=== PATIENT | male | born 1945 | race Caucasian/White ===

== ENCOUNTER 2025-03-25 14:05 | Inpatient (IN) | payer OTHER, SELFPAY ==
[2025-03-25] VITALS (24 sets, daily range): BP systolic 104–139; BP diastolic 32–96; PULSE 2–88; BMI 22.0
--- NOTE | 2025-03-25 14:25 | CON.CAR ---
Addendum entered and electronically signed by Alvaro Ortiz DO 03/25/25 17:38:
[place]-Ac catheter sedation shows severely elevated pulmonary filling pressures with preserved cardiac index on thermodilution and Shawna equation.
We will start a Bumex drip for aggressive diuresis.
Plan for cardiac catheterization and PCI of the LAD when stabilized from a hemodynamic standpoint and renal function has returned to baseline.
Given the clinical context of multiple episodes of heart failure with preserved ejection fraction, acute on chronic renal disease, pulmonary hypertension and conduction abnormality (first-degree AV block, left bundle branch block), differential
diagnosis must include infiltrative disease including amyloidosis.
Check renal ultrasound to rule out obstruction.
Check urine protein to creatinine ratio.
Based on response, we should consider SPEP/UPEP with immunofixation.
Original Note:
Consultation
Consultation Request
Date/Time Consultation Requested: 03/25/2025; 14:26
Date/Time Consultation Performed: 03/25/2025; 14:27
Requesting Provider: Anil Corley M.D.
Performing Provider: Alvaro Ortiz D.O.
Reason for Consultation: Hypoxic respiratory failure, HFpEF, Hx of SAVR, flash pulmonary edema, CAD.
Medical History
-
Chief Complaint: Transfer from [facility] for higher level of care.
History of Present Illness:
79 y/o male with a history of severe aortic valve stenosis s/p bioprosthetic SAVR (#29 Trifecta, 2008), HTN, HLD, NIDDM, CKD3a (baseline creatinine 1.9), a history of bladder CA in remission and multiple admissions for HFpEF transferred from [facility].
The patient presented to [facility] on 03/19/2025 with flash pulmonary edema. He was placed on non-invasive BiPAP ventilation and diuretics were administered with limited efficacy. The patient lapsed into atrial fibrillation and was stated on therapeutic
heparin (in addition to aspirin and clopidogrel). He did have mild hemoptysis. Pharmacologic SPECT suggested an ischemic component. Cardiac catheterization showed severe pulmonary hypertension with a severely elevated PCWP (27 mmHg) and an 80%
obstructive (FFR = 0.67), calcified mLAD lesion. The patient's renal function has deteriorated and creatinine has risen from 1.9 to 2.6. He was found to be acute on chronically anemic and received a transfusion of 1 unit of PRBCs on 03/24/2025. In
spite of these interventions, the patient remains on 60 L of supplemental hi-flow oxygen.
On review of the patient's outpatient cardiology records, he usually sees Dr. Virgen. Dr. Virgen reports that the patient was stable in November of this year, but had several HFpEF admission in the preceeding year. Interestingly, the patient had
evidence of severe, exertional hypoxia (desaturation to 81-83% with activity) and had been referred to pulmonology for further evaluation of primary pulmonary disease. According to records, the patient underwent PFT's and 6 minute walk test in
December. There was minimal airway obstruction, mostly confined to the small airways. He walked 316 meters with an O2 erick of 91%. CT chest has shown tiny pulmonary nodules, but no evidence of extensive emphysema or parenchymal pulmonary disease.
DATA:
TTE, 03/20/2025:
1. Mildly dilated left atrium.
2. Mild aortic valve sclerosis without stenosis.
3. Moderate mitral valve regurgitation.
4. Abnormal septal motion consistent with left bundle branch block.
5. Left ventricular ejection fraction is estimated 50-55%.
6. Left ventricular systolic function is low normal.
Pharmacologic SPECT, 03/22/2025:
Abnormal myocardial perfusion imaging suggestive of inferoseptal ischemia and apical scar with an ejection fraction reduced at 46%.
Cardiac catheterization, 03/23/2025:
Hemodynamics:
RA = */14/11
RV = 69/9/13
PA = 67/32/47
PCWP = */35/27
LV = 139/12/21
AO = 134/32/76
Cardiac output (Thermo) = 4.87
Cardiac index (Thermo) = 2.95
Cardiac output (Shawna) = 4.15
Cardiac index (Shawna) 2.52
PVR (Thermo) = 4.11
PVR (Shawna) = 4.8
Coronary angiogram:
Dominance = right.
LMCA = moderate calcification, distal 20% stenosis.
LAD = normal size vessel giving rise to 1 diagonal before wrapping around the apex. 20% ostial stenosis. 80% and 60% proximal stenoses (FFr = 0.67). 10% and 20% mid stenosis. 30% stenosis in the ostium/proximal margin of D1.
RI = 20% ostial stenosis.
LCx = moderate tortuosity. 50-60% stenosis in the proximal margin. 20% stenosis in the ostial/proximal OM1.
RCA = 10% and 20% proximal stenosis, 20% and 30% mid stenosis, 40% distal stenosis, luminal irregularities in the PDA.
Past Medical History
Past Medical History: CAD, Cancer (Bladder CA in remission - yearly cystoscopy.), CHF (Acute on Chronic HFpEF.), HTN, Hypercholesterolemia, NIDDM, Renal Failure and Valvular Disease (Severe aortic valve stenosis, moderate mitral regurgitation.)
Past Surgical History: Cardiac (#29 Trifecta AVR for severe , 2009 @ [facility].) and Urological (Routine cystoscopy for bladder CA surveillance.)
Social History
Alcohol: Occasional
Drug: None
Personal:
Living: With Family
Employment: Retired
Family History
Family History: Reviewed & Not Pertinent
Allergies / Home Medications
Allergy/AdvReac Type Severity Reaction Status Date / Time
No Known Allergies Allergy Unverified 04/13/10 17:50
�Medication �Instructions �Recorded �Confirmed �Type
allopurinol 300 mg tablet 300 mg PO DAILY 03/25/25 History
amlodipine 5 mg tablet 5 mg PO BID 03/25/25 History
carvedilol 12.5 mg tablet 12.5 mg PO BID 03/25/25 History
empagliflozin 10 mg tablet 10 mg PO DAILY 03/25/25 History
ezetimibe 10 mg-simvastatin 40 mg 1 tab PO HS 03/25/25 History
tablet
gabapentin 100 mg tablet 100 mg PO TID 03/25/25 History
hydralazine 50 mg tablet 50 mg PO TID 03/25/25 History
repaglinide 1 mg tablet 1 mg PO BID@08,17 03/25/25 History
Review of Systems
-
History Source: Patient
Constitutional: No Symptoms
EENT: No Symptoms
Respiratory: Hemoptysis and Trouble Breathing
Cardiac: No Symptoms
Abdomen/GI: No Symptoms
: No Symptoms
Musculoskeletal: No Symptoms
Skin: No Symptoms
Physical Exam
Physical Exam
General: Well Developed
HEENT: Normocephalic, Anicteric and Moist Mucous Membranes
Respiratory: Other (Decreased/tubular in the bilateral bases.)
Cardiac: S1/S2, Regular Rhythm and JVD
Breast: Deferred by me
GI: Soft, Non Tender, Non Distended and Normal Bowel Sounds
Rectal: Deferred by Provider
Musculoskeletal: No Clubbing, No Cyanosis and Edema
Skin: Warm and Dry
Neuro: AO x 3
Hematologic/Lymphatic: No Lymphadenopathy
Psych: Calm
Impression / Plan
-
Impression/Plan: 79 y/o male with extensive past medical history admitted with flash pulmonary edema/hypoxic respiratory failure, found to have severely elevated filling pressures, prior exertional oxygen desaturation and worsening anemia and renal
function with lackluster diuresis and new diagnosis of occlusive CAD.
#Hypoxic respiratory failure
-Acute on chronic.
-Multifactorial. Obvious component of HFpEF. Outpatient notes suggest there is a component of primary pulmonary disease.
-Patient would benefit from placement of [place]-Ac PA catheter for invasive hemodynamic monitoring and deciding if the patient requires inotropic support.
-Diuresis TBD after PA catheter placement.
-Pulmonary/critical care consult. No role for repeat PFT's in this acute setting.
#HFpEF
-Acute on chronic.
-Echo report reviewed. Mean gradient of the aortic valve was 13 mmHg. Moderate MR.
-Repeat TTE.
-PA catheter/diuresis/inotropic support as above.
-GDMT on hold during acute decompensation.
#CAD
-New diagnosis.
-Cardiac catheterization at [facility] shows mLAD lesion.
-HF/pulm edema seems out of proportion to CAD.
-Revascularization when stabilized.
#CKD
-Acute on chronic.
-Creatinine up to 2.6 at [facility].
-Likely cardiorenal, but PA catheter will help us assess volume status and guide therapy.
-Hold ACEI/ARB/ARNi/MRA/SGLT2i.
#Anemia
-Chronic (per report).
-DDx includes acute blood loss anemia, anemia of kidney disease, precursor deficiency, hemolysis, myelodysplastic syndrome.
-Check indices, Fe levels, B12, folate, thiamine, reticulocyte count, peripheral smear.
-Keep H/H > 8/24.
Critical Care Time = 55 minutes.
Data Reviewed
-
EKG: Report Reviewed by me
Radiology: Report Reviewed by me
CT Scan: Report Reviewed by me
Medical Tests (Nuc Med, Echo etc): Image Personally Visualized and interpreted, Report Reviewed by me and Discussed with Physician
Labs: Labs Reviewed by me, Discussed with Physician and Discussed with Patient
Old Records: Reviewed
[2025-03-25 14:28] LABS: Glucose - Point of Care 306 mg/dl (70-99)
--- NOTE | 2025-03-25 14:28 | CON.INTV ---
Consultation
Consultation Request
Date/Time Consultation Requested: 03/25/2025
Date/Time Consultation Performed: 03/25/2025
Requesting Provider: Dr. Ortiz
Performing Provider: Dr. Lebron Dailey
Reason for Consultation: Acute hypoxemic respiratory failure
Medical History
-
History of Present Illness:
79-year-old man with past medical history significant for heart failure, mitral valve prolapse, prior aortic stenosis status post AVR in 2008, type 2 diabetes, COPD on 2 to 4 L supplemental oxygen continuously, hypertension, initially presented to
[facility] 03/19/2025 per records complaining of increased shortness of breath, leg swelling over the last week or so.
Patient was diagnosed with acute on chronic heart failure/positive increased troponin. Increased work of breathing requiring BiPAP therapy and subsequently transition to mid flow oxygen.
EKG demonstrated rapid atrial fibrillation.
Evaluation included diagnostic cardiac catheterization. 03/23/2025. Pulmonary capillary wedge pressure was 27. Cardiac index was 2.95.
Patient was treated with a standard diuresis.
Patient was also empirically treated with antibiotic for possible pneumonia.
Given persistent hypoxemia despite diuresis and difficulty with his chronic kidney disease, abnormal stress test with possible significant LAD lesion he was sent to [facility] for further evaluation potential intervention. 03/25/2025
Past Medical History
Past Medical History: Other (See assessment and plan)
Social History
Tobacco: Former Smoker (Quit longer than 10 years ago)
Alcohol: Occasional (Once a month)
Drug: None
Personal:
Living: With Family
Employment: Retired
Family History
Family History: Reviewed & Not Pertinent
Allergies / Home Medications
Allergies
Allergy/AdvReac Type Severity Reaction Status Date / Time
No Known Allergies Allergy Unverified 04/13/10 17:50
Home Medications
�Medication �Instructions �Recorded �Confirmed �Last Taken �Type
allopurinol 300 mg tablet 300 mg PO DAILY 03/25/25 Unknown History
amlodipine 5 mg tablet 5 mg PO BID 03/25/25 Unknown History
carvedilol 12.5 mg tablet 12.5 mg PO BID 03/25/25 Unknown History
empagliflozin 10 mg tablet 10 mg PO DAILY 03/25/25 Unknown History
ezetimibe 10 mg-simvastatin 40 mg 1 tab PO HS 03/25/25 Unknown History
tablet
gabapentin 100 mg tablet 100 mg PO TID 03/25/25 Unknown History
hydralazine 50 mg tablet 50 mg PO TID 03/25/25 Unknown History
repaglinide 1 mg tablet 1 mg PO BID@08,17 03/25/25 Unknown History
Review of Systems
-
History Source: Patient
All other systems: Negative unless noted
Vitals / Labs / Diagnostic Testing
Diagnostic Testing:
Physical Exam
-
HEENT: Normocephalic
Cardiovascular: S1/S2, Regular Rhythm and JVD (Positive)
Respiratory: Rales (n) and Other (Diminished both bases)
GI: Soft and Non Distended
Neurology: Awake and Alert
Skin: Warm
General: Respiratory Distress (Mild at rest)
Exam:
CBC 03/19/2025: Hemoglobin 10.5. Normal platelet count.
Assessment
-
79-year-old man with past medical history significant for heart failure, mitral valve prolapse, prior aortic stenosis status post AVR in 2008, type 2 diabetes, COPD on 2 to 4 L supplemental oxygen continuously, hypertension, initially presented to
[facility] 03/19/2025 per records complaining of increased shortness of breath, leg swelling over the last week or so.
Patient was diagnosed with acute on chronic heart failure/positive increased troponin. Increased work of breathing requiring BiPAP therapy and subsequently transition to mid flow oxygen.
EKG demonstrated rapid atrial fibrillation.
Evaluation included diagnostic cardiac catheterization. 03/23/2025. Pulmonary capillary wedge pressure was 27. Cardiac index was 2.95.
Patient was treated with a standard diuresis.
Patient was also empirically treated with antibiotic for possible pneumonia.
Given persistent hypoxemia despite diuresis and difficulty with his chronic kidney disease, abnormal stress test with possible significant LAD lesion he was sent to [facility] for further evaluation potential intervention. 03/25/2025
Extensive review of records, discussion with cardiology and primary team. Family updated by Dr. Dailey 03/25/2025
Acute hypoxemic respiratory failure-on high flow
Acute on chronic congestive heart failure with reduced ejection fraction-nuclear stress test 03/22/2025 LVEF 46% with regional motion wall abnormality suggestive of ischemia and scarring.
Initial chest x-ray: Bilateral perihilar infiltrate consistent with pulmonary edema
Initial proBNP 03/19/2025: 1655
Conditions present prior admission:
Congestive heart failure
Nonobstructive coronary artery disease
LBBB
CKD stage III
History of bladder carcinoma
Mitral valve prolapse
Type 2 diabetes
Hyperlipidemia
Hypercholesterolemia
Chronic obstructive pulmonary disease on 2 L supplemental oxygen
History of severe /Bicuspid aortic valve-history of heart valve trifecta replacement 12 years ago-2008
BPH
History of gout
Former smoker quit smoking longer than 10 years ago
Assessment and plan:
Patient is critically ill
Hypoxemic respiratory failure due to acute on chronic heart failure/moderate MR/nonobstructive coronary marielle disease/new onset atrial fibrillation.
Worsening up to 15 L here. Usually not on oxygen therapy transition to high flow oxygen. Maintain pulse ox above 90%.
Discussed with cardiology and primary team-plan is to place a [place]-Ac catheter to guide diuresis.
Heparin drip-follow PTT
Continue heart failure management per cardiology.
Renal function and hemodynamics will need to be followed closely in the critical care unit.
Nephrology will be consulted-waiting for BMP.
-
Obtain chest x-ray
Will utilize BiPAP at bedtime and as needed 12/5. For increased work of breathing.
Timing of potential intervention will be guided by response to medical management per
-
Anemia of CKD-hemoglobin 8.2 on 03/25/2025
Update CBC
Status post 1 unit of packed red blood cells 03/22/2025
Follow H&H
Transfuse as necessary.
-
Chronic kidney disease
Repeat BMP particularly after cardiac catheterization performed a few days ago.
Stanton in place with clear urine
-
Type 2 diabetes-insulin sliding scale
Hold oral hypoglycemics for now
-
COPD -6 minute walk test in December 2024 with low saturation 91%. Hold edema.
Remote history of smoking
On report from [facility], CAT scan in 2022 showed tiny pulmonary nodules without significant parenchymal lung abnormality.
[facility] report recent pulmonary function testing with a small airways disease without airflow obstruction by ATS criteria.
Not bronchospastic on exam.
No indication for bronchodilators at this point.
No PFT available
Obtain chest x-ray now
-
Daily wine consumption- watch for withdrawal.
-
Low-sodium diet.
DVT prophylaxis on heparin drip.
Critical care statement: A total of 90 minutes of critical care time was provided for this patient today. This includes management of unstable vital signs, evaluation of the patient at bedside, reviewing the patient's pertinent medical records
including ventilator settings, arterial blood gases, radiographs, microbiology, laboratory evaluations and discussion with primary team, critical care nursing, and respiratory therapy.
---
Data reviewed:
Initial chest x-ray [facility] 03/19/2025: Bilateral perihilar infiltrates with bilateral pleural effusions.
-
Chest x-ray March 24, 2025 report from [facility]:
Perihilar interstitial vascular prominence. Persistent. Mild elevation of the left hemidiaphragm. No pleural effusions. Worsening per report
-
Nuclear stress test: 03/22/2025: Abnormal myocardial perfusion imaging suggesting of inferoseptal ischemia and apical scar with ejection fraction reduced at 46%.
-
Left and right heart catheterization 03/23/2025
Pulmonary capillary wedge pressure 27. Pulmonary artery mean pressure 41. Cardiac index 2.95. Cardiac output 4.87 (thermodilution)
Coronary angiogram: Moderate calcification distal 20% stenosis
Left anterior descending ostial 20% stenosis. Proximal 80% stenosis and 60% stenosis.
Diagonal #1: Ostial 30%.
Circumflex 50 to 60%.
Right coronary artery less than 40% stenosis.
-
Echocardiogram 03/20/2025:
LVEF 50 to 55%
Abdominal paradoxical septal motion consistent with left bundle branch block.
Normal right ventricular size and function.
Right atrium is normal size.
Normal mitral valve.
Moderate mitral valve regurgitation.
Aortic valve mild sclerosis. Suggestion of mild aortic sclerosis.
[2025-03-25] MEDS: HEPARIN 25000 UNITS/250 ML IV ×2 (14:38→22:20)
[2025-03-25 15:35] LABS: Hematocrit 25.3 % (39.0-52.0); Hemoglobin 8.5 g/dL (13.0-18.0); Mean Corp Hgb Conc. 33.6 g/dL (33.0-37.0); Mean Corpuscular Volume 89.7 fL (80.0-94.0); Nucleated Red Blood Cells % 0 % (-); Platelet Count 180 10^3/uL (130-400); Red Cell Dist. Width 14.9 % (11.5-14.5)
[2025-03-25 15:36] LABS: Glucose - Point of Care 244 mg/dl (70-99)
[2025-03-25 15:38] LABS: INR 1.11; PT 14.6 Sec (11.4-14.6)
[2025-03-25 15:41] LABS: APTT 131.0 Sec (23.4-35.0)
--- NOTE | 2025-03-25 15:44 | HPS.HSE ---
Addendum entered and electronically signed by Gene Cisneros MD, Resident 03/25/25 18:02:
Nephrology input appreciated.
-Start on Bumex at a rate of 1mg/hr
-Check US Renal Artery.
Original Note:
Family Physician
-
Family Physician: Edilia Savage
Chief Complaint
-
shortness of breath
History of Present Illness
This is an 79y/o male with PMH of HFpEF, CKD Stage 3a, Bladder carcinoma, T2DM, HLD, severe aortic stenosis s/p valve replacement in 2008, COPD on 2L home oxygen BPH who presents to [facility] as a transfer from [facility] for
increased shortness of breath. History obtained from patient at bedside, and review of medical records. He presented to [facility] 03/19/2025 complaining of increased shortness of breath at rest and with exertion, and bilateral lower
extremity swelling. He was admitted to their ICU, initiated on IV Lasix, BiPaP. During hospitalization, he went into A-fib, started on heparin drip. His hospitalization was complicated by persistent hypoxemia despite ongoing diuresis. In
addition, his creatinine level kept worsening with diuresis. He eventually got a diagnostic cardiac catheterization on 03/23/2025 which showed PCWP 27, cardiac index 2.95. Despite diuresis, he continued to require high flow oxygen and BiPAP. He was
transferred to [facility] today for management of his ongoing acute issues. At bedside today, he denies chest pain, palpitations. He denies fever, chills, cough. His most recent laboratory at [facility] WBC 11, Hgb 8.2, HCT 24.2, PLT 178. BUN 64,
Cre 2.66, egfr 23. Na 137, K 3.7.
Medical History
Past Medical History
Past Medical History: Reports Other (CAD, T2DM, hypertension, hypercholesterolemia, HFpEF, CKD stage III, valvular disease, bladder cancer in remission, LBBB, COPD on 2 L home oxygen, gout, former smoker, chronic alcohol use)
Past Surgical History: Reports Urological (Cystoscopy) and Other (Aortic valve replacement)
Social History
Tobacco: Former Smoker (Quit in 2013)
Alcohol: Daily (Patient admits to daily wine consumption)
Drug: None
Personal:
Living: With Family
Employment: Retired
Family History
Family History: Not pertinent
Allergies / Home Medications
Allergies reflects when Allergies were last updated in [employer].
Home Medications with original date entered in [employer]
Allergy/Medication List:
Allergies
Allergy/AdvReac Type Severity Reaction Status Date / Time
No Known Allergies Allergy Unverified 04/13/10 17:50
Home Medications
allopurinol 300 mg tablet 300 mg PO DAILY 03/25/25
amlodipine 5 mg tablet 5 mg PO BID 03/25/25
carvedilol 12.5 mg tablet 12.5 mg PO BID 03/25/25
empagliflozin 10 mg tablet 10 mg PO DAILY 03/25/25
ezetimibe 10 mg-simvastatin 40 mg tablet 1 tab PO HS 03/25/25
gabapentin 100 mg tablet 100 mg PO TID 03/25/25
hydralazine 50 mg tablet 50 mg PO TID 03/25/25
repaglinide 1 mg tablet 1 mg PO BID@08,17 03/25/25
Review of Systems
-
A 12 point ROS was completed and negative except as noted: Yes
Constitutional: Reports See HPI
EENT: Reports See HPI
Respiratory: Reports See HPI
Cardiac: Reports See HPI
Abdomen/GI: Reports No Symptoms
Musculoskeletal: Reports No Symptoms
Physical Exam
Vital Signs
Vital Signs
Temp Pulse Ox
98.3 F 92
03/25/25 14:15 03/25/25 14:43
Physical Exam
General: Conversant and Appears Chronically Ill
HEENT: NormoCephalic
Respiratory: Decreased Breath Sounds (Bilateral bases); No Wheezes, Rhonchi or Crackles
Cardiac: S1/S2, Regular Rhythm and JVD
GI: Soft, Non Tender, Non Distended and Normal Bowel Sounds
Genito-urinary: Stanton (With clear urine)
Musculoskeletal: No Cyanosis and No Edema
Neuro: Awake, Alert, Oriented and AO x 3
Psych: Calm
Laboratory Results
-
03/25/25 15:18
Laboratory Results
PT 14.6 Sec (11.4-14.6) 03/25/25 15:18
INR 1.11 03/25/25 15:18
APTT 131.0 Sec (23.4-35.0) H 03/25/25 15:18
Impression/Plan
-
Assessment/plan
#Acute on chronic hypoxemic respiratory failure secondary to below
#Acute on chronic HFrEF
-Recent echocardiogram 03/20/2025 with a EF 50-55%. Moderate mitral regurgitation. Abnormal septal motion consistent with left bundle branch block.
-Repeat echocardiogram
-Cardiology consulted, input appreciated
-Placement of [place]-Ac pulmonary catheter today
-Diuresis after procedure.
-Continue high flow oxygen
-BiPAP at bedtime and as needed
-Wean as tolerated
-Consult nephrology given worsening BHUPINDER with diuresis at [facility]
-CXR today at [facility]- There is airspace disease bilaterally and diffusely but most pronounced in the right lower lobe. This is likely related to pneumonia
-[employer] following
#Paroxysmal atrial fibrillation
-During his hospitalization at [facility], he went into A-fib
-in NSR on presentation here.
-During hospitalization, His Coreg dosage was increased to 25 mg
-Cardizem 30 mg was added to his regimen
-He was on anticoagulation with heparin
-Cardiology following
#Pneumonia
- At [facility], was being treated for pneumonia with Zosyn
- CXR- There is airspace disease bilaterally and diffusely but most pronounced in the right lower lobe. This is likely related to pneumonia
-Cultures and MRSA screen on review of records were negative
-He was continued on ABX as of yesterday(has gotten a 6 day course so far)
-D/C abx. Monitor clinically
#CAD s/p stent
-Cardiac catheterization at [facility] showed LAD lesion
-He was Started on aspirin and clopidogrel
# BHUPINDER on CKD 3a
-On review of labs from [facility], creatinine today 2.6. (Baseline 1.9)
-Likely prerenal etiology in the setting of cardiorenal syndrome, worsening during his hospitalization with diuresis
-Recheck BMP
-Nephrology consulted
-Hold SGLT2i
#Acute on chronic anemia
-Etiology anemia of chronic disease
-During his hospitalization at [facility], he required 1 unit of PRBC
-Check iron studies
-Monitor H&H
#T2DM
-Hold repaglinide
-Coverage with SSI
-Update A1c
#COPD
-On home oxygen 2 L
-Not on bronchodilators
#Chronic alcohol use
-Watch for withdrawal symptoms
-States his last drink was 3 weeks ago
#History of aortic stenosis s/p AVR
#History of gout�allopurinol
#History of bladder cancer currently in remission
#Remote tobacco user
CODE STATUS full code
DVT prophylax heparin
Medications he was taking at [facility] as of today
Heparin, Zosyn, Bumex 2 mg every 8, clopidogrel 75 mg, Ultram 50 mg, Cardizem 30 mg every 8, glargine 7 units, Jardiance 10 mg, Coreg 25 mg, lispro sliding scale, simvastatin 20 mg, Zetia 10, sodium bicarbonate 650 mg, hydralazine 50 mg, allopurinol
300 mg, aspirin 81 mg, gabapentin 100 mg, pantoprazole 40 mg,
--- NOTE | 2025-03-25 15:51 | PTCARENOTE ---
Pt arrived via ambulance as a transfer from [facility] at approx 1430. Complete assessment on admission, EKG done showing SR with 1st degree heart block and PACs. CHG bath and ojeda cath care done. BP 125/49. Heparin drip at 10.5 ml/hr. CXR done.
All lab work drawn and sent. Ojeda cath draining mod amt yellow urine. Pt arrived on mid flow 15L, lobes with crackles throughout. Sat was 85%. Fio2 changed to high flow 60L, 100%, O2 sat=92%. Pt seen by Dr Kymberly Mcclure, Dr Dailey, and Dr Ortiz. Report
given to Arian BATISTA from [employer]. Pt brought down via bed, 2 RNs, and resp therapist to [employer] at 1535. Pt's family to room and updated.
[2025-03-25 16:37] LABS: Blood Urea Nitrogen 68 mg/dl (9-20); Calcium 8.8 mg/dl (8.4-10.2); Carbon Dioxide 24 mmol/L (22-30); Chloride 101 mmol/L (98-107); Estimated Creatinine Clearance 21 ml/min; Glucose 257 mg/dl (70-99); Magnesium 2.3 mg/dl (1.6-2.3); Potassium 4.2 mmol/L (3.5-5.1); Sodium 136 mmol/L (135-145); eGFR 26.44
--- NOTE | 2025-03-25 16:45 | ITS.CL.CATH ---
Addendum entered and electronically signed by Alvaro Ortiz DO 03/25/25 17:09:
Copy To: Rafi Boone M.D.
Original Note:
[facility] Compliance Coordinator - Catheterization
Cardiac Catheterization
Procedure Report:
RIGHT HEART CATHETERIZATION
Date of Procedure: 03/25/2025
Referring: Naima Boyd M.D.
INDICATION: Severe hypoxic respiratory failure, clarification of volume status with acute on chronic kidney injury.
ACCESS:
8 Irish right internal jugular vein using a modified Seldinger technique with a micropuncture kit under ultrasound guidance.
CATHETERS:
7 point Irish Dexter-Ac.
PROCEDURE:
The patient was prepped and draped in standard sterile fashion. The area at the base of the right neck was anesthetized with 1% lidocaine. Under ultrasound guidance, the right internal jugular vein was punctured and a micropuncture wire was
inserted into the right atrium without difficulty. The needle was withdrawn and a micropuncture sheath was advanced over the wire and into the right internal jugular vein. The wire and internal dilator were removed and a J-wire was advanced
through the outer dilator. The outer dilator was withdrawn and a small incision was made at the base of the neck to accommodate the larger sheath. An 8 Irish sheath was inserted into the right internal jugular vein. A 7.5 Irish Dexter-Ac
catheter was advanced through the sheath into the superior vena cava. An SVC oxygen saturation was drawn. The balloon wedge catheter was advanced into the pulmonary artery and a pulmonary artery oxygen saturation was drawn. Arterial oxygen
saturation was assumed from pulse oximetry. Cardiac output was calculated using the Shawna equation and thermodilution. The PA, wedge, RV and RA pressures were measured. The Dexter-Ac catheter was locked in place using the cover, 54 cm at the hub.
The 8 Irish sheath was sutured in place and covered with 3 Tegaderms.
Weight (kg): 61.7
PA (s/d/x mmHg): 89/39/58
PCWP (a/v/x mmHg): 56/49/34
RV (s/x mmHg): 89/19
RA (a/v/x mmHg):
SVC SvO2 (%): 54.9
IVC SvO2 (%): Not obtained.
RA SvO2 (%): Not obtained.
RV SvO2 (%): Not obtained.
PA SvO2 (%): 46.3
SaO2 (%): 92.0 (assumed, on 50 L high flow)
Hbg (g/dL): 8.8
Shawna
CO (liters/minute): 3.46
CI (liters/minute/m2): 2.03
Thermodilution
CO (liters/minute): 4.0
CI (liters/minute/m2): 2.35
TPG (mmHg): 24
PVR (Doan Units): 6
AVO2 Difference (Volume %): 5.47
Radiation (mGy): 6.94
DAP (cm2.Gy): 0.9623
Fluoroscopy time (minutes): 0.5
CONCLUSION:
1. Severely elevated filling pressures (PCWP = 34 mmHg at 61.7 kg).
2. 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
3. Preserved cardiac index (2.35 L/min/m� by thermodilution, 2.03 L/min/m� by Shawna).
RECOMMENDATIONS:
1. Expectant management after right heart catheterization via right internal jugular approach.
2. Initiate aggressive diuresis.
3. Begin workup for intrinsic pulmonary disease, including a CT chest, possible autoimmune workup. We will consider CTEPH.
Copy to: Naima Boyd M.D., Iliana BravoO.
Alvaro Ortiz D.O., FACC, FACP
--- NOTE | 2025-03-25 16:46 | W.PN.UPDATE ---
Update Note
Progress Note Update
I personally performed a history and physical exam of the patient and discussed management with the resident. I reviewed the resident's note and agree with the documented findings and plan of care HPI/CC.
Patient is a 79-year-old male with past medical history of chronic diastolic congestive heart failure, history of aortic stenosis status post AVR, type 2 diabetes, paroxysmal atrial fibrillation , COPD on chronic oxygen, essential hypertension, CKD
stage IIIa was transferred from [facility] after patient was felt to having flash pulmonary edema with underlying valvulopathy. Patient was initially hospitalized at [facility] on 03/19/2025 where patient underwent a left heart
catheterization on 03/23 showing severe pulmonary hypertension with elevated pulmonary capillary wedge pressure of 27 of Hg and mid LAD lesion. Patient was being diuresed unfortunately clinically patient condition deteriorated and there was concern
of patient along flash pulmonary edema requiring BiPAP support. Patient was transferred to ER for further evaluation by cardiology.
At transfer patient was requiring high flow oxygen with 100% FiO2 at rate of 50 L/min. Patient was satting 90-93 on pulse oximetry. Patient was dyspneic with some dry cough. No chest pain/abd pain/constipation/nausea/vomiting/diarrhea
HEENT: on high flow o2 50L, min
NECK: Supple. No JVD.
RESPIRATORY: crackles at bases, rhonchi
CVS: S1, S2 normal. tachycardic. No murmur, rub or gallop.
ABDOMEN: Soft, non-tender. No distension. BS+/normal.
EXTREMITIES: edmea LE
[employer]: AOx3. No focal deficits.
1. Acute on chronic hypoxic respiratory failure
- Chest x-ray reviewed and patient with diffuse pulmonary congestion
- Suspected component of volume overload
- Patient was planned to be evaluated by pulmonology at some point as well
2. Acute on chronic diastolic congestive heart failure
- Patient plan to get right heart catheterization - showed PCWP of 35mm/hg and CI 2 (normal)
- Will get repeat echocardiogram
- Discussed with cardio and nephro and patient may benefit with initiation on diuretic drip, await nephro eval.\\
3. CAD
Elevated troponin
- Trop max of 2 at [facility]
- LHC on 03/23 at [facility] showed mid LAD lesion of 80%
- cardio to plan for further intevention if warranted
- maintained on Asa/heparin drip.
4. BHUPINDER on CKDIIIA
- Reported some renal dysfunction
- Creatinine has been elevated to 2.6 in moring at [facility], down 2.4
- suspecting component of cardio-renal syndrome.
- areli/arb to be held
5. Normocytic anemia
- baseline unknown, no previous records to compare with. monitor.
6. NIDDM
- Maintain on insulin sliding and diabetic diet
- Patient on repaglinide we will hold with underlying renal dysfunction as can develop refractroy hyperglycemia episode
7. HLD
- maintain on home dose of ezetimibe and simvastatin
8. Parox afib
- on heparin drip
- rate controlled on coreg, continue for now.
Full code
Total time spent : 78 mins
I personally saw and examined the patient.
I have reviewed all diagnostic interpretations and treatment plans as written.
Time includes patient management by me, time spent at the patients bedside, time to review lab and imaging results, discussing patient care, documentation in the medical record, and time spent with the family or caregiver and discussing care plan
with RN/Consultants.
--- NOTE | 2025-03-25 17:30 | W.CON.NEPH ---
Consultation
-
Date/Time Consultation Requested: 03/25/25 1449
Date/Time Consultation Performed: 03/25/25 1730
Requesting Provider: Foreign [employer]am
Performing Provider: Carlotta Linda
Reason for Consultation: Joyce, CKD
Medical History
-
Chief Complaint: SOB
History of Present Illness:
79y/o male with PMH of HFpEF, CKD Stage 3a follows Dr Nicole, [facility] met acidosis on po bicarb, Bladder carcinoma, T2DM, HLD, severe aortic stenosis s/p valve replacement in 2008, COPD on 2L home oxygen BPH who [place] [facility] [place]
from [facility] for increased shortness of breath today. He originally was admitted to [facility] on the 03/19/25 with the complaints of shortness of breath and lower exudate edema. He was treated for CHF flareup and He was
monitored in the ICU with the BiPAP on IV Lasix. During hospitalization, he went into A-fib, started on heparin drip. Despite all deficits approximately did not improve and creatinine started to increase. He presented with a creatinine of 1.5 and
reportedly peaked at 2.6. He also noted to be anemic and had a blood transfusion 2 days ago. He eventually got a diagnostic cardiac catheterization on 03/23/2025 which showed PCWP 27, cardiac index 2.95. Despite diuresis, he continued to require
high flow oxygen and BiPAP hence was transferred to [facility] today for management of his ongoing acute issues. patient is currently on BiPAP, high flow O2 and just came back from the right heart cath which shows pulmonary wedge pressure of
34. Plan was to start diuretic gtt. Nephrology consulted for further evaluation of JOYCE and adjustment of diuretic.
History is limited and most of the history is obtained per the chart and the family at bedside. Patient currently offers no chest pain or shortness of breath is improving. No abdominal pain or dysuria. He has a Stanton catheter and this was placed
at [facility]. He has no fever.
Past Medical History
CAD, T2DM, hypertension, hypercholesterolemia, HFpEF, CKD stage III, valvular disease, bladder cancer in remission, LBBB, COPD on 2 L home oxygen, gout, former smoker, chronic alcohol use
Past Surgical History: Other (AVR, cystscopy)
Social History
Tobacco: Former Smoker
Alcohol: Occasional
Drug: None
Personal:
Living: With Family
Employment: Retired
Family History
Family History: Not Pertinent
Allergies / Home Medications
Allergy/AdvReac Type Severity Reaction Status Date / Time
No Known Allergies Allergy Unverified 04/13/10 17:50
�Medication �Instructions �Recorded �Confirmed �Type
allopurinol 300 mg tablet 300 mg PO DAILY 03/25/25 History
amlodipine 5 mg tablet 5 mg PO BID 03/25/25 History
carvedilol 12.5 mg tablet 12.5 mg PO BID 03/25/25 History
empagliflozin 10 mg tablet 10 mg PO DAILY 03/25/25 History
ezetimibe 10 mg-simvastatin 40 mg 1 tab PO HS 03/25/25 History
tablet
gabapentin 100 mg tablet 100 mg PO TID 03/25/25 History
hydralazine 50 mg tablet 50 mg PO TID 03/25/25 History
repaglinide 1 mg tablet 1 mg PO BID@08,17 03/25/25 History
Review of Systems
-
All other systems: Negative unless noted
Physical Exam
Vital Signs
Vital Signs
Temp Pulse Ox
98.3 F 90
03/25/25 14:15 03/25/25 16:50
Lab Results
WBC 10.5 10^3/uL (4.8-10.8) 03/25/25 15:18
RBC 2.82 10^6/uL (4.70-6.10) L 03/25/25 15:18
Hgb 8.5 g/dL (13.0-18.0) L 03/25/25 15:18
Hct 25.3 % (39.0-52.0) L 03/25/25 15:18
Plt Count 180 10^3/uL (130-400) 03/25/25 15:18
Sodium 136 mmol/L (135-145) 03/25/25 15:18
Potassium 4.2 mmol/L (3.5-5.1) 03/25/25 15:18
Chloride 101 mmol/L (98-107) 03/25/25 15:18
Carbon Dioxide 24 mmol/L (22-30) 03/25/25 15:18
BUN 68 mg/dl (9-20) H 03/25/25 15:18
Creatinine 2.4 mg/dL (0.7-1.3) H 03/25/25 15:18
eGFR 26.44 03/25/25 15:18
Glucose 257 mg/dl (70-99) H 03/25/25 15:18
Calcium 8.8 mg/dl (8.4-10.2) 03/25/25 15:18
Phosphorus 5.0 mg/dl (2.5-4.5) H 03/25/25 15:18
Physical Exam
General: Awake, Alert, Oriented and AOx3
HEENT: EOMI, Anicteric, Facial Symmetry and Other (JVD+)
Respiratory: Nonlabored Respirations and Other (coarse BS)
Cardiac: S1/S2 and Regular Rate/Rhythm
Breast: Deferred by me
Abdomen: Soft, Nontender and Nondistended
Musculoskeletal: No Cyanosis and Edema (1+)
Skin: No Rash
Neuro: Nonfocal/Grossly Intact
Psych: Mood/afflect pleasant, Insight/judgement good and Appropriate
Data Reviewed
-
Medical Tests (Nuc Med, Echo etc): Report Reviewed by me, Discussed with Patient and Discussed with Family
Labs: Labs Reviewed by me, Discussed with Patient and Discussed with Family
Assessment/Plan
-
IMP:
Acute on chronic hypoxemic respiratory failureNorma
Acute on chronic HFrEF
-Recent echocardiogram 03/20/2025 with a EF 50-55%. Moderate mitral regurgitation. Abnormal septal motion consistent with left bundle branch block.
Paroxysmal atrial fibrillation
Pneumonia
CAD s/p stent
JOYCE on CKD 3a
Acute on chronic anemia
T2DM
COPD-On home oxygen 2 L
Chronic alcohol use
History of aortic stenosis s/p AVR
History of gout�allopurinol
History of bladder cancer currently in remission
Remote tobacco user
Plan:
A/w acute respiratory failure, CHF-Transfer from [facility], WP today 34
JOYCE-highly suspect CRS, check UA , U fena
monitor UOP, would start bumex 1mg /hr
wean O2 as able, currently on high flow O2
ok to check renal duplex too , family reports was hypertensive when admitted to [facility]
avoid nephrotoxins, hold jardaince fo rnow
adjust meds renally
follow labs
If fails to respond to diuretics high risk of HD-reviewed with family and pt
CC time spent 40min
[2025-03-25] MEDS: BUMEX 50 IV (17:56)
[2025-03-25 18:03] LABS: Glucose - Point of Care 256 mg/dl (70-99)
--- NOTE | 2025-03-25 18:33 | PTCARENOTE ---
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 Bedside C.O. =4.6, C.I.= 2.71, SVR= 1495. O2 increased to bipap 18/10 15L, O2 sat=92%. Lobes remain with crackles. Dr Dailey updated. Heparin drip was d/c'd by
Dr Ortiz and Bumex drip was started at 1 mg/hr. Stanton cath draining 50-70/ hr.
[2025-03-25] MEDS: NOVOLOG FLEXPEN-MODERATE RESISTANCE 5 UNITS SC (18:45)
[2025-03-25] MEDS: LANTUS 0.07 UNITS SC (19:00)
--- NOTE | 2025-03-25 19:20 | SUR.PHASEI ---
Assumed care. Patient received lying in bed on BIPAP, awake, alert and oriented. Denies pain when asked. Denies CP, SOB, N/V. Sats 90% on BIPAP 18/10, Rate 14 with 15L O2 bleed in. Dinner held at this time due to BIPAP and lower end sats. See RN
assessment charted on worklist flowsheet. Afebrile. CO calculated-- CO 4.73, CI 2.78. CVP 16. Per MD note, pressures have been running high. BBS with upper lobes clear. BBS diminished. Respirations non labored on BIPAP. S1S2 irregular with positive
murmur. Abdomen soft, nontender. Stanton catheter patent draining clear yellow urine. Right IJ [place] Ac with KVO NS to cordis. Site tegaderm reinforced. Right FA SL with Bumex infusing at 1mg/hr. Left forearm SL with good blood return, flushes
easily. CVP and PA catheters leveled and zeroed. Positive pulses x 4 extremities, trace bilateral ankle edema. Bed in position with transducers, locked. Call holley within reach.
[2025-03-25] MEDS: COREG 25 MG PO (19:56)
--- NOTE | 2025-03-25 21:00 | PTCARENOTE ---
PA pressures have been elevated since insertion and are stable around 70/30. CVP high as well as expected, 16-18. On Bumex gtt. Respiratory stable on BIPAP, oxygenation is currently 96%. BP stable. Dr Peterson contacted and updated, states goal CI
1.8. Currently within limits.
[2025-03-25] MEDS: LIPITOR 20 MG PO (21:50)
[2025-03-25] MEDS: ZETIA 10 MG PO (21:50)
--- NOTE | 2025-03-25 22:20 | PTCARENOTE ---
Orders clarified to restart Heparin gtt. Heparin gtt restarted at 1050units/hr. PTT due in 6 hours.
[2025-03-25 22:21] LABS: Urine Character Clear (Clear)
[2025-03-25 22:32] LABS: Urine Red Blood Cell 0-2 /HPF (0-2); Urine White Cell 16-20 /HPF (0-5)
[2025-03-25 23:37] LABS: Glucose - Point of Care 155 mg/dl (70-99)
[2025-03-25] MEDS: NOVOLOG FLEXPEN-MODERATE RESISTANCE 1 UNITS SC (23:47)
[2025-03-26] VITALS (38 sets, daily range): BP systolic 100–147; BP diastolic 29–82; PULSE 2–85; BMI 21.5
--- NOTE | 2025-03-26 00:05 | PTCARENOTE ---
Essentially no change in patient's physical assessment. Appears to be sleeping comfortably on BIPAP when undisturbed, BIPAP 15/8, rate 14, oxygen at 10L bleed in. Rouses easily to name called. Denies pain, denies CP, SOB, N/V, dizziness. No change
in rhythm, Afib with BBB on CM, HR 80s. DBP lower in the mid to upper 30s. MAP lower, < 60 in the last hour. Dr. Leone notified. Good UO, diuresing well. CVP improved to 9-12. CO calculated.
--- NOTE | 2025-03-26 00:24 | PTCARENOTE ---
Updated Dr. Peterson with Mr. Salazar clinical status. CO stable at 4.1, CI stable at 2.41. PA pressures essentially the same /. CVP has improved as well from 16 to now 9-12. However, now BP range is dropping, especially DBP--most recent 100/35.
MAP currently 56, has been less than 60 for about an hour prior to notification. Good UO with Bumex--has put out 775cc since 1900, total of 1360cc since admission, Looks like negative 875cc since admission. Checked with Dr. Peterson regarding
possible Inotropic support. Due to stability of CO/CI, continue current course, no new orders.
[2025-03-26] MEDS: BUMEX 50 IV ×2 (02:32→12:18)
--- NOTE | 2025-03-26 04:30 | PTCARENOTE ---
BBS clear except bilateral bases diminished. Maintaining sats on BIPAP 15/8, rate 14, 10L oxygen bleed in. HR stable. CO/CI stable. Am Labs drawn. No LE edema noted. Continues to diurese well on Bumex gtt. Appears to be sleeping comfortably when
left undisturbed with eyes closed, lying still, respirations nonlabored. Denies CP, SOB, N/V. Call holley in reach.
[2025-03-26 04:54] LABS: APTT 105.9 Sec (23.4-35.0)
[2025-03-26 04:59] LABS: Hematocrit 24.5 % (39.0-52.0); Hemoglobin 8.1 g/dL (13.0-18.0); Mean Corp Hgb Conc. 33.1 g/dL (33.0-37.0); Mean Corpuscular Volume 89.4 fL (80.0-94.0); Platelet Count 170 10^3/uL (130-400); Red Cell Dist. Width 15.2 % (11.5-14.5)
[2025-03-26 05:37] LABS: Blood Urea Nitrogen 63 mg/dl (9-20); Calcium 8.5 mg/dl (8.4-10.2); Carbon Dioxide 24 mmol/L (22-30); Chloride 106 mmol/L (98-107); Estimated Creatinine Clearance 22 ml/min; Glucose 108 mg/dl (70-99); Magnesium 2.3 mg/dl (1.6-2.3); Potassium 3.4 mmol/L (3.5-5.1); Sodium 141 mmol/L (135-145); eGFR 27.83
[2025-03-26] MEDS: NOVOLOG FLEXPEN-MODERATE RESISTANCE SC (06:05)
[2025-03-26] MEDS: KCL 20 MEQ PO (06:11)
--- NOTE | 2025-03-26 06:58 | PTCARENOTE ---
Report given verbally to oncCheryl ventura RN. Questions answered.
[2025-03-26 07:13] LABS: Glucose - Point of Care 162 mg/dl (70-99)
[2025-03-26] MEDS: NOVOLOG FLEXPEN-MODERATE RESISTANCE 1 UNITS SC (07:35)
[2025-03-26] MEDS: ASPIR LOW (ENTERIC COATED) 81 MG PO (07:35)
[2025-03-26] MEDS: COREG 25 MG PO ×2 (07:35→19:40)
--- NOTE | 2025-03-26 07:41 | W.PN.INTV ---
Today's Communication / Plan
Recommendations
- Chest x-ray and ABG in a.m.
- Add Protonix for DVT prophylaxis
Assessment
-
79-year-old man with past medical history significant for heart failure, mitral valve prolapse, prior aortic stenosis status post AVR in 2008, type 2 diabetes, COPD on 2 to 4 L supplemental oxygen continuously, hypertension, initially presented to
[facility] 03/19/2025 per records complaining of increased shortness of breath, leg swelling over the last week or so.
Patient was diagnosed with acute on chronic heart failure/positive increased troponin. Increased work of breathing requiring BiPAP therapy and subsequently transition to mid flow oxygen.
EKG demonstrated rapid atrial fibrillation.
Evaluation included diagnostic cardiac catheterization. 03/23/2025. Pulmonary capillary wedge pressure was 27. Cardiac index was 2.95.
Patient was treated with a standard diuresis.
Patient was also empirically treated with antibiotic for possible pneumonia.
Given persistent hypoxemia despite diuresis and difficulty with his chronic kidney disease, abnormal stress test with possible significant LAD lesion he was sent to [facility] for further evaluation potential intervention. 03/25/2025
Extensive review of records, discussion with cardiology and primary team.
03/26 overview: Patient currently on heparin infusion and Bumex drip. High flow nasal cannula on 100% FiO2 at 55 L. Patient was on BiPAP overnight. Creatinine slightly improved to 2.3 from 2.4 yesterday. Fluid balance -1.8 L so far.
#1. Acute hypoxemic respiratory failure due to pulmonary edema
#2. Severe pulmonary hypertension, primarily group 2 with elevated pulmonary capillary wedge pressure of 34. PVR elevated at 6, might have component of group 3 also with underlying COPD. Will pursue additional workup including CT chest, VQ scan
and PFTs once patient is more stable
#3. Acute on chronic heart failure with preserved ejection fraction
#4. Paroxysmal atrial fibrillation
#5. History of COPD, uses oxygen at home
#6. BHUPINDER with underlying CKD stage III
#7. Coronary artery disease, LAD disease noted, plan for PCI once more stable
#8. Aortic stenosis s/p AVR
#9. Anemia, suspect related to chronic disease
#10. Left-sided pleural effusion, suspect related pulmonary edema. Continue diuresis and follow-up x-ray in a.m.
Conditions present prior admission:
Congestive heart failure
Nonobstructive coronary artery disease
LBBB
CKD stage III
History of bladder carcinoma
Mitral valve prolapse
Type 2 diabetes
Hyperlipidemia
Hypercholesterolemia
Chronic obstructive pulmonary disease on 2 L supplemental oxygen
History of severe /Bicuspid aortic valve-history of heart valve trifecta replacement 12 years ago-2008
BPH
History of gout
Former smoker quit smoking longer than 10 years ago
Anemia
Assessment and plan:
Patient is critically ill
Hypoxemic respiratory failure due to acute on chronic heart failure/moderate MR/nonobstructive coronary marielle disease/new onset atrial fibrillation.
Currently on high flow nasal cannula
[place]-Ac in place
Heparin drip-follow PTT
Continue heart failure management per cardiology. Diuresing well
Renal function and hemodynamics will need to be followed closely in the critical care unit.
Nephrology service on case, creatinine minimally improved to 2.3.
-
Follow-up chest x-ray consistent with still pulmonary edema and might have enlarging left-sided pleural effusion.
Will utilize BiPAP at bedtime and as needed 09/09. For increased work of breathing.
Anemia of CKD-hemoglobin 8.1 on 03/26/2025
In view of cardiogenic shock, will target hemoglobin above 8. Transfuse as needed
-
Chronic kidney disease
Minimally improved creatinine, suspect cardiorenal syndrome
-
Type 2 diabetes-insulin sliding scale
Hold oral hypoglycemics for now
Continue insulin
-
COPD -6 minute walk test in December 2024 with low saturation 91%.
Remote history of smoking
On report from brenna Bass, CAT scan in 2022 showed tiny pulmonary nodules without significant parenchymal lung abnormality.
[facility] report recent pulmonary function testing with a small airways disease without airflow obstruction by ATS criteria.
Not bronchospastic on exam.
No indication for bronchodilators at this point.
No PFT available
-
Daily wine consumption- watch for withdrawal.
-
Low-sodium diet.
DVT prophylaxis on heparin drip.
GI prophylaxis with Protonix
Critical care statement: A total of 55 minutes of critical care time was provided for this patient today. This includes management of unstable vital signs, evaluation of the patient at bedside, reviewing the patient's pertinent medical records
including ventilator settings, arterial blood gases, radiographs, microbiology, laboratory evaluations and discussion with primary team, critical care nursing, and respiratory therapy.
---
Data reviewed:
[facility] 03/25/2025: 1. Severely elevated filling pressures (PCWP = 34 mmHg at 61.7 kg).
2. 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
3. Preserved cardiac index (2.35 L/min/m� by thermodilution, 2.03 L/min/m� by Shawna).
Initial chest x-ray [facility] 03/19/2025: Bilateral perihilar infiltrates with bilateral pleural effusions.
-
Chest x-ray March 24, 2025 report from [facility]:
Perihilar interstitial vascular prominence. Persistent. Mild elevation of the left hemidiaphragm. No pleural effusions. Worsening per report
-
Nuclear stress test: 03/22/2025: Abnormal myocardial perfusion imaging suggesting of inferoseptal ischemia and apical scar with ejection fraction reduced at 46%.
-
Left and right heart catheterization 03/23/2025
Pulmonary capillary wedge pressure 27. Pulmonary artery mean pressure 41. Cardiac index 2.95. Cardiac output 4.87 (thermodilution)
Coronary angiogram: Moderate calcification distal 20% stenosis
Left anterior descending ostial 20% stenosis. Proximal 80% stenosis and 60% stenosis.
Diagonal #1: Ostial 30%.
Circumflex 50 to 60%.
Right coronary artery less than 40% stenosis.
-
Echocardiogram 03/20/2025:
LVEF 50 to 55%
Abdominal paradoxical septal motion consistent with left bundle branch block.
Normal right ventricular size and function.
Right atrium is normal size.
Normal mitral valve.
Moderate mitral valve regurgitation.
Aortic valve mild sclerosis. Suggestion of mild aortic sclerosis.
Subjective Dataa
Subjective Data
Date of Service:
Date of Service: March 26, 2025
Subjective:
Patient comfortably in bed, on high flow currently, respiratory status stable and work of breathing is normal
Review of Systems
Genitourinary: Other (No new symptoms reported)
Objective Data
Data Reviewed
Vital Signs / I&O / Oxygen:
Vital Signs
Temp Pulse Resp BP Pulse Ox
98.4 F 90 22 124/42 92
03/26/25 07:18 03/26/25 07:35 03/26/25 06:30 03/26/25 07:35 03/26/25 07:27
Intake and Output
03/25/25 03/26/25 03/27/25
06:59 06:59 06:59
Intake Total 671.75 / 671.75
Output Total 2570 / 2570
Balance -1898.25 / -1898.25
SaO2 92
Nasal Cannula flow liters per 60
minute
Physical Exam
General: Comfortable
HEENT: Normocephalic
Cardiovascular: S1-S2
Respiratory: Crackles
GI: Soft and Non Distended
Neurology: Awake and Alert
Skin: Warm
Labs/Micro/Reports
Lab Data
03/26/25 04:34
03/26/25 04:34
Laboratory Results
03/25/25 03/26/25
15:18 04:34
PT 14.6
INR 1.11
APTT 131.0 H 105.9 H
--- NOTE | 2025-03-26 08:06 | W.PN.CD ---
Today's Communication / Plan
-
Bumex gtt
Monitor PA catheter CI > 1.8
Impression / Plan
-
Impression/Plan: 79 y/o male with extensive past medical history admitted with flash pulmonary edema/hypoxic respiratory failure, found to have severely elevated filling pressures, prior exertional oxygen desaturation and worsening anemia and renal
function with lackluster diuresis and new diagnosis of occlusive CAD.
#Hypoxic respiratory failure
-Acute on chronic.
-Multifactorial. Obvious component of HFpEF. Outpatient notes suggest there is a component of primary pulmonary disease.
-[place] Ac catheter in place RHC below
-currently on bumex gtt for diuresis; K > 4 Mag > 2
#HFpEF
-Acute on chronic.
-Echo report reviewed. Mean gradient of the aortic valve was 13 mmHg. Moderate MR.
-Repeat TTE.
-PA catheter wiht bumex gtt; goal CI of 1.8
-receiving coreg and BP tolerating; will hold if hypotension
#CAD
-New diagnosis.
-Cardiac catheterization at [facility] shows mLAD lesion.
-HF/pulm edema seems out of proportion to CAD.
-Revascularization when stabilized.
#CKD
-Acute on chronic.
-Creatinine up to 2.6 at [facility].
- Cr now 2.4
-Hold ACEI/ARB/ARNi/MRA/SGLT2i.
#Anemia
-Chronic (per report).
-DDx includes acute blood loss anemia, anemia of kidney disease, precursor deficiency, hemolysis, myelodysplastic syndrome.
-Check indices, Fe levels, B12, folate, thiamine, reticulocyte count, peripheral smear.
-Keep H/H > 8/24.
Critical Care Time = 32 minutes.
RHC: March 25 2025 CONCLUSION:
1. Severely elevated filling pressures (PCWP = 34 mmHg at 61.7 kg).
2. 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
3. Preserved cardiac index (2.35 L/min/m� by thermodilution, 2.03 L/min/m� by Shawna).
Physical Exam
Vital Signs/Labs
Vital Signs
Temp Pulse Resp BP Pulse Ox
98.4 F 90 22 124/42 92
03/26/25 07:18 03/26/25 07:35 03/26/25 06:30 03/26/25 07:35 03/26/25 07:27
03/25/25 03/26/25 03/27/25
06:59 06:59 06:59
Actual Weight 132 lb 15.02 oz
03/26/25 04:34
03/26/25 04:34
PT 14.6 Sec (11.4-14.6) 03/25/25 15:18
INR 1.11 03/25/25 15:18
APTT 105.9 Sec (23.4-35.0) H 03/26/25 04:34
Magnesium 2.3 mg/dl (1.6-2.3) 03/26/25 04:34
Physical Exam
Constitutional: No acute distress and Other (tachypneic)
EENT: Anicteric
Cardiovascular: Rhythm & rate is regular and Pedal edema present (trace)
Respiratory: Crackles Present
GI: Soft
Neuro/Psych: Alert and Oriented
Data Reviewed
-
Date of Service: March 26, 2025
Medical Decision Making: Reviewed Test Results
EKG: Tracing Personally Visualized and interpreted (sr)
Labs: Labs Reviewed by me
--- NOTE | 2025-03-26 08:13 | W.PN.HOSP.TC ---
Today's Communication/Plan
-
restart outpt meds as able--renal dose meds
cont bumex/heparin drips
follow and replete lytes
wean HI JOYA O2 as able
Assessment / Plan
Assessment / Plan
pt is an 79 year old male
Acute on chronic hypoxemic respiratory failure likely due to acute exacerbation of chronic heart failure with preserved EF (50-55% on echo from 03/20/25)--apprec cards--underwent RHC with severely elevated filling pressures with pulm HTN--cont bumex
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
Paroxysmal atrial fibrillation (unclear to me if new)--During his hospitalization at [facility], he went into A-fib--remains in afib here--cards directing heart meds--for now cont coreg, cardizem--IV heparin
hypokalemia--due to diuresis--replete as needed
Pneumonia--presumed CAP--treated at [facility]--received 6/6 days of zosyn--doubt PNA as mentioned above--agree with stopping ABX and following
CAD s/p stent/ severe with SAVR-Cardiac catheterization at [facility] showed LAD lesion--on asa--plavix stopped--apprec cards
BHUPINDER on CKD 3a--baseline creat 1.9--creat hovering around 2.4/2.3--agree likely cardiorenal--apprec renal--holding areli/arb/Jardiance--cont diureses with BMP monitoring--renal dose meds
Acute anemia on anemia of chronic disease --did receive 1 unit pRBC at [facility]---Hgb ~8-8.5--follow--iron studies not ordered
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
Chronic alcohol use--Watch for withdrawal symptoms--States his last drink was 3 weeks ago
History of aortic stenosis s/p AVR
History of gout�allopurinol
History of bladder cancer currently in remission
DVT proph-- heparin drip
CODE STATUS-- full code
Total Critical Care Time 32 minutes. I was immediately available to the patient and staff. I personally examined, reviewed labs, diagnostic images/reports, interpretations, treatment plans, discussed patient care with other providers and family
or caregivers (if patient is unable to make decisions), entered orders as appropriate and documented the medical record.
Anticipated Discharge: > 48 hours
Subjective/Interval History
-
Date of Service: March 26, 2025
pt feeling much better--remains on HI JOYA with bumex drip
Objective Data
-
Labs:
Laboratory Results
03/26/25 03/26/25
04:34 11:30
WBC 8.6
Hgb 8.1 L
Hct 24.5 L
Plt Count 170
APTT 105.9 H Pending
Sodium 141
Potassium 3.4 L
Chloride 106
Carbon Dioxide 24
BUN 63 H
Creatinine 2.3 H
Glucose 108 H
Calcium 8.5
Vital Signs:
max temp for 24 hours
03/25/25
19:20
Temp 98.9 F
Vital Signs
Temp Pulse Resp BP Pulse Ox
98.4 F 90 22 124/42 92
03/26/25 07:18 03/26/25 07:35 03/26/25 06:30 03/26/25 07:35 03/26/25 07:27
I&O
03/25/25 03/26/25 03/27/25
06:59 06:59 06:59
Intake Total 671.75 / 671.75
Output Total 2570 / 2570
Balance - / -
Review of Systems
-
All other systems: Reviewed and negative
Physical Exam
-
General: Well Developed, Well Nourished and No Apparent Distress
HEENT: Normocephalic, Atraumatic, Oxygen (HI JOYA) and Other (swan bhakti catheter in place)
Respiratory: Crackles
Cardiac: Irregular Rhythm; Negative Tachycardic or Bradycardic
GI: Soft, Nontender, Nondistended and Normal Bowel Sounds
Musculoskeletal: No Clubbing, No Cyanosis and No Edema
Neuro: Awake and Alert
Psych: Calm
[2025-03-26] MEDS: PROTONIX 40 MG PO (08:55)
--- NOTE | 2025-03-26 09:28 | PTCARENOTE ---
report received. assessments per work list. patient denies pain, alert and oriented. monitor afib with bbb. right IJ swan bhakti in place@54. heparin,Bumex per orders. lungs with crackles bibasilar, diminished. max high flow. pulse oximeter 91-95.
patient orthopneic, tachypneic with exertion. pulse oximeter to 80 with exertion. lengthy recovery period. abdomen soft. ojeda draining yellow clear urine. diuresing. Supervising Broker, hospitalist at bedside, orders received. call holley in reach. family
updated with plan of care
[2025-03-26 10:24] LABS: Glycohemoglobin (HgbA1c) 6.9 % (4.0-5.6)
--- NOTE | 2025-03-26 10:38 | W.PN.NEPH.PH ---
Today's Communication / Plan
-
cont bumex gtt, recheck labs later today
Assessment/Plan
-
IMP:
Acute on chronic hypoxemic respiratory failureNorma
Acute on chronic HFrEF
-Recent echocardiogram 03/20/2025 with a EF 50-55%. Moderate mitral regurgitation. Abnormal septal motion consistent with left bundle branch block.
Paroxysmal atrial fibrillation
Pneumonia
CAD s/p stent
BHUPINDER on CKD 3a
Acute on chronic anemia
T2DM
COPD-On home oxygen 2 L
Chronic alcohol use
History of aortic stenosis s/p AVR
History of gout�allopurinol
History of bladder cancer currently in remission
Remote tobacco user
Plan:
A/w acute respiratory failure, CHF-Transfer from [facility] today 34 on 03/25
BHUPINDER-highly suspect CRS,UA with pyuria, U pCR only 0.5gm/gm of cr
cont bumex 1mg /hr, replace k
wean O2 as able, currently on high flow O2, BiPAP at night
pending renal duplex
avoid nephrotoxins, hold jardaince for now
adjust meds renally
follow labs later today
hold po bicarb as no met acidosis currently
-
-
Date of Service: March 26, 2025
CC / HPI / ROS
-
Chief Complaint:
BHUPINDER, CKD
History of Present Illness:
cr slightly better at 2.3
BP stable , wt is down
remains on high flow O2, on BiPAP at night
no fever
hb low 8.1
Review of Systems:
no sob at rest, but desat with minimal activity
no fever
Labs
-
Labs:
WBC 8.6 10^3/uL (4.8-10.8) 03/26/25 04:34
RBC 2.74 10^6/uL (4.70-6.10) L 03/26/25 04:34
Hgb 8.1 g/dL (13.0-18.0) L 03/26/25 04:34
Hct 24.5 % (39.0-52.0) L 03/26/25 04:34
Plt Count 170 10^3/uL (130-400) 03/26/25 04:34
Sodium 141 mmol/L (135-145) 03/26/25 04:34
Potassium 3.4 mmol/L (3.5-5.1) L 03/26/25 04:34
Chloride 106 mmol/L (98-107) 03/26/25 04:34
Carbon Dioxide 24 mmol/L (22-30) 03/26/25 04:34
BUN 63 mg/dl (9-20) H 03/26/25 04:34
Creatinine 2.3 mg/dL (0.7-1.3) H 03/26/25 04:34
eGFR 27.83 03/26/25 04:34
Glucose 108 mg/dl (70-99) H 03/26/25 04:34
Calcium 8.5 mg/dl (8.4-10.2) 03/26/25 04:34
Phosphorus 5.0 mg/dl (2.5-4.5) H 03/25/25 15:18
Physical Exam
-
Vital Signs:
Vital Signs
Temp Pulse Resp BP Pulse Ox
98.4 F 90 14 112/74 98
03/26/25 07:18 03/26/25 10:00 03/26/25 10:00 03/26/25 09:30 03/26/25 10:00
Cardiovascular:: Regular rate and rhythm
Respiratory:: Bilateral: Coarse
Lung Excursion:: Abnormal
Abdomen:: Nontender and Soft
Extremity Edema:: +1: Bilateral: (trace)
[place] Catheter: Yes
[2025-03-26] MEDS: NOVOLOG FLEXPEN-MODERATE RESISTANCE 3 UNITS SC (11:24)
[2025-03-26 11:32] LABS: Glucose - Point of Care 226 mg/dl (70-99)
[2025-03-26 11:53] LABS: APTT 86.9 Sec (23.4-35.0)
--- NOTE | 2025-03-26 11:56 | CM ---
Addendum entered by Marleny Lane 03/26/25 13:28:
Patient reports he gets his home oxygen from [facility].
Original Note:
manager store reviewed patient's chart and met with patient and patient is currently requiring high flow oxygen, patient has home oxygen in home at 2 liters, patient lives with spouse in a multilevel home, independent with adl's and assist with
ambulation. Patient was transferred from [facility], message left for patient's spouse to review home situation and possible rehab plans when stable.
PCP: Edilia Savage
Plan; To follow with progress, patient will probably require rehab at discharge.
--- NOTE | 2025-03-26 13:53 | PTCARENOTE ---
reassessed. poor activity tolerance. fatigued after lunch, pulse oximeter 80's. tachypneic. continues to diurese clear urine. RT updated, to place patient on bipap
--- NOTE | 2025-03-26 15:31 | RESPNOTE ---
Respiratory: patient placed back on HFNC 60L 100% SpO2 92-3%. Wore Bilevel 15/5 cmH2O for 90 minutes.
[2025-03-26] MEDS: NEURONTIN 100 MG PO ×2 (15:44→21:36)
--- NOTE | 2025-03-26 16:05 | PTCARENOTE ---
Addendum entered by Theresa Godoy RN 03/26/25 17:35:
Dr Edge updated with lab results. no new orders.hospitalist Nickerson text regarding blood sugar trends
Original Note:
patent reassessed. crackles noted 1/3 up on left and right base. placed back on high flow by RT. PM care provided. patient denies pain. labs sent, results pending
[2025-03-26 16:20] LABS: Blood Urea Nitrogen 68 mg/dl (9-20); Calcium 8.3 mg/dl (8.4-10.2); Carbon Dioxide 24 mmol/L (22-30); Estimated Creatinine Clearance 22 ml/min; Glucose 271 mg/dl (70-99); Potassium 4.0 mmol/L (3.5-5.1); Sodium 136 mmol/L (135-145); eGFR 29.36
[2025-03-26 16:31] LABS: Chloride 102 mmol/L (98-107)
[2025-03-26] MEDS: NOVOLOG FLEXPEN-MODERATE RESISTANCE 5 UNITS SC (16:43)
[2025-03-26 16:52] LABS: Glucose - Point of Care 266 mg/dl (70-99)
--- NOTE | 2025-03-26 19:20 | PTCARENOTE ---
Assumed care. Patient received lying in bed, awake and alert, watching TV. He is without apparent signs of distress or discomfort. He is on 60L/100% FiO2 high flow oxygen. Afib with BBB, HR 80s on CM. See animal ecologist charted on worklist flowsheet.
BBS with upper lobes clear, RML and right base with crackles, left base diminished. S1S2 irregular with positive murmur. Positive pulses x 4 extremities, no edema. [place] catheter patent draining straw clear urine in large quantities, on Bumex gtt.
On Heparin gtt via cordis. Right IJ [place] Ac catheter in place, leveled and zeroed PA/CVP as needed. Transducer at heart level. Good waveform and good square wave. IV sites WDL. Patient denies pain, CP, SOB, N/V. However, he is NICOLE. Desats to 85%
with activity with moderate recovery period. Low grade temp 99.9F. Labs and orders reviewed. Bed in locked position with call holley within reach.
[2025-03-26] MEDS: LANTUS 0.1 UNITS SC (21:36)
[2025-03-26] MEDS: LIPITOR 20 MG PO (21:36)
[2025-03-26] MEDS: ZETIA 10 MG PO (21:36)
[2025-03-26 21:45] LABS: Glucose - Point of Care 253 mg/dl (70-99)
[2025-03-26] MEDS: HEPARIN 25000 UNITS/250 ML IV (22:09)
[2025-03-27] VITALS (26 sets, daily range): BP systolic 104–130; BP diastolic 30–59; BMI 20.4
--- NOTE | 2025-03-27 | PTCARENOTE ---
Essentially no change in patient's physical assessment. He appears to be sleeping comfortably when undisturbed with eyes closed, lying still, respirations nonlabored. No complaints offered. VSS.
[2025-03-27] MEDS: BUMEX 50 IV ×2 (00:25→13:27)
[2025-03-27 03:46] LABS: B.E. 8.9 mmol/L; HCO3 32.7 mmol/L (21-28); O2 Saturation % 98.2 % (94-98); PCO2 41 mmHg (35-48); PO2 90 mmHg (83-108)
[2025-03-27 03:56] LABS: Hematocrit 24.7 % (39.0-52.0); Hemoglobin 8.1 g/dL (13.0-18.0); Mean Corp Hgb Conc. 32.8 g/dL (33.0-37.0); Mean Corpuscular Volume 90.5 fL (80.0-94.0); Platelet Count 169 10^3/uL (130-400); Red Cell Dist. Width 14.9 % (11.5-14.5)
[2025-03-27 04:12] LABS: APTT 111.1 Sec (23.4-35.0)
--- NOTE | 2025-03-27 04:20 | PTCARENOTE ---
Patient has been sleeping well t/o the night. No complaints offered. SR on CM with 1st degree AVB and BBB with frequent pac's. PAF. Essentially no change in patient's physical assessment.
[2025-03-27 04:50] LABS: Blood Urea Nitrogen 65 mg/dl (9-20); Calcium 8.7 mg/dl (8.4-10.2); Carbon Dioxide 30 mmol/L (22-30); Chloride 103 mmol/L (98-107); Estimated Creatinine Clearance 22 ml/min; Glucose 159 mg/dl (70-99); Magnesium 2.2 mg/dl (1.6-2.3); Potassium 3.6 mmol/L (3.5-5.1); Sodium 140 mmol/L (135-145); eGFR 29.36
--- NOTE | 2025-03-27 07:14 | PTCARENOTE ---
Report given verbally to onclidia ignacio, Courtney BATISTA. Questions answered.
--- NOTE | 2025-03-27 07:16 | W.PN.INTV ---
Today's Communication / Plan
Recommendations
- Follow-up chest x-ray in a.m.
- Start DuoNeb 4 times daily scheduled
- Follow-up electrolytes in the morning
- Wean FiO2 as tolerated
Assessment
-
79-year-old man with past medical history significant for heart failure, mitral valve prolapse, prior aortic stenosis status post AVR in 2008, type 2 diabetes, COPD on 2 to 4 L supplemental oxygen continuously, hypertension, initially presented to
[facility] 03/19/2025 per records complaining of increased shortness of breath, leg swelling over the last week or so.
Patient was diagnosed with acute on chronic heart failure/positive increased troponin. Increased work of breathing requiring BiPAP therapy and subsequently transition to mid flow oxygen.
EKG demonstrated rapid atrial fibrillation.
Evaluation included diagnostic cardiac catheterization. 03/23/2025. Pulmonary capillary wedge pressure was 27. Cardiac index was 2.95.
Patient was treated with a standard diuresis.
Patient was also empirically treated with antibiotic for possible pneumonia.
Given persistent hypoxemia despite diuresis and difficulty with his chronic kidney disease, abnormal stress test with possible significant LAD lesion he was sent to [facility] for further evaluation potential intervention. 03/25/2025
03/27 overview: Fluid balance -4.4 L. Patient currently has a MAP of 74, not on any pressors. Current infusions heparin drip and Bumex drip. Saturating 94% on high flow nasal cannula, FiO2 80% and flow 50 L.
Assessment and plan:
#1. Acute hypoxemic respiratory failure due to pulmonary edema
- Clinically improving still needing high flow nasal cannula, FiO2 lower down to 80%, continue diuresis
- Add DuoNeb scheduled for suspected underlying COPD
- Wean O2 as tolerated
#2. Acute on chronic heart failure with preserved ejection fraction, also moderate MR
-Cardiology service on case
-Currently on Bumex infusion, [place]-Ac in place.
-Significant diuresis over last 24 hours, -4 L. Discussed with cardiology service, plan to continue Bumex during day and then no diuretic overnight
-Follow-up chest x-ray in a.m.
#3. Severe pulmonary hypertension,
- Primarily group 2 with elevated pulmonary capillary wedge pressure of 34. PVR elevated at 6, might have component of group 3 also with underlying COPD.
- Will pursue additional workup including CT chest, VQ scan and PFTs once patient is more stable
#4. Paroxysmal atrial fibrillation
- On heparin infusion
#5. History of COPD, uses oxygen at home
-6 minute walk test in December 2024 with low saturation 91%.
- Remote history of smoking, On report from brenna Bass, CAT scan in 2022 showed tiny pulmonary nodules without significant parenchymal lung abnormality.
- Celine Bass report recent pulmonary function testing with a small airways disease without airflow obstruction by ATS criteria.
- Start Duoneb qid for now.
#6. BHUPINDER with underlying CKD stage III
- Minimally improved creatinine, suspect cardiorenal syndrome
#7. Coronary artery disease
- LAD disease noted on [facility] 03/2025
- Plan for PCI once more stable
- Aspirin, Coreg, Zetia, Lipitor and heparin infusion
#8. Aortic stenosis s/p AVR
- Echo shows mild aortic sclerosis
#9. Anemia, suspect related to chronic disease
- hemoglobin 8.1 on 03/26/2025
- In view of cardiogenic shock, will target hemoglobin above 8. Transfuse as needed
#10. B/L pleural effusions, L>R, suspect related to pulmonary edema.
- Continue diuresis and serial CXR for now
#11. DM
- Hold oral hypoglycemics for now
Continue insulin
Conditions present prior admission:
Congestive heart failure
Nonobstructive coronary artery disease
LBBB
CKD stage III
History of bladder carcinoma
Mitral valve prolapse
Type 2 diabetes
Hyperlipidemia
Hypercholesterolemia
Chronic obstructive pulmonary disease on 2 L supplemental oxygen
History of severe /Bicuspid aortic valve-history of heart valve trifecta replacement 12 years ago-2009
BPH
History of gout
Former smoker quit smoking longer than 10 years ago
Anemia
Daily wine consumption- watch for withdrawal.
-
Low-sodium diet.
DVT prophylaxis on heparin drip.
GI prophylaxis with Protonix
Critical care statement: A total of 55 minutes of critical care time was provided for this patient today. This includes management of unstable vital signs, evaluation of the patient at bedside, reviewing the patient's pertinent medical records
including ventilator settings, arterial blood gases, radiographs, microbiology, laboratory evaluations and discussion with primary team, critical care nursing, and respiratory therapy.
---
Data reviewed:
[facility] 03/25/2025: 1. Severely elevated filling pressures (PCWP = 34 mmHg at 61.7 kg).
2. 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
3. Preserved cardiac index (2.35 L/min/m� by thermodilution, 2.03 L/min/m� by Shawna).
Initial chest x-ray [facility] 03/19/2025: Bilateral perihilar infiltrates with bilateral pleural effusions.
-
Chest x-ray March 24, 2025 report from [facility]:
Perihilar interstitial vascular prominence. Persistent. Mild elevation of the left hemidiaphragm. No pleural effusions. Worsening per report
-
Nuclear stress test: 03/22/2025: Abnormal myocardial perfusion imaging suggesting of inferoseptal ischemia and apical scar with ejection fraction reduced at 46%.
-
Left and right heart catheterization 03/23/2025
Pulmonary capillary wedge pressure 27. Pulmonary artery mean pressure 41. Cardiac index 2.95. Cardiac output 4.87 (thermodilution)
Coronary angiogram: Moderate calcification distal 20% stenosis
Left anterior descending ostial 20% stenosis. Proximal 80% stenosis and 60% stenosis.
Diagonal #1: Ostial 30%.
Circumflex 50 to 60%.
Right coronary artery less than 40% stenosis.
-
Echocardiogram 03/20/2025:
LVEF 50 to 55%
Abdominal paradoxical septal motion consistent with left bundle branch block.
Normal right ventricular size and function.
Right atrium is normal size.
Normal mitral valve.
Moderate mitral valve regurgitation.
Aortic valve mild sclerosis. Suggestion of mild aortic sclerosis.
Subjective Dataa
Subjective Data
Date of Service:
Date of Service: March 27, 2025
Subjective:
Comfortably lying in bed in no acute distress
Review of Systems
Genitourinary: Other (All 14 systems reviewed and negative except as stated above in the history of present illness.)
Objective Data
Data Reviewed
Vital Signs / I&O / Oxygen:
Vital Signs
Temp Pulse Resp BP Pulse Ox
98.9 F 70 14 119/35 100
03/27/25 07:00 03/27/25 07:00 03/27/25 07:00 03/27/25 07:00 03/27/25 07:00
Intake and Output
03/26/25 03/27/25 03/28/25
06:59 06:59 06:59
Intake Total 671.75 / 696.25 1738.0 / 1738.0
Output Total 2570 / 2570 6175 / 6175
Balance -1898.25 / -1873.75 -4437.0 / -4437.0
SaO2 100
Nasal Cannula flow liters per 60
minute
Physical Exam
General: Comfortable
HEENT: Normocephalic
Cardiovascular: S1-S2
Respiratory: Crackles (Bilateral crackles on exam)
GI: Soft and Non Distended
Neurology: Awake and Alert
Skin: Warm
Labs/Micro/Reports
Lab Data
06/22/25 03:37
03/27/25 03:37
Laboratory Results
03/26/25 03/27/25 03/27/25
11:15 03:31 03:37
APTT 86.9 H 111.1 H
pH 7.51 H
pCO2 41
pO2 90
HCO3 32.7 H
O2 Delivery Level
[2025-03-27] MEDS: NOVOLOG FLEXPEN-MODERATE RESISTANCE 1 UNITS SC (07:52)
[2025-03-27] MEDS: COREG 25 MG PO ×2 (07:52→19:52)
[2025-03-27] MEDS: ASPIR LOW (ENTERIC COATED) 81 MG PO (07:52)
[2025-03-27] MEDS: OCUVITE SOFTGEL 1 CAP PO (07:53)
[2025-03-27] MEDS: NEURONTIN 100 MG PO ×3 (07:53→21:05)
[2025-03-27] MEDS: PROTONIX 40 MG PO (07:53)
[2025-03-27 07:59] LABS: Glucose - Point of Care 177 mg/dl (70-99)
--- NOTE | 2025-03-27 08:20 | W.PN.HOSP.TC ---
Today's Communication/Plan
-
renew drips
cont diuresis
adjust insulin
wean HI JOYA as able
Assessment / Plan
Assessment / Plan
pt is an 79 year old male
Acute on chronic hypoxemic respiratory failure likely due to acute exacerbation of chronic heart failure with preserved EF (50-55% on echo from 03/20/25)--apprec cards--underwent RHC with severely elevated filling pressures with pulm HTN--cont bumex
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
Paroxysmal atrial fibrillation (unclear to me if new)--During his hospitalization at [facility], he went into A-fib--remains in afib here--cards directing heart meds--for now cont coreg, cardizem--IV heparin
hypokalemia--due to diuresis--replete as needed
Pneumonia--presumed CAP--treated at [facility]--received 6/6 days of zosyn--doubt PNA as mentioned above--agree with stopping ABX and following
CAD s/p stent/ severe with SAVR--Cardiac catheterization at [facility] showed LAD lesion--on asa--plavix stopped--apprec cards
BHUPINDER on CKD 3a--baseline creat 1.9--creat hovering around 2.4/2.3--agree likely cardiorenal--apprec renal--holding areli/arb/Jardiance--cont diureses with BMP monitoring--renal dose meds--sodium bicarb stopped by renal but does take as outpt
Acute anemia on anemia of chronic disease --did receive 1 unit pRBC at [facility]---Hgb ~8-8.5--follow--iron studies not ordered
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
Chronic alcohol use--Watch for withdrawal symptoms--States his last drink was 3 weeks ago
History of aortic stenosis s/p AVR
History of gout�allopurinol
History of bladder cancer currently in remission
DVT proph-- heparin drip
CODE STATUS-- full code
Total Critical Care Time 30 minutes. I was immediately available to the patient and staff. I personally examined, reviewed labs, diagnostic images/reports, interpretations, treatment plans, discussed patient care with other providers and family
or caregivers (if patient is unable to make decisions), entered orders as appropriate and documented the medical record.
Anticipated Discharge: > 48 hours
Subjective/Interval History
-
Date of Service: March 27, 2025
pt feeling better--nursing reports lots of urine output
Objective Data
-
Labs:
Laboratory Results
03/27/25 03/27/25
03:31 03:37
WBC 9.8
Hgb 8.1 L
Hct 24.7 L
Plt Count 169
APTT 111.1 H
HCO3 32.7 H
Sodium 140
Potassium 3.6
Chloride 103
Carbon Dioxide 30
BUN 65 H
Creatinine 2.2 H
Glucose 159 H
Calcium 8.7
Vital Signs:
max temp for 24 hours
03/26/25
19:20
Temp 99.9 F
Vital Signs
Temp Pulse Resp BP Pulse Ox
98.9 F 86 20 130/48 90
03/27/25 07:00 03/27/25 08:00 03/27/25 08:00 03/27/25 08:00 03/27/25 08:08
I&O
03/26/25 03/27/25 03/28/25
06:59 06:59 06:59
Intake Total 671.75 / 696.25 1738.0 / 1762.5 49.0 / 49.0
Output Total 2570 / 2570 6175 / 6375 450 / 450
Balance -1898.25 / -1873.75 -4437.0 / -4612.5 -401.0 / -401.0
Review of Systems
-
All other systems: Reviewed and negative
Physical Exam
-
General: Well Developed, Well Nourished and No Apparent Distress
HEENT: Normocephalic, Atraumatic and Oxygen (50 L and 80% HI JOYA)
Respiratory: Clear to Auscultation (anteriorly)
Cardiac: Regular Rhythm and S1/S2; Negative Murmur
GI: Soft, Nontender, Nondistended and Normal Bowel Sounds
Genito-urinary: Stanton (clear yellow urine)
Musculoskeletal: No Clubbing, No Cyanosis and No Edema
Neuro: Awake
[2025-03-27] MEDS: ZYLOPRIM 300 MG PO (08:30)
--- NOTE | 2025-03-27 09:34 | PTCARENOTE ---
Complete assessment done and documented. Pt awake, alert, ABBASI bilat, weak. HR SR with PAC's, and 1st degree heart block, BP 127/41. R IJ cordis intact with [place] Ac cath, temo zero'd, PA=63/20, CVP=3. NS at 10 ml/hr via introducer. Bumex at 1 mg/hr
and heparin drip at 1050 units/hr infusing. Protective foams on heels and sacrum. Pt received on High flow 60 L / 100%, weaned down presently to high flow 50 L /80%, o2 sat 99%. Lobes improving with only very sl crackles at bases. Abd round,
nontender, tolerating breakfast. Stanton cath intact draining large amts of cl yellow urine. Dr Adam in to see pt and updated. Pt turned and made comfortable. Call holley at side.
--- NOTE | 2025-03-27 09:57 | PTCARENOTE ---
Cardiac output done at bedside. C.O.=5.2, C.I.= 3.1, SVR= 1131. Pt cont's to diurese 300-400 ml/hr cl yellow urine. Dr Hamlin and Dr Leone in to see pt and updated.
--- NOTE | 2025-03-27 10:33 | W.PN.NEPH.PH ---
Today's Communication / Plan
-
wean bumex per cards
Assessment/Plan
-
IMP:
Acute on chronic hypoxemic respiratory failureNorma
Acute on chronic HFrEF
-Recent echocardiogram 03/20/2025 with a EF 50-55%. Moderate mitral regurgitation. Abnormal septal motion consistent with left bundle branch block.
Paroxysmal atrial fibrillation
Pneumonia
CAD s/p stent
BHUPINDER on CKD 3a
Acute on chronic anemia
T2DM
COPD-On home oxygen 2 L
Chronic alcohol use
History of aortic stenosis s/p AVR
History of gout�allopurinol
History of bladder cancer currently in remission
Remote tobacco user
Plan:
A/w acute respiratory failure, CHF-Transfer from [facility] today 34 on 03/25
BHUPINDER-highly suspect CRS,UA with pyuria, U pCR only 0.5gm/gm of cr
stable cr, wt much better but remains on high flow, wean off bumex by tonight per cards
wean O2 as able, currently on high flow O2
pending renal duplex
avoid nephrotoxins, hold jardaince for now
adjust meds renally
follow labs later today
hold po bicarb as no met acidosis currently
-
-
Date of Service: March 27, 2025
CC / HPI / ROS
-
Chief Complaint:
BHUPINDER, CKD
History of Present Illness:
cr slightly better at 2.2
BP stable , wt is down
remains on high flow O2,
no fever
hb low 8.1
Review of Systems:
no sob at rest, feels well today
no fever
Labs
-
Labs:
WBC 9.8 10^3/uL (4.8-10.8) 03/27/25 03:37
RBC 2.73 10^6/uL (4.70-6.10) L 03/27/25 03:37
Hgb 8.1 g/dL (13.0-18.0) L 03/27/25 03:37
Hct 24.7 % (39.0-52.0) L 03/27/25 03:37
Plt Count 169 10^3/uL (130-400) 03/27/25 03:37
Sodium 140 mmol/L (135-145) 03/27/25 03:37
Potassium 3.6 mmol/L (3.5-5.1) 03/27/25 03:37
Chloride 103 mmol/L (98-107) 03/27/25 03:37
Carbon Dioxide 30 mmol/L (22-30) 03/27/25 03:37
BUN 65 mg/dl (9-20) H 03/27/25 03:37
Creatinine 2.2 mg/dL (0.7-1.3) H 03/27/25 03:37
eGFR 29.36 03/27/25 03:37
Glucose 159 mg/dl (70-99) H 03/27/25 03:37
Calcium 8.7 mg/dl (8.4-10.2) 03/27/25 03:37
Phosphorus 5.0 mg/dl (2.5-4.5) H 03/25/25 15:18
Physical Exam
-
Vital Signs:
Vital Signs
Temp Pulse Resp BP Pulse Ox
99.4 F 81 20 126/39 97
03/27/25 11:31 03/27/25 13:00 03/27/25 13:00 03/27/25 13:00 03/27/25 13:00
Cardiovascular:: Regular rate and rhythm
Respiratory:: Bilateral: Coarse
Lung Excursion:: Abnormal
Abdomen:: Nontender and Soft
Extremity Edema:: None: Bilateral:
Stanton Catheter: Yes
[2025-03-27] MEDS: NOVOLOG FLEXPEN 3 UNITS SC ×2 (13:17→16:38)
[2025-03-27] MEDS: NOVOLOG FLEXPEN-MODERATE RESISTANCE 5 UNITS SC (13:18)
[2025-03-27 13:21] LABS: Glucose - Point of Care 252 mg/dl (70-99)
--- NOTE | 2025-03-27 13:33 | W.PN.CD ---
Today's Communication / Plan
-
Stop bumex gtt this evening
Impression / Plan
-
Impression/Plan: 79 y/o male with extensive past medical history admitted with flash pulmonary edema/hypoxic respiratory failure, found to have severely elevated filling pressures, prior exertional oxygen desaturation and worsening anemia and renal
function with lackluster diuresis and new diagnosis of occlusive CAD.
#Hypoxic respiratory failure
-Acute on chronic.
-Multifactorial. Obvious component of HFpEF. Outpatient notes suggest there is a component of primary pulmonary disease.
-[place] Ac catheter in place RHC below
-currently on bumex gtt for diuresis; K > 4 Mag > 2; CVP is ~5 mmHg will stop this evening at around 7 pm
#HFpEF
-Acute on chronic.
-Echo report reviewed. Mean gradient of the aortic valve was 13 mmHg. Moderate MR.
-Repeat TTE.
-PA catheter wiht bumex gtt; goal CI of 1.8
-receiving coreg and BP tolerating; will hold if hypotension
#CAD
-New diagnosis.
-Cardiac catheterization at [facility] shows mLAD lesion.
-HF/pulm edema seems out of proportion to CAD.
-Revascularization when stabilized.
#CKD
-Acute on chronic.
-Creatinine up to 2.6 at [facility].
- Cr now 2.4
-Hold ACEI/ARB/ARNi/MRA/SGLT2i.
#Anemia
-Chronic (per report).
-DDx includes acute blood loss anemia, anemia of kidney disease, precursor deficiency, hemolysis, myelodysplastic syndrome.
-Check indices, Fe levels, B12, folate, thiamine, reticulocyte count, peripheral smear.
-Keep H/H > 8/24.
Critical Care Time = 31 minutes.
Subjective: feeling improved
RHC: March 25 2025 CONCLUSION:
1. Severely elevated filling pressures (PCWP = 34 mmHg at 61.7 kg).
2. 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
3. Preserved cardiac index (2.35 L/min/m� by thermodilution, 2.03 L/min/m� by Shawna).
Physical Exam
Vital Signs/Labs
Vital Signs
Temp Pulse Resp BP Pulse Ox
99.4 F 81 20 126/39 97
03/27/25 11:31 03/27/25 13:00 03/27/25 13:00 03/27/25 13:00 03/27/25 13:00
03/26/25 03/27/25 03/28/25
06:59 06:59 06:59
Actual Weight 132 lb 15.02 oz 126 lb 5.198 oz
03/27/25 03:37
03/27/25 03:37
PT 14.6 Sec (11.4-14.6) 03/25/25 15:18
INR 1.11 03/25/25 15:18
APTT 111.1 Sec (23.4-35.0) H 03/27/25 03:37
Magnesium 2.2 mg/dl (1.6-2.3) 03/27/25 03:37
Physical Exam
Constitutional: No acute distress
EENT: Anicteric
Cardiovascular: Pedal edema is absent and Rhythm/rate is irregular
Respiratory: Respiratory effort normal and Lungs clear to auscul.
GI: Soft
Neuro/Psych: Alert and Oriented
Data Reviewed
-
Date of Service: March 27, 2025
EKG: Tracing Personally Visualized and interpreted (af)
Labs: Labs Reviewed by me
--- NOTE | 2025-03-27 14:38 | PTCARENOTE ---
Pt had 2 BMs in bedpan. Was able to eat lunch. Breathing treatments started, O2 sat-98% on 50L/ 80% high flow.
[2025-03-27] MEDS: DUONEB 3 ML INH ×2 (15:03→20:03)
--- NOTE | 2025-03-27 16:24 | PTCARENOTE ---
Fio2 decreased to 50L/ 60%, fio2 is 97%. Pt con'ts on heparin iv at 1050 units/hr, and bumex iv at 1 mg/hr. Pt's con'ts to diurese, presently 100-200 ml/hr of light yellow urine. BMP drawn and sent to lab. Pt resting, sleeping intermittently. Pt's
and daughter in room and updated.
[2025-03-27] MEDS: NOVOLOG FLEXPEN-MODERATE RESISTANCE SC (16:39)
[2025-03-27 16:44] LABS: Glucose - Point of Care 117 mg/dl (70-99)
[2025-03-27 16:53] LABS: Blood Urea Nitrogen 62 mg/dl (9-20); Calcium 8.2 mg/dl (8.4-10.2); Carbon Dioxide 31 mmol/L (22-30); Chloride 98 mmol/L (98-107); Estimated Creatinine Clearance 21 ml/min; Glucose 203 mg/dl (70-99); Potassium 3.5 mmol/L (3.5-5.1); Sodium 137 mmol/L (135-145); eGFR 29.36
--- NOTE | 2025-03-27 17:00 | PTCARENOTE ---
Dr Hamlin was updated on pt's BMP results. No treatment for Ca 8.2 at this time, will con't to monitor, 20 meq po Kcl to be given K 3.5. BUN/creat still elevated but sl improving. Dinner ordered.
[2025-03-27] MEDS: KCL 20 MEQ PO (17:56)
[2025-03-27 18:37] LABS: Glucose - Point of Care 200 mg/dl (70-99)
[2025-03-27] MEDS: HEPARIN 25000 UNITS/250 ML IV (19:54)
--- NOTE | 2025-03-27 20:45 | PTCARENOTE ---
Received patient AAOx3, following commands, denying pain. NS with PACs, first degree block. BP 120s/50s, palpable radial and pedal pulses b/l. On HFNC, 50 L, 60%, lung sounds diminished throughout, NICOLE. Occasional, dry, nonproductive cough. BM
earlier today, positive bowel sounds. Stanton in place draining clear, yellow urine. Foams on heels and sacrum. PIVs patent, WNL. Bumex and heparin gtt ongoing per protocol. RIJ cordis with swan cath, zeroed, leveled, and flushed. Cardiac output/index
done. Call holley within reach.
--- NOTE | 2025-03-27 20:56 | PTCARENOTE ---
Bumex gtt stopped per Dr. Leone.
[2025-03-27] MEDS: TYLENOL 650 MG PO (21:04)
[2025-03-27] MEDS: ZETIA 10 MG PO (21:05)
[2025-03-27] MEDS: LIPITOR 20 MG PO (21:05)
[2025-03-27 21:39] LABS: Glucose - Point of Care 333 mg/dl (70-99)
[2025-03-27] MEDS: NOVOLOG FLEXPEN 8 UNITS SC (22:01)
[2025-03-27] MEDS: LANTUS 0.1 UNITS SC (22:02)
[2025-03-28] VITALS (29 sets, daily range): BP systolic 98–128; BP diastolic 34–56; BMI 19.8
--- NOTE | 2025-03-28 00:02 | PTCARENOTE ---
Patient was slightly febrile to 100.5, tylenol given. Otherwise patient assessment unchanged from previous, resting comfortably. Call holley within reach.
--- NOTE | 2025-03-28 03:49 | PTCARENOTE ---
Patient assessment unchanged from previous, labs sent. 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 Call holley within reach.
[2025-03-28 04:15] LABS: Hematocrit 22.3 % (39.0-52.0); Hemoglobin 7.5 g/dL (13.0-18.0); Mean Corp Hgb Conc. 33.6 g/dL (33.0-37.0); Mean Corpuscular Volume 90.7 fL (80.0-94.0); Platelet Count 171 10^3/uL (130-400); Red Cell Dist. Width 14.6 % (11.5-14.5)
[2025-03-28 04:16] LABS: INR 1.21; PT 15.6 Sec (11.4-14.6)
[2025-03-28 04:29] LABS: APTT > 200 Sec (23.4-35.0)
[2025-03-28 04:36] LABS: ALT (SGPT) 21 U/L (0-50); AST (SGOT) 25 U/L (17-59); Albumin 3.4 g/dl (3.5-5.0); Alkaline Phosphatase 49 U/L (38-126); Blood Urea Nitrogen 65 mg/dl (9-20); Calcium 8.3 mg/dl (8.4-10.2); Carbon Dioxide 30 mmol/L (22-30); Chloride 101 mmol/L (98-107); Estimated Creatinine Clearance 22 ml/min; Glucose 155 mg/dl (70-99); Magnesium 2.1 mg/dl (1.6-2.3); Potassium 3.6 mmol/L (3.5-5.1); Sodium 139 mmol/L (135-145); Total Protein 6.8 g/dl (6.3-8.2); eGFR 31.04
[2025-03-28 05:05] LABS: INR 1.44; PT 17.8 Sec (11.4-14.6)
[2025-03-28 05:20] LABS: APTT > 200 Sec (23.4-35.0)
[2025-03-28] MEDS: KCL 160 MEQ IV (05:52)
[2025-03-28] MEDS: DUONEB 3 ML INH ×4 (07:13→20:05)
--- NOTE | 2025-03-28 07:27 | W.PN.HOSP.TC ---
Today's Communication/Plan
-
;/
Assessment / Plan
Assessment / Plan
Assessment/plan
#Acute on chronic hypoxemic respiratory failure secondary to below
#Acute on chronic HFpEF
-Recent echocardiogram 03/20/2025 with a EF 50-55%. Moderate mitral regurgitation. Abnormal septal motion consistent with left bundle branch block.
-Cardiology following
-s/p RHC 03/25 with severely elevated filling pressures with Pulmonary HTN
-Initiated on Bumex drip for aggressive diuresis, Now off. Holding diuretics.
-Continue high flow oxygen, wean to Baseline as able
-Continue BiPAP at bedtime and as needed
-Repeat CXR today 03/28-Bilateral pleural effusions appear decreased in size and there is improvement of the perihilar opacities seen on the prior study. No pneumothorax.
-Wet Process Assistant Head Miller following
#Pneumonia
-presumed CAP
-treated at [facility]--received 6/ days of zosyn-
-Monitor off abx
#Paroxysmal atrial fibrillation
-During his hospitalization at [facility], he went into A-fib(New for patient)
-Currently in NSR
-Continue PO Coreg
-Anticoagulation with Heparin
#CAD s/p stent
-Cardiac catheterization at [facility] showed LAD lesion
-Currently on Aspirin only, Plavix stopped
# BHUPINDER on CKD 3a
-Cre 2.1 today (Baseline 1.9)
-Likely cardiorenal syndrome
-Hold Jardiance
-Monitor BMP
-Nephrology following
#Acute on chronic anemia
-During his hospitalization at [facility], he received 1 unit of PRBC
-Hgb today 7.5.
-Transfuse 1 unit pRBC today
-Monitor H&H
-Add-on Iron studies
#T2DM
-Likely with Neuropathy as patient takes gabapentin
-Hold repaglinide/Jardiance
-Coverage with SSI
-A1C 6.9 03/26
-DM Nurse practitioner input appreicated
-Insulin Adjusted, NovoLog 5units AC, Lantus 12units HS
#Hypokalemia
-Replete
#COPD
-On home oxygen 2 L
-no exacerbation
-Not on bronchodilators
-Currently on High flow
#Chronic alcohol use
-Watch for withdrawal symptoms
-States his last drink was 3 weeks ago
#History of aortic stenosis s/p AVR
#History of gout�allopurinol
#History of bladder cancer currently in remission
#Remote tobacco user
CODE STATUS full code
GI Prophylaxis Pantoprazole
DVT prophylax heparin
Anticipated Discharge: > 48 hours
Subjective/Interval History
-
Patient seen and examined at bedside. Complaining of cough. Reports coughing episode started while he was at [facility] but seems to be improving. He denies fever, chills.
Objective Data
-
Labs:
Laboratory Results
03/28/25 03/28/25
03:47 04:47
WBC 10.2
Hgb 7.5 L
Hct 22.3 L
Plt Count 171
PT 15.6 H 17.8 H
INR 1.21 1.44
APTT > 200 H* > 200 H*
Sodium 139
Potassium 3.6
Chloride 101
Carbon Dioxide 30
BUN 65 H
Creatinine 2.1 H
Glucose 155 H
Calcium 8.3 L
Total Bilirubin 0.8
AST 25
ALT 21
Alkaline Phosphatase 49
Vital Signs:
Vital Signs
Temp Pulse Resp BP Pulse Ox
98.8 F 78 16 117/40 92
03/28/25 03:00 03/28/25 07:15 03/28/25 07:15 03/28/25 07:00 03/28/25 07:16
I&O
03/27/25 03/28/25 03/29/25
06:59 06:59 06:59
Intake Total 1738.0 / 1762.5 827.5 / 827.5
Output Total 6175 / 6375 3615 / 3615
Balance -4437.0 / -4612.5 -2787.5 / -2787.5
Review of Systems
-
All other systems: Reviewed and negative (except as documented)
Physical Exam
-
General: Well Developed and No Apparent Distress
HEENT: Normocephalic, Atraumatic and Oxygen
Respiratory: Negative Wheezes, Rales, Rhonchi or Crackles
Cardiac: Regular Rhythm and S1/S2
GI: Soft, Nontender, Nondistended and Normal Bowel Sounds
Musculoskeletal: No Edema
Neuro: AO x 3
Psych: Calm
--- NOTE | 2025-03-28 07:42 | W.PN.INTV ---
Today's Communication / Plan
Recommendations
Hold off on diuresis today as he is net -8.5L since admission
Defer removal of [place]-Ac catheter to cardiology
Tomorrow, check CT chest without contrast + VQ scan
Depending on above, patient may benefit from addition of pulmonary vasodilators given his elevated TPG + high PVR
Continue DuoNebs
Eventual outpatient repeat PFTs
Transfuse 1 unit PRBC today with 2 mg Bumex given afterwards
Check/trend BNP
Wean down high flow nasal cannula to mid flow nasal cannula, keeping SpO2 >90-94%
Continue ICU level care for this critically ill patient
Assessment
-
79-year-old man with past medical history significant for heart failure, mitral valve prolapse, prior aortic stenosis status post AVR in 2008, type 2 diabetes, COPD on 2 to 4 L supplemental oxygen continuously, hypertension, initially presented to
[facility] 03/19/2025 per records complaining of increased shortness of breath, leg swelling over the last week or so.
Patient was diagnosed with acute on chronic heart failure/positive increased troponin. Increased work of breathing requiring BiPAP therapy and subsequently transition to mid flow oxygen.
EKG demonstrated rapid atrial fibrillation.
Evaluation included diagnostic cardiac catheterization. 03/23/2025. Pulmonary capillary wedge pressure was 27. Cardiac index was 2.95.
Patient was treated with a standard diuresis.
Patient was also empirically treated with antibiotic for possible pneumonia.
Given persistent hypoxemia despite diuresis and difficulty with his chronic kidney disease, abnormal stress test with possible significant LAD lesion he was sent to [facility] for further evaluation potential intervention. 03/25/2025
Assessment and plan:
#1. Acute hypoxemic respiratory failure due to pulmonary edema
- Clinically improving still needing high flow nasal cannula, FiO2 lower down to 60% - PAD now 16-25 - and weight down to 122 lbs. Holding off on further scheduled diuresis for now and would keep net neutral as BP tolerates
- Continue DuoNeb scheduled for suspected underlying COPD
- Wean O2 as tolerated - try to wean down to midflow NC today with goal SpO2 >90-94%
#2. Acute on chronic heart failure with preserved ejection fraction, also moderate MR
-Cardiology service on case
-Now off Bumex infusion as above, [place]-Ac in place - -> defer [place] removal to cardiology
-Significant diuresis over last 24-48 hours, he is now net -8.5 L since admission as of 03/28
- Improved pulmonary edema per CXR today (03/28)
#3. Severe pulmonary hypertension
- Primarily group 2 with elevated pulmonary capillary wedge pressure of 34. PVR elevated at 6, might have component of group 3 also with underlying COPD.
- Will pursue additional workup including CT chest, VQ scan and PFTs once patient is more stable
-Given his elevated transpulmonary gradient of 24, if VQ scan is negative for a chronic PE and there is no significant parenchymal changes on CT chest, patient may benefit from pulmonary vasodilator therapy (i.e. macitentan + tadalafil) as he has
class II/III symptoms
#4. Paroxysmal atrial fibrillation
- On heparin infusion
- Keep HR <110
- Replete K>4, Mg>2
#5. History of COPD, uses oxygen at home
-Patient says that he does not have COPD, so it is unclear if COPD is an accurate diagnosis
-6 minute walk test in December 2024 with low saturation 91%.
- Remote history of smoking, on report from brenna Bass, CAT scan in 2022 showed tiny pulmonary nodules without significant parenchymal lung abnormality.
- Brenna Bass reports recent pulmonary function testing with a small airways disease without airflow obstruction by ATS criteria.
- Continue Duoneb qid for now.
- Not currently wheezing hence no need for systemic steroids at this time
#6. BHUPINDER with underlying CKD stage III
- Suspect cardiorenal syndrome
- Continue to trend serum creatinine with strict I/O
- Renally dose all medications
#7. Coronary artery disease
- LAD disease noted on [facility] 03/2025
- Plan for PCI once more stable
- Aspirin, Coreg, Zetia, Lipitor and heparin infusion
#8. Aortic stenosis s/p AVR
- Echo shows mild aortic sclerosis
#9. Anemia, suspect related to chronic disease
- Transfuse as needed to maintain Hb >7-8 g/dL
- Will give 1 unit PRBC given Hb this morning is 7.5; will order 2 mg Bumex to be given after the transfusion and repeat CBC s/p PRBC is completely transfused to assess for appropriate Hb rise
#10. B/L pleural effusions, L>R, suspect related to pulmonary edema.
- Continue to monitor
- Trend BMP and serial CXR
#11. DM type II
- Hold oral hypoglycemics for now
- Continue basal-bolus SQ insulin
- Diabetic REHABILITATION AIDE/SCHEDULER on board
Conditions present prior admission:
Congestive heart failure
Nonobstructive coronary artery disease
LBBB
CKD stage III
History of bladder carcinoma
Mitral valve prolapse
Type 2 diabetes
Hyperlipidemia
Hypercholesterolemia
Chronic obstructive pulmonary disease on 2 L supplemental oxygen
History of severe /Bicuspid aortic valve-history of heart valve trifecta replacement 12 years ago-2008
BPH
History of gout
Former smoker quit smoking longer than 10 years ago
Anemia
Daily wine consumption- watch for withdrawal.
-
Low-sodium/fluid restricted diet.
DVT prophylaxis on heparin drip.
GI prophylaxis with Protonix - not a home medication - will DC this now
Continue ICU level care for this critically ill patient
Critical care statement: A total of 42 minutes of critical care time was provided for this patient today. This includes management of unstable vital signs, evaluation of the patient at bedside, reviewing the patient's pertinent medical records
including radiographs, microbiology, laboratory evaluations, and discussion with primary team, consultants, pharmacy, nutrition, physical therapy, case management, charge nurse, critical care nursing, and respiratory therapy.
---
Data reviewed:
[facility] 03/25/2025: 1. Severely elevated filling pressures (PCWP = 34 mmHg at 61.7 kg).
2. 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
3. Preserved cardiac index (2.35 L/min/m� by thermodilution, 2.03 L/min/m� by Shawna).
Initial chest x-ray [facility] 03/19/2025: Bilateral perihilar infiltrates with bilateral pleural effusions.
-
Chest x-ray March 24, 2025 report from [facility]:
Perihilar interstitial vascular prominence. Persistent. Mild elevation of the left hemidiaphragm. No pleural effusions. Worsening per report
-
Nuclear stress test: 03/22/2025: Abnormal myocardial perfusion imaging suggesting of inferoseptal ischemia and apical scar with ejection fraction reduced at 46%.
-
Left and right heart catheterization 03/23/2025
Pulmonary capillary wedge pressure 27. Pulmonary artery mean pressure 41. Cardiac index 2.95. Cardiac output 4.87 (thermodilution)
Coronary angiogram: Moderate calcification distal 20% stenosis
Left anterior descending ostial 20% stenosis. Proximal 80% stenosis and 60% stenosis.
Diagonal #1: Ostial 30%.
Circumflex 50 to 60%.
Right coronary artery less than 40% stenosis.
-
Echocardiogram 03/20/2025:
LVEF 50 to 55%
Abdominal paradoxical septal motion consistent with left bundle branch block.
Normal right ventricular size and function.
Right atrium is normal size.
Normal mitral valve.
Moderate mitral valve regurgitation.
Aortic valve mild sclerosis. Suggestion of mild aortic sclerosis.
Subjective Dataa
Subjective Data
Date of Service:
Date of Service: March 28, 2025
Chief Complaint: Braider Setter Follow Up
Subjective:
Patient seen and evaluated this morning. Current heart rate 80, PAP 62/17, CO/CI 4.42/2.63, respectively, NIBP: 119/49 and SpO2 95%. Currently on heparin drip. Also on high flow nasal cannula at 60% FiO2, 50 L/min. Patient feels well with no
chest pain or SOB. Patient's son, Amrik, present at bedside and all questions were answered.
Review of Systems
General: Other (Negative unless mentioned above)
Objective Data
Data Reviewed
Vital Signs / I&O / Oxygen:
Vital Signs
Temp Pulse Resp BP Pulse Ox
99.4 F 78 16 117/40 94
03/28/25 07:28 03/28/25 07:15 03/28/25 07:15 03/28/25 07:00 03/28/25 07:28
Intake and Output
03/27/25 03/28/25 03/29/25
06:59 06:59 06:59
Intake Total 1738.0 / 1762.5 827.5 / 827.5
Output Total 6175 / 6375 3615 / 3615
Balance -4437.0 / -4612.5 -2787.5 / -2787.5
SaO2 94
Nasal Cannula flow liters per 50
minute
Physical Exam
General: Respiratory Distress (negative) and Comfortable
HEENT: Normocephalic
Cardiovascular: S1-S2 and Peripheral Edema (negative)
Respiratory: Wheeze (negative), Crackles (Bibasilar) and Accessory Resp Muscle Use (negative)
GI: Soft, Non Distended, Non Tender and Normal Bowel Sounds
Neurology: AO x 3 and Tremors (negative)
Skin: Warm, Dry, Cyanosis (negative) and Jaundice (negative)
Labs/Micro/Reports
Lab Data
03/28/25 03:47
03/28/25 03:47
Laboratory Results
03/28/25 03/28/25
03:47 04:47
PT 15.6 H 17.8 H
INR 1.21 1.44
APTT > 200 H* > 200 H*
[2025-03-28] MEDS: OCUVITE SOFTGEL 1 CAP PO (07:46)
[2025-03-28] MEDS: ZYLOPRIM 300 MG PO (07:46)
[2025-03-28] MEDS: ASPIR LOW (ENTERIC COATED) 81 MG PO (07:46)
[2025-03-28] MEDS: NEURONTIN 100 MG PO ×3 (07:46→21:59)
[2025-03-28] MEDS: PROTONIX 40 MG PO (07:46)
[2025-03-28] MEDS: COREG 25 MG PO ×2 (07:49→19:10)
--- NOTE | 2025-03-28 08:16 | PN.DE.MGMTRT ---
Insulin Management
- -
03/28/2025: Diabetes management Consult
79 year old male with PMH: HFpEF, CKD Stage 3a, Bladder carcinoma, T2DM, HLD, severe aortic stenosis s/p valve replacement in 2008, COPD on 2L home oxygen, BPH. Patient was transferred to [facility] from [facility] for increased
shortness of breath due to acute exacerbation of chronic heart failure with preserved EF in the setting of Acute on chronic hypoxemic respiratory failure. A1C 6.9%, Cr 2.1, eGFR 31.04
Pt awake, alert, oriented, sitting up in bed, offer no complaints, able to discuss diabetes care. Son at bedside.
Pt states he was taking Jardiance 10mg daily at home, has a monitor and has been testing his blood sugars daily in the morning. His chart indicates he was taking Lantus 7 units WET POUR MIXER but pt denies ever taking insulin. States he was taking Glipizide at
one point but that was discontinued by his PPC due to recurrent hypoglycemia.
Current diabetes regimen Includes Lantus 10 units and AC NovoLog 3 units with moderate corrective
Glucose trended up to 333, pt received 8 units of aspart and 10 units of Lantus. FBG 155 V this AM.
Will utilize insulin for now given BHUPINDER on CKD with Cr or 2.1 today. Increase ac NovoLog to 5 units and Lantus to 12 units @ HS.
Pt states he has a working glucose monitor and enough supplies at home.
Will cont to monitor.
Diabetes History
- -
Type of Diabetes: 2 requiring insulin
Pre-Admission Diabetes Regimen
03/27/25 03/28/25
16:15 03:47
Creatinine 2.2 H 2.1 H
Lab Results
Hemoglobin A1c 6.9 % (4.0-5.6) H 03/26/25 04:34
Insulin Pump Settings
IP Diabetes Regimen
03/27/25 03/27/25 03/27/25
13:10 16:15 16:33
Glucose 203 H
POC Glucose 252 H 117 H
03/27/25 03/27/25 03/28/25
18:26 21:27 03:47
Glucose 155 H
POC Glucose 200 H 333 H
Meal type: Dinner
Meal type: Breakfast
Amount consumed: 100%
Amount consumed: 95%
Patient Education
[2025-03-28] MEDS: NOVOLOG FLEXPEN SC (08:24)
--- NOTE | 2025-03-28 08:55 | PTCARENOTE ---
Rec'd care of patient at 0700. Patient alert and oriented. MAEx4. NSR with PACs, first degree avb, BBB and prolonged QT interval on tele. Rate in the 70's. RIJ swan bhakti catheter leveled and zeroed. C.O.- 4.42. C.I.- 2.63. No edema. Palpable pulses.
Pulse ox 92-95% on HFNC 50L/60%. NICOLE. Pulse ox down to high 80's with turns in bed. Lung sounds diminished throughout with scattered rhonchi. +BS. Appetite good. NPO currently for renal ultrasound. Last bm yesterday. Stanton in place for critical I/O.
Output 100-175 cc/hr. Hgb 7.5 on am labs; 1 unit PRBCs transfusing as ordered.
[2025-03-28 09:04] LABS: Glucose - Point of Care 163 mg/dl (70-99)
[2025-03-28] MEDS: NOVOLOG FLEXPEN-MODERATE RESISTANCE 1 UNITS SC (09:07)
[2025-03-28] MEDS: NOVOLOG FLEXPEN 5 UNITS SC ×3 (09:07→17:40)
--- NOTE | 2025-03-28 09:19 | PTCARENOTE ---
Renal US in progress.
--- NOTE | 2025-03-28 10:15 | CM ---
Patient seen at bedside in ICU. Patient remains on high flow O2 with swan in place per nursing. CM will continue to follow for discharge planning needs. Patient may benefit from SNF following hospitalization, no PT/OT orders currently in place.
Patient aware of possibility but awaiting physician recommendations/ medical treatment plan. CM will continue to follow for discharge planning needs.
Plan; SNF vs home with VN pending medical treatment plan recommendations
--- NOTE | 2025-03-28 10:21 | PTCARENOTE ---
Patient weaned to 12L MF by RT. Pulse ox 95-96%.
[2025-03-28 11:13] LABS: Iron 36 ug/dl (49-181)
[2025-03-28] MEDS: BUMEX 2 MG IV (11:21)
--- NOTE | 2025-03-28 11:23 | PTCARENOTE ---
Systems reviewed. No major changes. 1 unit PRBCs transfused. 2mg IV Bumex ordered and administered for post transfusion. VSS. Pulse ox 95% on 12L MF. Weaned to 10L MF. Lung sound diminished throughout.
--- NOTE | 2025-03-28 11:53 | W.PN.NEPH.PH ---
Today's Communication / Plan
-
Holding diuretics
Assessment/Plan
-
IMP:
Acute on chronic hypoxemic respiratory failureNorma
Acute on chronic HFrEF
-Recent echocardiogram 03/20/2025 with a EF 50-55%. Moderate mitral regurgitation. Abnormal septal motion consistent with left bundle branch block.
Paroxysmal atrial fibrillation
Pneumonia
CAD s/p stent
BHUPINDER on CKD 3a
Acute on chronic anemia
T2DM
COPD-On home oxygen 4 L
Chronic alcohol use
History of aortic stenosis s/p AVR
History of gout�allopurinol
History of bladder cancer currently in remission
Remote tobacco user
Plan:
A/w acute respiratory failure, CHF-Transfer from [facility], PCWP 34 on 03/25, CVP 5 current
BHUPINDER-highly suspect CRS,UA with pyuria, U pCR only 0.5gm/gm of cr
stable cr, wt much better but remains on high flow, wean off bumex by tonight per cards
wean O2 as able, currently on high flow O2
pending renal duplex
avoid nephrotoxins, hold jardaince for now
adjust meds renally
Hold diuretics as he does have component of chronic pulmonary disease on 4 L oxygen outpatient.
No volume status stable

32 minutes critical care time
-
-
Date of Service: March 28, 2025
CC / HPI / ROS
-
Chief Complaint:
BHUPINDER, CKD
History of Present Illness:
cr slightly better at 2.2
BP stable , wt is down
remains on high flow O2,
no fever
hb low 8.1
Review of Systems:
no sob at rest, feels well today
no fever, remains on high flow
Labs
-
Labs:
WBC 10.2 10^3/uL (4.8-10.8) 03/28/25 03:47
RBC 2.46 10^6/uL (4.70-6.10) L 03/28/25 03:47
Hgb 7.5 g/dL (13.0-18.0) L 03/28/25 03:47
Hct 22.3 % (39.0-52.0) L 03/28/25 03:47
Plt Count 171 10^3/uL (130-400) 03/28/25 03:47
Sodium 139 mmol/L (135-145) 03/28/25 03:47
Potassium 3.6 mmol/L (3.5-5.1) 03/28/25 03:47
Chloride 101 mmol/L (98-107) 03/28/25 03:47
Carbon Dioxide 30 mmol/L (22-30) 03/28/25 03:47
BUN 65 mg/dl (9-20) H 03/28/25 03:47
Creatinine 2.1 mg/dL (0.7-1.3) H 03/28/25 03:47
eGFR 31.04 03/28/25 03:47
Glucose 155 mg/dl (70-99) H 03/28/25 03:47
Calcium 8.3 mg/dl (8.4-10.2) L 03/28/25 03:47
Phosphorus 4.2 mg/dl (2.5-4.5) 03/28/25 03:47
Bqa-V-Iejbsjgafui Pept 49164 pg/ml 03/28/25 03:47
Albumin 3.4 g/dl (3.5-5.0) L 03/28/25 03:47
Physical Exam
-
Vital Signs:
Vital Signs
Temp Pulse Resp BP Pulse Ox
99.2 F 44 18 110/38 92
03/28/25 11:09 03/28/25 11:40 03/28/25 11:40 03/28/25 11:21 03/28/25 11:40
--- NOTE | 2025-03-28 12:01 | W.PN.CD ---
Today's Communication / Plan
-
CT Chest.
Bedside spirometry.
SPEP/UPEP with IFA.
Monitor renal function.
Impression / Plan
-
Impression/Plan: 79 y/o male with extensive past medical history admitted with flash pulmonary edema/hypoxic respiratory failure, found to have severely elevated filling pressures, prior exertional oxygen desaturation and worsening anemia and renal
function with lackluster diuresis and new diagnosis of occlusive CAD.
#Hypoxic respiratory failure/pulmonary hypertension/COPD
-Acute on chronic.
-Multifactorial. Obvious component of HFpEF and severe pulmonary hypertension. Outpatient notes suggest there is a component of primary pulmonary disease.
-O2 requirement down to 10L/min mid-flow.
-Start sildenafil 20 mg TID.
-CT Chest to evaluate pulmonary architecture.
-Bedside spirometry.
#HFpEF
-Acute on chronic.
-Echo report reviewed. Mean gradient of the aortic valve was 13 mmHg. Moderate MR.
-Repeat TTE.
-PA catheter in place. Starting sildenafil for pHTN. Monitor response.
-GDMT:
-Diuretics: Bumetanide gtt, now intermittent dosing.
-Beta ervin: Carvedilol 25 mg BID.
-ACEI/ARB/ANRi: On hold due to renal function.
-MRA: On hold due to renal function.
-SGLT2i: On hold due to renal function.
-It seems reasonable to start an amyloid workup (HFpEF, renal failure, anemia, conduction abnormalities [1st degree AVB, LBBB]).
-SPEP/UPEP with IFA.
#CAD
-New diagnosis.
-Cardiac catheterization at [facility] shows mLAD lesion.
-HF/pulm edema seems out of proportion to CAD.
-Revascularization when stabilized.
#CKD
-Acute on chronic.
-Creatinine up to 2.6 at [facility].
-Cr now 2.1.
-Urine protein/creatinine ratio = 0.5.
-Hold ACEI/ARB/ARNi/MRA/SGLT2i.
-Amyloid workup.
#HLD
-Chronic, stable.
-Continue ezetimibe, atorvastatin.
-Goal LDL < 55.
#Anemia
-Chronic (per report).
-DDx includes acute blood loss anemia, anemia of kidney disease, precursor deficiency, hemolysis, myelodysplastic syndrome.
-Check indices, Fe levels, B12, folate, thiamine, reticulocyte count, peripheral smear.
-Keep H/H > 8/24.
Critical Care Time = 45 minutes.
Subjective/Interval History:
Hbg dropped to 7.5 this morning. One unit of PRBC's transfused.
Bumetanide gtt stopped yesterday evening. 2 mg IV given after transfusion.
Febrile to 100.5 overnight (03/27/2025 @ 22:50).
Weight is down 1.6 kg from yesterday, 6.1 kg from admission.
PA pressures: 45-69/8-27
CI consistently > 2.4.
SaO2 92% on 10L midflow.
DATA:
[facility]: March 25 2025 CONCLUSION:
1. Severely elevated filling pressures (PCWP = 34 mmHg at 61.7 kg).
2. 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
3. Preserved cardiac index (2.35 L/min/m� by thermodilution, 2.03 L/min/m� by Shawna).
Physical Exam
Vital Signs/Labs
Vital Signs
Temp Pulse Resp BP Pulse Ox
37.3 C 44 18 110/38 92
03/28/25 11:09 03/28/25 11:40 03/28/25 11:40 03/28/25 11:21 03/28/25 11:40
03/27/25 03/28/25 03/29/25
11:59 11:59 11:59
Actual Weight 57.3 kg 55.7 kg
03/28/25 03:47
03/28/25 03:47
PT 17.8 Sec (11.4-14.6) H 03/28/25 04:47
INR 1.44 03/28/25 04:47
APTT > 200 Sec (23.4-35.0) H* 03/28/25 04:47
Magnesium 2.1 mg/dl (1.6-2.3) 03/28/25 03:47
03/28/25
03:47
Itg-P-Bfdwjluaxdw Pept [id number]
Physical Exam
Constitutional: No acute distress and Comfortable
EENT: Anicteric and Moist mucous membranes
Cardiovascular: Rhythm & rate is regular, Pedal edema is absent, JVD pressure is normal, S1S2 is normal and Murmur/rub/gallop absent
Respiratory: Respiratory effort normal and Other (Decreased throughout.)
GI: Soft, Distention absent, Flat, Non tender and Normal bowel sounds
Neuro/Psych: AO x 3
Data Reviewed
-
Date of Service: March 28, 2025
Medical Decision Making: Reviewed Test Results, Independent Historian Assessment and Test Interpretation
EKG: Tracing Personally Visualized and interpreted and Report Reviewed by me
Echo: Ordered by me
X-Ray/CT/US/MRI/NUC/PET: Image Personally Visualized and interpreted and Report Reviewed by me
Medical Tests (PFT, Pathology etc): Image Personally Visualized and interpreted and Report Reviewed by me
Labs: Labs Reviewed by me
Old Records: Reviewed
[2025-03-28 13:05] LABS: Total Iron Binding Capacity 286 ug/dl (261-462)
[2025-03-28] MEDS: NOVOLOG FLEXPEN-MODERATE RESISTANCE 3 UNITS SC ×2 (13:07→17:40)
[2025-03-28 13:19] LABS: Glucose - Point of Care 220 mg/dl (70-99)
[2025-03-28] MEDS: MAGNESIUM SULFATE 102 GRAMS IV (13:39)
[2025-03-28 13:55] LABS: APTT 65.1 Sec (23.4-35.0)
--- NOTE | 2025-03-28 15:39 | PN.CDI ---
CDI
- -
CDI:
Physician Documentation Request
Admit Date: 03/25/25 14:05
Dear Doctor Yakelin,
Please review the following and provide your response in the progress notes.
Clinical Indicators:
Pt admitted with Acute hypoxemic respiratory failure due to pulmonary edema and Acute on chronic heart failure with preserved ejection fraction, also moderate MR.
03/27 Progress note: ' Patient was diagnosed with acute on chronic heart failure/positive increased troponin. ....Coronary artery disease
- LAD disease noted on [facility] 03/2025
- Plan for PCI once more stable'
Based on the above, could you clarify in the progress notes, the suspected diagnosis, if significant, that supports the above Lab abnormalities mentioned and additional evaluation, monitoring and/or treatment rendered:
Non-ischemic myocardial injury
OR (please indicate specific type suspected)
Insignificant abnormal lab value
Other
Use of terms such as suspected, likely, concern for, or probable (associated with a specific diagnosis that is being evaluated, monitored, or treated as if it exists) are acceptable and can be coded in the inpatient setting, when documented at the
time of discharge.
Thank you,
Caroline Canales RN, BSN
CDI Specialist
[place] [facility]
Please use your independent medical judgment in providing your response.
[2025-03-28] MEDS: REVATIO 20 MG PO ×2 (15:51→22:00)
--- NOTE | 2025-03-28 16:00 | PTCARENOTE ---
Systems reviewed. No major changes. Oxygen weaned to 5L MF. VSS. First dose of Sildenafil administered.
[2025-03-28 16:01] LABS: Ferritin 102.0 ng/ml (17.9-464.0)
[2025-03-28 16:07] LABS: Hematocrit 26.0 % (39.0-52.0); Hemoglobin 8.5 g/dL (13.0-18.0); Mean Corp Hgb Conc. 32.7 g/dL (33.0-37.0); Mean Corpuscular Volume 89.7 fL (80.0-94.0); Platelet Count 159 10^3/uL (130-400); Red Cell Dist. Width 15.6 % (11.5-14.5)
--- NOTE | 2025-03-28 17:19 | PTCARENOTE ---
Patient transported for ct of chest/abdomen/pelvis. During transport, pulse ox down to low 80's. Oxygen titrated up to 15L in order to maintain pulse ox>92%. Will titrate back down as tolerated.
[2025-03-28 17:53] LABS: Glucose - Point of Care 206 mg/dl (70-99)
[2025-03-28] MEDS: TYLENOL 650 MG PO (19:09)
[2025-03-28 20:10] LABS: APTT 64.4 Sec (23.4-35.0)
--- NOTE | 2025-03-28 21:00 | PTCARENOTE ---
Pt received start of shift, HR SR w/ BBB + 1st degree AVB + Pro QT on telemetry. [place] at 55cm. Heparin infusing at 950u/hr at handoff. Pt AAOX4. Temp 100.7, tylenol prn administered - see MAR. 10L Midflow NC, sat 93%. Stanton draining clear yellow
urine. Updated pt on POC, pt states understanding.
PTT 64.4. Heparin gtt adjusted per protocol.
[2025-03-28 21:51] LABS: Glucose - Point of Care 242 mg/dl (70-99)
[2025-03-28] MEDS: LANTUS 0.12 UNITS SC (22:00)
[2025-03-28] MEDS: LIPITOR 20 MG PO (22:00)
[2025-03-28] MEDS: NOVOLOG FLEXPEN 4 UNITS SC (22:00)
[2025-03-28] MEDS: ZETIA 10 MG PO (22:00)
[2025-03-29] VITALS (20 sets, daily range): BP systolic 101–148; BP diastolic 35–61; BMI 20.3
--- NOTE | 2025-03-29 00:30 | PTCARENOTE ---
BG 242 on HS check. 12u Lantus and an additional 4u novolog ordered and administered. Pt desat to 86% in sleep, bumped to 15L midflow while sleeping. 96%. No further changes in assessment.
[2025-03-29] MEDS: HEPARIN 25000 UNITS/250 ML IV (00:36)
[2025-03-29 03:36] LABS: Hematocrit 24.5 % (39.0-52.0); Hemoglobin 7.9 g/dL (13.0-18.0); Mean Corp Hgb Conc. 32.2 g/dL (33.0-37.0); Mean Corpuscular Volume 90.1 fL (80.0-94.0); Nucleated Red Blood Cells % 0 % (-); Platelet Count 156 10^3/uL (130-400); Red Cell Dist. Width 15.3 % (11.5-14.5)
[2025-03-29 03:46] LABS: APTT 129.6 Sec (23.4-35.0)
[2025-03-29 04:15] LABS: Blood Urea Nitrogen 60 mg/dl (9-20); Calcium 8.3 mg/dl (8.4-10.2); Carbon Dioxide 31 mmol/L (22-30); Chloride 102 mmol/L (98-107); Estimated Creatinine Clearance 23 ml/min; Glucose 130 mg/dl (70-99); Magnesium 2.3 mg/dl (1.6-2.3); Potassium 4.0 mmol/L (3.5-5.1); Sodium 138 mmol/L (135-145); eGFR 32.91
--- NOTE | 2025-03-29 05:56 | PTCARENOTE ---
[place] tubing changed per protocol. PTT result high, back to 950u/hr per protocol. Pt pox 86-89% 15L midflow NC. Encouraged pt to deep breathe in through nose. Pox 92-93%.
[2025-03-29] MEDS: DUONEB 3 ML INH ×4 (07:34→20:04)
--- NOTE | 2025-03-29 07:45 | W.PN.HOSP.TC ---
Today's Communication/Plan
-
;/
Assessment / Plan
Assessment / Plan
Assessment/plan
#Acute on chronic hypoxemic respiratory failure secondary to below
#Acute on chronic HFpEF
-Recent echocardiogram 03/20/2025 with a EF 50-55%. Moderate mitral regurgitation. Abnormal septal motion consistent with left bundle branch block.
-Repeat Echocardiogram pending
-Cardiology following
-s/p RHC 03/25 with severely elevated filling pressures with Pulmonary HTN
-[place]-Ac in place, initiated on Sildenafil 20mg TID for Pulm HTN.
-Cards input appreciated. Restrictive cardiomyopathy workup, Amyloid workup initiated.
-CT chest 03/28-Moderate bilateral pleural effusions with associated compressive atelectasis and/or pneumonia. Scattered patchy ground glass densities throughout all lobes bilaterally may reflect combination of pneumonitis/pneumonia and areas of air
trapping.
-s/p Bumex drip for aggressive diuresis
-Start Bumex IV 2mg Q12 today
-Continue O2 Therapy, wean to Baseline as able
-Continue BiPAP at bedtime and as needed
-Agricultural Produce Sorter following
-Bedside Spirometry
#Pneumonia
-presumed CAP
-treated at [facility]--received 6/ days of zosyn-
-Reported fevers this admission
-Monitor off abx for now
-CT chest as above.
-If fevers persist, consider restarting Abx
-Check Sputum culture
#Paroxysmal atrial fibrillation
-During his hospitalization at [facility], he went into A-fib(New for patient)
-Currently in NSR
-Continue PO Coreg
-Anticoagulation with Heparin
#CAD s/p stent
-Cardiac catheterization at [facility] showed LAD lesion
-Currently on Aspirin only, Plavix stopped
# BHUPINDER on CKD 3a
-Cre downtrending 2.0 today (Baseline 1.9)
-Likely cardiorenal syndrome
-Hold Jardiance
-Monitor BMP
-Nephrology following
-Renal Artery duplex ultrasound 03/28- Elevated velocity at the origin of the right renal artery measures 250 cm/s, and the right renal to aortic ratio measures 4.0.Findings are suggestive of 60-99% stenosis of the right renal artery. Left renal
artery peak systolic velocity 225 cm/s, renal to aortic ratio 3.8. Findings are suggestive of 60-99% stenosis of the left renal artery.
#Acute on chronic anemia
-During his hospitalization at [facility], he received 1 unit of PRBC
-s/p 1 unit pRBC 03/28
-Monitor H&H
-Iron Studies indicative of Iron Deficiency Anemia.
-Start Iron supplementation
#T2DM
-Likely with Neuropathy as patient takes gabapentin
-Hold repaglinide/Jardiance
-Coverage with SSI
-A1C 6.9 03/26
-DM Nurse practitioner input appreciated
-Insulin Adjusted, NovoLog 7units AC, Lantus 12units HS
#Hypokalemia
-Repleted
#COPD
-On home oxygen 2 L
-no exacerbation
-Not on bronchodilators
-Currently on High flow
#Chronic alcohol use
-Watch for withdrawal symptoms
-States his last drink was 3 weeks ago
#History of aortic stenosis s/p AVR
#History of gout�allopurinol
#History of bladder cancer currently in remission
#Remote tobacco user
CODE STATUS full code
GI Prophylaxis Pantoprazole
DVT prophylax heparin
Anticipated Discharge: > 48 hours
Subjective/Interval History
-
Patient seen and examined at bedside. Comfortable. In no acute distress.
Objective Data
-
Labs:
Laboratory Results
03/28/25 03/29/25 03/29/25
19:46 03:08 10:30
WBC 8.9
Hgb 7.9 L
Hct 24.5 L
Plt Count 156
APTT 64.4 H 129.6 H Pending
Sodium 138
Potassium 4.0
Chloride 102
Carbon Dioxide 31 H
BUN 60 H
Creatinine 2.0 H
Glucose 130 H
Calcium 8.3 L
Vital Signs:
Vital Signs
Temp Pulse Resp BP Pulse Ox
99.5 F 79 19 105/39 96
03/29/25 07:27 03/29/25 07:36 03/29/25 07:36 03/29/25 07:00 03/29/25 07:36
I&O
03/28/25 03/29/25 03/30/25
06:59 06:59 06:59
Intake Total 827.5 / 841.75 2345.75 / 2345.75
Output Total 3615 / 3715 1785 / 1785
Balance -2787.5 / -2873.25 560.75 / 560.75
Review of Systems
-
All other systems: Reviewed and negative (except as documented)
Physical Exam
-
General: Appears Chronically Ill
Respiratory: Crackles and Non Labored Respirations
Cardiac: Regular Rhythm and S1/S2
GI: Soft, Nontender, Nondistended and Normal Bowel Sounds
Genito-urinary: Stanton
Neuro: AO x 3
Psych: Calm
--- NOTE | 2025-03-29 08:06 | W.PN.INTV ---
Today's Communication / Plan
Recommendations
Resume intermittent diuresis with bumex given evidence of alveolar/interstitial edema on CT chest on 03/28/2025
Given concern for renal artery duplex, check MRA today
Defer removal of [place]-Ac catheter to cardiology - PAD still 25-32mmHg
Continue pulmonary vasodilator therapy with Sildenafil given elevated TPG - may need to be on additional agent (i.e. Opsimut) which can be discussed as an outpatient
Check VQ scan when O2 requirements improve (to assess for CTEPH)
Continue DuoNebs
Eventual outpatient repeat PFTs
Trend BNP
Continue midflow nasal cannula, weaning as tolerated while keeping SpO2 >90-94%
Once Mcarthur is removed, will downgrade out of ICU to either IMU versus IV. Pulmonary service will continue to follow along once downgraded and outpatient follow up will be arranged
Assessment
-
79-year-old man with past medical history significant for heart failure, mitral valve prolapse, prior aortic stenosis status post AVR in 2008, type 2 diabetes, COPD on 2 to 4 L supplemental oxygen continuously, hypertension, initially presented to
[facility] 03/19/2025 per records complaining of increased shortness of breath, leg swelling over the last week or so.
Patient was diagnosed with acute on chronic heart failure/positive increased troponin. Increased work of breathing requiring BiPAP therapy and subsequently transition to mid flow oxygen.
EKG demonstrated rapid atrial fibrillation.
Evaluation included diagnostic cardiac catheterization. 03/23/2025. Pulmonary capillary wedge pressure was 27. Cardiac index was 2.95.
Patient was treated with a standard diuresis.
Patient was also empirically treated with antibiotic for possible pneumonia.
Given persistent hypoxemia despite diuresis and difficulty with his chronic kidney disease, abnormal stress test with possible significant LAD lesion he was sent to [facility] for further evaluation potential intervention. 03/25/2025
Assessment and plan:
#1. Acute hypoxemic respiratory failure due to pulmonary edema
- Clinically improving -weaned off of high flow nasal cannula on 03/28, and now down to midflow nasal cannula - continue weaning down supplemental O2 flow rate while keeping SpO2 >90-94%
- Resume intermittent diuresis with Bumex given continued evidence of alveolar/interstitial edema on CT chest from 03/28/2025
- Continue DuoNeb scheduled for suspected underlying COPD - will get full PFTs as an outpatient (however [facility] spirometry did not show evidence of an obstructive lung defect, per documentation)
- Check a home O2 assessment prior to discharge
- PT/OT
- Follow-up SPEP; follow up serum free light chains to evaluate for amyloidosis
#2. Acute on chronic heart failure with preserved ejection fraction, also moderate MR
-Cardiology service on case
-Mcarth[place]-Ac in place - -> defer Mcarthur removal to cardiology
-Significant diuresis over last 72 hrs, he is now net -8.9 L since admission as of 03/29
- Check CXR tomorrow and BNP
#3. Severe pulmonary hypertension
- Primarily group 2 with elevated pulmonary capillary wedge pressure of 34. PVR elevated at 6, might have component of group I vs IV
- Obtain VQ scan once O2 requirements improve (needs to be down to 10L/min or less to get V/Q scan)
- No evidence of ILD or emphysema on CT Chest from 03/28/2025
- Outpatient PFTs
-Given his elevated transpulmonary gradient of 24, if VQ scan is negative, patient may benefit from dual pulmonary vasodilator therapy (i.e. macitentan + tadalafil) as he has class II/III symptoms
- For now, he was started on sildenafil per cardiology - continue to monitor symptoms
#4. Paroxysmal atrial fibrillation
- On heparin infusion
- Keep HR <110
- Replete K>4, Mg>2
#5. History of COPD, uses oxygen at home
-Patient says that he does not have COPD, so it is unclear if COPD is an accurate diagnosis
-6 minute walk test in December 2024 with low saturation 91%.
- Remote history of smoking, on report from brenna Bass, CAT scan in 2022 showed tiny pulmonary nodules without significant parenchymal lung abnormality.
-No evidence of emphysema per CT chest from 03/28/2025
- Brenna Bass reports recent pulmonary function testing with a small airways disease without airflow obstruction by ATS criteria.
- Continue Duoneb QID
- Not currently wheezing hence no need for systemic steroids at this time
#6. BHUPINDER with underlying CKD stage III
- Suspect cardiorenal syndrome
- Continue to trend serum creatinine with strict I/O
- Renally dose all medications
- Renal artery duplex checked on 03/28/2025 showing elevated velocities with suspected 60-99% stenosis of the the left and right renal arteries � discussed this with nephrology and recommend MRA to assess for renal artery stenosis
#7. Coronary artery disease
- LAD disease noted on [facility] 03/2025
- Plan for PCI once more stable - defer to cardiology
- Aspirin, Coreg, Zetia, Lipitor and heparin infusion
#8. Aortic stenosis s/p AVR
- Echo shows mild aortic sclerosis
#9. Anemia, suspect related to chronic disease
- Transfuse as needed to maintain Hb >7-8 g/dL
- Continue iron supplementation given iron saturation is 12% with iron levels <40
#10. B/L pleural effusions, L>R, suspect related to pulmonary edema.
- Continue to monitor
- Trend BNP and serial CXR
- Continue diuresis and maintain net negative fluid balance as tolerated
#11. DM type II (A1C: 6.9 on 03/26/2025)
- Hold oral hypoglycemics for now
- Continue basal-bolus SQ insulin
- Diabetic SAIL REPAIR PERSON on board
- Goal BG 140-180mg/dL
Conditions present prior admission:
Congestive heart failure
Nonobstructive coronary artery disease
LBBB
CKD stage III
History of bladder carcinoma
Mitral valve prolapse
Type 2 diabetes
Hyperlipidemia
Hypercholesterolemia
Chronic obstructive pulmonary disease on 2 L supplemental oxygen
History of severe /Bicuspid aortic valve-history of heart valve trifecta replacement 12 years ago-2009
BPH
History of gout
Former smoker quit smoking longer than 10 years ago
Anemia
Daily wine consumption- watch for withdrawal.
-
Low-sodium/fluid restricted diet.
DVT prophylaxis on heparin drip.
GI prophylaxis with Protonix - not a home medication - will DC this now
Continue ICU level care for this critically ill patient; Once Mcarthur-Ac catheter is removed, then will downgrade to IMU vs IVU and Pulmonary service will continue to follow along.
Critical care statement: A total of 38 minutes of critical care time was provided for this patient today. This includes management of unstable vital signs, evaluation of the patient at bedside, reviewing the patient's pertinent medical records
including radiographs, microbiology, laboratory evaluations, and discussion with primary team, consultants, pharmacy, nutrition, physical therapy, case management, charge nurse, critical care nursing, and respiratory therapy.
---
Data reviewed:
[facility] 03/25/2025: 1. Severely elevated filling pressures (PCWP = 34 mmHg at 61.7 kg).
2. 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
3. Preserved cardiac index (2.35 L/min/m� by thermodilution, 2.03 L/min/m� by Shawna).
Initial chest x-ray [facility] 03/19/2025: Bilateral perihilar infiltrates with bilateral pleural effusions.
-
Chest x-ray March 24, 2025 report from [facility]:
Perihilar interstitial vascular prominence. Persistent. Mild elevation of the left hemidiaphragm. No pleural effusions. Worsening per report
-
Nuclear stress test: 03/22/2025: Abnormal myocardial perfusion imaging suggesting of inferoseptal ischemia and apical scar with ejection fraction reduced at 46%.
-
Left and right heart catheterization 03/23/2025
Pulmonary capillary wedge pressure 27. Pulmonary artery mean pressure 41. Cardiac index 2.95. Cardiac output 4.87 (thermodilution)
Coronary angiogram: Moderate calcification distal 20% stenosis
Left anterior descending ostial 20% stenosis. Proximal 80% stenosis and 60% stenosis.
Diagonal #1: Ostial 30%.
Circumflex 50 to 60%.
Right coronary artery less than 40% stenosis.
-
Echocardiogram 03/20/2025:
LVEF 50 to 55%
Abdominal paradoxical septal motion consistent with left bundle branch block.
Normal right ventricular size and function.
Right atrium is normal size.
Normal mitral valve.
Moderate mitral valve regurgitation.
Aortic valve mild sclerosis. Suggestion of mild aortic sclerosis.
Subjective Dataa
Subjective Data
Date of Service:
Date of Service: March 29, 2025
Chief Complaint: Fha Underwriter Follow Up
Subjective:
Patient was seen and evaluated this morning. PAP 67/26, CO/CI: 5.12/3.05, heart rate 80, SpO2 95% on 15 L/min mid flow and BP 126/40 via NIBP. He feels well, denies chest pain and feels like his shortness of breath is slightly improved compared to
yesterday. Denies ABDULLAHI, nausea, vomiting, fevers or chills.
Review of Systems
General: Other (Negative unless mentioned above)
Objective Data
Data Reviewed
Vital Signs / I&O / Oxygen:
Vital Signs
Temp Pulse Resp BP Pulse Ox
99.5 F 77 18 121/38 95
03/29/25 07:27 03/29/25 08:25 03/29/25 08:25 03/29/25 08:00 03/29/25 08:25
Intake and Output
03/28/25 03/29/25 03/30/25
06:59 06:59 06:59
Intake Total 827.5 / 841.75 2345.75 / 2365.25 19.5 / 19.5
Output Total 3615 / 3715 1785 / 1810
Balance -2787.5 / -2873.25 560.75 / 555.25 -5.5 / -5.5
SaO2 95
Nasal Cannula flow liters per 10
minute
Physical Exam
General: Respiratory Distress (negative) and Comfortable
HEENT: Normocephalic and Moist Mucous Membranes
Cardiovascular: S1-S2 and Peripheral Edema (negative)
Respiratory: Wheeze (negative), Crackles (Bibasilar) and Accessory Resp Muscle Use (negative)
GI: Soft, Non Distended, Non Tender and Normal Bowel Sounds
Neurology: AO x 3 and Tremors (negative)
Skin: Warm, Dry, Cyanosis (negative) and Jaundice (negative)
Labs/Micro/Reports
Lab Data
03/29/25 03:08
03/29/25 03:08
Laboratory Results
03/28/25 03/28/25 03/29/25
13:35 19:46 03:08
APTT 65.1 H 64.4 H 129.6 H
[2025-03-29] MEDS: NOVOLOG FLEXPEN-MODERATE RESISTANCE 1 UNITS SC (08:40)
[2025-03-29] MEDS: NOVOLOG FLEXPEN 5 UNITS SC (08:40)
[2025-03-29] MEDS: PROTONIX 40 MG PO (08:41)
[2025-03-29] MEDS: OCUVITE SOFTGEL 1 CAP PO (08:41)
[2025-03-29] MEDS: COREG 25 MG PO ×2 (08:41→20:09)
[2025-03-29] MEDS: NEURONTIN 100 MG PO ×3 (08:41→21:58)
[2025-03-29] MEDS: ASPIR LOW (ENTERIC COATED) 81 MG PO (08:41)
[2025-03-29] MEDS: ZYLOPRIM 300 MG PO (08:42)
[2025-03-29] MEDS: REVATIO 20 MG PO ×3 (08:42→21:58)
[2025-03-29 08:50] LABS: Glucose - Point of Care 160 mg/dl (70-99)
--- NOTE | 2025-03-29 09:22 | PN.DE.MGMTRT ---
Insulin Management
- -
03/29/2025: Diabetes management Consult Follow up
Patient was transferred to [facility] from [facility] for increased shortness of breath due to acute exacerbation of chronic heart failure with preserved EF in the setting of Acute on chronic hypoxemic respiratory failure. PMH:
HFpEF, CKD Stage 3a, Bladder carcinoma, T2DM, HLD, severe aortic stenosis s/p valve replacement in 2008, COPD on 2L home oxygen, BPH. A1C 6.9%, Cr 2.0, eGFR 32.91
Pt awake, alert, oriented, sitting up in bed, offers no complaints, able to discuss diabetes care.
Pt states he was taking Jardiance 10mg daily at home, has a monitor and has been testing his blood sugars daily in the morning. His chart indicates he was taking Lantus 7 units [employer] but pt denies ever taking insulin. States he was taking Glipizide at
one point but that was discontinued by his PCP due to recurrent hypoglycemia.
Current diabetes regimen includes Lantus 10 units and AC NovoLog 3 units with moderate corrective
03/28 Glucose range 206 to 242.
03/29 Fasting glucose 130 venous, 160 POC. Will continue to hold Jardiance and metformin given BHUPINDER on CKD with Cr 2.0 today. Will increase AC novolog to 7 units, continue Lantus 12 units @ hs.
Pt states he has a working glucose monitor and enough supplies at home.
Diabetes nurse to instruct on insulin administration.
Will cont to monitor.
Discussed with nurse.
Diabetes History
- -
Type of Diabetes: 2 requiring insulin
Pre-Admission Diabetes Regimen
03/29/25
03:08
Creatinine 2.0 H
Lab Results
Hemoglobin A1c 6.9 % (4.0-5.6) H 03/26/25 04:34
Insulin Pump Settings
IP Diabetes Regimen
03/28/25 03/28/25 03/28/25
13:07 17:39 21:40
Glucose
POC Glucose 220 H 206 H 242 H
03/29/25 03/29/25
03:08 08:39
Glucose 130 H
POC Glucose 160 H
Meal type: Dinner
Meal type: Breakfast
Amount consumed: 100%
Amount consumed: 100%
Patient Education
--- NOTE | 2025-03-29 10:09 | W.PN.CD ---
Addendum entered and electronically signed by Prabhakar Dobson MD 03/29/25 13:06:
Patient seen and examined in collaboration with ENGLISH INSTRUCTOR; agree with below.
- Echocardiogram today with LVEF 55-60%, septal hypokinesis; mild to moderate MR/TR, PASP 70-75 mmHg.
- Continue Bumex 2 mg IV BID; monitor I/O's closely.
- Continue sildenafil; continue to monitor PA pressures with Whitefish.
- Further recommendations as per Nephrology.
Original Note:
Today's Communication / Plan
-
Continue Bumex 2mg IV BID. Consider increase in dosing per Nephrology. If he does not improve consider non cardiac causes.
Follow temps.
Update echocardiogram.
Continue Whitefish per Dr. Ortiz.
Impression / Plan
-
Impression/Plan: 79 y/o male with extensive past medical history admitted with flash pulmonary edema/hypoxic respiratory failure, found to have severely elevated filling pressures, prior exertional oxygen desaturation and worsening anemia and renal
function with lackluster diuresis and new diagnosis of occlusive CAD.
#Hypoxic respiratory failure/pulmonary hypertension/COPD
-Acute on chronic, 4L NC as an outpatient
-Multifactorial. Obvious component of HFpEF and severe pulmonary hypertension. Outpatient notes suggest there is a component of primary pulmonary disease.
-Started sildenafil 20 mg TID 03/28/2025
-CT Chest: Bilateral pleural effusions with associated compressive atelectasis and/or pneumonia
-Bedside spirometry.
#HFpEF, acute on chronic.
-Echo report reviewed. Mean gradient of the aortic valve was 13 mmHg. Moderate MR.
-PA catheter in place. Started sildenafil for pHTN. Monitor response.
-GDMT:
-Diuretics: Bumetanide 2mg IV BID
-Beta ervin: Carvedilol 25 mg BID.
-ACEI/ARB/ANRi: On hold due to renal function.
-MRA: On hold due to renal function.
-SGLT2i: Jardiance on hold due to renal function.
-It seems reasonable to start an amyloid workup (HFpEF, renal failure, anemia, conduction abnormalities [1st degree AVB, LBBB]).
-SPEP/UPEP with IFA pending
#CAD
-New diagnosis.
-Cardiac catheterization at [facility] shows mLAD lesion.
-HF/pulm edema seems out of proportion to CAD.
-Revascularization when stabilized.
#BHUPINDER on CKD III
-Acute on chronic.
-Creatinine up to 2.6 at [facility].
-Cr now 2.0.
-ISAEL on US (renal to aortic ratios 3.8 and 4.0, suggestive of 60-99% stenosis of both renal arteries).
-Urine protein/creatinine ratio = 0.5.
-Hold ACEI/ARB/ARNi/MRA/SGLT2i.
-Amyloid workup.
Paroxysmal atrial fibrillation
-In sinus with PACs
-Oral Anticoagulation: Heparin gtt
-[id number]: score at least 6 (Heart failure, HTN, age 75 or more, Diabetes Mellitus, Vascular disease)
#HLD
-Chronic, stable.
-Continue ezetimibe, atorvastatin.
-Goal LDL < 55.
#Anemia
-Chronic (per report).
-DDx includes acute blood loss anemia, anemia of kidney disease, precursor deficiency, hemolysis, myelodysplastic syndrome.
-Check indices, Fe levels, B12, folate, thiamine, reticulocyte count, peripheral smear.
-1 unit PRBC 03/28/2025
-Keep H/H > 8/24.
Severe aortic stenosis with bicuspid morphology, S/P AVR, stable on TTE
LBBB
Daily EtOH consumption in the outpatient setting
Subjective/Interval History:
Endorsing improvement in shortness of breath.
Hbg relatively unchanged despite transfusion yesterday.
Febrile to 100.7 overnight (03/28/2025 at 19:18).
Weight is up 1.2 kg from yesterday, 4.9 kg from admission.
PA pressures trending back up
CI consistently > 2.4.
DATA:
RH: March 25 2025:
CONCLUSION
1. Severely elevated filling pressures (PCWP = 34 mmHg at 61.7 kg).
2. 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
3. Preserved cardiac index (2.35 L/min/m� by thermodilution, 2.03 L/min/m� by Shawna).
Physical Exam
Vital Signs/Labs
Vital Signs
Temp Pulse Resp BP Pulse Ox
99.5 F 82 22 126/40 95
03/29/25 07:27 03/29/25 09:00 03/29/25 09:00 03/29/25 09:00 03/29/25 09:00
03/28/25 03/29/25 03/30/25
06:59 06:59 06:59
Actual Weight 55.7 kg 56.9 kg
03/29/25 03:08
03/29/25 03:08
PT 17.8 Sec (11.4-14.6) H 03/28/25 04:47
INR 1.44 03/28/25 04:47
APTT 129.6 Sec (23.4-35.0) H 03/29/25 03:08
Magnesium 2.3 mg/dl (1.6-2.3) 03/29/25 03:08
03/28/25
03:47
Mci-E-Cdrpgpitofr Pept [id number]
Physical Exam
Constitutional: No acute distress and Comfortable
EENT: Anicteric and Moist mucous membranes
Cardiovascular: Rhythm & rate is regular and S1S2 is normal
Respiratory: Respiratory effort normal and Lungs clear to auscul.
GI: Soft, Distention absent, Flat, Non tender and Normal bowel sounds
Neuro/Psych: AO x 3
Other: Skin (warm and dry)
Data Reviewed
-
Date of Service: March 29, 2025
Labs: Labs Reviewed by me
Old Records: Reviewed
[2025-03-29] MEDS: BUMEX 2 MG IV ×2 (10:20→20:09)
[2025-03-29 11:24] LABS: APTT 87.0 Sec (23.4-35.0)
[2025-03-29 12:09] LABS: Glucose - Point of Care 240 mg/dl (70-99)
--- NOTE | 2025-03-29 12:28 | PTCARENOTE ---
systems reviewed. no changes. pt assisted oob to with assist mostly to manage line. tolerated well. Darling Cerrato texted with blood sugar, orders noted. pt without complaint.
[2025-03-29] MEDS: NOVOLOG FLEXPEN-MODERATE RESISTANCE 3 UNITS SC ×2 (12:39→17:14)
[2025-03-29] MEDS: NOVOLOG FLEXPEN 7 UNITS SC ×2 (12:39→17:14)
--- NOTE | 2025-03-29 12:40 | W.PN.NEPH.PH ---
Today's Communication / Plan
-
Bumex
Consider MRA to evaluate renal artery stenosis when able
Assessment/Plan
-
IMP:
Acute on chronic hypoxemic respiratory failureNorma
Acute on chronic HFrEF
-Recent echocardiogram 03/20/2025 with a EF 50-55%. Moderate mitral regurgitation. Abnormal septal motion consistent with left bundle branch block.
Paroxysmal atrial fibrillation
Pneumonia
CAD s/p stent
BHUPINDER on CKD 3a
Acute on chronic anemia
T2DM
COPD-On home oxygen 4 L
Chronic alcohol use
History of aortic stenosis s/p AVR
History of gout�allopurinol
History of bladder cancer currently in remission
Remote tobacco user
Plan:
A/w acute respiratory failure, CHF-Transfer from [facility], PCWP 34 on 03/25, CVP 5 current
On mid flow
renal duplex = states bilateral stenosis estimated 60 to 99%= ideally need an MRA to evaluate as this could be contributing to his volume status although cannot do it at this time with Juan. We have to consider if we would do any intervention
though if there was significant blockage either way
avoid nephrotoxins, hold Jardiance
adjust meds renally
Diuretics reinitiated based on CAT scan= Scattered patchy ground glass densities throughout all lobes bilaterally may reflect combination of pneumonitis/pneumonia

32 minutes critical care time
-
-
Date of Service: March 29, 2025
CC / HPI / ROS
-
Chief Complaint:
BHUPINDER, CKD
History of Present Illness:
Presents with shortness of breath transferred from [facility] with on high oxygen requirements with acute on chronic kidney disease improving
Review of Systems:
no sob at rest, feels well today
no fever, on mid flow
Labs
-
Labs:
WBC 8.9 10^3/uL (4.8-10.8) 03/29/25 03:08
RBC 2.72 10^6/uL (4.70-6.10) L 03/29/25 03:08
Hgb 7.9 g/dL (13.0-18.0) L 03/29/25 03:08
Hct 24.5 % (39.0-52.0) L 03/29/25 03:08
Plt Count 156 10^3/uL (130-400) 03/29/25 03:08
Sodium 138 mmol/L (135-145) 03/29/25 03:08
Potassium 4.0 mmol/L (3.5-5.1) 03/29/25 03:08
Chloride 102 mmol/L (98-107) 03/29/25 03:08
Carbon Dioxide 31 mmol/L (22-30) H 03/29/25 03:08
BUN 60 mg/dl (9-20) H 03/29/25 03:08
Creatinine 2.0 mg/dL (0.7-1.3) H 03/29/25 03:08
eGFR 32.91 03/29/25 03:08
Glucose 130 mg/dl (70-99) H 03/29/25 03:08
Calcium 8.3 mg/dl (8.4-10.2) L 03/29/25 03:08
Phosphorus 4.2 mg/dl (2.5-4.5) 03/28/25 03:47
Jnb-C-Ljdsbehywui Pept 07253 pg/ml 03/28/25 03:47
Albumin 3.4 g/dl (3.5-5.0) L 03/28/25 03:47
Physical Exam
-
Vital Signs:
Vital Signs
Temp Pulse Resp BP Pulse Ox
99 F 75 19 119/37 95
03/29/25 12:03 03/29/25 11:09 03/29/25 11:09 03/29/25 11:00 03/29/25 11:09
[2025-03-29] MEDS: NOVOLOG FLEXPEN SC (13:03)
[2025-03-29] MEDS: FERRLECIT 110 MG IV (14:34)
--- NOTE | 2025-03-29 15:04 | CM ---
[place] remains in place, midflow O2, IV/Bumex. Discharge Plan of Care TBD. Has O2 at home. Patient is amenable to SNF. Will need PT/OT evaluation and recommendations. Will need insurance auth for SNF. Home with HH vs SNF.
--- NOTE | 2025-03-29 15:58 | PTCARENOTE ---
I met with Alvaro to review diabetes management. His current HbA1c is 6.9%, currently prescribed Jardiance 10 mg QD, Repaglinide 1 mg BID.
I educated on physiology of T2D, organ damage, managing with medications, monitoring BG, nutrition, activity, sleep and managing stress. I reinforced signs of hyperglycemia, hypoglycemia and hypoglycemia protocol; BS parameters and recommended HbA1c
goals, glucometer and CGM instructions, glucose tracker, medic alert bracelet and outpatient DSME program. Written material provided.
Mr. Salazar currently has a glucose meter with adequate supplies. States he checks his glucose every morning.
I educated and demonstrated on insulin injection technique, timing, and storage. Discussed long and short acting insulin; onset/peak/duration, and encouraged Jayesh to administer his own injections with RN supervision while admitted. Discussed
normal target glucose ranges and a monitoring schedule 15 minutes before each meal when prescribed Novolog, and preprandial AM and/or bedtime as recommended by MD.
Encouraged patient to follow up with his PCP for post d/c appointment and to monitor medication and blood glucose levels. Provided list of endocrinologists if desired, to contact insurance company to verify in network status. Patient verbalized
understanding.
--- NOTE | 2025-03-29 16:30 | PTCARENOTE ---
no new changes. family at bedside and updated. pt remains sitting up in chair without complaint. pt doing leg exercises while in chair intermittently. oxygen has been weaned to 13l
[2025-03-29 17:12] LABS: Glucose - Point of Care 225 mg/dl (70-99)
[2025-03-29 18:03] LABS: APTT 167.3 Sec (23.4-35.0)
[2025-03-29 18:36] LABS: APTT 104.9 Sec (23.4-35.0)
--- NOTE | 2025-03-29 19:09 | PTCARENOTE ---
pt assisted back to bed at end of shift. had been weaned to 10l midflow while up in chair. once in bed, sats 82% while flat but pt was not symptomatic, left on 10l as pt recovered to 87% once sitting up in bed.
--- NOTE | 2025-03-29 21:07 | PTCARENOTE ---
Assumed care of pt at 1900. Pt is A/O x4, pleasant and cooperative with care. No c/o pain. Received pt on heparin drip at 950 units/hr, PTT has been therapeutic and next PTT due in AM. Pt on 10L MFNC and sats dropping to 85%, increased to 12L and
sats came up to 88-90%. C.O. and C.I. values obtained, see VS documentation. Physical assessment as documented in nursing shift assessment flowsheet.
[2025-03-29] MEDS: LANTUS 0.1 UNITS SC (21:58)
[2025-03-29] MEDS: ZETIA 10 MG PO (21:58)
[2025-03-29] MEDS: LIPITOR 20 MG PO (21:58)
[2025-03-29 22:09] LABS: Glucose - Point of Care 148 mg/dl (70-99)
[2025-03-30] VITALS (25 sets, daily range): BP systolic 105–146; BP diastolic 34–97; PULSE 76; O2SAT 94; BMI 20.6; BMI 19.9
--- NOTE | 2025-03-30 00:22 | PTCARENOTE ---
Assessment unchanged. Continues on heparin drip. O2 currently back to 15LPM, SpO2 96%. SR 60s on monitor.
[2025-03-30] MEDS: HEPARIN 25000 UNITS/250 ML IV (03:03)
[2025-03-30 03:41] LABS: Hematocrit 25.1 % (39.0-52.0); Hemoglobin 8.3 g/dL (13.0-18.0); Mean Corp Hgb Conc. 33.1 g/dL (33.0-37.0); Mean Corpuscular Volume 90.6 fL (80.0-94.0); Platelet Count 164 10^3/uL (130-400); Red Cell Dist. Width 15.1 % (11.5-14.5)
[2025-03-30 04:33] LABS: ALT (SGPT) 25 U/L (0-50); AST (SGOT) 38 U/L (17-59); Albumin 3.1 g/dl (3.5-5.0); Alkaline Phosphatase 51 U/L (38-126); Blood Urea Nitrogen 63 mg/dl (9-20); Calcium 8.4 mg/dl (8.4-10.2); Carbon Dioxide 33 mmol/L (22-30); Chloride 101 mmol/L (98-107); Estimated Creatinine Clearance 25 ml/min; Glucose 116 mg/dl (70-99); Magnesium 2.2 mg/dl (1.6-2.3); Potassium 3.9 mmol/L (3.5-5.1); Sodium 140 mmol/L (135-145); Total Protein 6.2 g/dl (6.3-8.2); eGFR 35.00
--- NOTE | 2025-03-30 05:07 | PTCARENOTE ---
0400 assessment unchanged. Pt has been asleep the last few hours. O2 weaned to 11 L, maintaining SpO2 95-96%.
[2025-03-30 05:32] LABS: APTT 128.0 Sec (23.4-35.0)
--- NOTE | 2025-03-30 07:10 | W.PN.HOSP.TC ---
Today's Communication/Plan
-
;/
Assessment / Plan
Assessment / Plan
Assessment/plan
#Acute on chronic hypoxemic respiratory failure secondary to below
#Acute on chronic HFpEF
#Pulmonary Hypertension
-Recent echocardiogram 03/29- -Left ventricular ejection fraction is approximately 55-60%. Septal hypokinesis and abnormal (paradoxical) septal motion consistent with conduction abnormality/postoperative state. Mildly enlarged right ventricular
size. Normal right ventricular systolic function. Mild to moderate mitral regurgitation. Bioprosthetic aortic valve replacement with peak/mean gradients of 20/11 mmHg. Trace aortic regurgitation. Mild to moderate tricuspid regurgitation. Estimated
pulmonary artery pressure of 70-75 mmHg.The IVC is dilated and does not collapse.
-s/p RHC 03/25 with severely elevated filling pressures with Pulmonary HTN
-[place] in place, initiated on Sildenafil 20mg TID for Pulm HTN.
-Cards input appreciated. Restrictive cardiomyopathy workup, Amyloid workup initiated.
-CT chest 03/28-Moderate bilateral pleural effusions with associated compressive atelectasis and/or pneumonia. Scattered patchy ground glass densities throughout all lobes bilaterally may reflect combination of pneumonitis/pneumonia and areas of air
trapping.
-s/p Bumex drip for aggressive diuresis
-Continue Bumex IV 2mg Q12, metolazone added today per cards
-Continue O2 Therapy, wean to Baseline as able
-Orthopedic Shoe Maker following
-Bedside Spirometry
#Low Grade fever
-was treated for Community acquired pneumonia at [facility]--received 6/6 days of zosyn-
-Reported fevers this admission
-Monitor off abx for now
-CT chest as above. Findings of Cholecystitis
-Check Ultrasound abdomen.
-If fevers persist, consider restarting Abx
-Check Sputum culture if able
#Paroxysmal atrial fibrillation
-During his hospitalization at [facility], he went into A-fib(New for patient)
-Currently in NSR
-Continue PO Coreg
-Anticoagulation with Heparin
#CAD s/p stent
-Cardiac catheterization at [facility] showed LAD lesion
-Currently on Aspirin only, Plavix stopped
-Will need LHC with PCI once stable as this wasn't done at [facility].
# BHUPINDER on CKD 3a
-Cre downtrended, now at Baseline(Baseline 1.9)
-Hold Jardiance
-Monitor BMP
-Nephrology following
-Renal Artery duplex ultrasound 03/28- Elevated velocity at the origin of the right renal artery measures 250 cm/s, and the right renal to aortic ratio measures 4.0.Findings are suggestive of 60-99% stenosis of the right renal artery. Left renal
artery peak systolic velocity 225 cm/s, renal to aortic ratio 3.8. Findings are suggestive of 60-99% stenosis of the left renal artery.
-Check MRA of renal arteries
#Acute on chronic anemia
-During his hospitalization at [facility], he received 1 unit of PRBC
-s/p 1 unit pRBC 03/28
-Monitor H&H
-Iron Studies indicative of Iron Deficiency Anemia.
-Started on Iron supplementation
#T2DM
-Likely with Neuropathy as patient takes gabapentin
-Hold repaglinide/Jardiance
-Coverage with SSI
-A1C 6.9 03/26
-DM Nurse practitioner input appreciated
-Insulin Adjusted, NovoLog 7units AC, Lantus 12units HS
#Hypokalemia
-Repleted
-Resolved
#COPD
-On home oxygen 2 L
-no exacerbation
-Not on bronchodilators
#Chronic alcohol use
-Watch for withdrawal symptoms
-States his last drink was 3 weeks ago
#History of aortic stenosis s/p AVR
#History of gout�allopurinol
#History of bladder cancer currently in remission
#Remote tobacco user
CODE STATUS full code
GI Prophylaxis Pantoprazole
DVT prophylax heparin
Anticipated Discharge: > 48 hours
Subjective/Interval History
-
Patient seen and examined at bedside.
Objective Data
-
Labs:
Laboratory Results
03/30/25 03/30/25 03/30/25
03:09 04:14 11:45
WBC 9.8
Hgb 8.3 L
Hct 25.1 L
Plt Count 164
APTT Cancelled 128.0 H Pending
Sodium 140
Potassium 3.9
Chloride 101
Carbon Dioxide 33 H
BUN 63 H
Creatinine 1.9 H
Glucose 116 H
Calcium 8.4
Total Bilirubin 0.8
AST 38
ALT 25
Alkaline Phosphatase 51
Vital Signs:
Vital Signs
Temp Pulse Resp BP Pulse Ox
98.8 F 74 17 114/41 95
03/30/25 03:34 03/30/25 06:00 03/30/25 06:00 03/30/25 06:00 03/30/25 06:00
I&O
03/29/25 03/30/25 03/31/25
06:59 06:59 06:59
Intake Total 2345.75 / 2365.25 1703.0 / 1703.0
Output Total 1785 / 1810 2405 / 2405
Balance 560.75 / 555.25 -702.0 / -702.0
Physical Exam
-
General: Appears Chronically Ill
Respiratory: Crackles and Non Labored Respirations
Cardiac: Regular Rhythm and S1/S2
GI: Soft, Nontender, Nondistended and Normal Bowel Sounds
Genito-urinary: Stanton
Neuro: AO x 3
Psych: Calm
--- NOTE | 2025-03-30 07:31 | W.PN.CD ---
Today's Communication / Plan
-
PCI of LAD today.
Wedge PA catheter during cath.
Add metolazone to IV bumetanide.
MRA renal arteries when PA catheter removed.
Continue hypoxic respiratory failure workup.
Bedside spirometry.
Amyloid workup continues.
Impression / Plan
-
Impression/Plan: 79 y/o male with extensive past medical history admitted with flash pulmonary edema/hypoxic respiratory failure, found to have severely elevated filling pressures, prior exertional oxygen desaturation and worsening anemia and renal
function with lackluster diuresis and new diagnosis of occlusive CAD.
#Hypoxic respiratory failure/pulmonary hypertension/COPD
-Acute on chronic, 4L NC as an outpatient
-Multifactorial. Obvious component of HFpEF and severe pulmonary hypertension. Outpatient notes suggest there is a component of primary pulmonary disease.
-Started sildenafil 20 mg TID 03/28/2025
-CT Chest: Bilateral pleural effusions with associated compressive atelectasis and/or pneumonia. Fever + imaging findings concerning for infection vs. autoimmune issue (no hemoptysis, making vasculitis, i.e. Eulalia's, Churg-Ella, microscopic
polyangiitis less likely). No significant eosinophilia.
-Bedside spirometry.
#HFpEF
-Acute on chronic.
-PA catheter in place. Started sildenafil for pHTN. Monitor response.
-GDMT:
-Diuretics: Bumetanide 2mg IV BID
-Beta ervin: Carvedilol 25 mg BID.
-ACEI/ARB/ANRi: On hold due to renal function.
-MRA: On hold due to renal function.
-SGLT2i: On hold due to renal function.
-Amyloid workup.
-Echo report reviewed. Mean gradient of the aortic valve was 13 mmHg. Moderate MR. IVC is dilated and does not collapse.
-Weight rising. Continue bumetanide 2mg IV Q12. Add metolazone 5 mg 30 minutes prior to bumetanide dose.
-I will wedge the catheter today to re-assess PCWP.
#CAD
-New diagnosis.
-Cardiac catheterization at [facility] shows mLAD lesion.
-HF/pulm edema seems out of proportion to CAD.
-Revascularization today.
#BHUPINDER on CKD III
-Acute on chronic.
-Creatinine up to 2.6 at [facility].
-Cr now 1.9.
-ISAEL on US (renal to aortic ratios 3.8 and 4.0, suggestive of 60-99% stenosis of both renal arteries).
-Urine protein/creatinine ratio = 0.5.
-Hold ACEI/ARB/ARNi/MRA/SGLT2i.
-Amyloid workup.
#Paroxysmal atrial fibrillation
-In sinus with PACs.
-Rate control with carvedilol.
-[id number]: score at least 6 (Heart failure, HTN, age 75 or more, Diabetes Mellitus, Vascular disease).
-Oral Anticoagulation: Heparin gtt.
#HLD
-Chronic, stable.
-Continue ezetimibe, atorvastatin.
-Goal LDL < 55.
#Anemia
-Chronic (per report).
-DDx includes acute blood loss anemia, anemia of kidney disease, precursor deficiency, hemolysis, myelodysplastic syndrome.
-B12, folate, thiamine, reticulocyte count, peripheral smear pending.
-Fe = 36, FeSat = 12%, ferritin = 102 (making Fe deficiency less likely), TIBC = 286.
-1 unit PRBC 03/28/2025 will functionally replace any iron deficiency.
-Keep H/H > 8/24.
#Severe aortic stenosis with bicuspid morphology, S/P AVR, stable on TTE.
#LBBB
#Daily EtOH consumption in the outpatient setting.
Subjective/Interval History:
O2 requirement increased from 10L to 15 L yesterday, now down to 11L.
Weight has risen from erick of 55.7 to 57.9 (2.2 kg) in spite of reinstatement of IV bumetanide.
PAd pressure still consistently in the 20's to low 30's.
CT Chest shows pleural effusions and PNA/pneumonitis.
TTE shows preserved systolic function with a dilated, non-collapsing IVC.
Creatinine 1.9.
Febrile to 38.2 on 03/28/2025.
DATA:
RHC, 03/25/2025:
CONCLUSION
1. Severely elevated filling pressures (PCWP = 34 mmHg at 61.7 kg).
2. 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
3. Preserved cardiac index (2.35 L/min/m� by thermodilution, 2.03 L/min/m� by Shawna).
Chest CT, 03/28/2025:
IMPRESSION:
1. Moderate bilateral pleural effusions with associated compressive atelectasis and/or pneumonia. Scattered patchy ground glass densities throughout all lobes bilaterally may reflect combination of pneumonitis/pneumonia and areas of air trapping.
2. No convincing acute process in the abdomen or pelvis, within the limitations of unenhanced technique. Urinary bladder is decompressed around a Stanton catheter and not well evaluated. Cystitis not excluded.
3. Cholelithiasis. Pericholecystic fluid is present, likely on the basis of systemic congestion. Recommend clinical correlation for signs/symptoms of acute cholecystitis.
TTE, 03/29/2025:
CONCLUSIONS
-Left ventricular ejection fraction is approximately 55-60%. Septal
hypokinesis and abnormal (paradoxical) septal motion consistent with conduction
abnormality/postoperative state.
-Mildly enlarged right ventricular size. Normal right ventricular systolic
function.
-Mild to moderate mitral regurgitation.
-Bioprosthetic aortic valve replacement with peak/mean gradients of 20/11 mmHg.
Trace aortic regurgitation.
-Mild to moderate tricuspid regurgitation. Estimated pulmonary artery pressure
of 70-75 mmHg.
-The IVC is dilated and does not collapse.
Compared to previous echo of 10/14/2024, septal hypokinesis is now noted.
Slightly progressive mitral regurgitation and tricuspid regurgitation are
noted. PASP was not previously obtained.
Physical Exam
Vital Signs/Labs
Vital Signs
Temp Pulse Resp BP Pulse Ox
37.2 C 74 17 114/41 95
03/30/25 07:15 03/30/25 06:00 03/30/25 06:00 03/30/25 06:00 03/30/25 06:00
03/28/25 03/29/25 03/30/25
11:59 11:59 11:59
Actual Weight 55.7 kg 56.9 kg 57.9 kg
03/30/25 03:09
03/30/25 03:09
PT 17.8 Sec (11.4-14.6) H 03/28/25 04:47
INR 1.44 03/28/25 04:47
APTT 128.0 Sec (23.4-35.0) H 03/30/25 04:14
Magnesium 2.2 mg/dl (1.6-2.3) 03/30/25 03:09
03/28/25 03/30/25
03:47 03:09
[id number] Pept [id number]
Physical Exam
Constitutional: No acute distress and Comfortable
EENT: Anicteric and Moist mucous membranes
Cardiovascular: Rhythm & rate is regular, Pedal edema is absent, JVD pressure is normal, S1S2 is normal and Murmur/rub/gallop absent
Respiratory: Respiratory effort normal and Other (Decreased throughout.)
GI: Soft, Distention absent, Flat, Non tender and Normal bowel sounds
Neuro/Psych: AO x 3
Data Reviewed
-
Date of Service: March 30, 2025
Medical Decision Making: Reviewed Test Results, Independent Historian Assessment and Test Interpretation
EKG: Tracing Personally Visualized and interpreted and Report Reviewed by me
Echo: Tracing Personally Visualized and interpreted and Report Reviewed by me
X-Ray/CT/US/MRI/NUC/PET: Image Personally Visualized and interpreted and Report Reviewed by me
Medical Tests (PFT, Pathology etc): Image Personally Visualized and interpreted and Report Reviewed by me
Labs: Labs Reviewed by me
Old Records: Reviewed
[2025-03-30] MEDS: DUONEB 3 ML INH ×4 (07:32→19:48)
--- NOTE | 2025-03-30 07:56 | PN.DE.MGMTRT ---
Insulin Management
- -
03/30/2025: Diabetes management Consult Follow up
Patient was transferred to [facility] from [facility] for increased shortness of breath due to acute exacerbation of chronic heart failure with preserved EF in the setting of Acute on chronic hypoxemic respiratory failure. PMH:
HFpEF, CKD Stage 3a, Bladder carcinoma, T2DM, HLD, severe aortic stenosis s/p valve replacement in 2008, COPD on 2L home oxygen, BPH. A1C 6.9%, Cr 2.0, eGFR 32.91
Pt awake, alert, oriented, sitting up in bed, offers no complaints, able to discuss diabetes care. Just returned from US of abdomen. Will remain NPO - may have cardiac cath.
Pt states he was taking Jardiance 10mg daily at home, has a monitor and has been testing his blood sugars daily in the morning. His chart indicates he was taking Lantus 7 units [employer] ROLL CHANGER but pt denies ever taking insulin. States he was taking Glipizide at
one point but that was discontinued by his PCP due to recurrent hypoglycemia.
Current diabetes regimen includes Lantus 10 units and AC NovoLog 3 units with moderate corrective
03/29 Fasting glucose 130 venous, 160 POC. Pre lunch glucose 240. Will continue to hold Jardiance and metformin given BHUPINDER on CKD with Cr 2.0 today. Will increase AC novolog to 7 units, Lantus dose reduced to 10 units @ hs due to NPO status.
03/30 Fasting glucose 116, cr 1.9, eGFR 35.0. Will resume 7 units novolog AC when diet resumed and 12 units lantus @ hs.
Pt states he has a working glucose monitor and enough supplies at home.
Diabetes nurse has instructed on insulin administration.
Will cont to monitor.
Discussed with nurse.
Diabetes History
- -
Type of Diabetes: 2
Pre-Admission Diabetes Regimen
03/30/25
03:09
Creatinine 1.9 H
Lab Results
Hemoglobin A1c 6.9 % (4.0-5.6) H 03/26/25 04:34
Insulin Pump Settings
IP Diabetes Regimen
03/29/25 03/29/25 03/29/25
08:39 11:57 17:00
Glucose
POC Glucose 160 H 240 H 225 H
03/29/25 03/30/25
21:57 03:09
Glucose 116 H
POC Glucose 148 H
Meal type: Breakfast
Meal type: Breakfast
Amount consumed: 100%
Patient Education
[2025-03-30] MEDS: NOVOLOG FLEXPEN SC ×2 (08:08→11:42)
[2025-03-30] MEDS: BUMEX 2 MG IV ×2 (08:10→20:05)
--- NOTE | 2025-03-30 08:17 | W.PN.INTV ---
Today's Communication / Plan
Recommendations
NPO for C today
Continue intermittent diuresis with bumex + metolazone given alveolar/interstitial edema on CT chest on 03/28/2025
Given concern for renal artery duplex, check MRA
Defer removal of [place]-Ac catheter to cardiology - PAD discordant as he still has high O2 requirements although PAD troday is 14 mmHg today - very positional
Continue pulmonary vasodilator therapy with Sildenafil given elevated TPG - may need to be on additional agent (i.e. Opsimut) which can be discussed as an outpatient
Check VQ scan when O2 requirements improve (to assess for CTEPH)
Continue DuoNebs
Check spirometry at bedside
Trend BNP
Continue midflow nasal cannula, weaning as tolerated while keeping SpO2 >90-94%
Once [place] is removed, will downgrade out of ICU to either IMU versus IV. Pulmonary service will continue to follow along once downgraded and outpatient follow up will be arranged
Assessment
-
79-year-old man with past medical history significant for heart failure, mitral valve prolapse, prior aortic stenosis status post AVR in 2008, type 2 diabetes, COPD on 2 to 4 L supplemental oxygen continuously, hypertension, initially presented to
[facility] 03/19/2025 per records complaining of increased shortness of breath, leg swelling over the last week or so.
Patient was diagnosed with acute on chronic heart failure/positive increased troponin. Increased work of breathing requiring BiPAP therapy and subsequently transition to mid flow oxygen.
EKG demonstrated rapid atrial fibrillation.
Evaluation included diagnostic cardiac catheterization. 03/23/2025. Pulmonary capillary wedge pressure was 27. Cardiac index was 2.95.
Patient was treated with a standard diuresis.
Patient was also empirically treated with antibiotic for possible pneumonia.
Given persistent hypoxemia despite diuresis and difficulty with his chronic kidney disease, abnormal stress test with possible significant LAD lesion he was sent to [facility] for further evaluation potential intervention. 03/25/2025
Assessment and plan:
#1. Acute hypoxemic respiratory failure due to pulmonary edema
- Clinically improving -weaned off of high flow nasal cannula on 03/28, and now on midflow nasal cannula - continue weaning down supplemental O2 flow rate while keeping SpO2 >90-94%
- Continue intermittent diuresis with Bumex (resumed 03/29) given continued evidence of alveolar/interstitial edema on CT chest from 03/28/2025; metolazone added today (03/30) by cardiology
- Continue DuoNeb scheduled for suspected underlying COPD - will get full PFTs as an outpatient (however [facility] spirometry did not show evidence of an obstructive lung defect, per documentation) - now that he is improved, will
attempt bedside spirometry
- Check home O2 assessment prior to discharge
- PT/OT
- Follow-up SPEP; follow up serum free light chains to evaluate for amyloidosis
#2. Acute on chronic heart failure with preserved ejection fraction, also moderate MR
-Cardiology service on case
-Water[place]-Ac in place - -> defer [place] removal to cardiology
-Significant diuresis over last 72 hrs, he is now net -10 L since admission as of 03/30
- Continue to trend BNP with occasional CXR
- CXR today (03/30) shows mildly improved aeration in the left costophrenic angle, otherwise similar size of right-sided pleural effusion and interstitial edema bilaterally
#3. Severe pulmonary hypertension
- Primarily group 2 with elevated pulmonary capillary wedge pressure of 34. PVR elevated at 6, might have component of group I vs IV
- Obtain VQ scan once O2 requirements improve (needs to be down to 10L/min or less to get V/Q scan)
- No evidence of ILD or emphysema on CT Chest from 03/28/2025
- Outpatient PFTs and will attempt bedside spirometry today/tomorrow
- Given his elevated transpulmonary gradient of 24, if VQ scan is negative, patient may benefit from dual pulmonary vasodilator therapy (i.e. macitentan + tadalafil) as he has class II/III symptoms
- On 03/29, started on sildenafil per cardiology - continue to monitor symptoms
#4. Paroxysmal atrial fibrillation
- On heparin infusion
- Keep HR <110
- Replete K>4, Mg>2
#5. History of COPD, uses oxygen at home
-Patient says that he does not have COPD, so it is unclear if COPD is an accurate diagnosis
-6 minute walk test in December 2024 with low saturation 91%.
- Remote history of smoking, on report from brenna Bass, CAT scan in 2022 showed tiny pulmonary nodules without significant parenchymal lung abnormality.
-No evidence of emphysema per CT chest from 03/28/2025
- Brenna Bass reports recent pulmonary function testing with a small airways disease without airflow obstruction by ATS criteria.
- Continue Duoneb QID
- Not currently wheezing hence no need for systemic steroids at this time
#6. BHUPINDER with underlying CKD stage III
- Suspect cardiorenal syndrome
- Continue to trend serum creatinine with strict I/O
- Renally dose all medications
- Renal artery duplex checked on 03/28/2025 showing elevated velocities with suspected 60-99% stenosis of the the left and right renal arteries � discussed this with nephrology and recommend MRA to assess for renal artery stenosis
#7. Coronary artery disease
- LAD disease noted on [facility] 03/2025
- Plan for PCI once more stable - plans to bring pt today for [facility] - keep NPO
- Aspirin, Coreg, Zetia, Lipitor and heparin infusion
#8. Aortic stenosis s/p AVR
- Echo shows mild aortic sclerosis
#9. Anemia, suspect related to chronic disease
- Transfuse as needed to maintain Hb >7-8 g/dL
- Continue iron supplementation given iron saturation is 12% with iron levels <40
#10. B/L pleural effusions, L>R, suspect related to pulmonary edema.
- Continue to monitor
- Trend BNP and serial CXR
- Continue diuresis and maintain net negative fluid balance as tolerated
#11. DM type II (A1C: 6.9 on 03/26/2025)
- Hold oral hypoglycemics for now
- Continue basal-bolus SQ insulin
- Diabetic [employer] on board
- Goal BG 140-180mg/dL
#12. Cholelithiasis with pericholecystic fluid
- Due to hepatic vascular congestion in the setting of right-sided heart failure
- Patient does have gallstones with small volume pericholecystic free fluid seen on RUQ ultrasound today however no biliary ductal dilatation and negative sonographic Amaya sign
Conditions present prior admission:
Congestive heart failure
Nonobstructive coronary artery disease
LBBB
CKD stage III
History of bladder carcinoma
Mitral valve prolapse
Type 2 diabetes
Hyperlipidemia
Hypercholesterolemia
Chronic obstructive pulmonary disease on 2 L supplemental oxygen
History of severe /Bicuspid aortic valve-history of heart valve trifecta replacement 12 years ago-2008
BPH
History of gout
Former smoker quit smoking longer than 10 years ago
Anemia
Daily wine consumption- watch for withdrawal.
-
Low-sodium/fluid restricted diet.
DVT prophylaxis on heparin drip.
GI prophylaxis with Protonix - not a home medication - will DC this now
Continue ICU level care for this critically ill patient; Once [place]-Ac catheter is removed, then will downgrade to IMU vs IVU and Pulmonary service will continue to follow along.
Critical care statement: A total of 41 minutes of critical care time was provided for this patient today. This includes management of unstable vital signs, evaluation of the patient at bedside, reviewing the patient's pertinent medical records
including radiographs, microbiology, laboratory evaluations, and discussion with primary team, consultants, pharmacy, nutrition, physical therapy, case management, charge nurse, critical care nursing, and respiratory therapy.
---
Data reviewed:
[facility] 03/25/2025: 1. Severely elevated filling pressures (PCWP = 34 mmHg at 61.7 kg).
2. 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
3. Preserved cardiac index (2.35 L/min/m� by thermodilution, 2.03 L/min/m� by Shawna).
Initial chest x-ray [facility] 03/19/2025: Bilateral perihilar infiltrates with bilateral pleural effusions.
-
Chest x-ray March 24, 2025 report from [facility]:
Perihilar interstitial vascular prominence. Persistent. Mild elevation of the left hemidiaphragm. No pleural effusions. Worsening per report
-
Nuclear stress test: 03/22/2025: Abnormal myocardial perfusion imaging suggesting of inferoseptal ischemia and apical scar with ejection fraction reduced at 46%.
-
Left and right heart catheterization 03/23/2025
Pulmonary capillary wedge pressure 27. Pulmonary artery mean pressure 41. Cardiac index 2.95. Cardiac output 4.87 (thermodilution)
Coronary angiogram: Moderate calcification distal 20% stenosis
Left anterior descending ostial 20% stenosis. Proximal 80% stenosis and 60% stenosis.
Diagonal #1: Ostial 30%.
Circumflex 50 to 60%.
Right coronary artery less than 40% stenosis.
-
Echocardiogram 03/20/2025:
LVEF 50 to 55%
Abdominal paradoxical septal motion consistent with left bundle branch block.
Normal right ventricular size and function.
Right atrium is normal size.
Normal mitral valve.
Moderate mitral valve regurgitation.
Aortic valve mild sclerosis. Suggestion of mild aortic sclerosis.
Subjective Dataa
Subjective Data
Date of Service:
Date of Service: March 30, 2025
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
Subjective:
Patient seen and evaluated this morning. Patient says that he feels better today, not as short of breath. Currently on 14 L/min via midflow nasal cannula. Saturating 88%. PAP 55/14, heart rate 80 and BP 127/43. CO/CI this mornin.02/2.99.
Patient's son-in-law, Travis, as well as patient's , Candi, both present at bedside and all questions were answered.
Review of Systems
General: Other (Negative unless mentioned above)
Objective Data
Data Reviewed
Vital Signs / I&O / Oxygen:
Vital Signs
Temp Pulse Resp BP Pulse Ox
99 F 79 18 127/43 94
03/30/25 07:15 03/30/25 09:02 03/30/25 08:04 03/30/25 09:02 03/30/25 08:25
Intake and Output
03/29/25 03/30/25 03/31/25
06:59 06:59 06:59
Intake Total 2345.75 / 2365.25 1703.0 / 1736.5 67.0 / 67.0
Output Total 1785 / 1810 2405 / 2405 140 / 140
Balance 560.75 / 555.25 -702.0 / -668.5 -73.0 / -73.0
SaO2 94
Nasal Cannula flow liters per 10
minute
Physical Exam
General: Respiratory Distress (negative) and Comfortable
HEENT: Normocephalic and Moist Mucous Membranes
Cardiovascular: S1-S2 and Peripheral Edema (negative)
Respiratory: Wheeze (negative), Crackles (Bibasilar), Rhonchi (negative) and Accessory Resp Muscle Use (negative)
GI: Soft, Non Distended, Non Tender and Normal Bowel Sounds
Neurology: AO x 3 and Tremors (negative)
Skin: Warm, Dry, Cyanosis (negative) and Jaundice (negative)
Labs/Micro/Reports
Lab Data
03/30/25 03:09
03/30/25 03:09
Laboratory Results
03/29/25 03/29/25 03/29/25
11:04 17:06 18:15
APTT 87.0 H 167.3 H* 104.9 H
03/30/25 03/30/25
03:09 04:14
APTT Cancelled 128.0 H
Microbiology
03/29/25 15:20 Sputum Respiratory Culture - Final
03/29/25 15:20 Sputum Gram Stain - Final
--- NOTE | 2025-03-30 08:23 | PTCARENOTE ---
recd pt asleep, handoff bedside, awakened easily. assessed as noted, NPO for US, they are on their way. Questions answered, denies distress. PA catheter maintained, readings obtained. call holley in reach. Positioned for comfort.
[2025-03-30 08:59] LABS: Nucleated Red Blood Cells % 0 % (-); Reticulocyte Count 3.2 % (0.4-2.8)
[2025-03-30] MEDS: NEURONTIN 100 MG PO ×2 (09:02→20:05)
[2025-03-30] MEDS: COREG 25 MG PO ×2 (09:02→20:05)
[2025-03-30] MEDS: ASPIR LOW (ENTERIC COATED) 81 MG PO (09:02)
[2025-03-30] MEDS: ZYLOPRIM 300 MG PO (09:02)
[2025-03-30] MEDS: OCUVITE SOFTGEL 1 CAP PO (09:02)
[2025-03-30] MEDS: REVATIO 20 MG PO ×2 (09:06→20:04)
[2025-03-30] MEDS: NOVOLOG FLEXPEN-MODERATE RESISTANCE SC (09:06)
[2025-03-30 09:13] LABS: Glucose - Point of Care 125 mg/dl (70-99)
[2025-03-30] MEDS: ZAROXOLYN 5 MG PO (09:46)
[2025-03-30] MEDS: SENOKOT-S 2 TABLET PO (10:33)
--- NOTE | 2025-03-30 10:35 | PTCARENOTE ---
oob to recliner, gait steady, no c/o. awaiting diet order clarification. family bedside. given pills with sips clear liquid per order. titrating midflow.
[2025-03-30 10:36] LABS: Folate 6.4 ng/ml (2.76-20); Vitamin B12 894 pg/ml (239-931)
--- NOTE | 2025-03-30 10:43 | W.PN.NEPH.PH ---
Today's Communication / Plan
-
cont diuresis-bumex and metolazone
Assessment/Plan
-
IMP:
Acute on chronic hypoxemic respiratory failureNorma
Acute on chronic HFrEF
-Recent echocardiogram 03/20/2025 with a EF 50-55%. Moderate mitral regurgitation. Abnormal septal motion consistent with left bundle branch block.
Paroxysmal atrial fibrillation
Pneumonia
CAD s/p stent
BHUPINDER on CKD 3a
Acute on chronic anemia
T2DM
COPD-On home oxygen 4 L
Chronic alcohol use
History of aortic stenosis s/p AVR
History of gout�allopurinol
History of bladder cancer currently in remission
Remote tobacco user
Plan:
A/w acute respiratory failure, CHF-Transfer from [facility] on 03/25
stable renal function cr at 1.9
monitor evolving met alkalosis
wean O2 as able, revatio started since 03/28
cont bumex and metolazone added today per cards
bilat renal art stenosis -MRA when able non urgent basis
avoid nephrotoxins, hold Jardiance
adjust meds renally
d/w ICU
-
-
Date of Service: March 30, 2025
CC / HPI / ROS
-
Chief Complaint:
BHUPINDER, CKD
History of Present Illness:
Presents with shortness of breath transferred from [facility] continue with on high oxygen requirements with acute on chronic kidney disease improving
cr at 1.9, on mid flow O2 11lit
BP stable
wt is up today
Review of Systems:
no sob at rest, feels well today
no fever, no cp
no n/v
Labs
-
Labs:
WBC 9.8 10^3/uL (4.8-10.8) 03/30/25 03:09
RBC 2.77 10^6/uL (4.70-6.10) L 03/30/25 03:09
Hgb 8.3 g/dL (13.0-18.0) L 03/30/25 03:09
Hct 25.1 % (39.0-52.0) L 03/30/25 03:09
Plt Count 164 10^3/uL (130-400) 03/30/25 03:09
Sodium 140 mmol/L (135-145) 03/30/25 03:09
Potassium 3.9 mmol/L (3.5-5.1) 03/30/25 03:09
Chloride 101 mmol/L (98-107) 03/30/25 03:09
Carbon Dioxide 33 mmol/L (22-30) H 03/30/25 03:09
BUN 63 mg/dl (9-20) H 03/30/25 03:09
Creatinine 1.9 mg/dL (0.7-1.3) H 03/30/25 03:09
eGFR 35.00 03/30/25 03:09
Glucose 116 mg/dl (70-99) H 03/30/25 03:09
Calcium 8.4 mg/dl (8.4-10.2) 03/30/25 03:09
Phosphorus 3.1 mg/dl (2.5-4.5) 03/30/25 03:09
Dhk-H-Euyjoxdbprz Pept 98531 pg/ml 03/30/25 03:09
Albumin 3.1 g/dl (3.5-5.0) L 03/30/25 03:09
Physical Exam
-
Vital Signs:
Vital Signs
Temp Pulse Resp BP Pulse Ox
99 F 77 18 127/43 95
03/30/25 07:15 03/30/25 09:46 03/30/25 08:04 03/30/25 09:46 03/30/25 10:36
Cardiovascular:: Regular rate and rhythm
Lung Excursion:: Abnormal (decreased BS bilat)
Abdomen:: Nontender and Soft
Extremity Edema:: None: Bilateral:
Stanton Catheter: Yes
[2025-03-30] MEDS: NOVOLOG FLEXPEN-MODERATE RESISTANCE 1 UNITS SC ×2 (11:57→20:01)
[2025-03-30 12:01] LABS: Glucose - Point of Care 172 mg/dl (70-99)
--- NOTE | 2025-03-30 12:11 | PTCARENOTE ---
self administered SQ insulin per order, good understanding and technique. family bedside as well, also listening.
[2025-03-30 12:18] LABS: APTT 129.8 Sec (23.4-35.0)
[2025-03-30] MEDS: FERRLECIT 110 MG IV (14:26)
--- NOTE | 2025-03-30 15:00 | PTCARENOTE ---
to laboratory veterinarian via bed, heparin on hold. in good spirits. family aware.
--- NOTE | 2025-03-30 15:24 | CM ---
IV/Bumex, [place]-Ac in place. Therapy consult ordered today. DIscharge POC: TBD based on therapy eval and recommendations.
[2025-03-30 18:14] LABS: ACT-LR - POC 308 Seconds (116-155)
--- NOTE | 2025-03-30 18:50 | ITS.CL.ANGIO ---
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
Angioplasty
Procedure Report:
CARDIAC CATHETERIZATION REPORT
Date of Procedure: 03/30/2025
Referring: Rafi Boone M.D.
Indication: Proximal/mid LAD lesion, persistent hypoxic respiratory failure.
PROCEDURE:
1. Left-sided coronary angiography.
2. Successful shockwave of the proximal/mid LAD.
3. Successful bifurcation PCI of the proximal/mid LAD and proximal/ostial D2 using a DK crush procedure.
4. Right heart catheterization using indwelling [place].
A total of 129 minutes of procedural/moderate sedation was utilized. An independent medical driver was present to assist with and help manage the patient's level of consciousness and physiologic status.
ACCESS:
1. 6 [place] right radial artery using a modified Seldinger technique delete.
2. Previously placed 8 Tong[place] right internal jugular vein sheath.
CATHETERS:
1. 6 [place] EBU 3.5 guiding catheter.
2. Previously placed 7.5 Tongan PA catheter.
HEMODYNAMIC DATA
Weight (kg): 55.8
AO (s/d/x, mmHg): 119/35/66
LV (s/x, mmHg): Not obtained.
PCWP (a/v/x, mmHg): 27/38/25
PA (s/d/x, mmHg): 72/31/45
RV (s/x, mmHg): Not obtained.
RA (a/v/x, mmHg): 08/17/2010
SVC SvO2 (%): Not obtained.
IVC SvO2 (%): Not obtained.
RA SvO2 (%): Not obtained.
RV SvO2 (%): Not obtained.
PA SvO2 (%): Not obtained.
SaO2 (%): Not obtained.
Hbg (g/dL): Not obtained.
KELLY
CO (L/min): Not performed.
CI (L/min/m2): Not performed.
Thermodilution
CO (L/min): Not performed.
CI (L/min/m2): Not performed.
TPG (mmHg): 20
PVR (Doan Units): Not obtained.
SVR (dynes*seconds*cm^-5): Not obtained.
AVO2 Diff (Volume %): Not obtained.
AV gradient (x, mmHg): Not obtained.
AV area (cm2): Not obtained.
MV gradient (x, mmHg): Not obtained.
MV area (cm2): Not obtained.
LEFT VENTRICULOGRAPHY: Not performed.
AORTOGRAPHY: Not performed.
CORONARY ANGIOGRAPHY
Dominance: Right.
Left Main: Normal size, bifurcating vessel. There is distal tapering of the vessel.
LAD: Large size vessel giving rise to 2 significant diagonals. The first diagonal arises nearly immediately after the origin of the LAD. There is a densely calcified 80% lesion in the proximal/mid LAD spanning the origin of the second diagonal.
Ramus: Congenitally absent.
Circumflex: Normal size, nondominant vessel that is essentially a single large obtuse marginal. There is a 50-60% lesion in the proximal vessel.
RCA: Not injected.
INTERVENTIONS
1. Successful intravascular ultrasound of the proximal mid LAD, demonstrating severe calcification and providing vessel sizing measurements.
2. Successful intracoronary lithotripsy of the proximal/mid LAD, complicated by plaque shift into the large D2, resulting in a 99% stenosis with DM I flow.
3. Successful bifurcation PCI of the Wright 1, 1, 1 80% proximal/mid LAD and 99% ostial/proximal D2 lesions using a DK crush technique (Medtronic [place] 2.0 x 22 DANIEL into the diagonal, postdilated with a 2.5 NC balloon; 3.5 x 34 DANIEL in the
proximal/mid LAD, postdilated with a 3.5 NC balloon, followed by simultaneous kissing balloons).
4. Successful final LAD POT with 3.75 x 12 NC balloon.
Narrative:
The decision was made to proceed with percutaneous coronary intervention. The 6Fr EBU 3.5 guiding catheter was advanced to the aortic root and seated in the left main coronary artery. Additional heparin was given and a Power Turn Flex wire was
advanced into the distal LAD. The 80% proximal/mid LAD lesion was predilated with a 2.0 x 12 semi-compliant balloon to 12 mukund.
The decision was made to perform intracoronary imaging. An IVUS catheter was advanced through the guiding catheter and into the ostium of the artery. Ring down was performed once the imaging crystal was no longer inside of the guiding catheter. The
IVUS catheter was advanced into the mid LAD. Intravascular ultrasound was performed in a retrograde fashion using a slow pullback. Intracoronary imaging demonstrated notable atherosclerotic disease in the proximal and mid vessel. This also
confirmed the dense calcification of the proximal LAD. Vessel sizing was performed. Distal tapering of the left main coronary artery with calcification was observed. Minimal luminal area of the distal left main was 7.6 mm�.
A Shockwave 3.5 x 12 coronary lithotripsy balloon was advanced over the wire and into the proximal/mid LAD lesion. The balloon was sterilely connected to the controller and prepped to negative pressure. Meticulous care was taken while positioning
the shockwave balloon. Once in satisfactory position, the balloon was inflated to 4 mukund. After confirming good contact with the vessel wall, 10 pulses were delivered. After delivering 10 pulses, the balloon was inflated to 6 mukund then deflated.
The entire lesion was treated in a similar manner for total of 5 rounds.
The Shockwave balloon was withdrawn and angiography was repeated. This demonstrated plaque shift into the large second diagonal with DM I flow. Given the size of the vessel, I felt it was necessary to rescue this vessel. A BMW wire was advanced
into the proximal LAD and was directed into the lumen of the second diagonal with some difficulty. After confirming placement in the second diagonal, the second diagonal was dilated with the 2.0 x 12 semicompliant balloon. This restored DM-3
flow. The balloon was withdrawn and IVUS was performed into the diagonal. This demonstrated significant plaque burden in the proximal vessel in addition to the plaque shift from the LAD. Vessel sizing was performed.
The decision was made to move forward with a 2 stent bifurcation strategy. After removing the IVUS catheter a 3.5 x 15 was advanced into the LAD, beyond the origin of the diagonal. A Medtronic [place] 2.5 x 22 drug-eluting stent was advanced
over the BMW wire. Unfortunately, the stent would not advance past the mid catheter, likely due to braiding of the wires and NC balloon. The stent was withdrawn and was noted to be significantly mangled. The entire stent system was discarded and
a second stent system was advanced. Unfortunately, we had a similar situation developed, and spite of our attempts to on braid the wires. This stent also became stripped but thankfully was maintained on the wire and removed from the body. The 3.5
x 15 NC balloon was pulled back into the proximal catheter which allowed us to on braid the wires and balloon shaft. After completing this on braiding, a 2.0 x 22 drug-eluting stent was advanced into the diagonal with relative ease. After placing
the stent in the diagonal, the noncompliant balloon was readvanced over the power turn flex wire and into the LAD, again with relative ease. We took this opportunity to pull the diagonal stent back so that the proximal margin was sitting in the
left anterior descending artery but ensuring that the distal aspect was covering the entire diagonal lesion. We were satisfied with our position, the stent was deployed at 12 atmospheres. The stent balloon was removed. The 3.5 x 15 noncompliant
balloon was immediately pulled back from its distal position and seated across the origin of the diagonal and the deployed stent. The 3.5 x 15 NC balloon was inflated to 12 mukund, crushing the LAD portion of the diagonal stent to the side.
The NC balloon was withdrawn and a run-through wire was advanced into the LAD. We were able to advance the run-through wire through the stent struts of the crushed diagonal stent into the diagonal lumen. The BMW wire was withdrawn. The 2.0 x 12
semicompliant balloon was readvanced and the stent struts were dilated to 12 mukund, creating a hole within the stent struts and allowing easier delivery of equipment. The 2.0 x 12 semicompliant balloon was withdrawn and a 2.5 x 15 noncompliant
balloon was advanced. The entire stented segment was postdilated with the noncompliant balloon to 12 mukund.
The noncompliant balloon was withdrawn and a 3.5 x 34 Medtronic [place] DANIEL was advanced over the power turn Flex wire. Unfortunately, the stent had some difficulty passing into the mid vessel. In order to facilitate the delivery of the
stent, the run-through wire was withdrawn and a 6 Tong[place] GuideLiner was advanced over the 3.5 x 15 NC balloon. The proximal vessel was dilated and the GuideLiner was advanced over the balloon. With the GuideLiner in place, the stent was
readvanced, this time passing into the mid LAD. The stent was pulled back until it was slightly proximal to the crushed end of the diagonal stent. The stent was deployed at 12 mukund.
IVUS was performed, demonstrating good stent apposition with some modest underexpansion in the proximal margin. The 3.5 x 15 noncompliant balloon was readvanced and the entire stent length was postdilated, 15 mukund in the distal and mid portions, 18
mukund in the proximal stent. The GuideLiner was withdrawn. The run-through wire was readvanced in an attempt to reaccessed the second diagonal, now jailed by the LAD stent but with DM-3 flow. Unfortunately, the run-through wire would not cross
through the stent struts. This wire was withdrawn and a whisper wire was advanced, passing into the second diagonal with some difficulty. After confirming the presence of the whisper wire in the diagonal, a 1.5 x 6 noncompliant balloon was
advanced over the whisper wire and into the diagonal, crossing the LAD stent struts. The balloon was inflated to 12 mukund, then again at 14 mukund through the LAD stent struts, creating a photogrammetry airplane pilot hole. This balloon was withdrawn and the 2.0 x 12
semicompliant balloon was advanced. This balloon dilated the stent struts to 12 mukund. This balloon was withdrawn and the 2.5 x 15 noncompliant balloon was advanced into the diagonal with relative ease. At this time, we took the opportunity to
readvanced the 3.5 x 15 noncompliant balloon into the LAD. We performed stent strut dilation from the diagonal back into the LAD at 15 mukund. The 3.5 x 15 balloon was inflated in the proximal LAD at 15 mukund. Both balloons were then simultaneously
inflated at 15 mukund and a kissing balloon technique. Both balloons were deflated and withdrawn.
The IVUS catheter was readvanced but encountered difficulty passing beyond the proximal stent margin. After removing the whisper wire, the GuideLiner was readvanced over the 2.5 balloon into the LAD. With the GuideLiner in place, the IVUS catheter
was readvanced. The GuideLiner was pulled back and IVUS was repeated in a retrograde fashion. This demonstrated excellent stent apposition with some underexpansion in the proximal margin of the stent due to severe calcification, in spite of
appropriate intracoronary lithotripsy. The IVUS catheter was withdrawn and a 3.75 x 12 noncompliant balloon was advanced into the proximal stent margin. The proximal stent margin was postdilated to 14 mukund, completing the proximal optimization
technique (POT) and the DK crush PCI. The noncompliant balloon was withdrawn.
Angiography was performed in orthogonal views, confirming good stent expansion and an excellent angiographic result. The coronary wire was withdrawn and the guide was disengaged from the artery. The catheter was removed over a standard J-wire.
After completing the interventional portion of the procedure, the manifold was connected to the indwelling [place]-Ac catheter and pulmonary artery, wedge and right atrial pressures were obtained.
Closure Device: Vascular band for the right radial artery.
Radiation dose (mGy): 1514
DAP (cm2.Gy): 110.04
Fluoroscopy time (minutes): 34.5
CONCLUSIONS:
1. Right dominant circulation with calcified, nonocclusive tapering of the distal left main coronary artery (MLA = 7.6 mm�), a 50-60% lesion in the proximal circumflex and a densely calcified, 80% lesion in the proximal/mid LAD spanning the origin
of D2 which had its own, underappreciated ostial lesion, status post successful IVUS guided intracoronary lithotripsy (Shockwave 3.5 x 12 lithotripsy balloon), leading to plaque shift and 99% stenosis of the second diagonal, status post successful
DK crush of the second diagonal (Medtronic [place] 2.0 x 22 DANIEL, postdilated with a 2.5 NC balloon) and proximal/mid LAD (Medtronic [place] 3.5 x 34 DANIEL, postdilated with a 3.5 NC balloon throughout and a 3.75 x 12 NC balloon in the
proximal margin) with reduction in both stenoses to 0%, maintaining and restoring DM-3 flow.
2. Severely elevated filling pressures (PCWP = 25 mmHg at 55.8 kg).
3. Severe pulmonary hypertension.
RECOMMENDATIONS:
1. Expectant management after cardiac catheterization via right radial approach.
2. Limited weight bearing on the right wrist for one week.
3. Antiplatelet therapy with clopidogrel and aspirin for the time being. We will likely convert the patient to DOAC, at which time we will discontinue aspirin. Maintain clopidogrel for at least 12 months.
4. Aggressive secondary prevention with high-dose, high potency statin and ezetimibe. Goal LDL <55.
5. Resume aggressive diuresis. The pulmonary artery pressures recorded on the floor are likely inaccurate. His PCWP remains in the severely elevated category.
6. Monitor renal function with continued diuresis especially given contrast exposure.
Copy to: Rafi Boone M.D., Naima Boyd M.D., IDRIS Barry
Alvaro Ortiz, DO, FACC, FACP
[2025-03-30 19:28] LABS: Glucose - Point of Care 180 mg/dl (70-99)
--- NOTE | 2025-03-30 19:29 | PTCARENOTE ---
returned from microbiological laboratory technician at 1855, settled in room, family bedside. swan remains, zero and calibrated. call holley in reach and denies distress. TR band intact R radial artery.
[2025-03-30] MEDS: NEURONTIN PO (19:43)
[2025-03-30] MEDS: REVATIO PO (19:43)
[2025-03-30] MEDS: NOVOLOG FLEXPEN 7 UNITS SC (20:01)
[2025-03-30] MEDS: ZETIA 10 MG PO (20:05)
[2025-03-30] MEDS: LIPITOR 20 MG PO (20:07)
--- NOTE | 2025-03-30 21:30 | PTCARENOTE ---
Assumed care of pt at 1910 when he arrived back from woods laborer. Heparin drip off, KVO of NS running through RIJ cordis. R radial TR band in place, see post-cath flowsheet on worklist for details. Pt on 10L MFNC, SpO2 88-92%, will drop with exertion
or when having a conversation. Physical assessment as documented in nursing shift assessment flowsheet.
[2025-03-30 21:44] LABS: Glucose - Point of Care 301 mg/dl (70-99)
[2025-03-30] MEDS: LANTUS 0.12 UNITS SC (22:26)
[2025-03-31] VITALS (25 sets, daily range): BP systolic 102–143; BP diastolic 32–56; PULSE 71; O2SAT 97; BMI 19.8; BMI 20.2
--- NOTE | 2025-03-31 00:11 | PTCARENOTE ---
Assessment unchanged. TR band removed at 2245, dressing applied, no bleeding noted and neurovascular assessment to RUE is WNL. Currently 96% on 10L MFNC, SR 60s-70s on monitor.
[2025-03-31 04:52] LABS: Hematocrit 24.1 % (39.0-52.0); Hemoglobin 7.8 g/dL (13.0-18.0); Mean Corp Hgb Conc. 32.4 g/dL (33.0-37.0); Mean Corpuscular Volume 89.9 fL (80.0-94.0); Platelet Count 171 10^3/uL (130-400); Red Cell Dist. Width 14.6 % (11.5-14.5)
[2025-03-31 05:16] LABS: Blood Urea Nitrogen 59 mg/dl (9-20); Calcium 8.3 mg/dl (8.4-10.2); Carbon Dioxide 33 mmol/L (22-30); Chloride 99 mmol/L (98-107); Estimated Creatinine Clearance 24 ml/min; Glucose 135 mg/dl (70-99); Potassium 3.5 mmol/L (3.5-5.1); Sodium 138 mmol/L (135-145); eGFR 35.00
[2025-03-31] MEDS: KCL 20 MEQ PO (06:06)
--- NOTE | 2025-03-31 06:11 | PTCARENOTE ---
0400 assessment unchanged. Pt has been asleep most of the shift. 12L MF with sats in low/mid 90s. SR 60s-70s on monitor.
--- NOTE | 2025-03-31 06:58 | W.PN.CD ---
Today's Communication / Plan
-
Resume bumetanide gtt.
Maintain metolazone 5 mg daily.
D/C swan-bhakti catheter.
Start apixaban 2.5 mg BID.
Continue aspirin + clopidogrel with apixaban for 1 week, then discontinue aspirin.
Impression / Plan
-
Impression/Plan: 79 y/o male with extensive past medical history admitted with flash pulmonary edema/hypoxic respiratory failure, found to have severely elevated filling pressures, prior exertional oxygen desaturation and worsening anemia and renal
function with lackluster diuresis and new diagnosis of occlusive CAD.
#Hypoxic respiratory failure/pulmonary hypertension/COPD
-Acute on chronic, 4L NC as an outpatient
-Multifactorial. Obvious component of HFpEF and severe pulmonary hypertension. Outpatient notes suggest there is a component of primary pulmonary disease.
-Started sildenafil 20 mg TID 03/28/2025
-CT Chest: Bilateral pleural effusions with associated compressive atelectasis and/or pneumonia.
-Fever + imaging findings raises the possibility of infection vs. autoimmune issue (no hemoptysis, making vasculitis, i.e. Eulalia's, Churg-Ella, microscopic polyangiitis less likely). No significant eosinophilia.
-Bedside spirometry pending.
-PCWP remains severely elevated during PCI yesterday (25 mmHg) with persistent, severe pHTN.
#HFpEF
-Acute on chronic.
-PA catheter in place. Started sildenafil for pHTN. Monitor response.
-GDMT:
-Diuretics: Bumetanide 2mg IV BID
-Beta ervin: Carvedilol 25 mg BID.
-ACEI/ARB/ANRi: On hold due to renal function.
-MRA: On hold due to renal function.
-SGLT2i: On hold due to renal function.
-Amyloid workup.
-Echo report reviewed. Mean gradient of the aortic valve was 13 mmHg. Moderate MR. IVC is dilated and does not collapse.
-Weight stable/down slightly with addition of metolazone. Filling pressures remain severely elevated at the time of cath/PCI.
-Measurements outside of lab seem unreliable due to patient movement. D/C PA catheter.
-Resume bumetanide gtt.
#CAD
-Stable.
-S/P DK crush PCI of Wright 1, 1, 1 80% LAD and 99% ostial D2 lesion due to plaque shift (Medtronic [place] 2.0 x 22 DANIEL to D2, post dilated with a 2.5 NCB, 3.5 x 34 DANIEL to LAD, post dilated with 3.5 NCB throughout, 3.75 NCB in the proximal stent
margin), 03/30/2025.
-DAPT with aspirin and clopidogrel. Starting apixaban for PAF. Maintain triple therapy for 7 days, then d/c aspirin.
-High dose/potency statin.
#BHUPINDER on CKD III
-Acute on chronic.
-Creatinine up to 2.6 at [facility], currently 1.9.
-ISAEL on US (renal to aortic ratios 3.8 and 4.0, suggestive of 60-99% stenosis of both renal arteries).
-Urine protein/creatinine ratio = 0.5.
-Hold ACEI/ARB/ARNi/MRA/SGLT2i.
-Amyloid workup.
-Monitor renal function after PCI and with resumed diuresis.
#Paroxysmal atrial fibrillation
-In sinus with PACs.
-Rate control with carvedilol.
-[id number]: score at least 6 (Heart failure, HTN, age 75 or more, Diabetes Mellitus, Vascular disease).
-Oral Anticoagulation: transition to apixaban 2.5 mg BID (age, weight, renal function).
#HLD
-Chronic, stable.
-Continue ezetimibe, atorvastatin.
-Goal LDL < 55.
#Anemia
-Chronic (per report).
-Dx is likely a mix of some Fe deficiency, renal disease and anemia of chronic disease.
-B12, folate are normal. Reticulocyte count elevated (appropriate). Thiamine pending.
-Fe = 36, FeSat = 12%, ferritin = 102 (making Fe deficiency less likely), TIBC = 286.
-1 unit PRBC 03/28/2025 will functionally replace any iron deficiency.
-Keep H/H >/= 05/29.
#Severe aortic stenosis with bicuspid morphology, S/P AVR, stable on TTE.
#LBBB
#Daily EtOH consumption in the outpatient setting.
Subjective/Interval History:
Cath/PCI of the prox/mid LAD --> DK crush of the ostial D2.
PCWP = 25 mmHg with severe pulmonary hypertension when flat (on cath table).
Metolazone 5 mg 30 minutes prior to bumex started yesterday.
Remains on 10-12 L/min.
DATA:
RHC, 03/25/2025:
CONCLUSION
1. Severely elevated filling pressures (PCWP = 34 mmHg at 61.7 kg).
2. 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
3. Preserved cardiac index (2.35 L/min/m� by thermodilution, 2.03 L/min/m� by Shawna).
Chest CT, 03/28/2025:
IMPRESSION:
1. Moderate bilateral pleural effusions with associated compressive atelectasis and/or pneumonia. Scattered patchy ground glass densities throughout all lobes bilaterally may reflect combination of pneumonitis/pneumonia and areas of air trapping.
2. No convincing acute process in the abdomen or pelvis, within the limitations of unenhanced technique. Urinary bladder is decompressed around a Stanton catheter and not well evaluated. Cystitis not excluded.
3. Cholelithiasis. Pericholecystic fluid is present, likely on the basis of systemic congestion. Recommend clinical correlation for signs/symptoms of acute cholecystitis.
TTE, 03/29/2025:
CONCLUSIONS
-Left ventricular ejection fraction is approximately 55-60%. Septal
hypokinesis and abnormal (paradoxical) septal motion consistent with conduction
abnormality/postoperative state.
-Mildly enlarged right ventricular size. Normal right ventricular systolic
function.
-Mild to moderate mitral regurgitation.
-Bioprosthetic aortic valve replacement with peak/mean gradients of 20/11 mmHg.
Trace aortic regurgitation.
-Mild to moderate tricuspid regurgitation. Estimated pulmonary artery pressure
of 70-75 mmHg.
-The IVC is dilated and does not collapse.
Compared to previous echo of 10/14/2024, septal hypokinesis is now noted.
Slightly progressive mitral regurgitation and tricuspid regurgitation are
noted. PASP was not previously obtained.
Cardiac Catheterization/PCI, 03/30/2025:
CONCLUSIONS:
1. Right dominant circulation with calcified, nonocclusive tapering of the distal left main coronary artery (MLA = 7.6 mm�), a 50-60% lesion in the proximal circumflex and a densely calcified, 80% lesion in the proximal/mid LAD spanning the origin
of D2 which had its own, underappreciated ostial lesion, status post successful IVUS guided intracoronary lithotripsy (Shockwave 3.5 x 12 lithotripsy balloon), leading to plaque shift and 99% stenosis of the second diagonal, status post successful
DK crush of the second diagonal (Medtronic [place] 2.0 x 22 DANIEL, postdilated with a 2.5 NC balloon) and proximal/mid LAD (Medtronic [place] 3.5 x 34 DANIEL, postdilated with a 3.5 NC balloon throughout and a 3.75 x 12 NC balloon in the
proximal margin) with reduction in both stenoses to 0%, maintaining and restoring DM-3 flow.
2. Severely elevated filling pressures (PCWP = 25 mmHg at 55.8 kg).
3. Severe pulmonary hypertension.
Physical Exam
Vital Signs/Labs
Vital Signs
Temp Pulse Resp BP Pulse Ox
37.0 C 65 15 108/32 95
03/31/25 03:09 03/31/25 06:00 03/31/25 06:00 03/31/25 06:00 03/31/25 06:00
03/29/25 03/30/25 03/31/25
11:59 11:59 11:59
Actual Weight 56.9 kg 57.9 kg 55.5 kg
03/31/25 04:34
03/31/25 04:34
PT 17.8 Sec (11.4-14.6) H 03/28/25 04:47
INR 1.44 03/28/25 04:47
APTT Cancelled 03/30/25 18:15
Magnesium 2.2 mg/dl (1.6-2.3) 03/30/25 03:09
03/28/25 03/30/25
03:47 03:09
[id number] Pept [id number]
Physical Exam
Constitutional: No acute distress and Comfortable
EENT: Anicteric and Moist mucous membranes
Cardiovascular: Rhythm & rate is regular, Pedal edema present, S1S2 is normal and Murmur/rub/gallop absent
Respiratory: Respiratory effort normal, Wheeze Absent, Rhonchi Absent and Crackles Present (Bilateral bases.)
GI: Soft, Distention absent, Flat, Non tender and Normal bowel sounds
Neuro/Psych: AO x 3
Other: Cath Site (Right radial access site is C/D/I.)
Data Reviewed
-
Date of Service: March 31, 2025
Medical Decision Making: Reviewed Test Results, Independent Historian Assessment and Test Interpretation
EKG: Tracing Personally Visualized and interpreted and Report Reviewed by me
Echo: Tracing Personally Visualized and interpreted and Report Reviewed by me
X-Ray/CT/US/MRI/NUC/PET: Image Personally Visualized and interpreted and Report Reviewed by me
Medical Tests (PFT, Pathology etc): Image Personally Visualized and interpreted and Report Reviewed by me
Labs: Labs Reviewed by me
Old Records: Reviewed
[2025-03-31] MEDS: DUONEB 3 ML INH ×4 (07:15→19:54)
--- NOTE | 2025-03-31 07:16 | W.PN.HOSP.TC ---
Today's Communication/Plan
-
;/
Assessment / Plan
Assessment / Plan
Assessment/plan
#Acute on chronic hypoxemic respiratory failure secondary to below
#Acute on chronic HFpEF
#Pulmonary Hypertension
-Recent echocardiogram 03/29- -Left ventricular ejection fraction is approximately 55-60%. Septal hypokinesis and abnormal (paradoxical) septal motion consistent with conduction abnormality/postoperative state. Mildly enlarged right ventricular
size. Normal right ventricular systolic function. Mild to moderate mitral regurgitation. Bioprosthetic aortic valve replacement with peak/mean gradients of 20/11 mmHg. Trace aortic regurgitation. Mild to moderate tricuspid regurgitation. Estimated
pulmonary artery pressure of 70-75 mmHg.The IVC is dilated and does not collapse.
-s/p RHC 03/25 with severely elevated filling pressures with Pulmonary HTN
-initiated on Sildenafil 20mg TID for Pulm HTN.
-Cards input appreciated. Restrictive cardiomyopathy workup, Amyloid workup initiated.
-CT chest 03/28-Moderate bilateral pleural effusions with associated compressive atelectasis and/or pneumonia. Scattered patchy ground glass densities throughout all lobes bilaterally may reflect combination of pneumonitis/pneumonia and areas of air
trapping.
-Resume Bumex drip for aggressive diuresis
-Metolazone 5mg daily
-Continue O2 Therapy, wean to Baseline as able
-Java Development Team Lead following
-Bedside Spirometry pending
#Low Grade fever
-was treated for Community acquired pneumonia at [facility]--received 6/ days of zosyn-
-Reported fevers this admission
-Monitor off abx for now
-CT chest as above.
-Ultrasound abdomen 03/30- Cholelithiasis. There is a 1.4 cm gallstone. There is a 5 mm echogenic focus along the gallbladder wall without shadowing. Negative sonographic Amaya's sign. Pericholecystic fluid seen. There is no evidence of biliary
ductal dilation. The common bile duct measures 5 mm.
-If fevers persist, consider restarting Abx.
#Paroxysmal atrial fibrillation
-During his hospitalization at [facility], he went into A-fib(New for patient)
-Currently in NSR
-Continue PO Coreg
-Anticoagulation with Eliquis
#CAD s/p stent
-Cardiac catheterization at [facility] showed proximal/mid LAD lesion.
-Repeat Revascularization 03/31- showing 50-60% lesion in the proximal circumflex and a densely calcified, 80% lesion in the proximal/mid LAD. Severely elevated filling pressures (PCWP = 25 mmHg at 55.8 kg). Severe pulmonary hypertension.
-Aspirin, Plavix, Eliquis for one week, then discontinue Aspirin.
-Secondary prevention with Statin and ezetimibe.
# BHUPINDER on CKD 3a
-Cre downtrended, now at Baseline(Baseline 1.9)
-Hold Jardiance
-Monitor BMP
-Nephrology following
-Renal Artery duplex ultrasound 03/28- Elevated velocity at the origin of the right renal artery measures 250 cm/s, and the right renal to aortic ratio measures 4.0.Findings are suggestive of 60-99% stenosis of the right renal artery. Left renal
artery peak systolic velocity 225 cm/s, renal to aortic ratio 3.8. Findings are suggestive of 60-99% stenosis of the left renal artery.
-Check MRA of renal arteries
#Acute on chronic anemia
-During his hospitalization at [facility], he received 1 unit of PRBC
-s/p 1 unit pRBC 03/28
-Monitor H&H
-Iron Studies indicative of Iron Deficiency Anemia.
-Started on Iron supplementation
#T2DM
-Likely with Neuropathy as patient takes gabapentin
-Hold repaglinide/Jardiance
-Coverage with SSI
-A1C 6.9 03/26
-DM Nurse practitioner input appreciated
-Insulin with NovoLog 7units AC, Lantus 10units HS
#Hypokalemia
-Repleted
#COPD
-On home oxygen 2 L
-no exacerbation
-Not on bronchodilators
#Chronic alcohol use
-outside of window for withdrawal symptoms
-States his last drink was 4 weeks ago
#History of aortic stenosis s/p AVR
#History of gout�allopurinol
#History of bladder cancer currently in remission
#Remote tobacco user
CODE STATUS full code
GI Prophylaxis Pantoprazole
DVT prophylax Eliquis
Anticipated Discharge: > 48 hours
Subjective/Interval History
-
patient seen and examined at bedside
Objective Data
-
Labs:
Laboratory Results
03/30/25 03/31/25
18:15 04:34
WBC 8.2
Hgb 7.8 L
Hct 24.1 L
Plt Count 171
APTT Cancelled
Sodium 138
Potassium 3.5
Chloride 99
Carbon Dioxide 33 H
BUN 59 H
Creatinine 1.9 H
Glucose 135 H
Calcium 8.3 L
Vital Signs:
Vital Signs
Temp Pulse Resp BP Pulse Ox
98.6 F 65 15 108/32 95
03/31/25 03:09 03/31/25 06:00 03/31/25 06:00 03/31/25 06:00 03/31/25 06:00
I&O
03/30/25 03/31/25 04/01/25
06:59 06:59 06:59
Intake Total 1703.0 / 1736.5 766.0 / 766.0
Output Total 2405 / 2405 2850 / 2850
Balance -702.0 / -668.5 -2084.0 / -2084.0
Review of Systems
-
All other systems: Reviewed and negative (except as documented)
Physical Exam
-
General: No Apparent Distress
Respiratory: Crackles and Non Labored Respirations
Cardiac: Regular Rhythm and S1/S2
GI: Soft, Nontender, Nondistended and Normal Bowel Sounds
Neuro: AO x 3
Psych: Calm
[2025-03-31 07:47] LABS: Glucose - Point of Care 92 mg/dl (70-99)
[2025-03-31] MEDS: NEURONTIN 100 MG PO ×3 (07:59→21:33)
[2025-03-31] MEDS: NOVOLOG FLEXPEN-MODERATE RESISTANCE SC ×2 (07:59→17:52)
[2025-03-31] MEDS: PLAVIX 75 MG PO (08:00)
[2025-03-31] MEDS: ZYLOPRIM 300 MG PO (08:00)
[2025-03-31] MEDS: COREG 25 MG PO ×2 (08:00→20:11)
[2025-03-31] MEDS: OCUVITE SOFTGEL 1 CAP PO (08:00)
[2025-03-31] MEDS: SENOKOT-S 1 TABLET PO (08:00)
[2025-03-31] MEDS: REVATIO 20 MG PO ×3 (08:00→21:33)
[2025-03-31] MEDS: ZAROXOLYN 5 MG PO (08:00)
[2025-03-31] MEDS: ASPIR LOW (ENTERIC COATED) 81 MG PO (08:00)
[2025-03-31 08:08] LABS: ACT-LR - POC > 397 Seconds (116-155)
[2025-03-31 08:08] LABS: ACT-LR - POC > 397 Seconds (116-155)
[2025-03-31 08:08] LABS: ACT-LR - POC > 397 Seconds (116-155)
--- NOTE | 2025-03-31 08:24 | W.PN.INTV ---
Today's Communication / Plan
Recommendations
s/p DANIEL to diagonal branch + proximal/mid LAD on 03/30
Continue DAPT with ASA and plavix
Continue diuresis, now on bumex gtt given elevated PCWP on RHC yesterday; continue metolazone
Given concern for renal artery duplex, check MRA
[place]-Ac removed today
Continue pulmonary vasodilator therapy with Sildenafil given elevated TPG - may need to be on additional agent (i.e. Opsimut) which can be discussed as an outpatient
Check VQ scan tomorrow now that O2 requirements have improved (to assess for CTEPH)
Continue DuoNebs
Spirometry today shows no evidence of COPD, and is instead more suggestive of asthma/reactive airway disease
Trend BNP
Continue midflow nasal cannula, weaning as tolerated while keeping SpO2 >90-94%
Patient is stable for downgrade out of ICU to IVU. Now that his oxygen requirements have improved, I will order a VQ scan to be performed tomorrow. Pulmonary service will continue to briefly follow along.
Assessment
-
79-year-old man with past medical history significant for heart failure, mitral valve prolapse, prior aortic stenosis status post AVR in 2008, type 2 diabetes, COPD on 2 to 4 L supplemental oxygen continuously, hypertension, initially presented to
[facility] 03/19/2025 per records complaining of increased shortness of breath, leg swelling over the last week or so.
Patient was diagnosed with acute on chronic heart failure/positive increased troponin. Increased work of breathing requiring BiPAP therapy and subsequently transition to mid flow oxygen.
EKG demonstrated rapid atrial fibrillation.
Evaluation included diagnostic cardiac catheterization. 03/23/2025. Pulmonary capillary wedge pressure was 27. Cardiac index was 2.95.
Patient was treated with a standard diuresis.
Patient was also empirically treated with antibiotic for possible pneumonia.
Given persistent hypoxemia despite diuresis and difficulty with his chronic kidney disease, abnormal stress test with possible significant LAD lesion he was sent to [facility] for further evaluation potential intervention. 03/25/2025
Assessment and plan:
#1. Acute hypoxemic respiratory failure due to pulmonary edema
- Clinically improving -weaned off of high flow nasal cannula on 03/28, and now on midflow nasal cannula - continue weaning down supplemental O2 flow rate while keeping SpO2 >90-94%
- Continue diuresis with Bumex (resumed intermittent 03/29) given continued evidence of alveolar/interstitial edema on CT chest from 03/28/2025; metolazone added 03/30 by cardiology - - changed to bumex gtt on 03/31
- Continue DuoNeb scheduled for suspected underlying COPD - will get full PFTs as an outpatient (however [facility] spirometry did not show evidence of an obstructive lung defect, per documentation) - now that he is improved, will
attempt bedside spirometry today (shows complete resolution of a moderate obstructive lung defect with a borderline significant bronchodilator response and marked improvement in the small lung bennett, most suggestive of RAD versus asthma)
- Check home O2 assessment prior to discharge
- PT/OT
- Follow-up SPEP; follow up serum free light chains to evaluate for amyloidosis
#2. Acute on chronic heart failure with preserved ejection fraction, also moderate MR
-Cardiology service on case
-[place]-Ac removed today
-Significant diuresis over last 5 days, he is now net -11 L since admission as of 03/31
- Continue to trend BNP with occasional CXR
- CXR on 03/30 showed mildly improved aeration in the left costophrenic angle, otherwise similar size of right-sided pleural effusion and interstitial edema bilaterally
#3. Severe pulmonary hypertension
- Primarily group 2 with elevated pulmonary capillary wedge pressure of 34. PVR elevated at 6, might have component of group I vs IV
- Obtain VQ scan once O2 requirements improve (needs to be down to 10L/min or less to get V/Q scan)
- No evidence of ILD or emphysema on CT Chest from 03/28/2025
- Outpatient PFTs; spirometry performed today (03/31 does not show evidence of COPD, and is instead supportive of RAD versus asthma)
- Given his elevated transpulmonary gradient of 24, if VQ scan is negative, patient may benefit from dual pulmonary vasodilator therapy (i.e. macitentan + tadalafil) as he has class II/III symptoms
- On 03/29, started on sildenafil per cardiology - continue to monitor symptoms
#4. Paroxysmal atrial fibrillation
- Off heparin infusion s/p [facility] on 03/30, and now on Eliquis
- Keep HR <110
- Replete K>4, Mg>2
#5. History of COPD, uses oxygen at home
- Spirometry today shows that he does not have COPD, and spirometry is most suggestive of reactive airway disease versus asthma
-6 minute walk test in December 2024 with low saturation 91%.
- Remote history of smoking, on report from brenna Bass, CAT scan in 2022 showed tiny pulmonary nodules without significant parenchymal lung abnormality.
-No evidence of emphysema per CT chest from 03/28/2025
- Brenna Bass reports recent pulmonary function testing with a small airways disease without airflow obstruction by ATS criteria.
- Continue Duoneb QID
- Not currently wheezing hence no need for systemic steroids at this time
#6. BHUPINDER with underlying CKD stage III
- Suspect cardiorenal syndrome
- Continue to trend serum creatinine with strict I/O
- Renally dose all medications
- Renal artery duplex checked on 03/28/2025 showing elevated velocities with suspected 60-99% stenosis of the the left and right renal arteries � discussed this with nephrology and recommend MRA to assess for renal artery stenosis
#7. Coronary artery disease
- LAD disease noted on [facility] 03/2025
- Underwent left heart catheterization on 03/30/2025 showing severe calcification in the proximal/mid LAD, with intracoronary lithotripsy complicated by plaque shift into the large D2, and he underwent bifurcation PCI with DANIEL placement to the
diagonal as well as the proximal/mid LAD
-Right heart cath numbers also performed continuing to show postcapillary pulmonary hypertension with PCWP 25, and TPG 20 with PA pressures elevated at 72/31
- Aspirin, Coreg, Zetia, + Lipitor
#8. Aortic stenosis s/p AVR
- Echo shows mild aortic sclerosis
#9. Anemia, suspect related to chronic disease
- Transfuse as needed to maintain Hb >7-8 g/dL
- Continue iron supplementation given iron saturation is 12% with iron levels <40
#10. B/L pleural effusions, L>R, suspect related to pulmonary edema.
- Continue to monitor
- Trend BNP and serial CXR
- Continue diuresis and maintain net negative fluid balance as tolerated
#11. DM type II (A1C: 6.9 on 03/26/2025)
- Hold oral hypoglycemics for now
- Continue basal-bolus SQ insulin
- Diabetic AUTOMOTIVE EXHA[employer] EMISSIONS TECHNICIAN on board
- Goal BG 140-180mg/dL
#12. Cholelithiasis with pericholecystic fluid; no evidence of cholecystitis
- Due to hepatic vascular congestion in the setting of right-sided heart failure
- Patient does have gallstones with small volume pericholecystic free fluid seen on RUQ ultrasound today however no biliary ductal dilatation and negative sonographic Amaya sign
Conditions present prior admission:
Congestive heart failure
Nonobstructive coronary artery disease
LBBB
CKD stage III
History of bladder carcinoma
Mitral valve prolapse
Type 2 diabetes
Hyperlipidemia
Hypercholesterolemia
Chronic obstructive pulmonary disease on 2 L supplemental oxygen
History of severe /Bicuspid aortic valve-history of heart valve trifecta replacement 12 years ago-2008
BPH
History of gout
Former smoker quit smoking longer than 10 years ago
Anemia
Daily wine consumption- watch for withdrawal; unlikely at this point given that he has been hospitalized now for >5 days
-
Low-sodium/fluid restricted diet.
DVT prophylaxis on heparin drip.
GI prophylaxis with Protonix - not a home medication - will DC this now
Patient is stable for downgrade out of ICU to IVU. Now that his oxygen requirements have improved, I will order a VQ scan to be performed tomorrow. Pulmonary service will continue to briefly follow along.
---
Data reviewed:
[facility] 03/25/2025: 1. Severely elevated filling pressures (PCWP = 34 mmHg at 61.7 kg).
2. 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
3. Preserved cardiac index (2.35 L/min/m� by thermodilution, 2.03 L/min/m� by Shawna).
Initial chest x-ray [facility] 03/19/2025: Bilateral perihilar infiltrates with bilateral pleural effusions.
-
Chest x-ray March 24, 2025 report from [facility]:
Perihilar interstitial vascular prominence. Persistent. Mild elevation of the left hemidiaphragm. No pleural effusions. Worsening per report
-
Nuclear stress test: 03/22/2025: Abnormal myocardial perfusion imaging suggesting of inferoseptal ischemia and apical scar with ejection fraction reduced at 46%.
-
Left and right heart catheterization 03/23/2025
Pulmonary capillary wedge pressure 27. Pulmonary artery mean pressure 41. Cardiac index 2.95. Cardiac output 4.87 (thermodilution)
Coronary angiogram: Moderate calcification distal 20% stenosis
Left anterior descending ostial 20% stenosis. Proximal 80% stenosis and 60% stenosis.
Diagonal #1: Ostial 30%.
Circumflex 50 to 60%.
Right coronary artery less than 40% stenosis.
-
Echocardiogram 03/20/2025:
LVEF 50 to 55%
Abdominal paradoxical septal motion consistent with left bundle branch block.
Normal right ventricular size and function.
Right atrium is normal size.
Normal mitral valve.
Moderate mitral valve regurgitation.
Aortic valve mild sclerosis. Suggestion of mild aortic sclerosis.
Total time spent today was 58 minutes for this encounter. Time includes reviewing laboratory test/imaging results, reviewing pertinent medical records, obtaining and reviewing medical history, performing an appropriate exam, ordering medications,
tests and procedures. Time also includes documentation of this encounter, coordinating patient care and communicating with other healthcare professionals. Total time does not include separately billed tests performed on this date of service.
Subjective Dataa
Subjective Data
Date of Service:
Date of Service: March 31, 2025
Chief Complaint: Wellness Instructor Follow Up
Subjective:
Patient seen and evaluated this morning. Juan was removed this AM. Heart rate 75, BP 117/44 and saturating 94% on 10 L/min midflow nasal cannula. s/p LHC yesterday with DANIEL to Diagnonal and LAD. He is in good spirits today. Sitting in chair no
acute distress, started on Bumex drip by cardiology. Patient denies chest pain, ABDULLAHI, nausea, fevers or chills.
Review of Systems
General: Other (Negative unless mentioned above)
Objective Data
Data Reviewed
Vital Signs / I&O / Oxygen:
Vital Signs
Temp Pulse Resp BP Pulse Ox
98.5 F 76 16 120/50 93
03/31/25 07:55 03/31/25 08:00 03/31/25 08:00 03/31/25 08:00 03/31/25 08:00
Intake and Output
03/30/25 03/31/25 04/01/25
06:59 06:59 06:59
Intake Total 1703.0 / 1736.5 766.0 / 766.0
Output Total 2405 / 2405 2850 / 2850
Balance -702.0 / -668.5 -2084.0 / -2084.0
SaO2 93
Nasal Cannula flow liters per 7
minute
Physical Exam
General: Respiratory Distress (negative) and Comfortable
HEENT: Normocephalic and Moist Mucous Membranes
Cardiovascular: S1-S2 and Peripheral Edema (negative)
Respiratory: Wheeze (negative), Crackles (Bibasilar), Rhonchi (negative) and Accessory Resp Muscle Use (negative)
GI: Soft, Non Distended, Non Tender and Normal Bowel Sounds
Neurology: AO x 3 and Tremors (negative)
Skin: Warm, Dry, Cyanosis (negative) and Jaundice (negative)
Labs/Micro/Reports
Lab Data
03/31/25 04:34
03/31/25 04:34
Laboratory Results
03/30/25 03/30/25
11:49 18:15
APTT 129.8 H Cancelled
Microbiology
03/29/25 15:20 Sputum Respiratory Culture - Final
03/29/25 15:20 Sputum Gram Stain - Final
[2025-03-31] MEDS: BUMEX IV ×2 (08:48→08:51)
[2025-03-31] MEDS: NOVOLOG FLEXPEN 7 UNITS SC ×3 (08:48→17:55)
--- NOTE | 2025-03-31 09:31 | PTCARENOTE ---
recd pt in bed, handoff as documented, in good spirits. tolerating 10l midflow. OOB to chair after PA readings obtained. [place] [facility] [place] soft [place], presently in recliner eating breakfast. Self administered SQ insulin as ordered,
standing/meal not the SSI coverage. Tasks performed well with cuing. Dr. Ortiz visited, PA catheter DCd awaiting VAT to remove Cordis.
--- NOTE | 2025-03-31 09:34 | PTCARENOTE ---
awaiting bumex gtt, [address] Ortiz.
[2025-03-31] MEDS: BUMEX 50 IV ×2 (09:43→17:55)
--- NOTE | 2025-03-31 11:20 | W.PN.NEPH.PH ---
Addendum entered and electronically signed by Carlotta Edge MD 03/31/25 11:26:
hb still low range and fe sat 12%, will start IV fe course
Original Note:
Today's Communication / Plan
-
monitor labs with bumex gtt
Assessment/Plan
-
IMP:
Acute on chronic hypoxemic respiratory failureNorma
Acute on chronic HFrEF
-Recent echocardiogram 03/20/2025 with a EF 50-55%. Moderate mitral regurgitation. Abnormal septal motion consistent with left bundle branch block.
Paroxysmal atrial fibrillation
Pneumonia
CAD s/p stent
BHUPINDER on CKD 3a
Acute on chronic anemia
T2DM
COPD-On home oxygen 4 L
Chronic alcohol use
History of aortic stenosis s/p AVR
History of gout�allopurinol
History of bladder cancer currently in remission
Remote tobacco user
Plan:
A/w acute respiratory failure, CHF-Transfer from [facility], PCWP 34 on 03/25
stable renal function cr at 1.9
follow cr trend post contrast for [facility] PCI of LAD on 03/30
PCWP still high at 25mm hg
restarted on bumex gtt
monitor met alkalosis
as cr remains stable ok to remove ojeda in am
wean O2 as able, revatio started since 03/28
bilat renal art stenosis -MRA when able non urgent basis
avoid nephrotoxins, hold Jardiance
adjust meds renally
d/w nursing
-
-
Date of Service: March 31, 2025
CC / HPI / ROS
-
Chief Complaint:
BHUPINDER, CKD
History of Present Illness:
Presents with shortness of breath transferred from [facility] with on high oxygen requirements with acute on chronic kidney disease improving
cr at 1.9, on mid flow O2 10lit
BP stable
wt no change
Review of Systems:
no sob at rest, feels well
no fever, no cp
no n/v
Labs
-
Labs:
WBC 8.2 10^3/uL (4.8-10.8) 03/31/25 04:34
RBC 2.68 10^6/uL (4.70-6.10) L 03/31/25 04:34
Hgb 7.8 g/dL (13.0-18.0) L 03/31/25 04:34
Hct 24.1 % (39.0-52.0) L 03/31/25 04:34
Plt Count 171 10^3/uL (130-400) 03/31/25 04:34
eGFR 35.00 03/31/25 04:34
Phosphorus 3.1 mg/dl (2.5-4.5) 03/30/25 03:09
Nch-G-Awcwwfoyffy Pept 22067 pg/ml 03/30/25 03:09
Albumin 3.1 g/dl (3.5-5.0) L 03/30/25 03:09
Physical Exam
-
Vital Signs:
Vital Signs
Temp Pulse Resp BP Pulse Ox
98.5 F 72 17 120/50 93
03/31/25 07:55 03/31/25 11:16 03/31/25 11:16 03/31/25 08:00 03/31/25 11:16
Cardiovascular:: Regular rate and rhythm
Respiratory:: Bilateral: Coarse
Lung Excursion:: Abnormal (decreased BS bilat)
Abdomen:: Nontender and Soft
Extremity Edema:: None: Bilateral:
Ojeda Catheter: Yes
[2025-03-31 12:44] LABS: Glucose - Point of Care 192 mg/dl (70-99)
[2025-03-31] MEDS: NOVOLOG FLEXPEN-MODERATE RESISTANCE 1 UNITS SC (13:21)
[2025-03-31] MEDS: FERRLECIT 110 MG IV (14:25)
--- NOTE | 2025-03-31 14:45 | PTCARENOTE ---
PFTs completed by resp, in and out of bed, walked with PT, bumex infusing, ojeda remains, small amount irritation at meatus, pt aware of likely discontinue in am, discussed with renal and no change in plan as ordered. in good spirits.
self-administered SQ insulin pre-lunch with minimal cuing.
--- NOTE | 2025-03-31 15:48 | CM ---
[place]-Ac d/cd, IV/Bumex, 10L O2-wean as tolerated. Therapy completed initial evaluation with no specific recommendations at this time. Patient is amenable to SNF if recommended. Discharge POC: TBD.
--- NOTE | 2025-03-31 17:23 | PTCARENOTE ---
to MRI on monitor and pulse ox and while in ICU 6l, up to 10 for transport and 12 during flat-lying scan. 8liters for transport back to ICU and then to recliner. No other changes.
[2025-03-31 17:36] LABS: Glucose - Point of Care 149 mg/dl (70-99)
[2025-03-31 19:36] LABS: Blood Urea Nitrogen 68 mg/dl (9-20); Calcium 8.9 mg/dl (8.4-10.2); Carbon Dioxide 28 mmol/L (22-30); Chloride 96 mmol/L (98-107); Estimated Creatinine Clearance 24 ml/min; Glucose 107 mg/dl (70-99); Potassium 4.5 mmol/L (3.5-5.1); Sodium 135 mmol/L (135-145); eGFR 35.00
[2025-03-31] MEDS: ELIQUIS 2.5 MG PO (20:12)
[2025-03-31] MEDS: TYLENOL 650 MG PO (20:26)
--- NOTE | 2025-03-31 20:45 | W.PN.UPDATE ---
Update Note
Progress Note Update
Red, diffuse, nonpruritic rash noted on the patient's trunk and back. Medication just administered was Eliquis prior to nursing noting rash. Patient denies any shortness of breath, difficulty breathing, throat tightness, or swelling. Difficult to
determine the cause of rash, could be due to multiple reasons including: medications, hospital wipes, hospital bedding/laundry detergent vs telemetry stickers/tape in contact with sensitive skin. Discussed rash with patient, ordered benadryl for
prn itchiness. Continue to monitor if rash or symptoms worsen with medication administration. Advised nursing to use fred cleansing/skin sensitive measures for cleaning skin.
--- NOTE | 2025-03-31 20:46 | PTCARENOTE ---
Assumed care of pt at 1900. Pt is IVU level of care. A/O x4, pleasant and cooperative with care. OOB to chair at start of shift, assisted back to bed with x1 assist at around 2014. Pt on 6L MFNC with sats in mid 90s, SR 80s on monitor with 1 deg
AVB, BBB, PACs noted. Bumex drip infusing. Physical assessment as documented in nursing shift assessment flowsheet. Oral care done and linens/gown changed before pt got back into bed. New rash noted to pt's back and torso--pink flat patches,
slightly itchy to back but not to torso, pt was unaware he had the rash. Ambrosio STEINBERG notified and assessed patient. PRN Benadryl ordered.
[2025-03-31] MEDS: ZETIA 10 MG PO (21:33)
[2025-03-31] MEDS: LIPITOR 20 MG PO (21:33)
[2025-03-31] MEDS: LANTUS 0.1 UNITS SC (21:37)
[2025-03-31 21:50] LABS: Glucose - Point of Care 168 mg/dl (70-99)
--- NOTE | 2025-03-31 23:20 | PTCARENOTE ---
Pt transferred to IMU room 3342 at this time. Report given to LESTER Calhoun. Pt's belongings (cell phone, infrastructure technician, glasses) sent, along with insulin pen + needles.
--- NOTE | 2025-03-31 23:41 | PTCARENOTE ---
Received patient from ICU. Pt transported in the bed. Received pt on Bumex 1mg/hr IV gtt. Pt 85% on 6L MFNC, bumped up to 8L currently. Pt is AAOx3. NSR w/ first degree block BBB and PVCs on the monitor. Stanton is draining clear yellow urine. Sacral
and heel foams are intact. R neck dressing is clean, dry, and intact. Pt has no complaints at this time and requests to sleep. Pt oriented to the unit. Call holley is within reach.
[2025-04-01] VITALS (16 sets, daily range): BP systolic 100–137; BP diastolic 35–80; BMI 20.3
[2025-04-01 05:51] LABS: Hematocrit 25.6 % (39.0-52.0); Hemoglobin 8.6 g/dL (13.0-18.0); Mean Corp Hgb Conc. 33.6 g/dL (33.0-37.0); Mean Corpuscular Volume 89.2 fL (80.0-94.0); Nucleated Red Blood Cells % 0 % (-); Platelet Count 182 10^3/uL (130-400); Red Cell Dist. Width 14.6 % (11.5-14.5)
--- NOTE | 2025-04-01 06:01 | PTCARENOTE ---
Stanton removed this AM. DTV by 1200.
[2025-04-01 06:09] LABS: Blood Urea Nitrogen 69 mg/dl (9-20); Calcium 8.7 mg/dl (8.4-10.2); Carbon Dioxide 29 mmol/L (22-30); Chloride 97 mmol/L (98-107); Estimated Creatinine Clearance 23 ml/min; Glucose 88 mg/dl (70-99); Magnesium 2.0 mg/dl (1.6-2.3); Potassium 3.7 mmol/L (3.5-5.1); Sodium 134 mmol/L (135-145); eGFR 32.91
--- NOTE | 2025-04-01 06:36 | PTCARENOTE ---
Patient noted to have an itchy rash on the back and the sides of trunk. Appears blotchy and pink. Pt requesting PRN Benadryl. See MAR.
[2025-04-01] MEDS: BENADRYL 25 MG PO (06:52)
[2025-04-01 07:19] LABS: Albumin 2.84 g/dL (3.75-5.01); Free Kappa Light Chains,Quant 123.82 mg/L (3.30-19.40); Free Lambda Light Chains,Quant 95.92 mg/L (5.71-26.30); Immunofixation Electrophoresis IFE Done; Kappa/Lambda Fr Light Ratio 1.29 (0.26-1.65); Total Protein-Electrophoresis 6.4 g/dL (6.3-8.2)
--- NOTE | 2025-04-01 07:23 | W.PN.HOSP.TC ---
Today's Communication/Plan
-
;/
Assessment / Plan
Assessment / Plan
Assessment/plan
#Acute on chronic hypoxemic respiratory failure secondary to below
#Acute on chronic HFpEF
#Pulmonary Hypertension
-Recent echocardiogram 03/29- -Left ventricular ejection fraction is approximately 55-60%. Septal hypokinesis and abnormal (paradoxical) septal motion consistent with conduction abnormality/postoperative state. Mildly enlarged right ventricular
size. Normal right ventricular systolic function. Mild to moderate mitral regurgitation. Bioprosthetic aortic valve replacement with peak/mean gradients of 20/11 mmHg. Trace aortic regurgitation. Mild to moderate tricuspid regurgitation. Estimated
pulmonary artery pressure of 70-75 mmHg.The IVC is dilated and does not collapse.
-s/p RHC 03/25 with severely elevated filling pressures with Pulmonary HTN
-initiated on Sildenafil 20mg TID for Pulm HTN.
-Cards input appreciated. Restrictive cardiomyopathy workup, [place] Amyloid workup negative.
-CT chest 03/28-Moderate bilateral pleural effusions with associated compressive atelectasis and/or pneumonia. Scattered patchy ground glass densities throughout all lobes bilaterally may reflect combination of pneumonitis/pneumonia and areas of air
trapping.
-Bumex drip for aggressive diuresis
-Metolazone 5mg daily
-Continue O2 Therapy, wean to Baseline as able
-Personal Financial Counselor following
-Bedside Spirometry
-V/Q scan today
#Low Grade fever
-was treated for Community acquired pneumonia at [facility]--received 6/6 days of zosyn-
-Reported fevers this admission
-Monitor off abx for now
-CT chest as above.
-Ultrasound abdomen 03/30- Cholelithiasis. There is a 1.4 cm gallstone. There is a 5 mm echogenic focus along the gallbladder wall without shadowing. Negative sonographic Amaya's sign. Pericholecystic fluid seen. There is no evidence of biliary
ductal dilation. The common bile duct measures 5 mm.
-If fevers persist, consider restarting Abx.
#Paroxysmal atrial fibrillation
-During his hospitalization at [facility], he went into A-fib(New for patient)
-Currently in NSR
-Continue PO Coreg
-Anticoagulation with Eliquis
#CAD s/p stent
-Cardiac catheterization at [facility] showed proximal/mid LAD lesion.
-Repeat Revascularization 03/31- showing 50-60% lesion in the proximal circumflex and a densely calcified, 80% lesion in the proximal/mid LAD. Severely elevated filling pressures (PCWP = 25 mmHg at 55.8 kg). Severe pulmonary hypertension.
-Aspirin, Plavix, Eliquis for one week, then discontinue Aspirin.
-Secondary prevention with Statin and ezetimibe.
# BHUPINDER on CKD 3a
-Cre downtrended, now at Baseline(Baseline 1.9)
-Hold Jardiance
-Monitor BMP
-Nephrology following
-Renal Artery duplex ultrasound 03/28- Elevated velocity at the origin of the right renal artery measures 250 cm/s, and the right renal to aortic ratio measures 4.0.Findings are suggestive of 60-99% stenosis of the right renal artery. Left renal
artery peak systolic velocity 225 cm/s, renal to aortic ratio 3.8. Findings are suggestive of 60-99% stenosis of the left renal artery.
-Check MRA of renal arteries
#Acute on chronic anemia
-During his hospitalization at [facility], he received 1 unit of PRBC
-s/p 1 unit pRBC 03/28
-Monitor H&H
-Iron Studies indicative of Iron Deficiency Anemia.
-Started on Iron supplementation(Holding in the setting of new rash)
#Pruritic Rash
-New for patient this admission
-Etiology likely Medication Reaction vs Contact Dermatitis
-Recently started on IV Iron, Eliquis.
-No major reaction after administration of Eliquis this am
-Holding IV iron.
-PRN Benadryl.
#T2DM
-Likely with Neuropathy as patient takes gabapentin
-Hold repaglinide/Jardiance
-Coverage with SSI
-A1C 6.9 03/26
-DM Nurse practitioner input appreciated
-Insulin with NovoLog 7units AC, Lantus 10units HS
#Hypokalemia
-Repleted
#COPD
-On home oxygen 2 L
-no exacerbation
-Not on bronchodilators
-As needed BiPAP
#Chronic alcohol use
-outside of window for withdrawal symptoms
-States his last drink was 4 weeks ago
#History of aortic stenosis s/p AVR
#History of gout�allopurinol
#History of bladder cancer currently in remission
#Remote tobacco user
CODE STATUS full code
GI Prophylaxis Pantoprazole
DVT prophylax Eliquis
Anticipated Discharge: > 48 hours
Subjective/Interval History
-
Patient seen and examined at bedside. Reports improvement of symptoms. Did NOT use BiPAP last night. Complaining of mild runny nose.
Objective Data
-
Labs:
Laboratory Results
03/31/25 04/01/25
19:03 05:25
WBC 8.0
Hgb 8.6 L
Hct 25.6 L
Plt Count 182
Sodium 135 134 L
Potassium 4.5 D 3.7
Chloride 96 L 97 L
Carbon Dioxide 28 29
BUN 68 H 69 H
Creatinine 1.9 H 2.0 H
Glucose 107 H 88
Calcium 8.9 8.7
Vital Signs:
Vital Signs
Temp Pulse Resp BP Pulse Ox
98.6 F 76 15 116/36 91
04/01/25 04:04 04/01/25 06:00 04/01/25 06:00 04/01/25 06:00 04/01/25 06:00
I&O
03/31/25 04/01/25 04/02/25
06:59 06:59 06:59
Intake Total 766.0 / 786.0 1344 / 1344
Output Total 2850 / 2850 1560 / 1560
Balance -2083.0 / -2063.0 -216 / -216
Review of Systems
-
All other systems: Reviewed and negative (except as documented)
Physical Exam
-
General: No Apparent Distress
Respiratory: Crackles and Non Labored Respirations
Cardiac: Regular Rhythm and S1/S2
GI: Soft, Nontender, Nondistended and Normal Bowel Sounds
Neuro: AO x 3
Psych: Calm
--- NOTE | 2025-04-01 07:34 | W.PN.CD ---
Today's Communication / Plan
-
Hold Fe.
Maintain bumetanide, clopidogrel and apixaban.
Wean oxygen as possible.
Role for bronchodilators in light of spirometry?
Consider future Tc-PyP study.
Impression / Plan
-
Impression/Plan: 79 y/o male with extensive past medical history admitted with flash pulmonary edema/hypoxic respiratory failure, found to have severely elevated filling pressures, prior exertional oxygen desaturation and worsening anemia and renal
function with lackluster diuresis and new diagnosis of occlusive CAD.
#Hypoxic respiratory failure/pulmonary hypertension/COPD
-Acute on chronic, 4L NC as an outpatient
-Multifactorial. Obvious component of HFpEF and severe pulmonary hypertension. Outpatient notes suggest there is a component of primary pulmonary disease.
-Started sildenafil 20 mg TID 03/28/2025
-CT Chest: Bilateral pleural effusions with associated compressive atelectasis and/or pneumonia.
-Fever + imaging findings raises the possibility of infection vs. autoimmune issue (no hemoptysis, making vasculitis, i.e. Eulalia's, Churg-Ella, microscopic polyangiitis less likely). No significant eosinophilia.
-Bedside spirometry suggests GOLD stage 2 COPD (FEV1/FVC < 0.7, FEV1 53% predicted).
-PCWP remains severely elevated during PCI (25 mmHg) with persistent, severe pHTN.
#HFpEF
-Acute on chronic.
-PA catheter in place. Started sildenafil for pHTN. Monitor response.
-GDMT:
-Diuretics: Bumetanide 2mg IV BID
-Beta ervin: Carvedilol 25 mg BID.
-ACEI/ARB/ANRi: On hold due to renal function.
-MRA: On hold due to renal function.
-SGLT2i: On hold due to renal function.
-Amyloid workup.
-Echo report reviewed. Mean gradient of the aortic valve was 13 mmHg. Moderate MR. IVC is dilated and does not collapse.
-Weight stable/down slightly with addition of metolazone. Filling pressures remain severely elevated at the time of cath/PCI.
-Continue bumetanide gtt. We may need to take a break if he develops JENNA.
#CAD
-Stable.
-S/P DK crush PCI of Wright 1, 1, 1 80% LAD and 99% ostial D2 lesion due to plaque shift (Medtronic Carl 2.0 x 22 DANIEL to D2, post dilated with a 2.5 NCB, 3.5 x 34 DANIEL to LAD, post dilated with 3.5 NCB throughout, 3.75 NCB in the proximal stent
margin), 03/30/2025.
-DAPT with aspirin and clopidogrel. Starting apixaban for PAF. Maintain triple therapy for 7 days, then d/c aspirin.
-High dose/potency statin.
#BHUPINDER on CKD III
-Acute on chronic.
-Creatinine up to 2.6 at [facility], currently 2.0.
-MRA shows accessory right renal artery 80% stenosis, normal larger right renal artery and left renal artery.
-Hold ACEI/ARB/ARNi/MRA/SGLT2i.
-AL Amyloid workup negative.
-Monitor renal function after PCI and with resumed diuresis. We may need to keep him net even if he develops JENNA.
-Consider Tc-PyP study in the future.
#Rash
-New diagnosis.
-Diphenhydramine PRN.
-DDx includes contact dermatitis vs. medication reaction. New medications include IV iron (known to cause allergic reactions), clopidogrel and apixaban.
-Hold IV Fe and monitor.
#Paroxysmal atrial fibrillation
-In sinus with PACs.
-Rate control with carvedilol.
-[id number]: score at least 6 (Heart failure, HTN, age 75 or more, Diabetes Mellitus, Vascular disease).
-Oral Anticoagulation: transition to apixaban 2.5 mg BID (age, weight, renal function).
#HLD
-Chronic, stable.
-Continue ezetimibe, atorvastatin.
-Goal LDL < 55.
#Anemia
-Chronic (per report).
-Dx is likely a mix of some Fe deficiency, renal disease and anemia of chronic disease.
-B12, folate are normal. Reticulocyte count elevated (appropriate). Thiamine pending.
-Fe = 36, FeSat = 12%, ferritin = 102 (making Fe deficiency less likely), TIBC = 286.
-1 unit PRBC 03/28/2025 will functionally replace any iron deficiency.
-Keep H/H >/= 05/29.
#Severe aortic stenosis with bicuspid morphology, S/P AVR, stable on TTE.
#LBBB
#Daily EtOH consumption in the outpatient setting.
Subjective/Interval History:
Kodak-Ac catheter removed
Bumetanide gtt resumed.
Patient transferred to IMU.
Oxygen requirement down to 8LNC.
Apixaban 2.5 mg BID started yesterday.
Patient developed a blanching, trunk rash.
Abdominal MRA shows 80% lesion in accessory right renal artery.
Renal function stable, Cr 2.0.
SPEP/UPEP/TIMO negative for monoclonal antibody.
DATA:
RHC, 03/25/2025:
CONCLUSION
1. Severely elevated filling pressures (PCWP = 34 mmHg at 61.7 kg).
2. 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
3. Preserved cardiac index (2.35 L/min/m� by thermodilution, 2.03 L/min/m� by Shawna).
Chest CT, 03/28/2025:
IMPRESSION:
1. Moderate bilateral pleural effusions with associated compressive atelectasis and/or pneumonia. Scattered patchy ground glass densities throughout all lobes bilaterally may reflect combination of pneumonitis/pneumonia and areas of air trapping.
2. No convincing acute process in the abdomen or pelvis, within the limitations of unenhanced technique. Urinary bladder is decompressed around a Stanton catheter and not well evaluated. Cystitis not excluded.
3. Cholelithiasis. Pericholecystic fluid is present, likely on the basis of systemic congestion. Recommend clinical correlation for signs/symptoms of acute cholecystitis.
TTE, 03/29/2025:
CONCLUSIONS
-Left ventricular ejection fraction is approximately 55-60%. Septal
hypokinesis and abnormal (paradoxical) septal motion consistent with conduction
abnormality/postoperative state.
-Mildly enlarged right ventricular size. Normal right ventricular systolic
function.
-Mild to moderate mitral regurgitation.
-Bioprosthetic aortic valve replacement with peak/mean gradients of 20/11 mmHg.
Trace aortic regurgitation.
-Mild to moderate tricuspid regurgitation. Estimated pulmonary artery pressure
of 70-75 mmHg.
-The IVC is dilated and does not collapse.
Compared to previous echo of 10/14/2024, septal hypokinesis is now noted.
Slightly progressive mitral regurgitation and tricuspid regurgitation are
noted. PASP was not previously obtained.
Cardiac Catheterization/PCI, 03/30/2025:
CONCLUSIONS:
1. Right dominant circulation with calcified, nonocclusive tapering of the distal left main coronary artery (MLA = 7.6 mm�), a 50-60% lesion in the proximal circumflex and a densely calcified, 80% lesion in the proximal/mid LAD spanning the origin
of D2 which had its own, underappreciated ostial lesion, status post successful IVUS guided intracoronary lithotripsy (Shockwave 3.5 x 12 lithotripsy balloon), leading to plaque shift and 99% stenosis of the second diagonal, status post successful
DK crush of the second diagonal (Medtronic [place] 2.0 x 22 DANIEL, postdilated with a 2.5 NC balloon) and proximal/mid LAD (Medtronic Carl [place] 3.5 x 34 DANIEL, postdilated with a 3.5 NC balloon throughout and a 3.75 x 12 NC balloon in the
proximal margin) with reduction in both stenoses to 0%, maintaining and restoring DM-3 flow.
2. Severely elevated filling pressures (PCWP = 25 mmHg at 55.8 kg).
3. Severe pulmonary hypertension.
Abdominal MRA, 03/31/2025:
IMPRESSION:
2 arteries serve the right kidney. These vessels arise from the abdominal aorta 2.7 cm apart. The smaller, more inferior right renal artery has a high-grade stenosis (exceeding 80%) 3 mm distal to its origin. This stenosis extends over a length of 2
mm.
No stenosis exceeding 50% in the more dominant, superior right renal artery or within the single artery serving left kidney
Diminished perfusion to the right kidney compared to the left kidney. The right kidney is moderately atrophic.
Cholelithiasis. There is a small amount of pericholecystic fluid. This could be related to systemic venous congestion, or could be related to cholecystitis. Please correlate clinically
Moderate bilateral pleural effusions. Region of intermediate signal in the posterior right lower lobe. This is likely compressive partial atelectasis secondary to the pleural effusion
Physical Exam
Vital Signs/Labs
Vital Signs
Temp Pulse Resp BP Pulse Ox
37.0 C 76 15 116/36 91
04/01/25 04:04 04/01/25 06:00 04/01/25 06:00 04/01/25 06:00 04/01/25 06:00
03/30/25 03/31/25 04/01/25
11:59 11:59 11:59
Actual Weight 57.9 kg 55.5 kg 56.8 kg
04/01/25 05:25
04/01/25 05:25
PT 17.8 Sec (11.4-14.6) H 03/28/25 04:47
INR 1.44 03/28/25 04:47
APTT Cancelled 03/30/25 18:15
Magnesium 2.0 mg/dl (1.6-2.3) 04/01/25 05:25
03/28/25 03/30/25
03:47 03:09
Tcs-W-Sagzivbitzz Pept [id number]
Physical Exam
Constitutional: No acute distress and Comfortable
EENT: Anicteric and Moist mucous membranes
Cardiovascular: Rhythm & rate is regular, Pedal edema is absent, JVD pressure is normal, S1S2 is normal and Murmur/rub/gallop absent
Respiratory: Respiratory effort normal and Other (Decreased at bases.)
GI: Soft, Distention absent, Flat, Non tender and Normal bowel sounds
Neuro/Psych: AO x 3
Other: Cath Site (Right radial access site is C/D/I.)
Data Reviewed
-
Date of Service: April 01, 2025
Medical Decision Making: Reviewed Test Results, Independent Historian Assessment and Test Interpretation
EKG: Tracing Personally Visualized and interpreted and Report Reviewed by me
Echo: Tracing Personally Visualized and interpreted and Report Reviewed by me
X-Ray/CT/US/MRI/NUC/PET: Image Personally Visualized and interpreted and Report Reviewed by me
Medical Tests (PFT, Pathology etc): Image Personally Visualized and interpreted and Report Reviewed by me
Labs: Labs Reviewed by me
[2025-04-01] MEDS: BUMEX 50 IV ×2 (07:37→18:36)
[2025-04-01 07:46] LABS: Glucose - Point of Care 96 mg/dl (70-99)
--- NOTE | 2025-04-01 07:59 | PN.DE.MGMTRT ---
Insulin Management
- -
04/01/2025: Diabetes management Follow up
Patient was transferred to [facility] from [facility] for increased shortness of breath due to acute exacerbation of chronic heart failure with preserved EF in the setting of Acute on chronic hypoxemic respiratory failure. PMH:
HFpEF, CKD Stage 3a, Bladder carcinoma, T2DM, HLD, severe aortic stenosis s/p valve replacement in 2008, COPD on 2L home oxygen, BPH. A1C 6.9%, Cr 2.0, eGFR 32.91
Pt states he was taking Jardiance 10mg daily at home, has a monitor and has been testing his blood sugars daily in the morning. His chart indicates he was taking Lantus 7 units GAME [employer]IST but pt denies ever taking insulin. States he was taking Glipizide at
one point but that was discontinued by his PCP due to recurrent hypoglycemia.
Current diabetes regimen includes Lantus 10 units and AC NovoLog 3 units with moderate corrective
Pt awake, alert, oriented, sitting up in bed, pleasant, offers no complaints, able to discuss diabetes care.
03/29 Pre lunch glucose 240. AC NovoLog increased to 7 units, Lantus dose reduced to 10 units @ hs due to NPO status.
03/30 Fasting glucose 116, cr 1.9, eGFR 35.0. Lantus 12 units was resumed @ hs.
03/31, pt received Lantus 12 units @ HS, Fasting glucose 92, Dose reduced to 10 units.
Fasting glucose 88 V, 96 POC this AM. Premeal range 149 to 192. Will make no changes to current regimen: Lantus 10 units and NovoLog 7 units AC
Will continue to hold Jardiance and metformin given BHUPINDER on CKD with Cr 2.0 today.
Pt states he has a working glucose monitor and enough supplies at home.
Diabetes nurse has instructed on insulin administration.
Discussed with nurse. Will cont to follow.
Diabetes History
- -
Type of Diabetes: 2 requiring insulin
Pre-Admission Diabetes Regimen
03/31/25 04/01/25
19:03 05:25
Creatinine 1.9 H 2.0 H
Lab Results
Hemoglobin A1c 6.9 % (4.0-5.6) H 03/26/25 04:34
Insulin Pump Settings
IP Diabetes Regimen
03/31/25 03/31/25 03/31/25
12:33 17:23 19:03
Glucose 107 H
POC Glucose 192 H 149 H
03/31/25 04/01/25 04/01/25
21:38 05:25 07:32
Glucose 88
POC Glucose 168 H 96
Meal type: Dinner
Meal type: Lunch
Meal type: Breakfast
Amount consumed: 100%
Amount consumed: 100%
Amount consumed: 90%
Patient Education
[2025-04-01] MEDS: NOVOLOG FLEXPEN 7 UNITS SC ×3 (08:05→17:45)
[2025-04-01] MEDS: DUONEB 3 ML INH ×4 (08:24→20:48)
[2025-04-01] MEDS: ZAROXOLYN 5 MG PO (09:26)
[2025-04-01] MEDS: SENOKOT-S 1 TABLET PO (09:26)
[2025-04-01] MEDS: OCUVITE SOFTGEL 1 CAP PO (09:26)
[2025-04-01] MEDS: ELIQUIS 2.5 MG PO ×2 (09:28→19:22)
[2025-04-01] MEDS: ZYLOPRIM 300 MG PO (09:28)
[2025-04-01] MEDS: COREG 25 MG PO ×2 (09:29→19:21)
[2025-04-01] MEDS: PLAVIX 75 MG PO (09:30)
[2025-04-01] MEDS: NEURONTIN 100 MG PO ×3 (09:30→21:32)
[2025-04-01] MEDS: ASPIR LOW (ENTERIC COATED) 81 MG PO (09:30)
[2025-04-01] MEDS: REVATIO 20 MG PO ×3 (09:31→21:33)
[2025-04-01] MEDS: NOVOLOG FLEXPEN-MODERATE RESISTANCE SC (09:37)
[2025-04-01] MEDS: FLUSH (NSS) 1 FLUSH IV ×2 (09:39→18:36)
--- NOTE | 2025-04-01 10:16 | PTCARENOTE ---
Patient ojeda catheter d/c this AM. Patient voided 340 mls clear light yellow urine at 9AM, using urinal independently. Patient is currently on 10 L midflow spo2 93-94%. Denies shortness of breath. VS stable.
[2025-04-01] MEDS: KCL 40 MEQ PO (11:36)
[2025-04-01 12:14] LABS: Glucose - Point of Care 164 mg/dl (70-99)
--- NOTE | 2025-04-01 12:52 | W.PN.NEPH.PH ---
Today's Communication / Plan
-
Bumex drip
Assessment/Plan
-
IMP:
Acute on chronic hypoxemic respiratory failureNorma
Acute on chronic HFrEF
-Recent echocardiogram 03/20/2025 with a EF 50-55%. Moderate mitral regurgitation. Abnormal septal motion consistent with left bundle branch block.
Paroxysmal atrial fibrillation
Pneumonia
CAD s/p stent
BHUPNIDER on CKD 3a
Acute on chronic anemia
T2DM
COPD-On home oxygen 4 L
Chronic alcohol use
History of aortic stenosis s/p AVR
History of gout�allopurinol
History of bladder cancer currently in remission
Remote tobacco user
Plan:
A/w acute respiratory failure, CHF-Transfer from [facility], PCWP 34 on 03/25
stable renal function cr at 1.9
follow cr trend post contrast for [facility] PCI of LAD on 03/30
PCWP still high at 25mm hg
monitor met alkalosis
as cr remains stable ok to remove ojeda in am
wean O2 as able, revatio started since 03/28
bilat renal art stenosis -MRA No stenosis exceeding 50% in the more dominant, superior right renal artery or within the single artery serving left kidney
Diminished perfusion to the right kidney compared to the left kidney. The right kidney is moderately atrophic
avoid nephrotoxins, hold Jardiance
adjust meds renally
Continue Bumex drip
-
-
Date of Service: April 01, 2025
CC / HPI / ROS
-
Chief Complaint:
BHUPINDER, CKD
History of Present Illness:
Presents with shortness of breath transferred from [facility] continue with on high oxygen requirements with acute on chronic kidney disease improving
cr at 1.9, on mid flow O2 10lit
BP stable
wt no change
Review of Systems:
no sob at rest, feels well
no fever, no cp
no n/v
Labs
-
Labs:
WBC 8.0 10^3/uL (4.8-10.8) 04/01/25 05:25
RBC 2.87 10^6/uL (4.70-6.10) L 04/01/25 05:25
Hgb 8.6 g/dL (13.0-18.0) L 04/01/25 05:25
Hct 25.6 % (39.0-52.0) L 04/01/25 05:25
Plt Count 182 10^3/uL (130-400) 04/01/25 05:25
Sodium 134 mmol/L (135-145) L 04/01/25 05:25
Potassium 3.7 mmol/L (3.5-5.1) 04/01/25 05:25
Chloride 97 mmol/L (98-107) L 04/01/25 05:25
Carbon Dioxide 29 mmol/L (22-30) 04/01/25 05:25
BUN 69 mg/dl (9-20) H 04/01/25 05:25
Creatinine 2.0 mg/dL (0.7-1.3) H 04/01/25 05:25
eGFR 32.91 04/01/25 05:25
Glucose 88 mg/dl (70-99) 04/01/25 05:25
Calcium 8.7 mg/dl (8.4-10.2) 04/01/25 05:25
Phosphorus 3.1 mg/dl (2.5-4.5) 03/30/25 03:09
Iuf-L-Osawqdpclze Pept 31213 pg/ml 03/30/25 03:09
Albumin 3.1 g/dl (3.5-5.0) L 03/30/25 03:09
Physical Exam
-
Vital Signs:
Vital Signs
Temp Pulse Resp BP Pulse Ox
98.3 F 80 19 116/55 100
04/01/25 11:46 04/01/25 12:00 04/01/25 12:00 04/01/25 12:00 04/01/25 12:00
Cardiovascular:: Regular rate and rhythm
Respiratory:: Bilateral: Coarse
Lung Excursion:: Abnormal (decreased BS bilat)
Abdomen:: Nontender and Soft
Extremity Edema:: None: Bilateral:
Ojeda Catheter: Yes
--- NOTE | 2025-04-01 13:07 | CM ---
Patient with Dx Acute on chronic hypoxemic respiratory failure, Acute HF. O2 8L. Receiving Bumex gtt, IV Iron. PT 03/30; recommendation TBD, OT recommended HH. Per nurse; A/O, weak gait/transfers.
CM continuing to follow respiratory and mobility needs.
Plan follow up after seen again by PT & recommendation known.
--- NOTE | 2025-04-01 13:21 | PTCARENOTE ---
Patient off unit in nuclear med for profusion only lung scan. RN with the patient.
[2025-04-01] MEDS: NOVOLOG FLEXPEN-MODERATE RESISTANCE 1 UNITS SC (13:51)
--- NOTE | 2025-04-01 15:29 | PTCARENOTE ---
Patient OOB to chair with assistance x2. Patient weak, deconditioned. Patient's o2 weaned down to 6L midflow. Patient at baseline uses 2-4L at home. Appetite good. Patient voiding without difficulty.
[2025-04-01 17:13] LABS: Glucose - Point of Care 252 mg/dl (70-99)
[2025-04-01] MEDS: NOVOLOG FLEXPEN-MODERATE RESISTANCE 5 UNITS SC (17:43)
--- NOTE | 2025-04-01 20:41 | PTCARENOTE ---
Pt received at beginning of shift resting in bed. AAOx3. Denies any pain or discomfort. Bumex gtt infusing at 1mg/4ml/hr. VSS. Afebrile SR/BBB/1degree/PVC/PQT on CM. POX 94 on 6L MF. Orthopneic, NICOLE, odnpc. Using urinal at bedside. HS oral care
completed. Rest of assessment as documented. Turns self in bed. Call holley remains within reach. Will continue to monitor.
[2025-04-01 21:01] LABS: Glucose - Point of Care 279 mg/dl (70-99)
[2025-04-01] MEDS: LANTUS 0.1 UNITS SC (21:32)
[2025-04-01] MEDS: LIPITOR 20 MG PO (21:32)
[2025-04-01] MEDS: ZETIA 10 MG PO (21:33)
[2025-04-02] VITALS (12 sets, daily range): BP systolic 108–122; BP diastolic 35–53; PULSE 84; O2SAT 92
[2025-04-02] MEDS: BUMEX 50 IV (02:08)
[2025-04-02 03:31] LABS: Hematocrit 23.2 % (39.0-52.0); Hemoglobin 7.7 g/dL (13.0-18.0); Mean Corp Hgb Conc. 33.2 g/dL (33.0-37.0); Mean Corpuscular Volume 88.2 fL (80.0-94.0); Nucleated Red Blood Cells % 0 % (-); Platelet Count 190 10^3/uL (130-400); Red Cell Dist. Width 14.6 % (11.5-14.5)
[2025-04-02 03:57] LABS: Blood Urea Nitrogen 81 mg/dl (9-20); Calcium 8.1 mg/dl (8.4-10.2); Carbon Dioxide 30 mmol/L (22-30); Chloride 94 mmol/L (98-107); Estimated Creatinine Clearance 19 ml/min; Glucose 140 mg/dl (70-99); Magnesium 2.0 mg/dl (1.6-2.3); Potassium 4.1 mmol/L (3.5-5.1); Sodium 133 mmol/L (135-145); eGFR 25.18
--- NOTE | 2025-04-02 07:22 | W.PN.HOSP.TC ---
Today's Communication/Plan
-
;/
Assessment / Plan
Assessment / Plan
Assessment/plan
#Acute on chronic hypoxemic respiratory failure secondary to below
#Acute on chronic HFpEF
#Pulmonary Hypertension
-Recent echocardiogram 03/29- -Left ventricular ejection fraction is approximately 55-60%. Septal hypokinesis and abnormal (paradoxical) septal motion consistent with conduction abnormality/postoperative state. Mildly enlarged right ventricular
size. Normal right ventricular systolic function. Mild to moderate mitral regurgitation. Bioprosthetic aortic valve replacement with peak/mean gradients of 20/11 mmHg. Trace aortic regurgitation. Mild to moderate tricuspid regurgitation. Estimated
pulmonary artery pressure of 70-75 mmHg.The IVC is dilated and does not collapse.
-s/p RHC 03/25 with severely elevated filling pressures with Pulmonary HTN
-Sildenafil 20mg TID for Pulm HTN.
-Cards input appreciated. Restrictive cardiomyopathy workup, AL Amyloid workup negative.
-stop Bumex drip and Metolazone 5mg daily given worsening creatinine.
-Continue O2 Therapy, wean to Baseline as able
-Glue Spreader following
-Bedside Spirometry with minimal obstructive disease.
-V/Q scan 04/01/2025- Multiple peripheral perfusion defects on perfusion only images. Abnormal concrement chest x-ray suggestive of pulmonary edema. Overall, findings may be seen in the setting of CHF, however small bilateral pulmonary emboli/CTEPH
is not excluded.
-Pulm following.
#Paroxysmal atrial fibrillation
-During his hospitalization at [facility], he went into A-fib(New for patient)
-Currently in NSR
-Continue PO Coreg
-Anticoagulation with Eliquis
#CAD s/p stent
-Cardiac catheterization at [facility] showed proximal/mid LAD lesion.
-Repeat Revascularization 03/31- showing 50-60% lesion in the proximal circumflex and a densely calcified, 80% lesion in the proximal/mid LAD. Severely elevated filling pressures (PCWP = 25 mmHg at 55.8 kg). Severe pulmonary hypertension.
-Aspirin, Plavix, Eliquis for one week, then discontinue Aspirin.
-Secondary prevention with Statin and ezetimibe.
#BHUPINDER on CKD 3a
-Cre 2.5 today(Baseline 1.9)
-Hold Jardiance
-Monitor BMP
-Nephrology following
-Renal Artery duplex ultrasound 03/28- Elevated velocity at the origin of the right renal artery measures 250 cm/s, and the right renal to aortic ratio measures 4.0.Findings are suggestive of 60-99% stenosis of the right renal artery. Left renal
artery peak systolic velocity 225 cm/s, renal to aortic ratio 3.8. Findings are suggestive of 60-99% stenosis of the left renal artery.
-MRA of renal arteries- No stenosis exceeding 50% in the more dominant, superior right renal artery or within the single artery serving left kidney. Diminished perfusion to the right kidney compared to the left kidney. The right kidney is
moderately atrophic
#Acute on chronic anemia
-During his hospitalization at [facility], he received 1 unit of PRBC
-s/p 1 unit pRBC 03/28
-Monitor H&H
-Iron Studies indicative of Iron Deficiency Anemia.
-Initially Started on IV Iron but was discontinued due to Pruritic rash
-Switch to Oral Iron supplementation
#Pruritic Rash
-New for patient this admission
-Etiology likely Medication Reaction vs Contact Dermatitis
-Recently started on IV Iron, Eliquis.
-No major reaction after administration of Eliquis
-Held IV Iron
-Rash now resolved
-PRN Benadryl.
#Low Grade fever
-was treated for Community acquired pneumonia at [facility]--received 6/6 days of zosyn-
-Reported fevers this admission
-Monitor off abx for now
-CT chest- -CT chest 03/28-Moderate bilateral pleural effusions with associated compressive atelectasis and/or pneumonia. Scattered patchy ground glass densities throughout all lobes bilaterally may reflect combination of pneumonitis/pneumonia and
areas of air trapping.
-Ultrasound abdomen 03/30- Cholelithiasis. There is a 1.4 cm gallstone. There is a 5 mm echogenic focus along the gallbladder wall without shadowing. Negative sonographic Amaya's sign. Pericholecystic fluid seen. There is no evidence of biliary
ductal dilation. The common bile duct measures 5 mm.
-If fevers persist, consider restarting Abx.
#T2DM
-Likely with Neuropathy as patient takes gabapentin
-Hold repaglinide/Jardiance
-Coverage with SSI
-A1C 6.9 03/26
-DM Nurse practitioner input appreciated
-Insulin with NovoLog 7units AC, Lantus 10units HS
#Hypokalemia
-Repleted
#COPD
-On home oxygen 2 L
-no exacerbation
-Not on bronchodilators
-As needed BiPAP
#Chronic alcohol use
-outside of window for withdrawal symptoms
-States his last drink was 4 weeks ago
#History of aortic stenosis s/p AVR
#History of gout�allopurinol
#History of bladder cancer currently in remission
#Remote tobacco user
CODE STATUS full code
GI Prophylaxis Pantoprazole
DVT prophylax Eliquis
Anticipated Discharge: > 48 hours
Subjective/Interval History
-
Patient seen and examined at bedside. No acute complaints. reports Pruritic rash has resolved
Objective Data
-
Labs:
Laboratory Results
04/02/25
03:05
WBC 8.2
Hgb 7.7 L
Hct 23.2 L
Plt Count 190
Sodium 133 L
Potassium 4.1
Chloride 94 L
Carbon Dioxide 30
BUN 81 H
Creatinine 2.5 H
Glucose 140 H
Calcium 8.1 L
Vital Signs:
Vital Signs
Temp Pulse Resp BP Pulse Ox
98.6 F 74 16 114/37 94
04/02/25 03:07 04/02/25 06:00 04/02/25 06:00 04/02/25 04:00 04/02/25 06:00
I&O
04/01/25 04/02/25 04/03/25
06:59 06:59 06:59
Intake Total 1344 / 1344 1298 / 1298
Output Total 1560 / 1560 1575 / 1575
Balance -216 / -216 -277 / -277
Review of Systems
-
All other systems: Reviewed and negative (except as documented)
Physical Exam
-
General: No Apparent Distress
Respiratory: Clear to Auscultation and Non Labored Respirations
Cardiac: Regular Rhythm and S1/S2
GI: Soft, Nontender, Nondistended and Normal Bowel Sounds
Neuro: AO x 3
Psych: Calm
[2025-04-02] MEDS: DUONEB 3 ML INH ×4 (08:15→21:17)
[2025-04-02] MEDS: ASPIR LOW (ENTERIC COATED) 81 MG PO (08:44)
[2025-04-02] MEDS: ZYLOPRIM 300 MG PO (08:44)
[2025-04-02] MEDS: COREG 25 MG PO ×2 (08:44→20:05)
[2025-04-02] MEDS: ELIQUIS 2.5 MG PO ×2 (08:44→20:05)
[2025-04-02] MEDS: NEURONTIN 100 MG PO ×3 (08:44→21:56)
[2025-04-02] MEDS: REVATIO 20 MG PO ×3 (08:44→21:56)
[2025-04-02] MEDS: OCUVITE SOFTGEL 1 CAP PO (08:44)
[2025-04-02] MEDS: SENOKOT-S 1 TABLET PO (08:45)
[2025-04-02] MEDS: PLAVIX 75 MG PO (08:45)
[2025-04-02] MEDS: NOVOLOG FLEXPEN-MODERATE RESISTANCE 1 UNITS SC ×2 (08:54→17:22)
[2025-04-02] MEDS: NOVOLOG FLEXPEN 7 UNITS SC ×3 (08:55→17:22)
[2025-04-02] MEDS: ZAROXOLYN PO (08:56)
[2025-04-02 08:59] LABS: Glucose - Point of Care 183 mg/dl (70-99)
--- NOTE | 2025-04-02 10:15 | W.PN.UPDATE ---
Update Note
Progress Note Update
bumex drip stopped due to uptrending Cr
[2025-04-02] MEDS: FEOSOL 325 MG PO (10:27)
--- NOTE | 2025-04-02 12:28 | W.PN.CD ---
Today's Communication / Plan
-
with recent cath/PCI, and rising Cr, hold diuresis and re-assess in AM
Impression / Plan
-
Impression/Plan: 79 y/o male with extensive past medical history admitted with flash pulmonary edema/hypoxic respiratory failure, found to have severely elevated filling pressures, prior exertional oxygen desaturation and worsening anemia and renal
function with lackluster diuresis and new diagnosis of occlusive CAD.
#Hypoxic respiratory failure/pulmonary hypertension/COPD: severe
-Acute on chronic, 4L NC as an outpatient
-Multifactorial. component of HFpEF and severe pulmonary hypertension. Outpatient notes suggest there is a component of primary pulmonary disease.
-Started sildenafil 20 mg TID 03/28/2025
-CT Chest: Bilateral pleural effusions with associated compressive atelectasis and/or pneumonia.
-Fever + imaging findings raises the possibility of infection vs. autoimmune issue (no hemoptysis, making vasculitis, i.e. Eulalia's, Churg-Ella, microscopic polyangiitis less likely). No significant eosinophilia.
-Bedside spirometry suggests GOLD stage 2 COPD (FEV1/FVC < 0.7, FEV1 53% predicted).
-PCWP remains severely elevated during PCI (25 mmHg) with persistent, severe pHTN.
-will plan echo with bubble study friday to look for shunt
#HFpEF
-Acute on chronic.
-Started sildenafil for pHTN. Monitor response.
-GDMT:
-Diuretics: held for BHUPINDER
-Beta ervin: Carvedilol 25 mg BID.
-ACEI/ARB/ANRi: On hold due to renal function.
-MRA: On hold due to renal function.
-SGLT2i: On hold due to renal function.
-Amyloid workup as outpatient
-Echo report reviewed. Mean gradient of the aortic valve was 13 mmHg. Moderate MR. IVC is dilated and does not collapse.
#CAD
-Stable.
-S/P DK crush PCI of Wright 1, 1, 1 80% LAD and 99% ostial D2 lesion due to plaque shift (Medtronic [place] 2.0 x 22 DANIEL to D2, post dilated with a 2.5 NCB, 3.5 x 34 DANIEL to LAD, post dilated with 3.5 NCB throughout, 3.75 NCB in the proximal stent
margin), 03/30/2025.
-DAPT with aspirin and clopidogrel. Starting apixaban for PAF. Maintain triple therapy for 7 days, then d/c aspirin.
-High dose/potency statin.
#BHUPINDER on CKD III
-Acute on chronic.
-Creatinine up to 2.5. Hold diuretics, with close monitoring of labs
-MRA shows accessory right renal artery 80% stenosis, normal larger right renal artery and left renal artery.
-Hold ACEI/ARB/ARNi/MRA/SGLT2i.
-AL Amyloid workup negative.
-Monitor renal function after PCI and with resumed diuresis. We may need to keep him net even if he develops JENNA.
-Consider Tc-PyP study in the future.
#Paroxysmal atrial fibrillation
-In sinus with PACs.
-Rate control with carvedilol.
-[id number]: score at least 6 (Heart failure, HTN, age 75 or more, Diabetes Mellitus, Vascular disease).
-Oral Anticoagulation: transition to apixaban 2.5 mg BID (age, weight, renal function).
#HLD
-Chronic, stable.
-Continue ezetimibe, atorvastatin.
-Goal LDL < 55.
#Anemia
-Chronic (per report).
-Dx is likely a mix of some Fe deficiency, renal disease and anemia of chronic disease.
-B12, folate are normal. Reticulocyte count elevated (appropriate). Thiamine pending.
-Fe = 36, FeSat = 12%, ferritin = 102 (making Fe deficiency less likely), TIBC = 286.
-1 unit PRBC 03/28/2025 will functionally replace any iron deficiency.
-Keep H/H >/= 05/29.
#Severe aortic stenosis with bicuspid morphology, S/P AVR, stable on TTE.
#LBBB
#Daily EtOH consumption in the outpatient setting.
DATA:
RHC, 03/25/2025:
CONCLUSION
1. Severely elevated filling pressures (PCWP = 34 mmHg at 61.7 kg).
2. 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
3. Preserved cardiac index (2.35 L/min/m� by thermodilution, 2.03 L/min/m� by Shawna).
Chest CT, 03/28/2025:
IMPRESSION:
1. Moderate bilateral pleural effusions with associated compressive atelectasis and/or pneumonia. Scattered patchy ground glass densities throughout all lobes bilaterally may reflect combination of pneumonitis/pneumonia and areas of air trapping.
2. No convincing acute process in the abdomen or pelvis, within the limitations of unenhanced technique. Urinary bladder is decompressed around a Stanton catheter and not well evaluated. Cystitis not excluded.
3. Cholelithiasis. Pericholecystic fluid is present, likely on the basis of systemic congestion. Recommend clinical correlation for signs/symptoms of acute cholecystitis.
TTE, 03/29/2025:
CONCLUSIONS
-Left ventricular ejection fraction is approximately 55-60%. Septal
hypokinesis and abnormal (paradoxical) septal motion consistent with conduction
abnormality/postoperative state.
-Mildly enlarged right ventricular size. Normal right ventricular systolic
function.
-Mild to moderate mitral regurgitation.
-Bioprosthetic aortic valve replacement with peak/mean gradients of 20/11 mmHg.
Trace aortic regurgitation.
-Mild to moderate tricuspid regurgitation. Estimated pulmonary artery pressure
of 70-75 mmHg.
-The IVC is dilated and does not collapse.
Compared to previous echo of 10/14/2024, septal hypokinesis is now noted.
Slightly progressive mitral regurgitation and tricuspid regurgitation are
noted. PASP was not previously obtained.
Cardiac Catheterization/PCI, 03/30/2025:
CONCLUSIONS:
1. Right dominant circulation with calcified, nonocclusive tapering of the distal left main coronary artery (MLA = 7.6 mm�), a 50-60% lesion in the proximal circumflex and a densely calcified, 80% lesion in the proximal/mid LAD spanning the origin
of D2 which had its own, underappreciated ostial lesion, status post successful IVUS guided intracoronary lithotripsy (Shockwave 3.5 x 12 lithotripsy balloon), leading to plaque shift and 99% stenosis of the second diagonal, status post successful
DK crush of the second diagonal (Medtronic Charlotte Timblin 2.0 x 22 DANIEL, postdilated with a 2.5 NC balloon) and proximal/mid LAD ([employer]onic [place] Timblin 3.5 x 34 DANIEL, postdilated with a 3.5 NC balloon throughout and a 3.75 x 12 NC balloon in the
proximal margin) with reduction in both stenoses to 0%, maintaining and restoring DM-3 flow.
2. Severely elevated filling pressures (PCWP = 25 mmHg at 55.8 kg).
3. Severe pulmonary hypertension.
Abdominal MRA, 03/31/2025:
IMPRESSION:
2 arteries serve the right kidney. These vessels arise from the abdominal aorta 2.7 cm apart. The smaller, more inferior right renal artery has a high-grade stenosis (exceeding 80%) 3 mm distal to its origin. This stenosis extends over a length of 2
mm.
No stenosis exceeding 50% in the more dominant, superior right renal artery or within the single artery serving left kidney
Diminished perfusion to the right kidney compared to the left kidney. The right kidney is moderately atrophic.
Cholelithiasis. There is a small amount of pericholecystic fluid. This could be related to systemic venous congestion, or could be related to cholecystitis. Please correlate clinically
Moderate bilateral pleural effusions. Region of intermediate signal in the posterior right lower lobe. This is likely compressive partial atelectasis secondary to the pleural effusion
Physical Exam
Vital Signs/Labs
Vital Signs
Temp Pulse Resp BP Pulse Ox
98 F 75 16 109/37 91
04/02/25 07:01 04/02/25 10:00 04/02/25 10:00 04/02/25 10:00 04/02/25 11:26
04/01/25 04/02/25 04/03/25
06:59 06:59 06:59
Actual Weight 56.9 kg 56.245 kg
04/02/25 03:05
04/02/25 03:05
PT 17.8 Sec (11.4-14.6) H 03/28/25 04:47
INR 1.44 03/28/25 04:47
APTT Cancelled 03/30/25 18:15
Magnesium 2.0 mg/dl (1.6-2.3) 04/02/25 03:05
03/28/25 03/30/25
03:47 03:09
Zdc-P-Sjeqrclpchl Pept 99196 19644
Physical Exam
Constitutional: No acute distress
EENT: Moist mucous membranes
Cardiovascular: Rhythm & rate is regular, Pedal edema is absent, JVD present and Systolic murmur present
Respiratory: Labored respirations
Neuro/Psych: AO x 3
Data Reviewed
-
Date of Service: April 02, 2025
EKG: Other (Tele: SR 70s)
Labs: Labs Reviewed by me
[2025-04-02] MEDS: NOVOLOG FLEXPEN-MODERATE RESISTANCE 5 UNITS SC (12:54)
--- NOTE | 2025-04-02 12:55 | W.PN.NEPH.PH ---
Today's Communication / Plan
-
Stop Bumex
Assessment/Plan
-
IMP:
Acute on chronic hypoxemic respiratory failureNorma
Acute on chronic HFrEF
-Recent echocardiogram 03/20/2025 with a EF 50-55%. Moderate mitral regurgitation. Abnormal septal motion consistent with left bundle branch block.
Paroxysmal atrial fibrillation
Pneumonia
CAD s/p stent
BHUPINDER on CKD 3a
Acute on chronic anemia
T2DM
COPD-On home oxygen 4 L
Chronic alcohol use
History of aortic stenosis s/p AVR
History of gout�allopurinol
History of bladder cancer currently in remission
Remote tobacco user
Plan:
A/w acute respiratory failure, CHF-Transfer from [facility], PCWP 34 on 03/25
stable renal function cr at 1.9
follow cr trend post contrast for [facility] PCI of LAD on 03/30
PCWP still high at 25mm hg
bilat renal art stenosis -MRA No stenosis exceeding 50% in the more dominant, superior right renal artery or within the single artery serving left kidney
Diminished perfusion to the right kidney compared to the left kidney. The right kidney is moderately atrophic
avoid nephrotoxins, hold Jardiance
adjust meds renally
Not much improvement with Bumex drip which was discontinued for increasing creatinine
No long discussion with him today about possibilities of dialysis. His breathing is not improving and may need to be much more aggressive with diuretics. The end result could be worsening renal function requiring hemodialysis. That may be our
only option if in fact his breathing is all fluid related and all evidence points into that at this time.
Reevaluate tomorrow
Family was present during this discussion and all questions were answered
-
-
Date of Service: April 02, 2025
CC / HPI / ROS
-
Chief Complaint:
BHUPINDER, CKD
History of Present Illness:
Presents with shortness of breath transferred from [facility] continue with on high oxygen requirements with acute on chronic kidney disease improving
cr at 1.9, on mid flow O2 10lit
BP stable
wt no change
Review of Systems:
no sob at rest, feels well
no fever, no cp
no n/v
Labs
-
Labs:
WBC 8.2 10^3/uL (4.8-10.8) 04/02/25 03:05
RBC 2.63 10^6/uL (4.70-6.10) L 04/02/25 03:05
Hgb 7.7 g/dL (13.0-18.0) L 04/02/25 03:05
Hct 23.2 % (39.0-52.0) L 04/02/25 03:05
Plt Count 190 10^3/uL (130-400) 04/02/25 03:05
Sodium 133 mmol/L (135-145) L 04/02/25 03:05
Potassium 4.1 mmol/L (3.5-5.1) 04/02/25 03:05
Chloride 94 mmol/L (98-107) L 04/02/25 03:05
Carbon Dioxide 30 mmol/L (22-30) 04/02/25 03:05
BUN 81 mg/dl (9-20) H 04/02/25 03:05
Creatinine 2.5 mg/dL (0.7-1.3) H 04/02/25 03:05
eGFR 25.18 04/02/25 03:05
Glucose 140 mg/dl (70-99) H 04/02/25 03:05
Calcium 8.1 mg/dl (8.4-10.2) L 04/02/25 03:05
Phosphorus 3.1 mg/dl (2.5-4.5) 03/30/25 03:09
Sgo-J-Jzeynifensk Pept 43895 pg/ml 03/30/25 03:09
Albumin 3.1 g/dl (3.5-5.0) L 03/30/25 03:09
Physical Exam
-
Vital Signs:
Vital Signs
Temp Pulse Resp BP Pulse Ox
97.7 F 75 16 109/37 91
04/02/25 11:05 04/02/25 10:00 04/02/25 10:00 04/02/25 10:00 04/02/25 11:26
Cardiovascular:: Regular rate and rhythm
Respiratory:: Bilateral: Coarse
Lung Excursion:: Abnormal (decreased BS bilat)
Abdomen:: Nontender and Soft
Extremity Edema:: None: Bilateral:
Stanton Catheter: Yes
[2025-04-02 13:03] LABS: Glucose - Point of Care 263 mg/dl (70-99)
--- NOTE | 2025-04-02 16:57 | W.PN.PUL3 ---
Today's Communication / Plan
-
Continue DuoNebs; add budesonide
Short course of steroids given elevated eosinophil count
May benefit from Dupixent (will discuss this in office) given he has eosinophilia with evidence of reactive airway disease/asthma on spirometry; check full PFTs as an outpatient
Holding off on diuresis for now given worsening BHUPINDER
Continue mid flow nasal cannula, weaning down supplemental O2 flow rate as tolerated
Continue Eliquis
Echo with bubble study on Friday
Q scan showed no obvious evidence for a [id number] shunt; pulmonary edema can cause the perfusion defect seen; consider repeating V/Q scan as an outpatient once euvolemic
Continue sildenafil; may benefit from dual pulmonary vasodilator therapy (i.e. macitentan + tadalafil), which can be discussed as an outpatient
Given patient's high oxygen requirements, pulmonary service will continue to follow along
Assessment
-
79-year-old man with past medical history significant for heart failure, mitral valve prolapse, prior aortic stenosis status post AVR in 2008, type 2 diabetes, COPD on 2 to 4 L supplemental oxygen continuously, hypertension, initially presented to
[facility] 03/19/2025 per records complaining of increased shortness of breath, leg swelling over the last week or so.
Patient was diagnosed with acute on chronic heart failure/positive increased troponin. Increased work of breathing requiring BiPAP therapy and subsequently transition to mid flow oxygen.
EKG demonstrated rapid atrial fibrillation.
Evaluation included diagnostic cardiac catheterization. 03/23/2025. Pulmonary capillary wedge pressure was 27. Cardiac index was 2.95.
Patient was treated with a standard diuresis.
Patient was also empirically treated with antibiotic for possible pneumonia.
Given persistent hypoxemia despite diuresis and difficulty with his chronic kidney disease, abnormal stress test with possible significant LAD lesion he was sent to [facility] for further evaluation potential intervention. 03/25/2025
Assessment and plan:
#1. Acute hypoxemic respiratory failure due to pulmonary edema
- Clinically improving -weaned off of high flow nasal cannula on 03/28, and now on midflow nasal cannula - continue weaning down supplemental O2 flow rate while keeping SpO2 >90-94%
- Hold diuresis given worsening BHUPINDER; previously was on Bumex drip (started 03/31; prior to that was on intermittent bumex since 03/29); has evidence of alveolar/interstitial edema on CT chest from 03/28/2025; metolazone added 03/30 by cardiology - also
on hold now as well
- Continue scheduled DuoNebs for suspected underlying COPD - will get full PFTs as an outpatient (however [facility] spirometry did not show evidence of an obstructive lung defect, per documentation); bedside spirometry performed on
03/31/2025 showing resolution of a moderate obstructive lung defect with a borderline significant bronchodilator response with marked improvement in the small lung bennett, consistent with asthma versus reactive airway disease
- Check home O2 assessment prior to discharge
- PT/OT
- SPEP negative for spike protein; Free kappa + free lambda light chains are elevated - ?concerning for amyloidosis - perhaps a fat bad biopsy would be helpful
#2. Acute on chronic heart failure with preserved ejection fraction, also moderate MR
-Cardiology service on case
-[place]-Ca removed on 03/31
-Significant diuresis since admission; he is now net -12 L since admission as of 04/02
- Continue to trend BNP with occasional CXR
- CXR on 03/30 showed mildly improved aeration in the left costophrenic angle, otherwise similar size of right-sided pleural effusion and interstitial edema bilaterally
- Repeat CXR tomorrow
#3. Severe pulmonary hypertension
- Primarily group 2 with elevated pulmonary capillary wedge pressure of 34. PVR elevated at 6, might have component of group I vs IV
- Q scan obtained on 04/01/2025 however given that he has pleural effusions/acute CHF, he does have multiple perfusion defects but the pulmonary edema could account for this. There was no abnormal activity seen within the head to suggest
[id number] shunting; could consider repeating VQ scan as an outpatient once he is euvolemic
- No evidence of ILD or emphysema on CT Chest from 03/28/2025
- Outpatient PFTs; spirometry performed on 03/31 does not show evidence of COPD, and is instead supportive of RAD versus asthma
- Given his elevated transpulmonary gradient of 24, patient may benefit from dual pulmonary vasodilator therapy (i.e. macitentan + tadalafil) as he has class II/III symptoms; Q scan not fully in support of a shunt
- On 03/29, started on sildenafil per cardiology - continue to monitor symptoms
- Obtain TTE with bubble study
#4. Paroxysmal atrial fibrillation
- Off heparin infusion s/p [facility] on 03/30, and now on Eliquis
- Keep HR <110
- Replete K>4, Mg>2
#5. History of COPD, uses oxygen at home
- Spirometry on 03/31 shows that he does not have COPD, and spirometry is most suggestive of reactive airway disease versus asthma
-6 minute walk test in December 2024 with low saturation 91%.
- Remote history of smoking, on report from brenna Bass, CAT scan in 2022 showed tiny pulmonary nodules without significant parenchymal lung abnormality.
-No evidence of emphysema per CT chest from 03/28/2025
- Brenna Bass reports recent pulmonary function testing with a small airways disease without airflow obstruction by ATS criteria.
- Continue Duoneb QID; add budesonide; he has an elevated absolute eosinophil count of 800 on 04/01/2025. If his asthmatic symptoms continue to be severe then he would be a candidate for Dupixent; this can be discussed as an outpatient
- Not currently wheezing hence no need for systemic steroids at this time
#6. BHUPINDER with underlying CKD stage III
- Suspect cardiorenal syndrome
- Continue to trend serum creatinine with strict I/O
- Renally dose all medications
- Renal artery duplex checked on 03/28/2025 showing elevated velocities with suspected 60-99% stenosis of the the left and right renal arteries � discussed this with nephrology and recommend MRA to assess for renal artery stenosis
#7. Coronary artery disease
- LAD disease noted on [facility] 03/2025
- Underwent left heart catheterization on 03/30/2025 showing severe calcification in the proximal/mid LAD, with intracoronary lithotripsy complicated by plaque shift into the large D2, and he underwent bifurcation PCI with DANIEL placement to the
diagonal as well as the proximal/mid LAD
-Right heart cath numbers also performed continuing to show postcapillary pulmonary hypertension with PCWP 25, and TPG 20 with PA pressures elevated at 72/31
- Aspirin, Coreg, Zetia, + Lipitor
#8. Aortic stenosis s/p AVR
- Echo shows mild aortic sclerosis
#9. Anemia, suspect related to chronic disease
- Transfuse as needed to maintain Hb >7-8 g/dL
- Continue iron supplementation given iron saturation is 12% with iron levels <40
#10. B/L pleural effusions, L>R, suspect related to pulmonary edema.
- Continue to monitor
- Trend BNP and serial CXR
#11. DM type II (A1C: 6.9 on 03/26/2025)
- Hold oral hypoglycemics for now
- Continue basal-bolus SQ insulin
- Diabetic SERVICE DESK LEAD on board
- Goal BG 140-180mg/dL
#12. Cholelithiasis with pericholecystic fluid; no evidence of cholecystitis
- Due to hepatic vascular congestion in the setting of right-sided heart failure
- Patient does have gallstones with small volume pericholecystic free fluid seen on RUQ ultrasound today however no biliary ductal dilatation and negative sonographic Amaya sign
Conditions present prior admission:
Congestive heart failure
Nonobstructive coronary artery disease
LBBB
CKD stage III
History of bladder carcinoma
Mitral valve prolapse
Type 2 diabetes
Hyperlipidemia
Hypercholesterolemia
Chronic obstructive pulmonary disease on 2 L supplemental oxygen
History of severe /Bicuspid aortic valve-history of heart valve trifecta replacement 12 years ago-2008
BPH
History of gout
Former smoker quit smoking longer than 10 years ago
Anemia
Daily wine consumption- watch for withdrawal; unlikely at this point given that he has been hospitalized now for >5 days
-
Low-sodium/fluid restricted diet.
DVT prophylaxis on heparin drip.
GI prophylaxis: N/A
Given patient's high oxygen requirements, pulmonary service will continue to follow along.
---
Data reviewed:
[facility] 03/25/2025: 1. Severely elevated filling pressures (PCWP = 34 mmHg at 61.7 kg).
2. 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
3. Preserved cardiac index (2.35 L/min/m� by thermodilution, 2.03 L/min/m� by Shawna).
Initial chest x-ray [facility] 03/19/2025: Bilateral perihilar infiltrates with bilateral pleural effusions.
-
Chest x-ray March 24, 2025 report from [facility]:
Perihilar interstitial vascular prominence. Persistent. Mild elevation of the left hemidiaphragm. No pleural effusions. Worsening per report
-
Nuclear stress test: 03/22/2025: Abnormal myocardial perfusion imaging suggesting of inferoseptal ischemia and apical scar with ejection fraction reduced at 46%.
-
Left and right heart catheterization 03/23/2025
Pulmonary capillary wedge pressure 27. Pulmonary artery mean pressure 41. Cardiac index 2.95. Cardiac output 4.87 (thermodilution)
Coronary angiogram: Moderate calcification distal 20% stenosis
Left anterior descending ostial 20% stenosis. Proximal 80% stenosis and 60% stenosis.
Diagonal #1: Ostial 30%.
Circumflex 50 to 60%.
Right coronary artery less than 40% stenosis.
-
Echocardiogram 03/20/2025:
LVEF 50 to 55%
Abdominal paradoxical septal motion consistent with left bundle branch block.
Normal right ventricular size and function.
Right atrium is normal size.
Normal mitral valve.
Moderate mitral valve regurgitation.
Aortic valve mild sclerosis. Suggestion of mild aortic sclerosis.
Total time spent today was 36 minutes for this encounter. Time includes reviewing laboratory test/imaging results, reviewing pertinent medical records, obtaining and reviewing medical history, performing an appropriate exam, ordering medications,
tests and procedures. Time also includes documentation of this encounter, coordinating patient care and communicating with other healthcare professionals. Total time does not include separately billed tests performed on this date of service.
Subjective Data
-
Date of Service:
Date of Service: April 02, 2025
Chief Complaint: Pulmonary Follow Up
Subjective:
Patient seen earlier today (late note entry). Sitting in chair no acute distress, breathing comfortably on 9 L/min mid flow nasal cannula saturating 92%. Heart rate 71 and BP 104/51. He says he feels good, no shortness of breath at rest; also
denies ABDULLAHI, nausea, fevers or chills.
Review of Systems
General: Other (Negative unless mentioned above)
Objective Data
Data Reviewed
Vital Signs / I&O / Oxygen:
Vital Signs
Temp Pulse Resp BP Pulse Ox
98 F 84 15 114/37 93
04/02/25 07:01 04/02/25 08:18 04/02/25 08:18 04/02/25 04:00 04/02/25 08:18
Intake and Output
04/01/25 04/02/25 04/03/25
06:59 06:59 06:59
Intake Total 1344 / 1344 1298 / 1298
Output Total 1560 / 1560 1575 / 1575
Balance -216 / -216 -277 / -277
SaO2 93
Nasal Cannula flow liters per 6
minute
Physical Exam
General: Respiratory Distress (negative) and Comfortable
HEENT: Normocephalic, Anicteric and Moist Mucous Membranes
Cardiovascular: S1-S2 and Peripheral Edema (negative)
Respiratory: Wheeze (negative), Crackles (Bibasilar), Rhonchi (negative) and Non-Labored Respirations
GI: Soft, Non Distended, Non Tender and Normal Bowel Sounds
Neurology: Awake, Alert, Oriented and Tremors (negative)
Skin: Warm, Dry, Cyanosis (negative) and Jaundice (negative)
Labs/Micro/Reports
Lab Data
04/02/25 03:05
04/02/25 03:05
[2025-04-02 17:31] LABS: Glucose - Point of Care 164 mg/dl (70-99)
[2025-04-02] MEDS: DELTASONE 40 MG PO (20:05)
--- NOTE | 2025-04-02 21:14 | PTCARENOTE ---
Pt received at beginning of shift sitting up in chair watching TV. AAOx3. Denies pain or discomfort. VSS. Afebrile. SR/BBB on CM rate 80's. POX 97% on 5L MF. Using urinal at bedside. Received HS meds and tonight's dose Prednisone. Rest of assessment
as documented. Call holley remains within reach. Will continue to monitor.
[2025-04-02] MEDS: PULMICORT 0.5 MG INH (21:17)
[2025-04-02 21:27] LABS: Glucose - Point of Care 201 mg/dl (70-99)
[2025-04-02] MEDS: LANTUS 0.1 UNITS SC (21:55)
[2025-04-02] MEDS: LIPITOR 20 MG PO (21:56)
[2025-04-02] MEDS: ZETIA 10 MG PO (21:56)
[2025-04-03] VITALS (12 sets, daily range): BP systolic 102–127; BP diastolic 38–60; BMI 20.4
[2025-04-03 04:02] LABS: Hematocrit 24.4 % (39.0-52.0); Hemoglobin 8.3 g/dL (13.0-18.0); Mean Corp Hgb Conc. 34.0 g/dL (33.0-37.0); Mean Corpuscular Volume 88.4 fL (80.0-94.0); Nucleated Red Blood Cells % 0 % (-); Platelet Count 202 10^3/uL (130-400); Red Cell Dist. Width 14.6 % (11.5-14.5)
[2025-04-03 04:33] LABS: Blood Urea Nitrogen 90 mg/dl (9-20); Calcium 8.1 mg/dl (8.4-10.2); Carbon Dioxide 28 mmol/L (22-30); Chloride 93 mmol/L (98-107); Estimated Creatinine Clearance 15 ml/min; Glucose 202 mg/dl (70-99); Magnesium 2.1 mg/dl (1.6-2.3); Potassium 5.2 mmol/L (3.5-5.1); Sodium 130 mmol/L (135-145); eGFR 18.72
[2025-04-03 07:25] LABS: Glucose - Point of Care 323 mg/dl (70-99)
[2025-04-03] MEDS: PULMICORT 0.5 MG INH ×2 (07:51→20:53)
[2025-04-03] MEDS: DUONEB 3 ML INH ×4 (07:52→20:53)
--- NOTE | 2025-04-03 08:13 | W.PN.HOSP.TC ---
Today's Communication/Plan
-
;/
Assessment / Plan
Assessment / Plan
Assessment/plan
#Acute on chronic hypoxemic respiratory failure secondary to below
#Acute on chronic HFpEF
-Patient presented as a transfer from [facility] with Persistent hypoxemia despite diuresis and CKD.
-Upon presentation, Had a RHC with [place]-Ac placed on 03/25 which showed severely elevated pulmonary filling pressures with preserved cardiac index
-He was started on Bumex Drip for aggressive diuresis, HI flow 02 therapy
-Held off on aggressive diuresis on 03/28 as he had a net -8.5L since admission.
-Resumed on Intermittent IV Bumex 2mg Q12 03/29, after repeat Chest CT showed evidence of Alveolar, Interstitial edema.
-Repat echocardiogram 03/29- -Left ventricular ejection fraction is approximately 55-60%. Septal hypokinesis and abnormal (paradoxical) septal motion consistent with conduction abnormality/postoperative state. Mildly enlarged right ventricular size.
Normal right ventricular systolic function. Mild to moderate mitral regurgitation. Bioprosthetic aortic valve replacement with peak/mean gradients of 20/11 mmHg. Trace aortic regurgitation. Mild to moderate tricuspid regurgitation. Estimated
pulmonary artery pressure of 70-75 mmHg.The IVC is dilated and does not collapse.
-Metolazone 5mg was added 03/30 to regimen for sequential nephron blockade.
-Underwent LHC/RHC 03/30 demonstrating severely elevated pulmonary pressures, [place]-Ac removed.
-Cardiology escalated diuresis to Bumex drip with metolazone daily on 03/31
-Bumex drip and Metalozone were stopped due to worsening BHUPINDER.
-Monitored off Diuresis. Continued on Carvedilol 25mg BID.
-O2 therapy has been slowly weaned down, Continue to wean as able
-Echo with Bubble study planned for Friday
-Cardiology Following.
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
-Amyloid workup. SPEP negative for spike protein. Free kappa + free lambda light chains elevated
-Pending technetium pyrophosphate scan for further evaluation.
#Severe Pulmonary Hypertension
-s/p RHC 03/25 with severely elevated filling pressures with Pulmonary HTN
-On 03/29, started on sildenafil per cardiology
-LHC/RHC 03/30 demonstrating Severely elevated filling pressures PCWP = 25 mmHg
-V/Q scan 04/01/2025- Multiple peripheral perfusion defects on perfusion only images. Abnormal concrement chest x-ray suggestive of pulmonary edema. Overall, findings may be seen in the setting of CHF, however small bilateral pulmonary emboli/CTEPH
is not excluded.
-TTE with bubble study on Friday
-Pulm following.
#BHUPINDER on CKD 3a
-Cre rising in the setting of aggressive diuresis, 3.2 today (Baseline 1.9)
-Suspect cardiorenal syndrome, ?JENNA
-Holding Jardiance
-Nephrology following
-Renal Artery duplex ultrasound 03/28- Elevated velocity at the origin of the right renal artery measures 250 cm/s, and the right renal to aortic ratio measures 4.0.Findings are suggestive of 60-99% stenosis of the right renal artery. Left renal
artery peak systolic velocity 225 cm/s, renal to aortic ratio 3.8. Findings are suggestive of 60-99% stenosis of the left renal artery.
-MRA of renal arteries- No stenosis exceeding 50% in the more dominant, superior right renal artery or within the single artery serving left kidney. Diminished perfusion to the right kidney compared to the left kidney. The right kidney is
moderately atrophic
-Monitor BMP
#CAD s/p stent
-Cardiac catheterization at [facility] showed proximal/mid LAD lesion.
-Repeat Revascularization 03/31- showing 50-60% lesion in the proximal circumflex and a densely calcified, 80% lesion in the proximal/mid LAD. Severely elevated filling pressures (PCWP = 25 mmHg at 55.8 kg). Severe pulmonary hypertension.
-Underwent bifurcation PCI with DANIEL placement to the diagonal as well as the proximal/mid LAD
-Aspirin, Plavix, Eliquis for one week, then discontinue Aspirin on 04/06.
-Secondary prevention with Statin and ezetimibe.
#COPD
-On home oxygen 2 L
-no exacerbation this admission
-Continue on DuoNeb. Budesonide added to regimen
-Given elevated eosinophil count, short course of steroid was also added to regimen.
-Bedside Spirometry 03/31 suggestive of reactive airway disease vs Asthma
#Acute on chronic anemia
-During his hospitalization at [facility], he received 1 unit of PRBC
-s/p 1 unit pRBC 03/28 this admission
-Monitor H&H
-Iron Labs indicative of Iron Deficiency Anemia.
-Initially Started on IV Iron but was discontinued due to Pruritic rash
-Switched to Oral Iron supplementation.
#Pruritic Rash
-New for patient this admission
-Etiology likely Medication Reaction vs Contact Dermatitis
-The only medications he was Recently started on were IV Iron, Eliquis.
-No major reaction after administration of Eliquis
-Stopped IV Iron, Rash now resolved
-PRN Benadryl.
#Paroxysmal atrial fibrillation
-During his hospitalization at [facility], he went into A-fib(New for patient)
-Currently in NSR
-Continue PO Coreg
-Anticoagulation with Eliquis
#Low Grade fever
-was treated for Community acquired pneumonia at [facility]--received 6/ days of zosyn-
-Reported fevers this admission
-Monitor off abx for now
-CT chest- -CT chest 03/28-Moderate bilateral pleural effusions with associated compressive atelectasis and/or pneumonia. Scattered patchy ground glass densities throughout all lobes bilaterally may reflect combination of pneumonitis/pneumonia and
areas of air trapping.
-Ultrasound abdomen 03/30- Cholelithiasis. There is a 1.4 cm gallstone. There is a 5 mm echogenic focus along the gallbladder wall without shadowing. Negative sonographic Amaya's sign. Pericholecystic fluid seen. There is no evidence of biliary
ductal dilation. The common bile duct measures 5 mm.
-If fevers persist, consider restarting Abx.
#T2DM
-Likely with Neuropathy as patient takes gabapentin
-Hold repaglinide/Jardiance
-Coverage with SSI
-A1C 6.9 03/26
-Insulin regimen adjusted given short course of steroid. Continue with NovoLog 9units AC, Lantus 15 units HS
-DM Nurse practitioner on board
#Hypokalemia
-Repleted
#Chronic alcohol use
-outside of window for withdrawal symptoms
-States his last drink was 4 weeks ago
#History of aortic stenosis s/p AVR
#History of gout� Hold allopurinol. Consider renal dosage given eGFR
#History of bladder cancer currently in remission
#Remote tobacco user
CODE STATUS full code
GI Prophylaxis Pantoprazole
DVT prophylax Eliquis
Anticipated Discharge: > 48 hours
Subjective/Interval History
-
patient seen and examined at bedside. Without acute complaints.
Objective Data
-
Labs:
Laboratory Results
04/03/25
03:45
WBC 8.8
Hgb 8.3 L
Hct 24.4 L
Plt Count 202
Sodium 130 L
Potassium 5.2 H D
Chloride 93 L
Carbon Dioxide 28
BUN 90 H
Creatinine 3.2 H
Glucose 202 H
Calcium 8.1 L
Vital Signs:
Vital Signs
Temp Pulse Resp BP Pulse Ox
97.5 F 88 16 118/50 98
04/03/25 04:00 04/03/25 07:54 04/03/25 07:54 04/03/25 06:00 04/03/25 07:54
I&O
04/02/25 04/03/25 04/04/25
06:59 06:59 06:59
Intake Total 1298 / 1298 100 / 100
Output Total 1575 / 1575 1025 / 1025
Balance -277 / -277 -925 / -925
Review of Systems
-
All other systems: Reviewed and negative (except as documented)
Physical Exam
-
General: No Apparent Distress
Respiratory: Clear to Auscultation
Cardiac: Regular Rhythm and S1/S2
GI: Soft, Nontender, Nondistended and Normal Bowel Sounds
Musculoskeletal: No Edema
Neuro: AO x 3
Psych: Calm
[2025-04-03] MEDS: NOVOLOG FLEXPEN-MODERATE RESISTANCE 7 UNITS SC (09:27)
[2025-04-03] MEDS: NOVOLOG FLEXPEN 9 UNITS SC ×3 (09:28→17:54)
[2025-04-03] MEDS: NEURONTIN 100 MG PO ×3 (09:29→21:23)
[2025-04-03] MEDS: DELTASONE 40 MG PO (09:29)
[2025-04-03] MEDS: OCUVITE SOFTGEL 1 CAP PO (09:30)
[2025-04-03] MEDS: SENOKOT-S 1 TABLET PO (09:30)
[2025-04-03] MEDS: ASPIR LOW (ENTERIC COATED) 81 MG PO (09:31)
[2025-04-03] MEDS: COREG 25 MG PO ×2 (09:31→21:23)
[2025-04-03] MEDS: ZYLOPRIM 300 MG PO (09:32)
[2025-04-03] MEDS: ELIQUIS 2.5 MG PO ×2 (09:32→21:23)
[2025-04-03] MEDS: PLAVIX 75 MG PO (09:33)
[2025-04-03] MEDS: FEOSOL 325 MG PO (09:33)
[2025-04-03] MEDS: REVATIO 20 MG PO ×3 (09:34→21:24)
[2025-04-03] MEDS: NOVOLOG FLEXPEN SC (09:36)
--- NOTE | 2025-04-03 11:08 | W.PN.CD ---
Today's Communication / Plan
-
echo with bubble in AM
triple therapy for one week (stop ASA 7/)
Cr continues to rise. Diuretics held.
Impression / Plan
-
Impression/Plan: 79 y/o male with extensive past medical history admitted with flash pulmonary edema/hypoxic respiratory failure, found to have severely elevated filling pressures, prior exertional oxygen desaturation and worsening anemia and renal
function with lackluster diuresis and new diagnosis of occlusive CAD.
#Hypoxic respiratory failure/pulmonary hypertension/COPD: severe
-Acute on chronic, 4L NC as an outpatient
-Multifactorial. component of HFpEF and severe pulmonary hypertension. Outpatient notes suggest there is a component of primary pulmonary disease.
-Started sildenafil 20 mg TID 03/28/2025
-CT Chest: Bilateral pleural effusions with associated compressive atelectasis and/or pneumonia.
-Fever + imaging findings raises the possibility of infection vs. autoimmune issue (no hemoptysis, making vasculitis, i.e. Eulalia's, Churg-Ella, microscopic polyangiitis less likely). No significant eosinophilia.
-Bedside spirometry suggests GOLD stage 2 COPD (FEV1/FVC < 0.7, FEV1 53% predicted).
-PCWP remains severely elevated during PCI (25 mmHg) with persistent, severe pHTN.
-echo with bubble study tomorrow to look for shunt
#HFpEF
-Acute on chronic.
-Started sildenafil for pHTN. Monitor response.
-GDMT:
-Diuretics: held for BHUPINDER
-Beta ervin: Carvedilol 25 mg BID.
-ACEI/ARB/ANRi: On hold due to renal function.
-MRA: On hold due to renal function.
-SGLT2i: On hold due to renal function.
-Amyloid workup as outpatient
-Echo report reviewed. Mean gradient of the aortic valve was 13 mmHg. Moderate MR. IVC is dilated and does not collapse.
#CAD
-Stable.
-S/P DK crush PCI of [place] 1, 1, 1 80% LAD and 99% ostial D2 lesion due to plaque shift (Medtronic Carl 2.0 x 22 DANIEL to D2, post dilated with a 2.5 NCB, 3.5 x 34 DANIEL to LAD, post dilated with 3.5 NCB throughout, 3.75 NCB in the proximal stent
margin), 03/30/2025.
-DAPT with aspirin and clopidogrel. Starting apixaban for PAF. Maintain triple therapy for 7 days, then d/c aspirin on 04/06.
-High dose/potency statin.
#BHUPINDER on CKD III
-Acute on chronic. Severe.
-Creatinine up to 3.2. Hold diuretics, with close monitoring of labs. High risk situation.
-MRA shows accessory right renal artery 80% stenosis, normal larger right renal artery and left renal artery.
-Hold ACEI/ARB/ARNi/MRA/SGLT2i.
-AL Amyloid workup negative.
-Monitor renal function after PCI and with resumed diuresis. We may need to keep him net even if he develops JENNA.
-Consider Tc-PyP study as outpatient
#Paroxysmal atrial fibrillation
-In sinus with PACs.
-Rate control with carvedilol.
-[id number]: score at least 6 (Heart failure, HTN, age 75 or more, Diabetes Mellitus, Vascular disease).
-Oral Anticoagulation: transition to apixaban 2.5 mg BID (age, weight, renal function).
#HLD
-Chronic, stable.
-Continue ezetimibe, atorvastatin.
-Goal LDL < 55.
#Anemia
-Chronic (per report).
-Dx is likely a mix of some Fe deficiency, renal disease and anemia of chronic disease.
-B12, folate are normal. Reticulocyte count elevated (appropriate). Thiamine pending.
-Fe = 36, FeSat = 12%, ferritin = 102 (making Fe deficiency less likely), TIBC = 286.
-1 unit PRBC 03/28/2025 will functionally replace any iron deficiency.
-Keep H/H >/= 05/29.
#Severe aortic stenosis with bicuspid morphology, S/P AVR, stable on TTE.
#LBBB
#Daily EtOH consumption in the outpatient setting.
DATA:
RHC, 03/25/2025:
CONCLUSION
1. Severely elevated filling pressures (PCWP = 34 mmHg at 61.7 kg).
2. 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
3. Preserved cardiac index (2.35 L/min/m� by thermodilution, 2.03 L/min/m� by Shawna).
Chest CT, 03/28/2025:
IMPRESSION:
1. Moderate bilateral pleural effusions with associated compressive atelectasis and/or pneumonia. Scattered patchy ground glass densities throughout all lobes bilaterally may reflect combination of pneumonitis/pneumonia and areas of air trapping.
2. No convincing acute process in the abdomen or pelvis, within the limitations of unenhanced technique. Urinary bladder is decompressed around a Stanton catheter and not well evaluated. Cystitis not excluded.
3. Cholelithiasis. Pericholecystic fluid is present, likely on the basis of systemic congestion. Recommend clinical correlation for signs/symptoms of acute cholecystitis.
TTE, 03/29/2025:
CONCLUSIONS
-Left ventricular ejection fraction is approximately 55-60%. Septal
hypokinesis and abnormal (paradoxical) septal motion consistent with conduction
abnormality/postoperative state.
-Mildly enlarged right ventricular size. Normal right ventricular systolic
function.
-Mild to moderate mitral regurgitation.
-Bioprosthetic aortic valve replacement with peak/mean gradients of 20/11 mmHg.
Trace aortic regurgitation.
-Mild to moderate tricuspid regurgitation. Estimated pulmonary artery pressure
of 70-75 mmHg.
-The IVC is dilated and does not collapse.
Compared to previous echo of 10/14/2024, septal hypokinesis is now noted.
Slightly progressive mitral regurgitation and tricuspid regurgitation are
noted. PASP was not previously obtained.
Cardiac Catheterization/PCI, 03/30/2025:
CONCLUSIONS:
1. Right dominant circulation with calcified, nonocclusive tapering of the distal left main coronary artery (MLA = 7.6 mm�), a 50-60% lesion in the proximal circumflex and a densely calcified, 80% lesion in the proximal/mid LAD spanning the origin
of D2 which had its own, underappreciated ostial lesion, status post successful IVUS guided intracoronary lithotripsy (Shockwave 3.5 x 12 lithotripsy balloon), leading to plaque shift and 99% stenosis of the second diagonal, status post successful
DK crush of the second diagonal ([employer]onic [place] 2.0 x 22 DANIEL, postdilated with a 2.5 NC balloon) and proximal/mid LAD (Medtronic [place] 3.5 x 34 DANIEL, postdilated with a 3.5 NC balloon throughout and a 3.75 x 12 NC balloon in the
proximal margin) with reduction in both stenoses to 0%, maintaining and restoring DM-3 flow.
2. Severely elevated filling pressures (PCWP = 25 mmHg at 55.8 kg).
3. Severe pulmonary hypertension.
Abdominal MRA, 03/31/2025:
IMPRESSION:
2 arteries serve the right kidney. These vessels arise from the abdominal aorta 2.7 cm apart. The smaller, more inferior right renal artery has a high-grade stenosis (exceeding 80%) 3 mm distal to its origin. This stenosis extends over a length of 2
mm.
No stenosis exceeding 50% in the more dominant, superior right renal artery or within the single artery serving left kidney
Diminished perfusion to the right kidney compared to the left kidney. The right kidney is moderately atrophic.
Cholelithiasis. There is a small amount of pericholecystic fluid. This could be related to systemic venous congestion, or could be related to cholecystitis. Please correlate clinically
Moderate bilateral pleural effusions. Region of intermediate signal in the posterior right lower lobe. This is likely compressive partial atelectasis secondary to the pleural effusion
Physical Exam
Vital Signs/Labs
Vital Signs
Temp Pulse Resp BP Pulse Ox
97.8 F 90 17 119/45 98
04/03/25 08:18 04/03/25 08:00 04/03/25 08:00 04/03/25 08:00 04/03/25 07:54
04/02/25 04/03/25 04/04/25
06:59 06:59 06:59
Actual Weight 56.245 kg 57.3 kg
04/03/25 03:45
04/03/25 03:45
PT 17.8 Sec (11.4-14.6) H 03/28/25 04:47
INR 1.44 03/28/25 04:47
APTT Cancelled 03/30/25 18:15
Magnesium 2.1 mg/dl (1.6-2.3) 04/03/25 03:45
03/28/25 03/30/25
03:47 03:09
Eym-C-Akuxjankbfp Pept [id number]
Physical Exam
Constitutional: No acute distress
EENT: Moist mucous membranes
Cardiovascular: Rhythm & rate is regular, Pedal edema is absent, JVD present and Systolic murmur present
Respiratory: Labored respirations
Neuro/Psych: AO x 3
Data Reviewed
-
Date of Service: April 03, 2025
EKG: Other (Tele: SR 70s)
Labs: Labs Reviewed by me
[2025-04-03 12:27] LABS: Glucose - Point of Care 409 mg/dl (70-99)
--- NOTE | 2025-04-03 12:44 | PTCARENOTE ---
pt notified this RN, that he is agreeable to HD. Dr. Linda notified via tiger text
--- NOTE | 2025-04-03 12:52 | W.PN.NEPH.PH ---
Today's Communication / Plan
-
Currently holding diuretics
Assessment/Plan
-
IMP:
Acute on chronic hypoxemic respiratory failureNorma
Acute on chronic HFrEF
-Recent echocardiogram 03/20/2025 with a EF 50-55%. Moderate mitral regurgitation. Abnormal septal motion consistent with left bundle branch block.
Paroxysmal atrial fibrillation
Pneumonia
CAD s/p stent
BHUPINDER on CKD 3a
Acute on chronic anemia
T2DM
COPD-On home oxygen 4 L
Chronic alcohol use
History of aortic stenosis s/p AVR
History of gout�allopurinol
History of bladder cancer currently in remission
Remote tobacco user
Plan:
A/w acute respiratory failure, CHF-Transfer from [facility], PCWP 34 on 03/25
stable renal function cr at 1.9
follow cr trend post contrast for [facility] PCI of LAD on 03/30
PCWP still high at 25mm hg
bilat renal art stenosis -MRA No stenosis exceeding 50% in the more dominant, superior right renal artery or within the single artery serving left kidney
Diminished perfusion to the right kidney compared to the left kidney. The right kidney is moderately atrophic
avoid nephrotoxins, hold Jardiance
adjust meds renally
Not much improvement with Bumex drip which was discontinued for increasing creatinine
No long discussion with him today about possibilities of dialysis.
Diuretics are on hold his breathing is improved somewhat with decreasing oxygen requirements to 7 L with a baseline of 4 L
At this time the patient informed nursing staff after our discussion that he would not want dialysis if needed. No further discussions were had with him about this but will readdress as needed
Reevaluate tomorrow
Family was present during this discussion and all questions were answered
-
-
Date of Service: April 03, 2025
CC / HPI / ROS
-
Chief Complaint:
BHUPINDER, CKD
History of Present Illness:
Presents with shortness of breath transferred from [facility] continue with on high oxygen requirements with acute on chronic kidney disease improving
cr at 1.9, on mid flow O2 10lit
BP stable
wt no change
Review of Systems:
no sob at rest, feels well
no fever, no cp
no n/v
Labs
-
Labs:
WBC 8.8 10^3/uL (4.8-10.8) 04/03/25 03:45
RBC 2.76 10^6/uL (4.70-6.10) L 04/03/25 03:45
Hgb 8.3 g/dL (13.0-18.0) L 04/03/25 03:45
Hct 24.4 % (39.0-52.0) L 04/03/25 03:45
Plt Count 202 10^3/uL (130-400) 04/03/25 03:45
Sodium 130 mmol/L (135-145) L 04/03/25 03:45
Potassium 5.2 mmol/L (3.5-5.1) H D 04/03/25 03:45
Chloride 93 mmol/L (98-107) L 04/03/25 03:45
Carbon Dioxide 28 mmol/L (22-30) 04/03/25 03:45
BUN 90 mg/dl (9-20) H 04/03/25 03:45
Creatinine 3.2 mg/dL (0.7-1.3) H 04/03/25 03:45
eGFR 18.72 04/03/25 03:45
Calcium 8.1 mg/dl (8.4-10.2) L 04/03/25 03:45
Phosphorus 3.1 mg/dl (2.5-4.5) 03/30/25 03:09
Gnq-V-Ftnbwkcqqca Pept [id number] pg/ml 03/30/25 03:09
Albumin 3.1 g/dl (3.5-5.0) L 03/30/25 03:09
Physical Exam
-
Vital Signs:
Vital Signs
Temp Pulse Resp BP Pulse Ox
97.3 F 86 17 119/45 98
04/03/25 12:38 04/03/25 11:54 04/03/25 11:54 04/03/25 08:00 04/03/25 07:54
Cardiovascular:: Regular rate and rhythm
Respiratory:: Bilateral: Coarse
Lung Excursion:: Abnormal (decreased BS bilat)
Abdomen:: Nontender and Soft
Extremity Edema:: None: Bilateral:
Stanton Catheter: Yes
[2025-04-03 13:13] LABS: Glucose 350 mg/dl (70-99)
[2025-04-03] MEDS: NOVOLOG FLEXPEN-MODERATE RESISTANCE 9 UNITS SC ×2 (13:25→17:54)
--- NOTE | 2025-04-03 15:44 | W.PN.PUL3 ---
Today's Communication / Plan
-
Continue DuoNebs + budesonide
Short course of steroids given elevated eosinophil count; monitor for hyperglycemia
May benefit from Dupixent (will discuss this in office) given he has eosinophilia with evidence of reactive airway disease/asthma on spirometry; check full PFTs as an outpatient
Holding off on diuresis for now given worsening BHUPINDER
Continue midflow nasal cannula, weaning down supplemental O2 flow rate as tolerated
Continue Eliquis
Echo with bubble study tomorrow
Trend sCr - may be heading towards HD
Q scan showed no obvious evidence for a [id number] shunt; pulmonary edema can cause the perfusion defect seen; consider repeating V/Q scan as an outpatient once euvolemic
Continue sildenafil; may benefit from dual pulmonary vasodilator therapy (i.e. macitentan + tadalafil), which can be discussed as an outpatient
Pulmonary service will continue to follow along
Assessment
-
79-year-old man with past medical history significant for heart failure, mitral valve prolapse, prior aortic stenosis status post AVR in 2008, type 2 diabetes, COPD on 2 to 4 L supplemental oxygen continuously, hypertension, initially presented to
[facility] 03/19/2025 per records complaining of increased shortness of breath, leg swelling over the last week or so.
Patient was diagnosed with acute on chronic heart failure/positive increased troponin. Increased work of breathing requiring BiPAP therapy and subsequently transition to mid flow oxygen.
EKG demonstrated rapid atrial fibrillation.
Evaluation included diagnostic cardiac catheterization. 03/23/2025. Pulmonary capillary wedge pressure was 27. Cardiac index was 2.95.
Patient was treated with a standard diuresis.
Patient was also empirically treated with antibiotic for possible pneumonia.
Given persistent hypoxemia despite diuresis and difficulty with his chronic kidney disease, abnormal stress test with possible significant LAD lesion he was sent to [facility] for further evaluation potential intervention.
Assessment and plan:
#1. Acute hypoxemic respiratory failure due to pulmonary edema
- Clinically improving -weaned off of high flow nasal cannula on 03/28, and now on midflow nasal cannula - continue weaning down supplemental O2 flow rate while keeping SpO2 >90-94%
- Hold diuresis given worsening BHUPINDER; previously was on Bumex drip (started 03/31; prior to that was on intermittent bumex since 03/29); has evidence of alveolar/interstitial edema on CT chest from 03/28/2025; metolazone added 03/30 by cardiology - also
on hold now as well
- Continue scheduled DuoNebs for suspected underlying COPD - will get full PFTs as an outpatient (however [facility] spirometry did not show evidence of an obstructive lung defect, per documentation); bedside spirometry performed on
03/31/2025 showing resolution of a moderate obstructive lung defect with a borderline significant bronchodilator response with marked improvement in the small lung bennett, consistent with asthma versus reactive airway disease
- Check home O2 assessment prior to discharge
- PT/OT
- SPEP negative for spike protein; Free kappa + free lambda light chains are elevated, although kappa/lambda ratio is WNL at 1.29
#2. Acute on chronic heart failure with preserved ejection fraction, also moderate MR
- Cardiology service on case
- [place]-Ac removed on 03/31
- Significant diuresis since admission; he is now net -12 L since admission as of 04/02, however imaging still shows bilateral pleural effusions
- Continue to trend BNP with occasional CXR
- CXR on 03/30 showed mildly improved aeration in the left costophrenic angle, otherwise similar size of right-sided pleural effusion and interstitial edema bilaterally
- CXR on 04/03 shows continued interstitial/alveolar pulmonary edema with bilateral pleural effusions
#3. Severe pulmonary hypertension
- Primarily group II with elevated pulmonary capillary wedge pressure of 34. PVR elevated at 6, might have component of group I vs IV (less likely CTEPH)
- Q scan obtained on 04/01/2025 however given that he has pleural effusions/acute CHF, he does have multiple perfusion defects but the pulmonary edema could account for this. There was no abnormal activity seen within the head to suggest
[id number] shunting; could consider repeating VQ scan as an outpatient once he is euvolemic
- No evidence of ILD or emphysema on CT Chest from 03/28/2025
- Outpatient PFTs; spirometry performed on 03/31 does not show evidence of COPD, and is instead supportive of RAD versus asthma
- Given his elevated transpulmonary gradient of 24, patient may benefit from dual pulmonary vasodilator therapy (i.e. macitentan + tadalafil) as he has class II/III symptoms; Q scan not fully in support of a shunt
- On 03/29, started on sildenafil per cardiology - continue to monitor symptoms
- Obtain TTE with bubble study tomorrow
#4. Paroxysmal atrial fibrillation
- Off heparin infusion s/p LHC on 03/30, and now on Eliquis
- Keep HR <110
- Replete K>4, Mg>2
#5. History of COPD, uses oxygen at home
- Spirometry on 03/31 shows that he does not have COPD, and spirometry is most suggestive of reactive airway disease versus asthma; also has markedly elevated eosinophils
- 6 minute walk test in December 2024 with low saturation 91%.
- Remote history of smoking, on report from brenna Bass, CAT scan in 2022 showed tiny pulmonary nodules without significant parenchymal lung abnormality.
- No evidence of emphysema per CT chest from 03/28/2025
- Brenna Bass reports recent pulmonary function testing with a small airways disease without airflow obstruction by ATS criteria.
- Continue Duoneb QID; added budesonide; he has an elevated absolute eosinophil count of 800 on 04/01/2025. If his asthmatic symptoms continue to be severe then he would be a candidate for Dupixent; this can be discussed as an outpatient
- Added short course of prednisone to see if this helps improve SOB, especially given his elevated eosinophil count, I do suspect that he should improve with systemic steroid
- Need to maintain euglycemia while on steroids
#6. BHUPINDER with underlying CKD stage III; right sided renal artery stenosis (involving 1 of 2 right sided renal arteries per abdominal MRA)
- Suspect cardiorenal syndrome
- Continue to trend serum creatinine with strict I/O
- Renally dose all medications
- Renal artery duplex checked on 03/28/2025 showing elevated velocities with suspected 60-99% stenosis of the the left and right renal arteries � discussed this with nephrology and recommend MRA to assess for renal artery stenosis
- Abdominal MRI on 03/31 shows renal artery stenosis to the right kidney, with the inferior right renal artery showing high-grade stenosis exceeding 80% with the stenotic component extending over a length of 2 mm. The other superior right renal
artery and the single renal artery to the left kidney have no stenosis exceeding 50%
#7. Coronary artery disease
- LAD disease noted on [facility] 03/2025
- Underwent left heart catheterization on 03/30/2025 showing severe calcification in the proximal/mid LAD, with intracoronary lithotripsy complicated by plaque shift into the large D2, and he underwent bifurcation PCI with DANIEL placement to the
diagonal as well as the proximal/mid LAD
- Right heart cath numbers also performed continuing to show postcapillary pulmonary hypertension with PCWP 25, and TPG 20 with PA pressures elevated at 72/31
- Aspirin, Coreg, Zetia, + Lipitor
#8. Aortic stenosis s/p AVR
- Echo shows mild aortic sclerosis
#9. Anemia, suspect related to chronic disease
- Transfuse as needed to maintain Hb >7-8 g/dL
- Continue iron supplementation given iron saturation is 12% with iron levels <40
#10. B/L pleural effusions, L>R, suspect related to pulmonary edema.
- Continue to monitor
- Trend BNP and serial CXR
#11. DM type II (A1C: 6.9 on 03/26/2025)
- Hold oral hypoglycemics for now
- Continue basal-bolus SQ insulin
- Diabetic ATOMIC SPECTROSCOPIST on board
- Goal BG 140-180mg/dL
#12. Cholelithiasis with pericholecystic fluid; no evidence of cholecystitis
- Due to hepatic vascular congestion in the setting of right-sided heart failure
- Patient does have gallstones with small volume pericholecystic free fluid seen on RUQ ultrasound today however no biliary ductal dilatation and negative sonographic Amaya sign
Conditions present prior admission:
Congestive heart failure
Nonobstructive coronary artery disease
LBBB
CKD stage III
History of bladder carcinoma
Mitral valve prolapse
Type 2 diabetes
Hyperlipidemia
Hypercholesterolemia
Chronic obstructive pulmonary disease on 2 L supplemental oxygen
History of severe /Bicuspid aortic valve-history of heart valve trifecta replacement 12 years ago-2008
BPH
History of gout
Former smoker quit smoking longer than 10 years ago
Anemia
Daily wine consumption- watch for withdrawal; unlikely at this point given that he has been hospitalized now for >5 days
-
Low-sodium/fluid restricted diet.
DVT prophylaxis on heparin drip.
GI prophylaxis: N/A
Pulmonary service will continue to follow along.
---
Data reviewed:
[facility] 03/25/2025: 1. Severely elevated filling pressures (PCWP = 34 mmHg at 61.7 kg).
2. 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
3. Preserved cardiac index (2.35 L/min/m� by thermodilution, 2.03 L/min/m� by Shawna).
Initial chest x-ray [facility] 03/19/2025: Bilateral perihilar infiltrates with bilateral pleural effusions.
-
Chest x-ray March 24, 2025 report from [facility]:
Perihilar interstitial vascular prominence. Persistent. Mild elevation of the left hemidiaphragm. No pleural effusions. Worsening per report
-
Nuclear stress test: 03/22/2025: Abnormal myocardial perfusion imaging suggesting of inferoseptal ischemia and apical scar with ejection fraction reduced at 46%.
-
Left and right heart catheterization 03/23/2025
Pulmonary capillary wedge pressure 27. Pulmonary artery mean pressure 41. Cardiac index 2.95. Cardiac output 4.87 (thermodilution)
Coronary angiogram: Moderate calcification distal 20% stenosis
Left anterior descending ostial 20% stenosis. Proximal 80% stenosis and 60% stenosis.
Diagonal #1: Ostial 30%.
Circumflex 50 to 60%.
Right coronary artery less than 40% stenosis.
-
Echocardiogram 03/20/2025:
LVEF 50 to 55%
Abdominal paradoxical septal motion consistent with left bundle branch block.
Normal right ventricular size and function.
Right atrium is normal size.
Normal mitral valve.
Moderate mitral valve regurgitation.
Aortic valve mild sclerosis. Suggestion of mild aortic sclerosis.
Total time spent today was 39 minutes for this encounter. Time includes reviewing laboratory test/imaging results, reviewing pertinent medical records, obtaining and reviewing medical history, performing an appropriate exam, ordering medications,
tests and procedures. Time also includes documentation of this encounter, coordinating patient care and communicating with other healthcare professionals. Total time does not include separately billed tests performed on this date of service.
Subjective Data
-
Date of Service:
Date of Service: April 03, 2025
Chief Complaint: Pulmonary Follow Up
Subjective:
Patient seen and evaluated today bedside. Sitting in chair no acute distress, saturating 100%. Now down to 5 L/min miflow nasal cannula. He says that he feels better today. Heart rate 87, BP 126/60. He denies chest pain, ABDULLAHI, nausea, fevers or
chills.
Review of Systems
General: Other (Negative unless mentioned above)
Objective Data
Data Reviewed
Vital Signs / I&O / Oxygen:
Vital Signs
Temp Pulse Resp BP Pulse Ox
97.8 F 90 17 119/45 98
04/03/25 08:18 04/03/25 08:00 04/03/25 08:00 04/03/25 08:00 04/03/25 07:54
Intake and Output
04/02/25 04/03/25 04/04/25
06:59 06:59 06:59
Intake Total 1298 / 1298 100 / 100 320 / 320
Output Total 1575 / 1575 1025 / 1025
Balance -277 / -277 -925 / -925 320 / 320
SaO2 98
Nasal Cannula flow liters per 8
minute
Physical Exam
General: Respiratory Distress (negative) and Comfortable
HEENT: Normocephalic, Anicteric and Moist Mucous Membranes
Cardiovascular: S1-S2 and Peripheral Edema (negative)
Respiratory: Wheeze (negative), Crackles (Bibasilar), Rhonchi (negative) and Non-Labored Respirations
GI: Soft, Non Distended, Non Tender and Normal Bowel Sounds
Neurology: Awake, Alert, Oriented and Tremors (negative)
Skin: Warm, Dry, Cyanosis (negative) and Jaundice (negative)
Labs/Micro/Reports
Lab Data
04/03/25 03:45
04/03/25 03:45
[2025-04-03 16:54] LABS: Glucose - Point of Care 468 mg/dl (70-99)
[2025-04-03 17:28] LABS: Glucose 395 mg/dl (70-99)
[2025-04-03] MEDS: NOVOLIN N vial 0.08 UNITS SC (18:38)
[2025-04-03] MEDS: LIPITOR 20 MG PO (21:23)
[2025-04-03] MEDS: ZETIA 10 MG PO (21:23)
[2025-04-03] MEDS: LANTUS 0.15 UNITS SC (21:25)
[2025-04-03 21:31] LABS: Glucose - Point of Care 367 mg/dl (70-99)
[2025-04-03] MEDS: NOVOLOG FLEXPEN 5 UNITS SC (22:00)
[2025-04-04] VITALS (11 sets, daily range): BP systolic 107–129; BP diastolic 42–50; BMI 20.8
--- NOTE | 2025-04-04 01:40 | PTCARENOTE ---
Pt AAOX4. Pt glucose remaining high, [employer]CHOOL ADVISER made t[place]. HS Lantus given, +5 units flex pen. Pt spo2 96% on 4L at this time. Respirations even un labored.
[2025-04-04 05:53] LABS: Hematocrit 22.5 % (39.0-52.0); Hemoglobin 7.7 g/dL (13.0-18.0); Mean Corp Hgb Conc. 34.2 g/dL (33.0-37.0); Mean Corpuscular Volume 87.5 fL (80.0-94.0); Nucleated Red Blood Cells % 0 % (-); Platelet Count 198 10^3/uL (130-400); Red Cell Dist. Width 14.6 % (11.5-14.5)
[2025-04-04 06:29] LABS: Blood Urea Nitrogen 106 mg/dl (9-20); Calcium 8.7 mg/dl (8.4-10.2); Carbon Dioxide 25 mmol/L (22-30); Chloride 93 mmol/L (98-107); Estimated Creatinine Clearance 15 ml/min; Glucose 180 mg/dl (70-99); Magnesium 2.3 mg/dl (1.6-2.3); Potassium 4.3 mmol/L (3.5-5.1); Sodium 129 mmol/L (135-145); eGFR 18.72
[2025-04-04] MEDS: DUONEB 3 ML INH ×4 (07:10→20:03)
[2025-04-04] MEDS: PULMICORT 0.5 MG INH ×2 (07:10→20:03)
--- NOTE | 2025-04-04 07:44 | W.PN.PUL3 ---
Today's Communication / Plan
-
Continue with management primarily by cardiology and nephrology
May require hemodialysis
Patient states he is on 4 L of oxygen at home for the past few months
Presently appears to be back to baseline
Continue with slow steroid taper to off over the next few days
Continue with nebulized budesonide
Would benefit from outpatient pulmonary follow-up
Assessment
-
79-year-old man with past medical history significant for heart failure, mitral valve prolapse, prior aortic stenosis status post AVR in 2008, type 2 diabetes, COPD on 2 to 4 L supplemental oxygen continuously, hypertension, initially presented to
[facility] 03/19/2025 per records complaining of increased shortness of breath, leg swelling over the last week or so.
Patient was diagnosed with acute on chronic heart failure/positive increased troponin. Increased work of breathing requiring BiPAP therapy and subsequently transition to mid flow oxygen.
EKG demonstrated rapid atrial fibrillation.
Evaluation included diagnostic cardiac catheterization. 03/23/2025. Pulmonary capillary wedge pressure was 27. Cardiac index was 2.95.
Patient was treated with a standard diuresis.
Patient was also empirically treated with antibiotic for possible pneumonia.
Given persistent hypoxemia despite diuresis and difficulty with his chronic kidney disease, abnormal stress test with possible significant LAD lesion he was sent to [facility] for further evaluation potential intervention.
Assessment and plan:
#1. Acute hypoxemic respiratory failure due to pulmonary edema
- Clinically improving -weaned off of high flow nasal cannula on 03/28, and now on 4 L of oxygen- continue weaning down supplemental O2 flow rate while keeping SpO2 >90-94%
- Hold diuresis given worsening BHUPINDER; previously was on Bumex drip (started 03/31; prior to that was on intermittent bumex since 03/29); has evidence of alveolar/interstitial edema on CT chest from 03/28/2025; metolazone added 03/30 by cardiology - also
on hold now as well
- Continue scheduled DuoNebs for suspected underlying COPD - will get full PFTs as an outpatient (however [facility] spirometry did not show evidence of an obstructive lung defect, per documentation); bedside spirometry performed on
03/31/2025 showing resolution of a moderate obstructive lung defect with a borderline significant bronchodilator response with marked improvement in the small lung bennett, consistent with asthma versus reactive airway disease
- Check home O2 assessment prior to discharge. Patient states he has been on home oxygen, 4 L over the past few months. Does not see pulmonary
- PT/OT
- SPEP negative for spike protein; Free kappa + free lambda light chains are elevated, although kappa/lambda ratio is WNL at 1.29
#2. Acute on chronic heart failure with preserved ejection fraction, also moderate MR
- Cardiology following
- Hamilton-Ac removed on 03/31
- Significant diuresis since admission; he is now net -12 L since admission as of 04/02, however imaging still shows bilateral pleural effusions
- CXR on 03/30 showed mildly improved aeration in the left costophrenic angle, otherwise similar size of right-sided pleural effusion and interstitial edema bilaterally
- CXR on 04/03 shows continued interstitial/alveolar pulmonary edema with bilateral pleural effusions
- Follow-up chest x-ray as clinically indicated
#3. Severe pulmonary hypertension
- Primarily group II with elevated pulmonary capillary wedge pressure of 34. PVR elevated at 6, might have component of group I vs IV (less likely CTEPH)
- Q scan obtained on 04/01/2025 however given that he has pleural effusions/acute CHF, he does have multiple perfusion defects but the pulmonary edema could account for this. There was no abnormal activity seen within the head to suggest
[id number] shunting; could consider repeating VQ scan as an outpatient once he is euvolemic
- No evidence of ILD or emphysema on CT Chest from 03/28/2025
- Outpatient PFTs; spirometry performed on 03/31 does not show evidence of COPD, and is instead supportive of RAD versus asthma
- Given his elevated transpulmonary gradient of 24, patient may benefit from dual pulmonary vasodilator therapy (i.e. macitentan + tadalafil) as he has class II/III symptoms; Q scan not fully in support of a shunt
- On 03/29, started on sildenafil per cardiology - continue to monitor symptoms
- Obtain TTE with bubble study per cardiology
#4. Paroxysmal atrial fibrillation
- Off heparin infusion s/p LHC on 03/30, and now on Eliquis
- Keep HR <110
- Replete K>4, Mg>2
#5. History of COPD, uses oxygen at home
- Spirometry on 03/31 shows that he does not have COPD, and spirometry is most suggestive of reactive airway disease versus asthma; also has markedly elevated eosinophils
- 6 minute walk test in December 2024 with low saturation 91%.
- Remote history of smoking, on report from brenna Bass, CAT scan in 2022 showed tiny pulmonary nodules without significant parenchymal lung abnormality.
- No evidence of emphysema per CT chest from 03/28/2025
- Brenna Bass reports recent pulmonary function testing with a small airways disease without airflow obstruction by ATS criteria.
- Continue Duoneb QID; added budesonide; he has an elevated absolute eosinophil count of 800 on 04/01/2025. If his asthmatic symptoms continue to be severe then he would be a candidate for Dupixent; this can be discussed as an outpatient
- Added short course of prednisone to see if this helps improve SOB, especially given his elevated eosinophil count, I do suspect that he should improve with systemic steroid
- Need to maintain euglycemia while on steroids
- Will continue to wean to off for the next 7 to 10 days
#6. BHUPINDER with underlying CKD stage III; right sided renal artery stenosis (involving 1 of 2 right sided renal arteries per abdominal MRA)
- Suspect cardiorenal syndrome
- Continue to trend serum creatinine with strict I/O
- Renally dose all medications
- Renal artery duplex checked on 03/28/2025 showing elevated velocities with suspected 60-99% stenosis of the the left and right renal arteries � discussed this with nephrology and recommend MRA to assess for renal artery stenosis
- Abdominal MRI on 03/31 shows renal artery stenosis to the right kidney, with the inferior right renal artery showing high-grade stenosis exceeding 80% with the stenotic component extending over a length of 2 mm. The other superior right renal
artery and the single renal artery to the left kidney have no stenosis exceeding 50%
- Being consideredfor HD catheter as indicated
#7. Coronary artery disease
- LAD disease noted on [facility] 03/2025
- Underwent left heart catheterization on 03/30/2025 showing severe calcification in the proximal/mid LAD, with intracoronary lithotripsy complicated by plaque shift into the large D2, and he underwent bifurcation PCI with DANIEL placement to the
diagonal as well as the proximal/mid LAD
- Right heart cath numbers also performed continuing to show postcapillary pulmonary hypertension with PCWP 25, and TPG 20 with PA pressures elevated at 72/31
- Aspirin, Coreg, Zetia, + Lipitor
#8. Aortic stenosis s/p AVR
- Echo shows mild aortic sclerosis
#9. Anemia, suspect related to chronic disease
- Transfuse as needed to maintain Hb >7-8 g/dL
- Continue iron supplementation given iron saturation is 12% with iron levels <40
#10. B/L pleural effusions, L>R, suspect related to pulmonary edema.
- Continue to monitor
- Trend BNP and serial CXR
#11. DM type II (A1C: 6.9 on 03/26/2025)
- Hold oral hypoglycemics for now
- Continue basal-bolus SQ insulin
- Diabetic COVER MAKER on board
- Goal BG 140-180mg/dL
#12. Cholelithiasis with pericholecystic fluid; no evidence of cholecystitis
- Due to hepatic vascular congestion in the setting of right-sided heart failure
- Patient does have gallstones with small volume pericholecystic free fluid seen on RUQ ultrasound today however no biliary ductal dilatation and negative sonographic Amaya sign
Conditions present prior admission:
Congestive heart failure
Nonobstructive coronary artery disease
LBBB
CKD stage III
History of bladder carcinoma
Mitral valve prolapse
Type 2 diabetes
Hyperlipidemia
Hypercholesterolemia
Chronic obstructive pulmonary disease on 2 L supplemental oxygen
History of severe /Bicuspid aortic valve-history of heart valve trifecta replacement 12 years ago-2008
BPH
History of gout
Former smoker quit smoking longer than 10 years ago
Anemia
Daily wine consumption- watch for withdrawal; unlikely at this point given that he has been hospitalized now for >5 days
-
Low-sodium/fluid restricted diet.
DVT prophylaxis on heparin drip.
GI prophylaxis: N/A
Pulmonary service will continue to follow along.
---
Data reviewed:
RHC 03/25/2025: 1. Severely elevated filling pressures (PCWP = 34 mmHg at 61.7 kg).
2. 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
3. Preserved cardiac index (2.35 L/min/m� by thermodilution, 2.03 L/min/m� by Shawna).
Initial chest x-ray [facility] 03/19/2025: Bilateral perihilar infiltrates with bilateral pleural effusions.
-
Chest x-ray March 24, 2025 report from [facility]:
Perihilar interstitial vascular prominence. Persistent. Mild elevation of the left hemidiaphragm. No pleural effusions. Worsening per report
-
Nuclear stress test: 03/22/2025: Abnormal myocardial perfusion imaging suggesting of inferoseptal ischemia and apical scar with ejection fraction reduced at 46%.
-
Left and right heart catheterization 03/23/2025
Pulmonary capillary wedge pressure 27. Pulmonary artery mean pressure 41. Cardiac index 2.95. Cardiac output 4.87 (thermodilution)
Coronary angiogram: Moderate calcification distal 20% stenosis
Left anterior descending ostial 20% stenosis. Proximal 80% stenosis and 60% stenosis.
Diagonal #1: Ostial 30%.
Circumflex 50 to 60%.
Right coronary artery less than 40% stenosis.
-
Echocardiogram 03/20/2025:
LVEF 50 to 55%
Abdominal paradoxical septal motion consistent with left bundle branch block.
Normal right ventricular size and function.
Right atrium is normal size.
Normal mitral valve.
Moderate mitral valve regurgitation.
Aortic valve mild sclerosis. Suggestion of mild aortic sclerosis.
Subjective Data
-
Date of Service:
Date of Service: April 04, 2025
Chief Complaint: Pulmonary Follow Up
Subjective:
Patient is subjectively improved today, less short of breath, less cough. Denies chest pain, wheeze. Currently voraciously eating his breakfast. Examined earlier in the morning. Remains on 4 L of oxygen
Objective Data
Data Reviewed
Vital Signs / I&O / Oxygen:
Vital Signs
Temp Pulse Resp BP Pulse Ox
97.6 F 82 16 119/44 95
04/04/25 03:00 04/04/25 07:11 04/04/25 07:11 04/04/25 06:00 04/04/25 07:11
Intake and Output
04/03/25 04/04/25 04/05/25
06:59 06:59 06:59
Intake Total 100 / 100 800 / 800
Output Total 1025 / 1025 1150 / 1150
Balance -925 / -925 -350 / -350
SaO2 95
Nasal Cannula flow liters per 4
minute
Physical Exam
General: Comfortable
HEENT: Normocephalic, Anicteric and Moist Mucous Membranes
Cardiovascular: S1-S2, Regular Rhythm, Murmur (n), Rub (n), Peripheral Edema (tr) and Calf Tenderness (n)
Respiratory: Wheeze (negative), Crackles (Bibasilar), Rhonchi (negative), Non-Labored Respirations and Stridor (n)
GI: Soft, Non Distended, Non Tender and Normal Bowel Sounds
Neurology: Awake, Alert and No Motor Deficits (Moves extremities, able to sit up without assistance)
Skin: Cyanosis (negative) and Jaundice (negative)
Labs/Micro/Reports
Lab Data
04/04/25 05:43
04/04/25 05:43
[2025-04-04 07:48] LABS: Glucose - Point of Care 201 mg/dl (70-99)
[2025-04-04] MEDS: NOVOLOG FLEXPEN-MODERATE RESISTANCE 3 UNITS SC ×2 (08:22→12:31)
[2025-04-04] MEDS: NOVOLOG FLEXPEN 9 UNITS SC (08:23)
[2025-04-04] MEDS: OCUVITE SOFTGEL 1 CAP PO (08:24)
[2025-04-04] MEDS: PLAVIX 75 MG PO (08:25)
[2025-04-04] MEDS: COREG 25 MG PO ×2 (08:25→19:50)
[2025-04-04] MEDS: DELTASONE 30 MG PO (08:26)
[2025-04-04] MEDS: SENOKOT-S 1 TABLET PO (08:27)
[2025-04-04] MEDS: NEURONTIN 100 MG PO ×3 (08:27→19:49)
[2025-04-04] MEDS: FEOSOL 325 MG PO (08:27)
[2025-04-04] MEDS: ASPIR LOW (ENTERIC COATED) 81 MG PO (08:27)
[2025-04-04] MEDS: ELIQUIS 2.5 MG PO ×2 (08:28→19:50)
[2025-04-04] MEDS: REVATIO 20 MG PO ×3 (08:32→19:49)
--- NOTE | 2025-04-04 08:41 | W.PN.CD ---
Today's Communication / Plan
-
echo with bubble
holding diuretic with BHUPINDER
Cr seems to be at plateau; there was discussion of HD over weekend, and patient is agreeable if needed
Impression / Plan
-
Impression/Plan: 79 y/o male with extensive past medical history admitted with flash pulmonary edema/hypoxic respiratory failure, found to have severely elevated filling pressures, prior exertional oxygen desaturation and worsening anemia and renal
function with lackluster diuresis and new diagnosis of occlusive CAD.
#Hypoxic respiratory failure/pulmonary hypertension/COPD: severe
-Acute on chronic, 4L NC as an outpatient
-Multifactorial. component of HFpEF and severe pulmonary hypertension. Outpatient notes suggest there is a component of primary pulmonary disease.
-Started sildenafil 20 mg TID 03/28/2025
-CT Chest: Bilateral pleural effusions with associated compressive atelectasis and/or pneumonia.
-Fever + imaging findings raises the possibility of infection vs. autoimmune issue (no hemoptysis, making vasculitis, i.e. Eulalia's, Churg-Ella, microscopic polyangiitis less likely). No significant eosinophilia.
-Bedside spirometry suggests GOLD stage 2 COPD (FEV1/FVC < 0.7, FEV1 53% predicted).
-PCWP remains severely elevated during PCI (25 mmHg) with persistent, severe pHTN.
-echo with bubble study today to look for shunt
#HFpEF
-Acute on chronic.
-Started sildenafil for pHTN. Monitor response.
-GDMT:
-Diuretics: held for BHUPINDER
-Beta ervin: Carvedilol 25 mg BID.
-ACEI/ARB/ANRi: On hold due to renal function.
-MRA: On hold due to renal function.
-SGLT2i: On hold due to renal function.
-Amyloid workup/nuclear scan as outpatient
-Echo report reviewed. Mean gradient of the aortic valve was 13 mmHg. Moderate MR. IVC is dilated and does not collapse.
#CAD
-Stable.
-S/P DK crush PCI of Wright 1, 1, 1 80% LAD and 99% ostial D2 lesion due to plaque shift (Medtronic [place] 2.0 x 22 DANIEL to D2, post dilated with a 2.5 NCB, 3.5 x 34 DANIEL to LAD, post dilated with 3.5 NCB throughout, 3.75 NCB in the proximal stent
margin), 03/30/2025.
-DAPT with aspirin and clopidogrel. Starting apixaban for PAF. Maintain triple therapy for 7 days, then d/c aspirin on 04/06.
-High dose/potency statin.
#BHUPINDER on CKD III
-Acute on chronic. Severe.
-Creatinine up to 3.2. Hold diuretics, with close monitoring of labs. High risk situation. Seems to be at plateau
-MRA shows accessory right renal artery 80% stenosis, normal larger right renal artery and left renal artery.
-Hold ACEI/ARB/ARNi/MRA/SGLT2i.
-AL Amyloid workup negative.
-Monitor renal function after PCI and with resumed diuresis. We may need to keep him net even if he develops JENAN.
-Consider Tc-PyP study as outpatient
#Paroxysmal atrial fibrillation
-In sinus with PACs.
-Rate control with carvedilol.
-[id number]: score at least 6 (Heart failure, HTN, age 75 or more, Diabetes Mellitus, Vascular disease).
-Oral Anticoagulation: transition to apixaban 2.5 mg BID (age, weight, renal function).
#HLD
-Chronic, stable.
-Continue ezetimibe, atorvastatin.
-Goal LDL < 55.
#Anemia
-Chronic (per report).
-Dx is likely a mix of some Fe deficiency, renal disease and anemia of chronic disease.
-B12, folate are normal. Reticulocyte count elevated (appropriate). Thiamine pending.
-Fe = 36, FeSat = 12%, ferritin = 102 (making Fe deficiency less likely), TIBC = 286.
-1 unit PRBC 03/28/2025 will functionally replace any iron deficiency.
-Keep H/H >/= 05/29.
#Severe aortic stenosis with bicuspid morphology, S/P AVR, stable on TTE.
#LBBB
#Daily EtOH consumption in the outpatient setting.
DATA:
RHC, 03/25/2025:
CONCLUSION
1. Severely elevated filling pressures (PCWP = 34 mmHg at 61.7 kg).
2. 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
3. Preserved cardiac index (2.35 L/min/m� by thermodilution, 2.03 L/min/m� by Shawna).
Chest CT, 03/28/2025:
IMPRESSION:
1. Moderate bilateral pleural effusions with associated compressive atelectasis and/or pneumonia. Scattered patchy ground glass densities throughout all lobes bilaterally may reflect combination of pneumonitis/pneumonia and areas of air trapping.
2. No convincing acute process in the abdomen or pelvis, within the limitations of unenhanced technique. Urinary bladder is decompressed around a Stanton catheter and not well evaluated. Cystitis not excluded.
3. Cholelithiasis. Pericholecystic fluid is present, likely on the basis of systemic congestion. Recommend clinical correlation for signs/symptoms of acute cholecystitis.
TTE, 03/29/2025:
CONCLUSIONS
-Left ventricular ejection fraction is approximately 55-60%. Septal
hypokinesis and abnormal (paradoxical) septal motion consistent with conduction
abnormality/postoperative state.
-Mildly enlarged right ventricular size. Normal right ventricular systolic
function.
-Mild to moderate mitral regurgitation.
-Bioprosthetic aortic valve replacement with peak/mean gradients of 20/11 mmHg.
Trace aortic regurgitation.
-Mild to moderate tricuspid regurgitation. Estimated pulmonary artery pressure
of 70-75 mmHg.
-The IVC is dilated and does not collapse.
Compared to previous echo of 10/14/2024, septal hypokinesis is now noted.
Slightly progressive mitral regurgitation and tricuspid regurgitation are
noted. PASP was not previously obtained.
Cardiac Catheterization/PCI, 03/30/2025:
CONCLUSIONS:
1. Right dominant circulation with calcified, nonocclusive tapering of the distal left main coronary artery (MLA = 7.6 mm�), a 50-60% lesion in the proximal circumflex and a densely calcified, 80% lesion in the proximal/mid LAD spanning the origin
of D2 which had its own, underappreciated ostial lesion, status post successful IVUS guided intracoronary lithotripsy (Shockwave 3.5 x 12 lithotripsy balloon), leading to plaque shift and 99% stenosis of the second diagonal, status post successful
DK crush of the second diagonal (Medtronic [place] 2.0 x 22 DANIEL, postdilated with a 2.5 NC balloon) and proximal/mid LAD (Medtronic [place] 3.5 x 34 DANIEL, postdilated with a 3.5 NC balloon throughout and a 3.75 x 12 NC balloon in the
proximal margin) with reduction in both stenoses to 0%, maintaining and restoring DM-3 flow.
2. Severely elevated filling pressures (PCWP = 25 mmHg at 55.8 kg).
3. Severe pulmonary hypertension.
Abdominal MRA, 03/31/2025:
IMPRESSION:
2 arteries serve the right kidney. These vessels arise from the abdominal aorta 2.7 cm apart. The smaller, more inferior right renal artery has a high-grade stenosis (exceeding 80%) 3 mm distal to its origin. This stenosis extends over a length of 2
mm.
No stenosis exceeding 50% in the more dominant, superior right renal artery or within the single artery serving left kidney
Diminished perfusion to the right kidney compared to the left kidney. The right kidney is moderately atrophic.
Cholelithiasis. There is a small amount of pericholecystic fluid. This could be related to systemic venous congestion, or could be related to cholecystitis. Please correlate clinically
Moderate bilateral pleural effusions. Region of intermediate signal in the posterior right lower lobe. This is likely compressive partial atelectasis secondary to the pleural effusion
Physical Exam
Vital Signs/Labs
Vital Signs
Temp Pulse Resp BP Pulse Ox
97.4 F 84 16 125/48 95
04/04/25 07:48 04/04/25 08:25 04/04/25 07:11 04/04/25 08:25 04/04/25 07:11
04/03/25 04/04/25 04/05/25
06:59 06:59 06:59
Actual Weight 57.3 kg 58.4 kg
04/04/25 05:43
04/04/25 05:43
PT 17.8 Sec (11.4-14.6) H 03/28/25 04:47
INR 1.44 03/28/25 04:47
APTT Cancelled 03/30/25 18:15
Magnesium 2.3 mg/dl (1.6-2.3) 04/04/25 05:43
03/28/25 03/30/25
03:47 03:09
Akb-O-Ipygbxevans Pept [id number]
Physical Exam
Constitutional: No acute distress
EENT: Moist mucous membranes
Cardiovascular: Rhythm & rate is regular, Pedal edema is absent, JVD present and Systolic murmur present
Respiratory: Labored respirations
Neuro/Psych: AO x 3
Data Reviewed
-
Date of Service: April 04, 2025
EKG: Other (Tele: SR 80s)
Labs: Labs Reviewed by me
--- NOTE | 2025-04-04 08:47 | PN.DE.MGMTRT ---
Insulin Management
- -
04/04/2025: Diabetes management Follow up
Patient was transferred to [facility] from [facility] for increased shortness of breath due to acute exacerbation of chronic heart failure with preserved EF in the setting of Acute on chronic hypoxemic respiratory failure. PMH:
HFpEF, CKD Stage 3a, Bladder carcinoma, T2DM, HLD, severe aortic stenosis s/p valve replacement in 2008, COPD on 2L home oxygen, BPH. A1C 6.9%, Cr 2.0, eGFR 32.91
Pt states he was taking Jardiance 10mg daily at home, has a monitor and has been testing his blood sugars daily in the morning. His chart indicates he was taking Lantus 7 units OFFICE BOOKKEEPER but pt denies ever taking insulin. States he was taking Glipizide at
one point but that was discontinued by his PCP due to recurrent hypoglycemia.
Pt awake, alert, oriented, sitting up in bed, pleasant, offers no complaints, able to discuss diabetes care. Son at bedside, very supportive.
04/02 Patient was started on a short course of steroids, contributing to Hyperglycemia. Cr 3.2, eGFR 18.72 today.
04/03 Glucose trended up to 468. Premeal glucose 323 to 468, required up to 9 units of corrective insulin with meals.
04/03 both NovoLog and Lantus dose was adjusted. Patient remains on steroids, pred 30 mg daily, POC glucose 201 this AM.
Will increase Lantus to 17 units and AC NovoLog to 12 units. Cont moderate corrective with meals
Will continue to hold Jardiance and metformin given BHUPINDER on CKD with Cr 3.2 today.
Pt states he has a working glucose monitor and enough supplies at home. Diabetes nurse has instructed on insulin administration.
Discussed with nurse. Will cont to follow.
Diabetes History
- -
Type of Diabetes: 2 requiring insulin
Pre-Admission Diabetes Regimen
04/04/25
05:43
Creatinine 3.2 H
Lab Results
Hemoglobin A1c 6.9 % (4.0-5.6) H 03/26/25 04:34
Insulin Pump Settings
IP Diabetes Regimen
04/03/25 04/03/25 04/03/25
12:15 12:23 16:43
Glucose 350 H
POC Glucose 409 H 468 H*
04/03/25 04/03/25 04/04/25
17:01 21:15 05:43
Glucose 395 H 180 H
POC Glucose 367 H
04/04/25
07:35
Glucose
POC Glucose 201 H
Meal type: Dinner
Amount consumed: 100%
Patient Education
--- NOTE | 2025-04-04 09:36 | W.PN.NEPH.PH ---
Today's Communication / Plan
-
follow BMP
Assessment/Plan
-
IMP:
Acute on chronic hypoxemic respiratory failureNorma
Acute on chronic HFrEF
Recent echocardiogram 03/20/2025 with a EF 50-55%. Moderate mitral regurgitation. Abnormal septal motion consistent with left bundle branch block.
Paroxysmal atrial fibrillation
Pneumonia
CAD s/p stent
BHUPINDER on CKD 3a
Acute on chronic anemia
T2DM
COPD-On home oxygen 4 L
Chronic alcohol use
History of aortic stenosis s/p AVR
History of gout�allopurinol
History of bladder cancer currently in remission
Remote tobacco user
Plan:
follow BMP
he is at baseline O2 requirements and has no edema. however, wedge was elevated.
he will likely require po diuretics, but will see if Cr has truly plateaued first
no SGLT2i for now
no RASi for now
I discussed with pt and family regarding HD and he said that he would accept it if necessary
-
-
Date of Service: April 04, 2025
CC / HPI / ROS
-
Chief Complaint:
BHUPINDER, CKD
History of Present Illness:
Presents with shortness of breath transferred from [facility] continue with on high oxygen requirements with acute on chronic kidney disease improving
BHUPINDER/Cr holding 3.2 from yesterday
BP stable
back to 4L supplemental O2
Hgb low 7.7 stable
Na 129 stable
Review of Systems:
no sob at rest, feels well
no fever, no cp
no n/v
Labs
-
Labs:
WBC 10.7 10^3/uL (4.8-10.8) 04/04/25 05:43
RBC 2.57 10^6/uL (4.70-6.10) L 04/04/25 05:43
Hgb 7.7 g/dL (13.0-18.0) L 04/04/25 05:43
Hct 22.5 % (39.0-52.0) L 04/04/25 05:43
Plt Count 198 10^3/uL (130-400) 04/04/25 05:43
Sodium 129 mmol/L (135-145) L 04/04/25 05:43
Potassium 4.3 mmol/L (3.5-5.1) 04/04/25 05:43
Chloride 93 mmol/L (98-107) L 04/04/25 05:43
Carbon Dioxide 25 mmol/L (22-30) 04/04/25 05:43
BUN 106 mg/dl (9-20) H* 04/04/25 05:43
Creatinine 3.2 mg/dL (0.7-1.3) H 04/04/25 05:43
eGFR 18.72 04/04/25 05:43
Glucose 180 mg/dl (70-99) H 04/04/25 05:43
Calcium 8.7 mg/dl (8.4-10.2) 04/04/25 05:43
Phosphorus 3.1 mg/dl (2.5-4.5) 03/30/25 03:09
Msn-F-Jnxkvsonrdn Pept 23215 pg/ml 03/30/25 03:09
Albumin 3.1 g/dl (3.5-5.0) L 03/30/25 03:09
Physical Exam
-
Vital Signs:
Vital Signs
Temp Pulse Resp BP Pulse Ox
97.4 F 84 15 125/48 96
04/04/25 07:48 04/04/25 08:25 04/04/25 08:00 04/04/25 08:25 04/04/25 08:00
Cardiovascular:: Regular rate and rhythm
Respiratory:: Bilateral: Coarse
Lung Excursion:: Normal
Abdomen:: Nontender and Soft
Bowel Sounds:: Normal
Extremity Edema:: None: Bilateral:
--- NOTE | 2025-04-04 09:56 | PTCARENOTE ---
Pt AAOx3 pleasant and cooperative. Pt now on 4l O2 lungs are diminidhed and coarse. Son at bedside
[2025-04-04 12:21] LABS: Glucose - Point of Care 214 mg/dl (70-99)
[2025-04-04] MEDS: NOVOLOG FLEXPEN 12 UNITS SC ×2 (12:32→18:14)
[2025-04-04 17:37] LABS: Glucose - Point of Care 433 mg/dl (70-99)
[2025-04-04 18:03] LABS: Glucose 328 mg/dl (70-99)
[2025-04-04] MEDS: NOVOLOG FLEXPEN-MODERATE RESISTANCE 7 UNITS SC (18:13)
--- NOTE | 2025-04-04 18:44 | W.PN.HOSP.TC ---
Addendum entered and electronically signed by Trell Strauss MD 04/04/25 21:23:
Attending Addendum-
I saw and evaluated the patient. I reviewed the resident�s note and agree with findings and plan as documented in the resident�s note. Sub: Patient states that he is urinating as usual. Feels that he is improved. Denies SOB. Full 12 point ROS
reviewed and negative except as documented Exam: Vitals reviewed in chart GEN-NAD heart RRR, 12/09 SM @ apex, lungs crackles at bases B/L abd soft ND ND LE trace pitting edema b/l
Plan:
#Acute on chronic hypoxemic respiratory failure
#Acute on chronic HFpEF
-Patient presented as a transfer from [facility]
-o2 requirements improving- still on mid flow @ 4L
-echocardiogram 03/29- -Left ventricular ejection fraction is approximately 55-60%. Septal hypokinesis and abnormal (paradoxical) septal motion consistent with conduction abnormality/postoperative state. Bioprosthetic aortic valve replacement with
peak/mean gradients of 20/11 mmHg. Estimated pulmonary artery pressure of 70-75 mmHg.
-LHC/RHC 03/30 demonstrating severely elevated pulmonary pressures
-Bumex drip and Metalozone stopped 04/02 due to worsening BHUPINDER.
-Monitoring off Diuresis. Continued on Carvedilol 25mg BID.
-Echo with Bubble study 04/04- Left ventricular ejection fraction is 55-60%. negative bubble study
-appreciate cards input
-cxr personally reviewed possible RUL PNA- speech eval r/o aspiration hold on abx, overall improved pulmonary edema
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
-Amyloid workup. SPEP negative for spike protein. Free kappa + free lambda light chains elevated
-Pending technetium pyrophosphate scan
#Severe Pulmonary Hypertension
-03/29-started on sildenafil
-LHC/RHC 03/30 demonstrating Severely elevated filling pressures PCWP = 25 mmHg
-Pulm following.
#BHUPINDER on CKD 3a
-Cr seems to have plateaued but still 1.5x baseline (Baseline 1.9)
-Suspect cardiorenal syndrome
-Holding Jardiance and diuretics
-Nephrology following
-MRA of renal arteries- No stenosis exceeding 50% in the more dominant, superior right renal artery or within the single artery serving left kidney. Diminished perfusion to the right kidney compared to the left kidney. The right kidney is
moderately atrophic
-Monitor BMP daily
-patient amenable to HD if needed
-appreciate nephro input
#CAD s/p stent
-03/30- PCI with DANIEL placement to the diagonal as well as the proximal/mid LAD
-Aspirin, Plavix for one week, then discontinue Aspirin on 04/06.
-Secondary prevention with atorvastatin and ezetimibe.
#COPD
-On home oxygen 2-4 L
-Continue on DuoNeb. Budesonide added to regimen
-Given elevated eosinophil count, cont steroid burst
-Bedside Spirometry 03/31 suggestive of reactive airway disease vs Asthma
#Acute on chronic anemia SAMAN
-s/p 1 unit pRBC 03/28
-Monitor H&H
-Iron Labs indicative of Iron Deficiency Anemia.
-IV Iron but was discontinued due to rash
-cont Oral Iron supplementation
- tx for HB < 7
#Paroxysmal atrial fibrillation - NEW
-Currently in NSR
-Continue PO Coreg
-Anticoagulation with Eliquis
# Hyponatremia
- likely hypervolemic
- cont to trend
#T2DM
-Hold repaglinide/Jardiance
-Coverage with SSI
-A1C 6.9 03/26
-Insulin regimen adjusted given short course of steroid. increase of NovoLog 12u AC, Lantus 17u HS
-DM Nurse practitioner on board- appreciate input
#Chronic alcohol use
-no signs of w/d
-counselled re cessation
#History of aortic stenosis s/p biop AVR
#History of gout� cont allopurinol
#History of bladder cancer currently in remission
#Remote tobacco user
CODE STATUS full code
GI Prophylaxis Pantoprazole
DVT prophylax Eliquis
Dispo- likely will require SNF on DC
ACP
Patient consented to discuss, was alone, time spent explanation of advance directives, changes in health status, patient�s health care wishes if the patient becomes unable to make health decisions, goals of care, code status, and prognosis 'i would
like it all including dialysis if needed'- 16 minutes
Time spent coordinating care, review of plan of care with resident, personally reviewed previous records in EMR, med rec, labs, radiology, d/w nursing, family total time documented is exclusive of any additional time listed that was spent in advance
care planning discussion -�52 minutes
Original Note:
Today's Communication/Plan
-
Monitor CMP to assess kidney function. Consider HD based on creatinine trend.
Amyloid workup pending as etiology for cardiomyopathy.
Assessment / Plan
Assessment / Plan
Assessment/plan
#Acute on chronic hypoxemic respiratory failure secondary to below
#Acute on chronic HFpEF
-Patient presented as a transfer from [facility] with HFpEF exacerbation > bumex, metolazone ggt > initially help as patient had net -8.5L since admission
-Bumex was restarted due to evidence of interstitial edema on chest CT
-Echo 03/29: LVEF 55-60%. Septal hypokinesis and abnormal (paradoxical) septal motion consistent with conduction abnormality/postoperative state. Mildly enlarged right ventricular size. Normal right ventricular systolic function. Evidence of
valvular disease. Estimated pulmonary artery pressure of 70-75 mmHg.
-Restarted Metolazone for sequential nephron blockade
-Underwent LHC/RHC 03/30 demonstrating severely elevated pulmonary pressures, Williamson-Ac removed.
-Diuretics discontinued due to developing BHUPINDER
-Carvedilol 25 mg PO BID
-Patient has been weaned to 4L, which is patient's baseline requirement at home
-Echo w/ bubble study pending
-Cardiology following
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
-Amyloid workup. SPEP negative for spike protein. Free kappa + free lambda light chains elevated
-Pending technetium pyrophosphate scan for further evaluation.
#Severe Pulmonary Hypertension
-s/p RHC 03/25 with severely elevated filling pressures with Pulmonary HTN
-Continue sildenafil, per cardiology
-LHC/RHC 03/30 demonstrating Severely elevated filling pressures PCWP = 25 mmHg
-Echo w/ bubble study pending
-Pulmonary and cardiology following
#BHUPINDER on CKD 3a
-Cr rising in the setting of aggressive diuresis, 3.2 today (Baseline 1.9, 3.2 yesterday)
-Suspect cardiorenal syndrome etiology
-Holding Jardiance
-Renal Artery duplex ultrasound 03/28- Elevated velocity at the origin of the right renal artery measures 250 cm/s, and the right renal to aortic ratio measures 4.0.Findings are suggestive of 60-99% stenosis of the right renal artery. Left renal
artery peak systolic velocity 225 cm/s, renal to aortic ratio 3.8. Findings are suggestive of 60-99% stenosis of the left renal artery.
-MRA of renal arteries- No stenosis exceeding 50% in the more dominant, superior right renal artery or within the single artery serving left kidney. Diminished perfusion to the right kidney compared to the left kidney. The right kidney is
moderately atrophic
-Monitor BMP
-Nephrology following
#CAD s/p stent
-Cardiac catheterization at [facility] showed proximal/mid LAD lesion.
-Repeat Revascularization 03/31- showing 50-60% lesion in the proximal circumflex and a densely calcified, 80% lesion in the proximal/mid LAD. Severely elevated filling pressures (PCWP = 25 mmHg at 55.8 kg). Severe pulmonary hypertension.
-Underwent bifurcation PCI with DANIEL placement to the diagonal as well as the proximal/mid LAD
-Aspirin, Plavix, Eliquis for one week, then discontinue Aspirin on 04/06.
-Secondary prevention with statin and ezetimibe.
#COPD
-On home oxygen 4L
-No exacerbation this admission
-Continue on DuoNeb. Budesonide added to regimen
-Given elevated eosinophil count, short course of steroid was also added to regimen.
-Bedside Spirometry 03/31 suggestive of reactive airway disease vs Asthma
-Patient weaned to baseline oxygen requirement of 4L
#Acute on chronic anemia
-During his hospitalization at [facility], he received 1 unit of PRBC
-s/p 1 unit pRBC 03/28 this admission
-Monitor H&H
-Iron Labs indicative of Iron Deficiency Anemia.
-Initially Started on IV Iron but was discontinued due to Pruritic rash
-Switched to Oral Iron supplementation.
#Pruritic Rash
-New for patient this admission
-Etiology likely Medication Reaction vs Contact Dermatitis
-The only medications he was Recently started on were IV Iron, Eliquis.
-No major reaction after administration of Eliquis
-Stopped IV Iron, Rash now resolved
-PRN Benadryl.
#Paroxysmal atrial fibrillation
-During his hospitalization at [facility], he went into A-fib(New for patient)
-Continue PO Carvedilol
-Anticoagulation with Eliquis
#Low Grade fever
-was treated for Community acquired pneumonia at [facility]--received 6/ days of zosyn-
-Reported fevers this admission
-Monitor off abx for now
-CT chest 03/28: Moderate bilateral pleural effusions with associated compressive atelectasis and/or pneumonia. Scattered patchy ground glass densities throughout all lobes bilaterally may reflect combination of pneumonitis/pneumonia and areas of air
trapping.
-Ultrasound abdomen 03/30- Cholelithiasis. There is a 1.4 cm gallstone. There is a 5 mm echogenic focus along the gallbladder wall without shadowing. Negative sonographic Amaya's sign. Pericholecystic fluid seen. There is no evidence of biliary
ductal dilation. The common bile duct measures 5 mm.
-If fevers persist, consider restarting Abx.
#T2DM
-Likely with Neuropathy as patient takes gabapentin
-Hold repaglinide/Jardiance
-Coverage with SSI
-A1C 6.9 03/26
-Insulin regimen adjusted given short course of steroid. Continue with NovoLog 12 units AC, Lantus 17 units HS
-DM Nurse practitioner on board
#Hypokalemia
-Repleted
#Chronic alcohol use
-outside of window for withdrawal symptoms
-States his last drink was 4 weeks ago
#History of aortic stenosis s/p AVR
#History of gout� Hold allopurinol. Consider renal dosage given eGFR
#History of bladder cancer currently in remission
#Remote tobacco user
CODE STATUS full code
GI Prophylaxis Pantoprazole
DVT prophylax Eliquis
Anticipated Discharge: > 48 hours
Subjective/Interval History
-
Date of Service: April 04, 2025
Nursing reports NAEO. Patient's has slowly weaned off oxygen, and he is now on 4L, which is his baseline at home. Patient is feeling well, a little better than yesterday. Awaiting Echo w/ bubble study and PYP scan.
Objective Data
-
Labs:
Laboratory Results
04/04/25
17:35
Glucose 328 H
Vital Signs:
Vital Signs
Temp Pulse Resp BP Pulse Ox
97.4 F 85 16 110/45 94
04/04/25 15:10 04/04/25 18:00 04/04/25 18:00 04/04/25 14:00 04/04/25 18:00
I&O
04/03/25 04/04/25 04/05/25
06:59 06:59 06:59
Intake Total 100 / 100 800 / 800
Output Total 1025 / 1025 1150 / 1150 200 / 200
Balance -925 / -925 -350 / -350 -200 / -200
Review of Systems
-
Constitutional: Denies Fever, Fatigue or Chills
Respiratory: Denies Cough, Trouble Breathing or Wheezing
Cardiac: Denies Chest Pain or Other (LE swelling)
Physical Exam
-
General: No Apparent Distress and Conversant
HEENT: Normocephalic and Atraumatic
Respiratory: Wheezes; Negative Crackles
Cardiac: Regular Rhythm
GI: Soft and Nontender
Musculoskeletal: Negative Edema, Right Lower Extrem or Edema, Left Lower Extrem
Neuro: Awake and AO x 3
Psych: Calm
[2025-04-04] MEDS: ZETIA 10 MG PO (19:49)
[2025-04-04] MEDS: LIPITOR 20 MG PO (19:49)
--- NOTE | 2025-04-04 20:31 | PTCARENOTE ---
Patient aao x3 since start of shift, able to make needs known. Denies pain. Lungs diminished throughout, pox 92% on 6L o2 midflow. BS active x4. Call holley within reach, will continue to monitor patient closely.
[2025-04-04] MEDS: LANTUS 0.17 UNITS SC (21:46)
[2025-04-04 21:54] LABS: Glucose - Point of Care 337 mg/dl (70-99)
--- NOTE | 2025-04-04 23:04 | PTCARENOTE ---
Pox decreasing during sleep. O2 increased slowly to 8L to maintain sat >88%, currently 89% on 8L o2. Patient denies sob when awake. Will continue to monitor patient closely.
[2025-04-05] VITALS (13 sets, daily range): BP systolic 118–138; BP diastolic 41–101; PULSE 77–79; O2SAT 89–90; BMI 20.6
--- NOTE | 2025-04-05 03:22 | PTCARENOTE ---
Patient increased to 10L 02 at this time to keep o2 sat >88%. Patient denies sob or difficulty breathing. Pox noted to decrease with use of urinal, slow to recover post void. Will continue to monitor.
[2025-04-05 04:16] LABS: Hematocrit 23.4 % (39.0-52.0); Hemoglobin 7.8 g/dL (13.0-18.0); Mean Corp Hgb Conc. 33.3 g/dL (33.0-37.0); Mean Corpuscular Volume 88.3 fL (80.0-94.0); Nucleated Red Blood Cells % 0 % (-); Platelet Count 219 10^3/uL (130-400); Red Cell Dist. Width 14.7 % (11.5-14.5)
[2025-04-05 04:41] LABS: Blood Urea Nitrogen 116 mg/dl (9-20); Calcium 8.6 mg/dl (8.4-10.2); Carbon Dioxide 24 mmol/L (22-30); Chloride 93 mmol/L (98-107); Estimated Creatinine Clearance 15 ml/min; Glucose 221 mg/dl (70-99); Potassium 4.6 mmol/L (3.5-5.1); Sodium 129 mmol/L (135-145); eGFR 19.45
[2025-04-05] MEDS: OCEAN, SALINE MIST 1 SPRAYS NASAL (06:04)
--- NOTE | 2025-04-05 06:08 | PTCARENOTE ---
Patient reports small nose bleed, mainly left nostril. RN called pharmacy and spoke with pharmacist regarding [place] saline spray. Pharmacist states he will send to IMU. [place] received, reviewed use with patient, administered as ordered. Hygiene
provided. Patient declined use of mask instead of n/c. Will continue to monitor patient closely.
[2025-04-05] MEDS: DUONEB 3 ML INH (07:32)
[2025-04-05] MEDS: PULMICORT 0.5 MG INH (07:32)
[2025-04-05 07:48] LABS: Glucose - Point of Care 233 mg/dl (70-99)
--- NOTE | 2025-04-05 08:04 | W.PN.CD ---
Today's Communication / Plan
-
echo with bubble negative/normal
continue sildenafil
Cr has hit plateau: await nephrology input for transition to PO diuretic
last day of ASA is tomorrow
Impression / Plan
-
Impression/Plan: 79 y/o male with extensive past medical history admitted with flash pulmonary edema/hypoxic respiratory failure, found to have severely elevated filling pressures, prior exertional oxygen desaturation and worsening anemia and renal
function with lackluster diuresis and new diagnosis of occlusive CAD.
#Hypoxic respiratory failure/pulmonary hypertension/COPD: severe
-Acute on chronic, 4L NC as an outpatient
-Multifactorial. component of HFpEF and severe pulmonary hypertension. Outpatient notes suggest there is a component of primary pulmonary disease.
-Started sildenafil 20 mg TID 03/28/2025
-CT Chest: Bilateral pleural effusions with associated compressive atelectasis and/or pneumonia.
-Fever + imaging findings raises the possibility of infection vs. autoimmune issue (no hemoptysis, making vasculitis, i.e. Eulalia's, Churg-Ella, microscopic polyangiitis less likely). No significant eosinophilia.
-Bedside spirometry suggests GOLD stage 2 COPD (FEV1/FVC < 0.7, FEV1 53% predicted).
-PCWP remains severely elevated during PCI (25 mmHg) with persistent, severe pHTN.
-echo with bubble study to look for shunt: negative for shunt on 04/04 with normal LVEF 55-60%
#HFpEF
-Acute on chronic.
-Started sildenafil for pHTN. Monitor response.
-GDMT:
-Diuretics: held for BHUPINDER
-Beta ervin: Carvedilol 25 mg BID.
-ACEI/ARB/ANRi: On hold due to renal function.
-MRA: On hold due to renal function.
-SGLT2i: On hold due to renal function.
-Amyloid workup/nuclear scan as outpatient
-Echo report reviewed. Mean gradient of the aortic valve was 13 mmHg. Moderate MR. IVC is dilated and does not collapse.
#CAD
-Stable.
-S/P DK crush PCI of [place] 1, 1, 1 80% LAD and 99% ostial D2 lesion due to plaque shift ([employer]tronic [place] 2.0 x 22 DANIEL to D2, post dilated with a 2.5 NCB, 3.5 x 34 DANIEL to LAD, post dilated with 3.5 NCB throughout, 3.75 NCB in the proximal stent
margin), 03/30/2025.
-DAPT with aspirin and clopidogrel. Starting apixaban for PAF. Maintain triple therapy for 7 days, then d/c aspirin on 04/06.
-High dose/potency statin.
#BHUPINDER on CKD III
-Acute on chronic. Severe.
-Creatinine 3.1. Hold diuretics pending nephrology eval, with close monitoring of labs. High risk situation.
-MRA shows accessory right renal artery 80% stenosis, normal larger right renal artery and left renal artery.
-Hold ACEI/ARB/ARNi/MRA/SGLT2i.
-AL Amyloid workup negative.
-Monitor renal function after PCI and with resumed diuresis. We may need to keep him net even if he develops JENNA.
-Consider Tc-PyP study as outpatient
#Paroxysmal atrial fibrillation
-In sinus with PACs.
-Rate control with carvedilol.
-[id number]: score at least 6 (Heart failure, HTN, age 75 or more, Diabetes Mellitus, Vascular disease).
-Oral Anticoagulation: transition to apixaban 2.5 mg BID (age, weight, renal function).
#HLD
-Chronic, stable.
-Continue ezetimibe, atorvastatin.
-Goal LDL < 55.
#Anemia
-Chronic (per report).
-Dx is likely a mix of some Fe deficiency, renal disease and anemia of chronic disease.
-B12, folate are normal. Reticulocyte count elevated (appropriate). Thiamine pending.
-Fe = 36, FeSat = 12%, ferritin = 102 (making Fe deficiency less likely), TIBC = 286.
-1 unit PRBC 03/28/2025 will functionally replace any iron deficiency.
-Keep H/H >/= 05/29.
#Severe aortic stenosis with bicuspid morphology, S/P AVR, stable on TTE.
#LBBB
#Daily EtOH consumption in the outpatient setting.
DATA:
RHC, 03/25/2025:
CONCLUSION
1. Severely elevated filling pressures (PCWP = 34 mmHg at 61.7 kg).
2. 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
3. Preserved cardiac index (2.35 L/min/m� by thermodilution, 2.03 L/min/m� by Shawna).
Chest CT, 03/28/2025:
IMPRESSION:
1. Moderate bilateral pleural effusions with associated compressive atelectasis and/or pneumonia. Scattered patchy ground glass densities throughout all lobes bilaterally may reflect combination of pneumonitis/pneumonia and areas of air trapping.
2. No convincing acute process in the abdomen or pelvis, within the limitations of unenhanced technique. Urinary bladder is decompressed around a Stanton catheter and not well evaluated. Cystitis not excluded.
3. Cholelithiasis. Pericholecystic fluid is present, likely on the basis of systemic congestion. Recommend clinical correlation for signs/symptoms of acute cholecystitis.
TTE, 03/29/2025:
CONCLUSIONS
-Left ventricular ejection fraction is approximately 55-60%. Septal
hypokinesis and abnormal (paradoxical) septal motion consistent with conduction
abnormality/postoperative state.
-Mildly enlarged right ventricular size. Normal right ventricular systolic
function.
-Mild to moderate mitral regurgitation.
-Bioprosthetic aortic valve replacement with peak/mean gradients of 20/11 mmHg.
Trace aortic regurgitation.
-Mild to moderate tricuspid regurgitation. Estimated pulmonary artery pressure
of 70-75 mmHg.
-The IVC is dilated and does not collapse.
Compared to previous echo of 10/14/2024, septal hypokinesis is now noted.
Slightly progressive mitral regurgitation and tricuspid regurgitation are
noted. PASP was not previously obtained.
Cardiac Catheterization/PCI, 03/30/2025:
CONCLUSIONS:
1. Right dominant circulation with calcified, nonocclusive tapering of the distal left main coronary artery (MLA = 7.6 mm�), a 50-60% lesion in the proximal circumflex and a densely calcified, 80% lesion in the proximal/mid LAD spanning the origin
of D2 which had its own, underappreciated ostial lesion, status post successful IVUS guided intracoronary lithotripsy (Shockwave 3.5 x 12 lithotripsy balloon), leading to plaque shift and 99% stenosis of the second diagonal, status post successful
DK crush of the second diagonal ([employer] [place] 2.0 x 22 DANIEL, postdilated with a 2.5 NC balloon) and proximal/mid LAD ([employer] [place] 3.5 x 34 DANIEL, postdilated with a 3.5 NC balloon throughout and a 3.75 x 12 NC balloon in the
proximal margin) with reduction in both stenoses to 0%, maintaining and restoring DM-3 flow.
2. Severely elevated filling pressures (PCWP = 25 mmHg at 55.8 kg).
3. Severe pulmonary hypertension.
Abdominal MRA, 03/31/2025:
IMPRESSION:
2 arteries serve the right kidney. These vessels arise from the abdominal aorta 2.7 cm apart. The smaller, more inferior right renal artery has a high-grade stenosis (exceeding 80%) 3 mm distal to its origin. This stenosis extends over a length of 2
mm.
No stenosis exceeding 50% in the more dominant, superior right renal artery or within the single artery serving left kidney
Diminished perfusion to the right kidney compared to the left kidney. The right kidney is moderately atrophic.
Cholelithiasis. There is a small amount of pericholecystic fluid. This could be related to systemic venous congestion, or could be related to cholecystitis. Please correlate clinically
Moderate bilateral pleural effusions. Region of intermediate signal in the posterior right lower lobe. This is likely compressive partial atelectasis secondary to the pleural effusion
Physical Exam
Vital Signs/Labs
Vital Signs
Temp Pulse Resp BP Pulse Ox
97.6 F 90 18 126/56 91
04/05/25 03:57 04/05/25 07:35 04/05/25 07:35 04/05/25 06:00 04/05/25 07:35
04/04/25 04/05/25 04/06/25
06:59 06:59 06:59
Actual Weight 58.4 kg 57.8 kg
04/05/25 03:48
04/05/25 03:48
PT 17.8 Sec (11.4-14.6) H 03/28/25 04:47
INR 1.44 03/28/25 04:47
APTT Cancelled 03/30/25 18:15
Magnesium 2.3 mg/dl (1.6-2.3) 04/04/25 05:43
03/28/25 03/30/25
03:47 03:09
[id number] Pept [id number]
Physical Exam
Constitutional: No acute distress
EENT: Moist mucous membranes
Cardiovascular: Rhythm & rate is regular, Pedal edema is absent, Systolic murmur absent and JVD present
Respiratory: Labored respirations
Neuro/Psych: AO x 3
Data Reviewed
-
Date of Service: April 05, 2025
EKG: Other (SR 80s)
Labs: Labs Reviewed by me
[2025-04-05] MEDS: ASPIR LOW (ENTERIC COATED) 81 MG PO (08:30)
[2025-04-05] MEDS: DELTASONE 30 MG PO (08:30)
[2025-04-05] MEDS: FEOSOL 325 MG PO (08:30)
[2025-04-05] MEDS: OCUVITE SOFTGEL 1 CAP PO (08:30)
[2025-04-05] MEDS: REVATIO 20 MG PO ×3 (08:31→19:52)
[2025-04-05] MEDS: PLAVIX 75 MG PO (08:31)
[2025-04-05] MEDS: SENOKOT-S 1 TABLET PO (08:31)
[2025-04-05] MEDS: ELIQUIS 2.5 MG PO ×2 (08:31→19:53)
[2025-04-05] MEDS: COREG 25 MG PO ×2 (08:31→19:53)
[2025-04-05] MEDS: NEURONTIN 100 MG PO ×3 (08:31→19:52)
[2025-04-05] MEDS: NOVOLOG FLEXPEN 12 UNITS SC (08:32)
[2025-04-05] MEDS: NOVOLOG FLEXPEN-MODERATE RESISTANCE 3 UNITS SC ×2 (08:32→12:17)
--- NOTE | 2025-04-05 08:58 | PN.DE.MGMTRT ---
Insulin Management
- -
04/05/2025: Diabetes management Follow up
Patient was transferred to [facility] from [facility] for increased shortness of breath due to acute exacerbation of chronic heart failure with preserved EF in the setting of Acute on chronic hypoxemic respiratory failure. PMH:
HFpEF, CKD Stage 3a, Bladder carcinoma, T2DM, HLD, severe aortic stenosis s/p valve replacement in 2008, COPD on 2L home oxygen, BPH. A1C 6.9%, Cr 2.0, eGFR 32.91
Pt states he was taking Jardiance 10mg daily at home, has a monitor and has been testing his blood sugars daily in the morning. 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 States he was taking Glipizide at
one point but that was discontinued by his PCP due to recurrent hypoglycemia.
Pt awake, alert, oriented, sitting up in bed, pleasant, offers no complaints, able to discuss diabetes care. Son at bedside, very supportive.
04/03 both NovoLog and Lantus dose increased. Patient remains on steroids, pred 30 mg daily.
04/05 Glucose fasting 221. Will increase hs lantus to 20 units. Pre meal glucose yesterday as high as 433. Will increase AC novolog to 15 units with moderate corrective.
Will continue to hold Jardiance and metformin given BHUPINDER on CKD with Cr 3.1 today.
Pt states he has a working glucose monitor and enough supplies at home. Diabetes nurse has instructed on insulin administration.
Discussed with nurse. Will cont to follow.
Diabetes History
- -
Type of Diabetes: 2 requiring insulin
Pre-Admission Diabetes Regimen
04/05/25
03:48
Creatinine 3.1 H
Lab Results
Hemoglobin A1c 6.9 % (4.0-5.6) H 03/26/25 04:34
Insulin Pump Settings
IP Diabetes Regimen
04/04/25 04/04/25 04/04/25
12:10 17:24 17:35
Glucose 328 H
POC Glucose 214 H 433 H
04/04/25 04/05/25 04/05/25
21:42 03:48 07:36
Glucose 221 H
POC Glucose 337 H 233 H
Meal type: Lunch
Amount consumed: 100%
Patient Education
--- NOTE | 2025-04-05 10:30 | W.PN.PUL3 ---
Today's Communication / Plan
-
- D/c Duoneb and Bidesonide scheduled
- Start Symbicort 160/4.5, #2 Puffs bid and PRN Albuterol
- Prednisone 20 mg daily for 3 days then stop taking
- Out patient pulmonary follow up
Assessment
-
79-year-old man with past medical history significant for heart failure, mitral valve prolapse, prior aortic stenosis status post AVR in 2008, type 2 diabetes, COPD on 2 to 4 L supplemental oxygen continuously, hypertension, initially presented to
[facility] 03/19/2025 per records complaining of increased shortness of breath, leg swelling over the last week or so.
Patient was diagnosed with acute on chronic heart failure/positive increased troponin. Increased work of breathing requiring BiPAP therapy and subsequently transition to mid flow oxygen.
EKG demonstrated rapid atrial fibrillation.
Evaluation included diagnostic cardiac catheterization. 03/23/2025. Pulmonary capillary wedge pressure was 27. Cardiac index was 2.95.
Patient was treated with a standard diuresis.
Patient was also empirically treated with antibiotic for possible pneumonia.
Given persistent hypoxemia despite diuresis and difficulty with his chronic kidney disease, abnormal stress test with possible significant LAD lesion he was sent to [facility] for further evaluation potential intervention.
Assessment and plan:
#1. Acute hypoxemic respiratory failure due to pulmonary edema
- Clinically improving -weaned off of high flow nasal cannula on 03/28, and now on 4 L of oxygen- continue weaning down supplemental O2 flow rate while keeping SpO2 >90-94%
- Diuresis per nephrology/cardiology service
- Suspect underlying hyperreactive airway disease, question asthma versus COPD. Outpatient pulmonary function testing
- Check home O2 assessment prior to discharge. Patient states he has been on home oxygen, 4 L over the past few months. Does not see pulmonary
- PT/OT
#2. Acute on chronic heart failure with preserved ejection fraction, also moderate MR
- Cardiology following
- [place]-Ac removed on 03/31
- Significant diuresis since admission
- Ongoing diuretic therapy per cardiology/nephrology service
#3. Severe pulmonary hypertension
- Primarily group II with elevated pulmonary capillary wedge pressure of 34. PVR elevated at 6, might have component of group I vs IV (less likely CTEPH)
- VQ scan obtained on 04/01/2025 however given that he has pleural effusions/acute CHF, he does have multiple perfusion defects but the pulmonary edema could account for this. There was no abnormal activity seen within the head to suggest
[id number] shunting; could consider repeating VQ scan as an outpatient once he is euvolemic
- No evidence of ILD or emphysema on CT Chest from 03/28/2025
- Outpatient PFTs; spirometry performed on 03/31 does not show evidence of COPD, and is instead supportive of RAD versus asthma
- On 03/29, started on sildenafil per cardiology - continue to monitor symptoms
- Bubble study negative.
#4. History of hyperreactive airway disease, suspect asthma rather than COPD, uses oxygen at home
- Spirometry on 03/31 shows that he does not have COPD, and spirometry is most suggestive of reactive airway disease versus asthma; also has markedly elevated eosinophils
- 6 minute walk test in December 2024 with low saturation 91%.
- Remote history of smoking, on report from brenna Bass, CAT scan in 2022 showed tiny pulmonary nodules without significant parenchymal lung abnormality.
- No evidence of emphysema per CT chest from 03/28/2025
- [facility]na Bass reports recent pulmonary function testing with a small airways disease without airflow obstruction by ATS criteria.
- Discontinue DuoNeb and budesonide. Switch to Symbicort 160 x 4.5, 2 puffs twice a day scheduled and as needed albuterol in addition
- Lowered prednisone further to 20 mg for 3 more days and then discontinue
Other medical diagnoses:
- Paroxysmal atrial fibrillation
- BHUPINDER with underlying CKD stage III; right sided renal artery stenosis (involving 1 of 2 right sided renal arteries per abdominal MRA)
- Coronary artery disease, s/p PCI 03/2025
- Aortic stenosis s/p AVR
- Anemia, suspect related to chronic disease
- B/L pleural effusions, L>R, suspect related to pulmonary edema.
- DM type II (A1C: 6.9 on 03/26/2025)
- Cholelithiasis with pericholecystic fluid; no evidence of cholecystitis
Conditions present prior admission:
Congestive heart failure
Nonobstructive coronary artery disease
LBBB
CKD stage III
History of bladder carcinoma
Mitral valve prolapse
Type 2 diabetes
Hyperlipidemia
Hypercholesterolemia
Chronic obstructive pulmonary disease on 2 L supplemental oxygen
History of severe /Bicuspid aortic valve-history of heart valve trifecta replacement 12 years ago-2008
BPH
History of gout
Former smoker quit smoking longer than 10 years ago
Anemia
Pulmonary service will continue to follow along.
Total time spent on this consultation/encounter __48__ minutes which includes review of history, physical exam, medications, laboratory data, personal review of imaging, extensive review of outpatient records, discussion with care team and
respiratory therapy.
---
Data reviewed:
[facility] 03/25/2025: 1. Severely elevated filling pressures (PCWP = 34 mmHg at 61.7 kg).
2. 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
3. Preserved cardiac index (2.35 L/min/m� by thermodilution, 2.03 L/min/m� by Shawna).
Initial chest x-ray [facility] 03/19/2025: Bilateral perihilar infiltrates with bilateral pleural effusions.
-
Chest x-ray March 24, 2025 report from [facility]:
Perihilar interstitial vascular prominence. Persistent. Mild elevation of the left hemidiaphragm. No pleural effusions. Worsening per report
-
Nuclear stress test: 03/22/2025: Abnormal myocardial perfusion imaging suggesting of inferoseptal ischemia and apical scar with ejection fraction reduced at 46%.
-
Left and right heart catheterization 03/23/2025
Pulmonary capillary wedge pressure 27. Pulmonary artery mean pressure 41. Cardiac index 2.95. Cardiac output 4.87 (thermodilution)
Coronary angiogram: Moderate calcification distal 20% stenosis
Left anterior descending ostial 20% stenosis. Proximal 80% stenosis and 60% stenosis.
Diagonal #1: Ostial 30%.
Circumflex 50 to 60%.
Right coronary artery less than 40% stenosis.
-
Echocardiogram 03/20/2025:
LVEF 50 to 55%
Abdominal paradoxical septal motion consistent with left bundle branch block.
Normal right ventricular size and function.
Right atrium is normal size.
Normal mitral valve.
Moderate mitral valve regurgitation.
Aortic valve mild sclerosis. Suggestion of mild aortic sclerosis.
Subjective Data
-
Date of Service:
Date of Service: April 05, 2025
Chief Complaint: Pulmonary Follow Up
Subjective:
Patient appears more comfortable, sitting in chair in no acute distress. Does not report cough or wheezing this morning.
Review of Systems
Genitourinary: Other (No new pulmonary symptoms reported.)
Objective Data
Data Reviewed
Vital Signs / I&O / Oxygen:
Vital Signs
Temp Pulse Resp BP Pulse Ox
97.4 F 79 20 133/45 91
04/05/25 07:48 04/05/25 10:00 04/05/25 10:00 04/05/25 10:00 04/05/25 10:00
Intake and Output
04/04/25 04/05/25 04/06/25
06:59 06:59 06:59
Intake Total 800 / 800
Output Total 1150 / 1150 1025 / 1025
Balance -350 / -350 -1025 / -1025
SaO2 91
Nasal Cannula flow liters per 7
minute
Physical Exam
General: Comfortable
HEENT: Normocephalic, Anicteric and Moist Mucous Membranes
Cardiovascular: S1-S2, Regular Rhythm, Murmur (n), Rub (n), Peripheral Edema (trace) and Calf Tenderness (n)
Respiratory: Wheeze (negative), Crackles (Bibasilar), Rhonchi (negative), Non-Labored Respirations and Stridor (n)
GI: Soft, Non Distended, Non Tender and Normal Bowel Sounds
Neurology: Awake and Alert
Skin: Cyanosis (negative) and Jaundice (negative)
Labs/Micro/Reports
Lab Data
04/05/25 03:48
04/05/25 03:48
--- NOTE | 2025-04-05 10:41 | W.PN.NEPH.PH ---
Today's Communication / Plan
-
lasix
Assessment/Plan
-
IMP:
Acute on chronic hypoxemic respiratory failureNorma
Acute on chronic HFrEF
Recent echocardiogram 03/20/2025 with a EF 50-55%. Moderate mitral regurgitation. Abnormal septal motion consistent with left bundle branch block.
Paroxysmal atrial fibrillation
Pneumonia
CAD s/p stent
BHUPINDER on CKD 3a
Acute on chronic anemia
T2DM
COPD-On home oxygen 4 L
Chronic alcohol use
History of aortic stenosis s/p AVR
History of gout�allopurinol
History of bladder cancer currently in remission
Remote tobacco user
Plan:
follow BMP
he is at baseline O2 requirements and has no edema. however, wedge was elevated.
Pt thinks he had taken furosemide before. try 80mg po today
no SGLT2i for now
no RASi for now
I discussed with pt and family regarding HD and he said that he would accept it if necessary
-
-
Date of Service: April 05, 2025
CC / HPI / ROS
-
Chief Complaint:
BHUPINDER, CKD
History of Present Illness:
Presents with shortness of breath transferred from [facility] with on high oxygen requirements with acute on chronic kidney disease improving
BHUPINDER/Cr holding 3.1
BUN up to 116
BP stable
up to 6L supplemental O2 this morning
Hgb low 7.8 stable
Na 129 stable
Review of Systems:
no sob at rest, feels well
no fever, no cp
no n/v
weights stable
Labs
-
Labs:
WBC 10.9 10^3/uL (4.8-10.8) H 04/05/25 03:48
RBC 2.65 10^6/uL (4.70-6.10) L 04/05/25 03:48
Hgb 7.8 g/dL (13.0-18.0) L 04/05/25 03:48
Hct 23.4 % (39.0-52.0) L 04/05/25 03:48
Plt Count 219 10^3/uL (130-400) 04/05/25 03:48
Sodium 129 mmol/L (135-145) L 04/05/25 03:48
Potassium 4.6 mmol/L (3.5-5.1) 04/05/25 03:48
Chloride 93 mmol/L (98-107) L 04/05/25 03:48
Carbon Dioxide 24 mmol/L (22-30) 04/05/25 03:48
BUN 116 mg/dl (9-20) H* 04/05/25 03:48
Creatinine 3.1 mg/dL (0.7-1.3) H 04/05/25 03:48
eGFR 19.45 04/05/25 03:48
Glucose 221 mg/dl (70-99) H 04/05/25 03:48
Calcium 8.6 mg/dl (8.4-10.2) 04/05/25 03:48
Phosphorus 3.1 mg/dl (2.5-4.5) 03/30/25 03:09
Sef-B-Yzlvtaxyeay Pept 59920 pg/ml 03/30/25 03:09
Albumin 3.1 g/dl (3.5-5.0) L 03/30/25 03:09
Physical Exam
-
Vital Signs:
Vital Signs
Temp Pulse Resp BP Pulse Ox
97.4 F 79 20 133/45 91
04/05/25 07:48 04/05/25 10:00 04/05/25 10:00 04/05/25 10:00 04/05/25 10:00
Cardiovascular:: Regular rate and rhythm
Respiratory:: Bilateral: Coarse
Lung Excursion:: Normal
Abdomen:: Nontender and Soft
Bowel Sounds:: Normal
Extremity Edema:: None: Bilateral:
--- NOTE | 2025-04-05 10:55 | PTOTSP ---
Speech Language Pathology
Pt seen for clinical bedside swallow evaluation. RN reported no overt difficulty with P.O. intake. Also reported that pt took multiple meds whole at once without difficulty. P.O. trials of puree, regular solids, and thin liquids provided.
Adequate mastication, bolus formation, and A-P transit noted with no oral residue. No overt signs of aspiration.
Recommend:
(1) Regular solids/thin liquids
(2) General aspiration precautions
(3) Meds as tolerated
(4) DIP UNIT OPERATOR to sign off. Please reconsult as indicated
[2025-04-05 11:52] LABS: Glucose - Point of Care 216 mg/dl (70-99)
[2025-04-05] MEDS: NOVOLOG FLEXPEN 15 UNITS SC ×2 (12:17→17:34)
--- NOTE | 2025-04-05 13:44 | CM ---
Patient with Dx Acute on chronic hypoxemic respiratory failure, Acute HF. O2 9L midflow. PT recommends skilled rehab, OT recommends HH.
Met with patient and spoke with daughter Brianna on speaker phone in patient's room;
patient wants to go home at d/c and not to SNF for rehab, and daughter agrees, saying he will be residing on one floor and has no steps to manage. There will be plenty of family with him including , daughter who works from home, son in law and
2 adult grand-children. Patient has home O2 concentrator in place that goes up to 10L. Patient would like [facility] for nurse/PT/OT - referral placed.
Plan continue to follow O2 needs and mobility.
Plan probable home with [facility] , with family.
[2025-04-05 16:29] LABS: Glucose - Point of Care 166 mg/dl (70-99)
--- NOTE | 2025-04-05 17:10 | W.PN.HOSP.TC ---
Addendum entered and electronically signed by Trell Strauss MD 04/05/25 20:41:
Attending Addendum-
I saw and evaluated the patient. I reviewed the resident�s note and agree with findings and plan as documented in the resident�s note. Sub: seen with and son in law present. Had increased o2 requirement overnight to 7L mid flow. Currently feels
fatigued andSOB but improved from overnight. Full 10 point ROS reviewed and negative except as documented Exam: Vitals reviewed in chart GEN-NAD heart RRR, 12/09 SM @ apex, lungs crackles at bases B/L, abd soft ND ND LE trace pitting edema b/l
Plan:
#Acute on chronic hypoxemic respiratory failure
#Acute on chronic HFpEF
-Patient presented as a transfer from [facility]
-o2 requirements worse ON- now on mid flow @ 7L
-echocardiogram 03/29- -Left ventricular ejection fraction is approximately 55-60%. Septal hypokinesis and abnormal (paradoxical) septal motion consistent with conduction abnormality/postoperative state. Bioprosthetic aortic valve replacement with
peak/mean gradients of 20/11 mmHg. Estimated pulmonary artery pressure of 70-75 mmHg.
-LHC/RHC 03/30 demonstrating severely elevated pulmonary pressures
-possible restart of PO lasix in am.
-monitoring off Diuresis.
-continue Carvedilol
-Echo with Bubble study 04/04- Left ventricular ejection fraction is 55-60%. negative bubble study
-appreciate cards and nephro input
-repeat CXR
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
-Amyloid workup. SPEP negative for spike protein. Free kappa + free lambda light chains elevated
-Pending technetium pyrophosphate scan as OP
#Severe Pulmonary Hypertension
-03/29-started sildenafil- cont
-LHC/RHC 03/30 demonstrating Severely elevated filling pressures PCWP = 25 mmHg
-Pulm following.
#BHUPINDER on CKD 3a
-Cr wild minimal improvement (Baseline 1.9)
-Suspect cardiorenal syndrome
-Holding Jardiance and diuretics for now
-Nephrology following
-MRA of renal arteries- No stenosis exceeding 50% in the more dominant, superior right renal artery or within the single artery serving left kidney. Diminished perfusion to the right kidney compared to the left kidney. The right kidney is
moderately atrophic
-Monitor BMP daily
-patient amenable to HD if needed
-appreciate nephro input
#CAD s/p stent
-03/30- PCI with DANIEL placement to the diagonal as well as the proximal/mid LAD
-cont DAPT Aspirin/Plavix for one week, discontinue Aspirin on 04/06.
-Secondary prevention with atorvastatin and ezetimibe.
#Asthma
-On home oxygen @ 2-4 L
-Continue on DuoNeb. Budesonide added to regimen
-Given elevated eosinophil count, cont steroid burst x 3 days
-Bedside Spirometry 03/31 suggestive of reactive airway disease vs Asthma
#Acute on chronic anemia SAMAN
-s/p 1 unit pRBC 03/28
-Monitor H&H
-Iron Labs indicative of Iron Deficiency Anemia.
-IV Iron but was discontinued due to rash
-cont Oral Iron supplementation
- tx for HB < 7
#Paroxysmal atrial fibrillation - NEW
-Currently in NSR
-Continue Coreg and Eliquis
# Hyponatremia
- likely hypervolemic
- cont to trend
#T2DM
-Hold repaglinide/Jardiance
-Coverage with SSI
-A1C 6.9- 03/26
-Insulin regimen adjusted-> increase of NovoLog 15u AC, Lantus 20u HS
-DM Nurse practitioner on board- appreciate input
#Chronic alcohol use
-no signs of w/d
-counselled re cessation
#History of aortic stenosis s/p biop AVR
#History of gout� cont allopurinol
#Peripheral Neuropathy- cont gabapentin
#History of bladder cancer currently in remission
#Remote tobacco user
CODE STATUS full code
GI Prophylaxis Pantoprazole
DVT prophylax Eliquis
Dispo- would benefit from SNF on DC but patient wishes to go home- will respect wishes
Time spent coordinating care, review of plan of care with resident, personally reviewed records in EMR, med rec, consults, notes, labs, radiology, d/w nursing POA and cards � 53 mins
Original Note:
Today's Communication/Plan
-
Patient restarted on diuretics (furosemide) given plateau of creatinine.
Repeat CXR given increasing oxygen requirement.
Assessment / Plan
Assessment / Plan
Assessment/plan
#Acute on chronic hypoxemic respiratory failure secondary to below
#Acute on chronic HFpEF
-Patient presented as a transfer from [facility] with HFpEF exacerbation > bumex, metolazone ggt > initially help as patient had net -8.5L since admission
-Bumex was restarted due to evidence of interstitial edema on chest CT
-Echo 03/29: LVEF 55-60%. Septal hypokinesis and abnormal (paradoxical) septal motion consistent with conduction abnormality/postoperative state. Mildly enlarged right ventricular size. Normal right ventricular systolic function. Evidence of
valvular disease. Estimated pulmonary artery pressure of 70-75 mmHg.
-Restarted Metolazone for sequential nephron blockade
-Underwent LHC/RHC 03/30 demonstrating severely elevated pulmonary pressures, Azalea-Ac removed.
-Diuretics discontinued due to developing BHUPINDER
-Carvedilol 25 mg PO BID
-Patient has been on 6-7, which is higher than the 4L required yesterday
-Echo w/ bubble study 04/04 - negative
-Repeat CXR due to increase oxygen requirement
-Cardiology following
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
-Amyloid workup. SPEP negative for spike protein. Free kappa + free lambda light chains elevated
-Technetium pyrophosphate scan for further evaluation as an outpatient
#Severe Pulmonary Hypertension
-s/p RHC 03/25 with severely elevated filling pressures with Pulmonary HTN
-Continue sildenafil, per cardiology
-LHC/RHC 03/30 demonstrating Severely elevated filling pressures PCWP = 25 mmHg
-Echo w/ bubble study 04/04 - negative
-Pulmonary and cardiology following
#BHUPINDER on CKD 3a
-Cr rising in the setting of aggressive diuresis, 3.2 today (Baseline 1.9, 3.2 yesterday)
-Suspect cardiorenal syndrome etiology
-Holding Jardiance
-Renal Artery duplex ultrasound 03/28- Elevated velocity at the origin of the right renal artery measures 250 cm/s, and the right renal to aortic ratio measures 4.0.Findings are suggestive of 60-99% stenosis of the right renal artery. Left renal
artery peak systolic velocity 225 cm/s, renal to aortic ratio 3.8. Findings are suggestive of 60-99% stenosis of the left renal artery.
-MRA of renal arteries- No stenosis exceeding 50% in the more dominant, superior right renal artery or within the single artery serving left kidney. Diminished perfusion to the right kidney compared to the left kidney. The right kidney is
moderately atrophic
-Monitor BMP
-Restart furosemide 80mg PO qd given creatinine plateau
-Nephrology following
#CAD s/p stent
-Cardiac catheterization at [facility] showed proximal/mid LAD lesion.
-Repeat Revascularization 03/31- showing 50-60% lesion in the proximal circumflex and a densely calcified, 80% lesion in the proximal/mid LAD. Severely elevated filling pressures (PCWP = 25 mmHg at 55.8 kg). Severe pulmonary hypertension.
-Underwent bifurcation PCI with DANIEL placement to the diagonal as well as the proximal/mid LAD
-Aspirin, Plavix, Eliquis for one week, then discontinue Aspirin on 04/06.
-Secondary prevention with statin and ezetimibe.
#COPD
-On home oxygen 4L
-No exacerbation this admission
-Budesonide/Formoterol started
-Given elevated eosinophil count, short course of steroid was also added to regimen.
-Bedside Spirometry 03/31 suggestive of reactive airway disease vs Asthma
-Patient weaned to baseline oxygen requirement of 4L
#Acute on chronic anemia
-During his hospitalization at [facility], he received 1 unit of PRBC
-s/p 1 unit pRBC 03/28 this admission
-Monitor H&H
-Iron Labs indicative of Iron Deficiency Anemia.
-Initially Started on IV Iron but was discontinued due to Pruritic rash
-Switched to Oral Iron supplementation.
#Pruritic Rash
-New for patient this admission
-Etiology likely Medication Reaction vs Contact Dermatitis
-The only medications he was Recently started on were IV Iron, Eliquis.
-No major reaction after administration of Eliquis
-Stopped IV Iron, Rash now resolved
-PRN Benadryl.
#Paroxysmal atrial fibrillation
-During his hospitalization at [facility], he went into A-fib(New for patient)
-Continue PO Carvedilol
-Anticoagulation with Eliquis
#Low Grade fever
-was treated for Community acquired pneumonia at [facility]--received 6/ days of zosyn-
-Reported fevers this admission
-Monitor off abx for now
-CT chest 03/28: Moderate bilateral pleural effusions with associated compressive atelectasis and/or pneumonia. Scattered patchy ground glass densities throughout all lobes bilaterally may reflect combination of pneumonitis/pneumonia and areas of air
trapping.
-Ultrasound abdomen 03/30- Cholelithiasis. There is a 1.4 cm gallstone. There is a 5 mm echogenic focus along the gallbladder wall without shadowing. Negative sonographic Amaya's sign. Pericholecystic fluid seen. There is no evidence of biliary
ductal dilation. The common bile duct measures 5 mm.
-If fevers recur, consider restarting Abx.
#T2DM
-Likely with Neuropathy as patient takes gabapentin
-Hold repaglinide/Jardiance
-Coverage with SSI
-A1C 6.9 03/26
-Insulin regimen adjusted given short course of steroid
-DM Nurse practitioner on board
#Hypokalemia
-Repleted
#Hyponatremia
Na 129
Urine Na, urine osmolality, and serum osmolality ordered
Considering SIADH given euvolemic hyponatremia
#Chronic alcohol use
-outside of window for withdrawal symptoms
-States his last drink was 4 weeks ago
#History of aortic stenosis s/p AVR
#History of gout� Hold allopurinol. Consider renal dosage given eGFR
#History of bladder cancer currently in remission
#Remote tobacco user
Disposition: Per CM, patient prefers to be discharged to home with [facility]
CODE STATUS full code
GI Prophylaxis Pantoprazole
DVT prophylax Eliquis
Anticipated Discharge: > 48 hours
Subjective/Interval History
-
Date of Service: April 05, 2025
Patient was seen while sitting up in a chair in his room. Per nursing, patient has been desaturating with activity while on 6-7L oxygen. Patient reports he feels 'about the same' as yesterday. No current complaints.
Objective Data
-
Vital Signs:
Vital Signs
Temp Pulse Resp BP Pulse Ox
97.4 F 79 18 120/91 89
04/05/25 15:49 04/05/25 16:00 04/05/25 16:00 04/05/25 14:00 04/05/25 16:00
I&O
04/04/25 04/05/25 04/06/25
06:59 06:59 06:59
Intake Total 800 / 800
Output Total 1150 / 1150 1025 / 1025 700 / 700
Balance -350 / -350 -1025 / -1025 -700 / -700
Review of Systems
-
Constitutional: Denies Fever, Fatigue or Chills
Respiratory: Reports Cough; Denies Trouble Breathing
Cardiac: Denies Chest Pain
Abdomen/GI: Denies Abdominal Pain
Physical Exam
-
HEENT: Normocephalic and Atraumatic
Respiratory: Crackles (Fine crackles)
Cardiac: Regular Rhythm; Negative Murmur, Rub or Gallop
GI: Soft and Nontender
Musculoskeletal: No Edema
Psych: Calm
Data Reviewed
-
Labs: Labs Reviewed by me
[2025-04-05] MEDS: LASIX 80 MG PO (17:33)
[2025-04-05] MEDS: NOVOLOG FLEXPEN-MODERATE RESISTANCE 5 UNITS SC (17:37)
[2025-04-05 17:48] LABS: Glucose - Point of Care 265 mg/dl (70-99)
[2025-04-05] MEDS: ZETIA 10 MG PO (19:52)
[2025-04-05] MEDS: LIPITOR 20 MG PO (19:53)
[2025-04-05] MEDS: LIDOCAINE 4% PATCH 1 PATCH TOPICAL (20:40)
[2025-04-05] MEDS: SYMBICORT 160/4.5 MCG INHALER 2 PUFF INH (20:41)
[2025-04-05 21:36] LABS: Glucose - Point of Care 150 mg/dl (70-99)
[2025-04-05] MEDS: LANTUS 0.2 UNITS SC (22:16)
[2025-04-05] MEDS: VENTOLIN NEBULES 2.5 MG INH (22:47)
--- NOTE | 2025-04-05 23:55 | PTCARENOTE ---
Patient with difficulty maintaining pox >88%, O2 increased to 15L MF throughout shift, continues with sat's in mid 80's. Patient denies sob, hopkins noted, orthopnea noted. Lung sounds diminished throughout. Discussed with IDRIS Basurto. Patient
to start on Hi-flow to keep sat's >88%. RN notified RT as well. Patient aware. Call holley within reach, will continue to monitor patient closely.
[2025-04-06] VITALS (16 sets, daily range): BP systolic 107–144; BP diastolic 34–93; PULSE 85; O2SAT 92; BMI 20.7
[2025-04-06 03:48] LABS: Hematocrit 21.8 % (39.0-52.0); Hemoglobin 7.5 g/dL (13.0-18.0); Mean Corp Hgb Conc. 34.4 g/dL (33.0-37.0); Mean Corpuscular Volume 88.3 fL (80.0-94.0); Platelet Count 237 10^3/uL (130-400); Red Cell Dist. Width 15.0 % (11.5-14.5)
[2025-04-06 04:13] LABS: Blood Urea Nitrogen 118 mg/dl (9-20); Calcium 8.6 mg/dl (8.4-10.2); Carbon Dioxide 29 mmol/L (22-30); Chloride 95 mmol/L (98-107); Estimated Creatinine Clearance 17 ml/min; Glucose 182 mg/dl (70-99); Potassium 4.3 mmol/L (3.5-5.1); Sodium 131 mmol/L (135-145); eGFR 21.98
[2025-04-06] MEDS: VENTOLIN NEBULES 2.5 MG INH ×2 (05:15→20:02)
[2025-04-06] MEDS: SYMBICORT 160/4.5 MCG INHALER 2 PUFF INH ×2 (07:42→20:02)
[2025-04-06] MEDS: NOVOLOG FLEXPEN-MODERATE RESISTANCE 3 UNITS SC ×2 (07:43→11:58)
[2025-04-06 07:44] LABS: Glucose - Point of Care 230 mg/dl (70-99)
[2025-04-06] MEDS: NOVOLOG FLEXPEN 15 UNITS SC (07:47)
[2025-04-06] MEDS: PLAVIX 75 MG PO (07:48)
[2025-04-06] MEDS: DELTASONE 20 MG PO (07:48)
[2025-04-06] MEDS: NEURONTIN 100 MG PO ×3 (07:48→20:41)
[2025-04-06] MEDS: ELIQUIS 2.5 MG PO ×2 (07:48→20:41)
[2025-04-06] MEDS: OCUVITE SOFTGEL 1 CAP PO (07:48)
[2025-04-06] MEDS: COREG 25 MG PO ×2 (07:48→20:42)
[2025-04-06] MEDS: REMOVE LIDOCAINE PATCH 1 PATCH REMOVE (07:49)
[2025-04-06] MEDS: FEOSOL 325 MG PO (07:49)
[2025-04-06] MEDS: SENOKOT-S 1 TABLET PO (07:49)
[2025-04-06] MEDS: REVATIO 20 MG PO ×3 (07:49→20:41)
--- NOTE | 2025-04-06 08:44 | PN.DE.MGMTRT ---
Insulin Management
- -
04/06/2025: Diabetes management Follow up
Patient was transferred to [facility] from [facility] for increased shortness of breath due to acute exacerbation of chronic heart failure with preserved EF in the setting of Acute on chronic hypoxemic respiratory failure. PMH:
HFpEF, CKD Stage 3a, Bladder carcinoma, T2DM, HLD, severe aortic stenosis s/p valve replacement in 2008, COPD on 2L home oxygen, BPH. A1C 6.9%, Cr 2.0, eGFR 32.91
Pt states he was taking Jardiance 10mg daily at home, has a monitor and has been testing his blood sugars daily in the morning. His chart indicates he was taking Lantus 7 units F[employer]IC but pt denies ever taking insulin. States he was taking Glipizide at
one point but that was discontinued by his PCP due to recurrent hypoglycemia.
Pt awake, alert, oriented, sitting up in bed, pleasant, offers no complaints, able to discuss diabetes care. Son at bedside, very supportive.
7/ Glucose fasting 233, range 150 to 265. Continues with prednisone 30 mg daily. Received hs lantus to 20 units.
7/2 Glucose fasting 230. Will increase HS lantus to 22 units and increase novolog to 18 units AC, with moderate corrective.
Will continue to hold Jardiance and metformin given BHUPINDER on CKD with Cr 2.8 today.
Pt states he has a working glucose monitor and enough supplies at home. Diabetes nurse has instructed on insulin administration.
Discussed with nurse. Will cont to follow.
Diabetes History
- -
Type of Diabetes: 2 requiring insulin
Pre-Admission Diabetes Regimen
04/06/25
03:15
Creatinine 2.8 H
Lab Results
Hemoglobin A1c 6.9 % (4.0-5.6) H 03/26/25 04:34
Insulin Pump Settings
IP Diabetes Regimen
04/05/25 04/05/25 04/05/25
11:41 16:18 17:36
Glucose
POC Glucose 216 H 166 H 265 H
04/05/25 04/06/25 04/06/25
21:25 03:15 07:32
Glucose 182 H
POC Glucose 150 H 230 H
Meal type: Breakfast
Meal type: Breakfast
Amount consumed: 100%
Amount consumed: 100%
Patient Education
--- NOTE | 2025-04-06 10:20 | W.PN.CD ---
Addendum entered and electronically signed by Sebastian Paulino MD 04/06/25 10:47:
discussed with nephrology. will go back on IV lasix. may end up needing HD/UF
Original Note:
Today's Communication / Plan
-
trend Cr on PO lasix
cont eliquis/plavix. last day of ASA was today
Impression / Plan
-
Impression/Plan: 79 y/o male with extensive past medical history admitted with flash pulmonary edema/hypoxic respiratory failure, found to have severely elevated filling pressures, prior exertional oxygen desaturation and worsening anemia and renal
function with lackluster diuresis and new diagnosis of occlusive CAD.
#Hypoxic respiratory failure/pulmonary hypertension/COPD: severe
-Acute on chronic, 4L NC as an outpatient
-Multifactorial. component of HFpEF and severe pulmonary hypertension. Outpatient notes suggest there is a component of primary pulmonary disease.
-Started sildenafil 20 mg TID 03/28/2025
-CT Chest: Bilateral pleural effusions with associated compressive atelectasis and/or pneumonia.
-Fever + imaging findings raises the possibility of infection vs. autoimmune issue (no hemoptysis, making vasculitis, i.e. Eulalia's, Churg-Ella, microscopic polyangiitis less likely). No significant eosinophilia.
-Bedside spirometry suggests GOLD stage 2 COPD (FEV1/FVC < 0.7, FEV1 53% predicted).
-PCWP remains severely elevated during PCI (25 mmHg) with persistent, severe pHTN.
-echo with bubble study to look for shunt: negative for shunt on 04/04 with normal LVEF 55-60%
#HFpEF
-Acute on chronic.
-Started sildenafil for pHTN. Monitor response.
-GDMT:
-Diuretics: lasix 80mg PO daily started 04/05
-Beta ervin: Carvedilol 25 mg BID.
-ACEI/ARB/ANRi: On hold due to renal function.
-MRA: On hold due to renal function.
-SGLT2i: On hold due to renal function.
-Amyloid workup/nuclear scan as outpatient
-Echo report reviewed. Mean gradient of the aortic valve was 13 mmHg. Moderate MR. IVC is dilated and does not collapse.
#CAD
-Stable.
-S/P DK crush PCI of Wright 1, 1, 1 80% LAD and 99% ostial D2 lesion due to plaque shift (Medtronic Carl 2.0 x 22 DANIEL to D2, post dilated with a 2.5 NCB, 3.5 x 34 DANIEL to LAD, post dilated with 3.5 NCB throughout, 3.75 NCB in the proximal stent
margin), 03/30/2025.
-DAPT with aspirin and clopidogrel. Starting apixaban for PAF. s/p triple therapy. continue eliquis/plavix.
-High dose/potency statin.
#BHUPINDER on CKD III
-Acute on chronic. Severe.
-Creatinine 2.8. Lasix 80mg PO daily resumed 04/05, with close monitoring of labs. High risk situation.
-MRA shows accessory right renal artery 80% stenosis, normal larger right renal artery and left renal artery.
-Hold ACEI/ARB/ARNi/MRA/SGLT2i.
-AL Amyloid workup negative.
-Monitor renal function after PCI and with resumed diuresis. We may need to keep him net even if he develops JENNA.
-Consider Tc-PyP study as outpatient
#Paroxysmal atrial fibrillation
-In sinus with PACs.
-Rate control with carvedilol.
-[id number]: score at least 6 (Heart failure, HTN, age 75 or more, Diabetes Mellitus, Vascular disease).
-Oral Anticoagulation: transition to apixaban 2.5 mg BID (age, weight, renal function).
#HLD
-Chronic, stable.
-Continue ezetimibe, atorvastatin.
-Goal LDL < 55.
#Anemia
-Chronic (per report).
-Dx is likely a mix of some Fe deficiency, renal disease and anemia of chronic disease.
-B12, folate are normal. Reticulocyte count elevated (appropriate). Thiamine pending.
-Fe = 36, FeSat = 12%, ferritin = 102 (making Fe deficiency less likely), TIBC = 286.
-1 unit PRBC 03/28/2025 will functionally replace any iron deficiency.
-Keep H/H >/= 05/29.
#Severe aortic stenosis with bicuspid morphology, S/P AVR, stable on TTE.
#LBBB
#Daily EtOH consumption in the outpatient setting.
DATA:
RHC, 03/25/2025:
CONCLUSION
1. Severely elevated filling pressures (PCWP = 34 mmHg at 61.7 kg).
2. 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
3. Preserved cardiac index (2.35 L/min/m� by thermodilution, 2.03 L/min/m� by Shawna).
Chest CT, 03/28/2025:
IMPRESSION:
1. Moderate bilateral pleural effusions with associated compressive atelectasis and/or pneumonia. Scattered patchy ground glass densities throughout all lobes bilaterally may reflect combination of pneumonitis/pneumonia and areas of air trapping.
2. No convincing acute process in the abdomen or pelvis, within the limitations of unenhanced technique. Urinary bladder is decompressed around a Stanton catheter and not well evaluated. Cystitis not excluded.
3. Cholelithiasis. Pericholecystic fluid is present, likely on the basis of systemic congestion. Recommend clinical correlation for signs/symptoms of acute cholecystitis.
TTE, 03/29/2025:
CONCLUSIONS
-Left ventricular ejection fraction is approximately 55-60%. Septal
hypokinesis and abnormal (paradoxical) septal motion consistent with conduction
abnormality/postoperative state.
-Mildly enlarged right ventricular size. Normal right ventricular systolic
function.
-Mild to moderate mitral regurgitation.
-Bioprosthetic aortic valve replacement with peak/mean gradients of 20/11 mmHg.
Trace aortic regurgitation.
-Mild to moderate tricuspid regurgitation. Estimated pulmonary artery pressure
of 70-75 mmHg.
-The IVC is dilated and does not collapse.
Compared to previous echo of 10/14/2024, septal hypokinesis is now noted.
Slightly progressive mitral regurgitation and tricuspid regurgitation are
noted. PASP was not previously obtained.
Cardiac Catheterization/PCI, 03/30/2025:
CONCLUSIONS:
1. Right dominant circulation with calcified, nonocclusive tapering of the distal left main coronary artery (MLA = 7.6 mm�), a 50-60% lesion in the proximal circumflex and a densely calcified, 80% lesion in the proximal/mid LAD spanning the origin
of D2 which had its own, underappreciated ostial lesion, status post successful IVUS guided intracoronary lithotripsy (Shockwave 3.5 x 12 lithotripsy balloon), leading to plaque shift and 99% stenosis of the second diagonal, status post successful
DK crush of the second diagonal (Medtronic Carl [place] 2.0 x 22 DANIEL, postdilated with a 2.5 NC balloon) and proximal/mid LAD (Medtronic Alex [place] 3.5 x 34 DANIEL, postdilated with a 3.5 NC balloon throughout and a 3.75 x 12 NC balloon in the
proximal margin) with reduction in both stenoses to 0%, maintaining and restoring DM-3 flow.
2. Severely elevated filling pressures (PCWP = 25 mmHg at 55.8 kg).
3. Severe pulmonary hypertension.
Abdominal MRA, 03/31/2025:
IMPRESSION:
2 arteries serve the right kidney. These vessels arise from the abdominal aorta 2.7 cm apart. The smaller, more inferior right renal artery has a high-grade stenosis (exceeding 80%) 3 mm distal to its origin. This stenosis extends over a length of 2
mm.
No stenosis exceeding 50% in the more dominant, superior right renal artery or within the single artery serving left kidney
Diminished perfusion to the right kidney compared to the left kidney. The right kidney is moderately atrophic.
Cholelithiasis. There is a small amount of pericholecystic fluid. This could be related to systemic venous congestion, or could be related to cholecystitis. Please correlate clinically
Moderate bilateral pleural effusions. Region of intermediate signal in the posterior right lower lobe. This is likely compressive partial atelectasis secondary to the pleural effusion
Physical Exam
Vital Signs/Labs
Vital Signs
Temp Pulse Resp BP Pulse Ox
97.6 F 89 17 133/42 91
04/06/25 07:53 04/06/25 07:48 04/06/25 07:44 04/06/25 07:48 04/06/25 09:12
04/05/25 04/06/25 04/07/25
06:59 06:59 06:59
Actual Weight 57.8 kg 58.1 kg
04/06/25 03:15
04/06/25 03:15
PT 17.8 Sec (11.4-14.6) H 03/28/25 04:47
INR 1.44 03/28/25 04:47
APTT Cancelled 03/30/25 18:15
Magnesium 2.3 mg/dl (1.6-2.3) 04/04/25 05:43
03/28/25 03/30/25
03:47 03:09
[id number] Pept [id number]
Physical Exam
Constitutional: No acute distress and Comfortable
EENT: Moist mucous membranes
Cardiovascular: Rhythm & rate is regular, Pedal edema is absent, JVD present and Systolic murmur present
Respiratory: Labored respirations
Neuro/Psych: AO x 3
Data Reviewed
-
Date of Service: April 06, 2025
EKG: Other (Tele: SR 80s, PAC's)
Labs: Labs Reviewed by me
--- NOTE | 2025-04-06 10:52 | W.PN.PUL3 ---
Today's Communication / Plan
-
- Back on high flow nasal cannula, discussed with nephrology service, anticipate initiation of hemodialysis
- Continue Symbicort and prednisone taper
- Wean high flow nasal cannula as tolerated, target oxygen saturation above 90% in view of underlying pulmonary hypertension
Assessment
-
79-year-old man with past medical history significant for heart failure, mitral valve prolapse, prior aortic stenosis status post AVR in 2008, type 2 diabetes, COPD on 2 to 4 L supplemental oxygen continuously, hypertension, initially presented to
[facility] 03/19/2025 per records complaining of increased shortness of breath, leg swelling over the last week or so.
Patient was diagnosed with acute on chronic heart failure/positive increased troponin. Increased work of breathing requiring BiPAP therapy and subsequently transition to mid flow oxygen.
EKG demonstrated rapid atrial fibrillation.
Evaluation included diagnostic cardiac catheterization. 03/23/2025. Pulmonary capillary wedge pressure was 27. Cardiac index was 2.95.
Patient was treated with a standard diuresis.
Patient was also empirically treated with antibiotic for possible pneumonia.
Given persistent hypoxemia despite diuresis and difficulty with his chronic kidney disease, abnormal stress test with possible significant LAD lesion he was sent to [facility] for further evaluation potential intervention.
Assessment and plan:
#1. Acute hypoxemic respiratory failure due to pulmonary edema
- Patient had been off high flow nasal cannula since 03/28. Overnight increased desaturation requiring resumption of high flow nasal cannula 04/06
- Diuresis per nephrology/cardiology service, chest x-ray reviewed, clinical presentation continues to suggest volume overload, anticipate initiation of dialysis
- Underlying severe pulmonary hypertension also contributing to hypoxia. Target oxygen saturation above 90%. Currently on high flow nasal cannula at 50 L and 60% FiO2
- Check home O2 assessment prior to discharge. Patient states he has been on home oxygen, 4 L over the past few months. Does not see pulmonary
- PT/OT
#2. Acute on chronic heart failure with preserved ejection fraction, also moderate MR
- Cardiology following
- [place]-Ac removed on 03/31
- Significant diuresis since admission
- Ongoing diuretic therapy per cardiology/nephrology service, anticipate will need hemodialysis
#3. Severe pulmonary hypertension
- Primarily group II with elevated pulmonary capillary wedge pressure of 34. PVR elevated at 6, might have component of group I vs IV (less likely CTEPH)
- VQ scan obtained on 04/01/2025 however given that he has pleural effusions/acute CHF, he does have multiple perfusion defects but the pulmonary edema could account for this. There was no abnormal activity seen within the head to suggest
[id number] shunting; could consider repeating VQ scan as an outpatient once he is euvolemic
- No evidence of ILD or emphysema on CT Chest from 03/28/2025
- Outpatient PFTs; spirometry performed on 03/31 does not show evidence of COPD, and is instead supportive of RAD versus asthma
- On 03/29, started on sildenafil per cardiology - continue to monitor symptoms
- Bubble study negative.
#4. History of hyperreactive airway disease, suspect asthma rather than COPD, uses oxygen at home
- Spirometry on 03/31 shows that he does not have COPD, and spirometry is most suggestive of reactive airway disease versus asthma; also has markedly elevated eosinophils
- 6 minute walk test in December 2024 with low saturation 91%.
- Remote history of smoking, on report from brenna Bass, CAT scan in 2022 showed tiny pulmonary nodules without significant parenchymal lung abnormality.
- No evidence of emphysema per CT chest from 03/28/2025
- Brenna Bass reports recent pulmonary function testing with a small airways disease without airflow obstruction by ATS criteria.
- Discontinue DuoNeb and budesonide. Switch to Symbicort 160 x 4.5, 2 puffs twice a day scheduled and as needed albuterol in addition
- Lowered prednisone further to 20 mg for 3 more days and then discontinue
Other medical diagnoses:
- Paroxysmal atrial fibrillation
- BHUPINDER with underlying CKD stage III; right sided renal artery stenosis (involving 1 of 2 right sided renal arteries per abdominal MRA)
- Coronary artery disease, s/p PCI 03/2025
- Aortic stenosis s/p AVR
- Anemia, suspect related to chronic disease
- B/L pleural effusions, L>R, suspect related to pulmonary edema.
- DM type II (A1C: 6.9 on 03/26/2025)
- Cholelithiasis with pericholecystic fluid; no evidence of cholecystitis
Conditions present prior admission:
Congestive heart failure
Nonobstructive coronary artery disease
LBBB
CKD stage III
History of bladder carcinoma
Mitral valve prolapse
Type 2 diabetes
Hyperlipidemia
Hypercholesterolemia
Chronic obstructive pulmonary disease on 2 L supplemental oxygen
History of severe /Bicuspid aortic valve-history of heart valve trifecta replacement 12 years ago-2008
BPH
History of gout
Former smoker quit smoking longer than 10 years ago
Anemia
Pulmonary service will continue to follow along.
Total time spent on this consultation/encounter __48__ minutes which includes review of history, physical exam, medications, laboratory data, personal review of imaging, extensive review of outpatient records, discussion with care team and
respiratory therapy.
---
Data reviewed:
[facility] 03/25/2025: 1. Severely elevated filling pressures (PCWP = 34 mmHg at 61.7 kg).
2. 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
3. Preserved cardiac index (2.35 L/min/m� by thermodilution, 2.03 L/min/m� by Shawna).
Initial chest x-ray [facility] 03/19/2025: Bilateral perihilar infiltrates with bilateral pleural effusions.
-
Chest x-ray March 24, 2025 report from [facility]:
Perihilar interstitial vascular prominence. Persistent. Mild elevation of the left hemidiaphragm. No pleural effusions. Worsening per report
-
Nuclear stress test: 03/22/2025: Abnormal myocardial perfusion imaging suggesting of inferoseptal ischemia and apical scar with ejection fraction reduced at 46%.
-
Left and right heart catheterization 03/23/2025
Pulmonary capillary wedge pressure 27. Pulmonary artery mean pressure 41. Cardiac index 2.95. Cardiac output 4.87 (thermodilution)
Coronary angiogram: Moderate calcification distal 20% stenosis
Left anterior descending ostial 20% stenosis. Proximal 80% stenosis and 60% stenosis.
Diagonal #1: Ostial 30%.
Circumflex 50 to 60%.
Right coronary artery less than 40% stenosis.
-
Echocardiogram 03/20/2025:
LVEF 50 to 55%
Abdominal paradoxical septal motion consistent with left bundle branch block.
Normal right ventricular size and function.
Right atrium is normal size.
Normal mitral valve.
Moderate mitral valve regurgitation.
Aortic valve mild sclerosis. Suggestion of mild aortic sclerosis.
Subjective Data
-
Date of Service:
Date of Service: April 06, 2025
Chief Complaint: Pulmonary Follow Up
Subjective:
Patient comfortably lying in bed in no acute distress, now transition to high flow nasal cannula.
Review of Systems
Genitourinary: Other (Reports dyspnea but no cough, wheezing or expectoration)
Objective Data
Data Reviewed
Vital Signs / I&O / Oxygen:
Vital Signs
Temp Pulse Resp BP Pulse Ox
97.7 F 89 17 133/42 91
04/06/25 10:33 04/06/25 07:48 04/06/25 07:44 04/06/25 07:48 04/06/25 09:12
Intake and Output
04/05/25 04/06/25 04/07/25
06:59 06:59 06:59
Intake Total 120 / 120
Output Total 1025 / 1025 1850 / 1850 125 / 125
Balance -1025 / -1025 -1730 / -1730 -125 / -125
SaO2 91
Nasal Cannula flow liters per 50
minute
Physical Exam
General: Comfortable
HEENT: Normocephalic, Anicteric and Moist Mucous Membranes
Cardiovascular: S1-S2, Regular Rhythm, Murmur (n), Rub (n), Peripheral Edema (trace) and Calf Tenderness (n)
Respiratory: Wheeze (negative), Crackles (Bibasilar), Rhonchi (negative), Non-Labored Respirations and Stridor (n)
GI: Soft, Non Distended, Non Tender and Normal Bowel Sounds
Neurology: Awake and Alert
Skin: Cyanosis (negative) and Jaundice (negative)
Labs/Micro/Reports
Lab Data
04/06/25 03:15
04/06/25 03:15
[2025-04-06] MEDS: LASIX 100 MG IV (11:19)
--- NOTE | 2025-04-06 11:23 | W.PN.NEPH.PH ---
Today's Communication / Plan
-
Lasix 100 mg IV now
Assessment/Plan
-
IMP:
Acute on chronic hypoxemic respiratory failureNorma
Acute on chronic HFrEF
Recent echocardiogram 03/20/2025 with a EF 50-55%. Moderate mitral regurgitation. Abnormal septal motion consistent with left bundle branch block.
Paroxysmal atrial fibrillation
Pneumonia
CAD s/p stent
BHUPINDER on CKD 3a
Acute on chronic anemia
T2DM
COPD-On home oxygen 4 L
Chronic alcohol use
History of aortic stenosis s/p AVR
History of gout�allopurinol
History of bladder cancer currently in remission
Remote tobacco user
Plan:
follow BMP
he is at baseline O2 requirements and has no edema. however, wedge was elevated.
Overnight he was placed on high flow worsening pulmonary status.
No improvement in weights he is on p.o. Lasix.
120 mg IV Lasix now.
Discussed with the patient and his family family, medical nurse and all physicians involved in his care.
If no response to IV Lasix high dose will initiate hemodialysis as patient agrees.
Catheter likely placed tomorrow with dialysis afterwards potentially placing catheter this afternoon at the earliest.

33 minutes critical care time
-
-
Date of Service: April 06, 2025
CC / HPI / ROS
-
Chief Complaint:
BHUPINDER, CKD
History of Present Illness:
Presents with shortness of breath transferred from [facility] with on high oxygen requirements with acute on chronic kidney disease improving
BHUPINDER/Cr mild improvement
Review of Systems:
Increasing shortness of breath on high flow
no fever, no cp
no n/v
weights stable
Labs
-
Labs:
WBC 9.8 10^3/uL (4.8-10.8) 04/06/25 03:15
RBC 2.47 10^6/uL (4.70-6.10) L 04/06/25 03:15
Hgb 7.5 g/dL (13.0-18.0) L 04/06/25 03:15
Hct 21.8 % (39.0-52.0) L 04/06/25 03:15
Plt Count 237 10^3/uL (130-400) 04/06/25 03:15
Sodium 131 mmol/L (135-145) L 04/06/25 03:15
Potassium 4.3 mmol/L (3.5-5.1) 04/06/25 03:15
Chloride 95 mmol/L (98-107) L 04/06/25 03:15
Carbon Dioxide 29 mmol/L (22-30) 04/06/25 03:15
BUN 118 mg/dl (9-20) H* 04/06/25 03:15
Creatinine 2.8 mg/dL (0.7-1.3) H 04/06/25 03:15
eGFR 21.98 04/06/25 03:15
Glucose 182 mg/dl (70-99) H 04/06/25 03:15
Calcium 8.6 mg/dl (8.4-10.2) 04/06/25 03:15
Phosphorus 3.1 mg/dl (2.5-4.5) 03/30/25 03:09
Wfb-E-Jfqzpejmhol Pept 10633 pg/ml 03/30/25 03:09
Albumin 3.1 g/dl (3.5-5.0) L 03/30/25 03:09
Physical Exam
-
Vital Signs:
Vital Signs
Temp Pulse Resp BP Pulse Ox
97.7 F 89 17 133/42 91
04/06/25 10:33 04/06/25 07:48 04/06/25 07:44 04/06/25 07:48 04/06/25 09:12
Cardiovascular:: Regular rate and rhythm
Respiratory:: Bilateral: Coarse
Lung Excursion:: Normal
Abdomen:: Nontender and Soft
Bowel Sounds:: Normal
Extremity Edema:: None: Bilateral:
[2025-04-06] MEDS: LASIX 20 MG IV (11:37)
[2025-04-06 11:57] LABS: Glucose - Point of Care 224 mg/dl (70-99)
[2025-04-06] MEDS: NOVOLOG FLEXPEN 18 UNITS SC ×2 (11:58→17:19)
[2025-04-06] MEDS: NOVOLOG FLEXPEN-MODERATE RESISTANCE 5 UNITS SC (17:18)
[2025-04-06 17:28] LABS: Glucose - Point of Care 284 mg/dl (70-99)
--- NOTE | 2025-04-06 17:50 | W.PN.HOSP.TC ---
Addendum entered and electronically signed by Trell Strauss MD 04/06/25 20:36:
Attending Addendum-
I saw and evaluated the patient. I reviewed the resident�s note and agree with findings and plan as documented in the resident�s note. Sub: seen with present. Once again had increased o2 requirement overnight to 50L HFNC. Patient has no
complaints and states he feels fine. Full 10 point ROS reviewed and negative except as documented Exam: Vitals reviewed in chart GEN-mild resp distress heart RRR, 12/09 SM @ apex, lungs fine crackles at bases B/L, abd soft ND ND LE trace pitting edema
b/l
Plan:
#Acute on chronic hypoxemic respiratory failure
#Acute on chronic HFpEF
-Patient presented as a transfer from [facility]
-o2 requirements worse- now on HFNC 50L 60%O2
-echocardiogram 03/29- -Left ventricular ejection fraction is approximately 55-60%. Septal hypokinesis and abnormal (paradoxical) septal motion consistent with conduction abnormality/postoperative state. Bioprosthetic aortic valve replacement with
peak/mean gradients of 20/11 mmHg. Estimated pulmonary artery pressure of 70-75 mmHg.
-LHC/RHC 03/30 demonstrating severely elevated pulmonary pressures
-80mg PO lasix x 1 given last PM with excellent diuresis, additional 120mg IV given 04/06
-continue Carvedilol
-Echo with Bubble study 04/04- Left ventricular ejection fraction 55-60%. negative bubble study
-appreciate cards and nephro input
-repeat CXR-compared to 04/04- shows improvement in vascular congestion and pulmonary opacities - personally reviewed
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
-Amyloid workup. SPEP negative for spike protein. Free kappa + free lambda light chains elevated
-nuc technetium pyrophosphate scan as OP
#Severe Pulmonary Hypertension
-03/29-started sildenafil- cont
-LHC/RHC 03/30 demonstrating Severely elevated filling pressures PCWP = 25 mmHg
-Pulm following.
-T/C NO or Flolan if able
#BHUPINDER on CKD 3a
-Cr improved (Baseline 1.9)
-Holding Jardiance and diuretics for now
-Nephrology following
-MRA of renal arteries- No stenosis exceeding 50% in the more dominant, superior right renal artery or within the single artery serving left kidney. Diminished perfusion to the right kidney compared to the left kidney. The right kidney is
moderately atrophic
-Monitor BMP daily
-patient amenable to HD if needed - poor prog
-restart aggressive IV diuresis with lasix-04/06
-appreciate nephro input
#CAD s/p stent
-03/30- PCI diagonal and proximal/mid LAD
-Aspirin/Plavix for x 1 week, discontinue DC Aspirin 04/06. continue plavix
-Secondary prevention with atorvastatin and ezetimibe.
#Asthma with chronic hypoxemic resp failure
-On home oxygen @ 2-4 L
-Continue on DuoNeb. Budesonide added to regimen
-cont steroid burst
#Acute on chronic anemia SAMAN
-s/p 1 unit pRBC 03/28
-Monitor H&H
-Iron Labs indicative of Iron Deficiency Anemia.
-IV Iron but was discontinued due to rash
-cont Oral Iron supplementation
- tx for HB < 7
#Paroxysmal atrial fibrillation - NEW
-Currently in NSR
-Continue Coreg and Eliquis
# Hyponatremia
- hypertonic- in part due to hyperglycemia
- also hypervolemic
- start aggressive diuresis
- cont to trend
#T2DM
-Hold repaglinide/Jardiance
-Coverage with SSI
-A1C 6.9- 03/26
-Insulin regimen adjusted-> increase Lantus 22u HS and NovoLog 18u AC
-DM Nurse practitioner on board- appreciate input
#Chronic alcohol use
-no signs of w/d
-counselled re cessation
#History of aortic stenosis s/p biop AVR
#History of gout� cont allopurinol
#Peripheral Neuropathy- cont gabapentin
#History of bladder cancer currently in remission
#Remote tobacco user
CODE STATUS full code
GI Prophylaxis Pantoprazole
DVT prophylax Eliquis
Dispo- would benefit from SNF on DC but patient wishes to go home
Time spent coordinating care, review of plan of care with resident, personally reviewed records in EMR, med rec, consults, notes, labs, radiology, d/w nursing POA nephro and cards � 52 mins
Original Note:
Today's Communication/Plan
-
Monitor patient's clinical status on HFNC.
Creatinine elevated but stable. Patient given 120mg furosemide today.
Consider BiPAP if patient becomes short of breath on HFNC.
Assessment / Plan
Assessment / Plan
Assessment/plan
#Acute on chronic hypoxemic respiratory failure secondary to below
#Acute on chronic HFpEF
-Patient presented as a transfer from [facility] with HFpEF exacerbation
-Restarted on furosemide 120mg 04/06
-Carvedilol 25 mg PO BID
-Patient on HFNC after desaturating on mid-flow last night
-Echo w/ bubble study 04/04 - negative
-CXR 04/06: Bilateral parenchymal opacity with small bilateral pleural effusions. Fairly stable appearance compared to 04/04 CXR.
-Cardiology following
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
-Amyloid workup. SPEP negative for spike protein. Free kappa + free lambda light chains elevated
-Technetium pyrophosphate scan for further evaluation as an outpatient
#Severe Pulmonary Hypertension
-s/p RHC 03/25 with severely elevated filling pressures with Pulmonary HTN
-LHC/RHC 03/30 demonstrating Severely elevated filling pressures PCWP = 25 mmHg
-Echo w/ bubble study 04/04 - negative
-Continue sildenafil, per cardiology
-Pulmonary and cardiology following
#BHUPINDER on CKD 3a
-Cr rising in the setting of aggressive diuresis, 2.8 today (Baseline 1.9, 3.1 yesterday)
-Suspect cardiorenal syndrome etiology
-Holding Jardiance
-Monitor BMP
-Restarted on 04/05 furosemide 80mg PO qd given creatinine plateau
-Increased furosemide to 120mg PO qd given decline creatinine, increasing oxygen requirement
-Nephrology following
#CAD s/p stent
-Cardiac catheterization at [facility] showed proximal/mid LAD lesion.
-Repeat Revascularization 03/31- showing 50-60% lesion in the proximal circumflex and a densely calcified, 80% lesion in the proximal/mid LAD. Severely elevated filling pressures (PCWP = 25 mmHg at 55.8 kg). Severe pulmonary hypertension.
-Underwent bifurcation PCI with DANIEL placement to the diagonal as well as the proximal/mid LAD
-Continue Plavix, Eliquis - Aspirin discontinued 04/06.
-Secondary prevention with statin and ezetimibe.
#COPD
-Home oxygen requirement: 4L
-No exacerbation this admission
-Budesonide/Formoterol started
-Given elevated eosinophil count, short course of steroid was also added to regimen.
-Bedside Spirometry 03/31 suggestive of reactive airway disease vs Asthma
-Patient on HFNC 50L
-Consider BiPAP if patient becomes short of breath on HFNC
#Acute on chronic anemia
-During his hospitalization at [facility], he received 1 unit of PRBC
-s/p 1 unit pRBC 03/28 this admission
-Monitor H&H
-Iron Labs indicative of Iron Deficiency Anemia.
-Initially Started on IV Iron but was discontinued due to Pruritic rash
-Switched to Oral Iron supplementation.
#Pruritic Rash
-New for patient this admission
-Etiology likely Medication Reaction vs Contact Dermatitis
-The only medications he was Recently started on were IV Iron, Eliquis.
-No major reaction after administration of Eliquis
-Stopped IV Iron, Rash now resolved
-PRN Benadryl.
#Paroxysmal atrial fibrillation
-During his hospitalization at [facility], he went into A-fib(New for patient)
-Continue PO Carvedilol
-Anticoagulation with Eliquis
#Low Grade fever
-was treated for Community acquired pneumonia at [facility]--received 6/6 days of zosyn-
-Reported fevers this admission
-Monitor off abx for now
-CT chest 03/28: Moderate bilateral pleural effusions with associated compressive atelectasis and/or pneumonia. Scattered patchy ground glass densities throughout all lobes bilaterally may reflect combination of pneumonitis/pneumonia and areas of air
trapping.
-Ultrasound abdomen 03/30- Cholelithiasis. There is a 1.4 cm gallstone. There is a 5 mm echogenic focus along the gallbladder wall without shadowing. Negative sonographic Amaya's sign. Pericholecystic fluid seen. There is no evidence of biliary
ductal dilation. The common bile duct measures 5 mm.
-Speech therapy evaluation indicates no overt aspiration, no difficulty with PO intake
-If fevers recur, consider restarting Abx.
#T2DM
-Likely with Neuropathy as patient takes gabapentin
-Hold repaglinide/Jardiance
-Coverage with SSI
-A1C 6.9 03/26
-Insulin regimen adjusted given short course of steroid
-DM Nurse practitioner on board
#Hypokalemia
-Repleted
#Hyponatremia
Na 131
Urine Na, urine osmolality, and serum osmolality not indicative of SIADH
#Chronic alcohol use
-outside of window for withdrawal symptoms
-States his last drink was 4 weeks ago
#History of aortic stenosis s/p AVR
#History of gout� Hold allopurinol. Consider renal dosage given eGFR
#History of bladder cancer currently in remission
#Remote tobacco user
Disposition: Per CM, patient prefers to be discharged to home with Tohmas Bass
CODE STATUS full code
GI Prophylaxis Pantoprazole
DVT prophylax Eliquis
Anticipated Discharge: > 48 hours
Subjective/Interval History
-
Date of Service: April 06, 2025
Nursing reports patient was put on HFNC last night, as he was desaturating to the mid-80s oxygen saturation on mid-flow 15L. Patient reports he felt fine during the desaturations. Reports he feels 'same as yesterday.' Urinating without issues.
Objective Data
-
Vital Signs:
Vital Signs
Temp Pulse Resp BP Pulse Ox
97.6 F 86 17 139/90 97
04/06/25 15:04 04/06/25 11:19 04/06/25 07:44 04/06/25 11:19 04/06/25 15:51
I&O
04/05/25 04/06/25 04/07/25
06:59 06:59 06:59
Intake Total 120 / 120
Output Total 1025 / 1025 1850 / 1850 1305 / 1305
Balance -1025 / -1025 -1730 / -1730 -1305 / -1305
Review of Systems
-
History Source: Patient
Constitutional: Denies Fever, Fatigue or Chills
Respiratory: Reports Cough (Dry); Denies Trouble Breathing
Cardiac: Denies Chest Pain or Other (LE edema)
Abdomen/GI: Denies Abdominal Pain
Physical Exam
-
General: No Apparent Distress
HEENT: Normocephalic and Atraumatic
Respiratory: Clear to Auscultation, Non Labored Respirations and Other (Patient on 50L HFNC); Negative Accessory Resp Muscle Use
Cardiac: Regular Rhythm; Negative Murmur, Rub, Gallop or Other (LE edema)
GI: Soft, Nontender and Normal Bowel Sounds
Neuro: AO x 3
Psych: Calm
Data Reviewed
-
Diagnostic Radiology: Image personally visualized and interpreted and Report Reviewed by me
Labs: Labs Reviewed by me
[2025-04-06] MEDS: ZETIA 10 MG PO (20:41)
[2025-04-06] MEDS: LIPITOR 20 MG PO (20:42)
[2025-04-06] MEDS: LIDOCAINE 4% PATCH 1 PATCH TOPICAL (20:42)
[2025-04-06 21:39] LABS: Glucose - Point of Care 179 mg/dl (70-99)
[2025-04-06] MEDS: LANTUS 0.22 UNITS SC (22:00)
--- NOTE | 2025-04-06 22:38 | PTCARENOTE ---
Patient aao x3, able to make needs known. C/o pain 2/10 to lower back, relieved by lidocaine patch. Remains on hi-flow 50L 50%, discussed with RT, RT to wean as able. Call holley within reach, will continue to monitor patient closely.
[2025-04-07] VITALS (15 sets, daily range): BP systolic 116–140; BP diastolic 32–57; PULSE 76–77; O2SAT 95–97; BMI 19.9
[2025-04-07] MEDS: VENTOLIN NEBULES 2.5 MG INH ×2 (02:35→06:06)
[2025-04-07 05:15] LABS: Hematocrit 21.7 % (39.0-52.0); Hemoglobin 7.4 g/dL (13.0-18.0); Mean Corp Hgb Conc. 34.1 g/dL (33.0-37.0); Mean Corpuscular Volume 88.2 fL (80.0-94.0); Nucleated Red Blood Cells % 0 % (-); Platelet Count 231 10^3/uL (130-400); Red Cell Dist. Width 15.3 % (11.5-14.5)
[2025-04-07 05:55] LABS: Blood Urea Nitrogen 116 mg/dl (9-20); Calcium 8.7 mg/dl (8.4-10.2); Carbon Dioxide 27 mmol/L (22-30); Chloride 98 mmol/L (98-107); Estimated Creatinine Clearance 22 ml/min; Glucose 73 mg/dl (70-99); Potassium 3.9 mmol/L (3.5-5.1); Sodium 135 mmol/L (135-145); eGFR 31.04
--- NOTE | 2025-04-07 07:53 | W.PN.CD ---
Today's Communication / Plan
-
IV lasix 120mg x1 now
Impression / Plan
-
Impression/Plan: 79 y/o male with extensive past medical history admitted with flash pulmonary edema/hypoxic respiratory failure, found to have severely elevated filling pressures, prior exertional oxygen desaturation and worsening anemia and renal
function with lackluster diuresis and new diagnosis of occlusive CAD.
#Hypoxic respiratory failure/pulmonary hypertension/COPD: severe
-Acute on chronic, 4L NC as an outpatient
-Multifactorial. component of HFpEF and severe pulmonary hypertension. Outpatient notes suggest there is a component of primary pulmonary disease.
-Started sildenafil 20 mg TID 03/28/2025
-oxygen weaned to midflow 10L with a good diuresis overnight.
-CT Chest: Bilateral pleural effusions with associated compressive atelectasis and/or pneumonia.
-Fever + imaging findings raises the possibility of infection vs. autoimmune issue (no hemoptysis, making vasculitis, i.e. Eulalia's, Churg-Ella, microscopic polyangiitis less likely). No significant eosinophilia.
-Bedside spirometry suggests GOLD stage 2 COPD (FEV1/FVC < 0.7, FEV1 53% predicted).
-PCWP remains severely elevated during PCI (25 mmHg) with persistent, severe pHTN.
-echo with bubble study to look for shunt: negative for shunt on 04/04 with normal LVEF 55-60%
#HFpEF
-Acute on chronic.
-PCWP = 34 mmHg at 61.7 kg
-great response to IV lasix yesterday, nephrology dosing
-Started sildenafil for pHTN. Monitor response.
-GDMT:
-Diuretics: IV lasix 120mg x1 now, intensive monitoring required
-Beta ervin: Carvedilol 25 mg BID.
-ACEI/ARB/ANRi: On hold due to renal function.
-MRA: On hold due to renal function.
-SGLT2i: On hold due to renal function.
-Amyloid workup/nuclear scan as outpatient
-Echo report reviewed. Mean gradient of the aortic valve was 13 mmHg. Moderate MR. IVC is dilated and does not collapse.
#CAD
-Stable.
-S/P DK crush PCI of Wright 1, 1, 1 80% LAD and 99% ostial D2 lesion due to plaque shift (Medtronic Carl 2.0 x 22 DANIEL to D2, post dilated with a 2.5 NCB, 3.5 x 34 DANIEL to LAD, post dilated with 3.5 NCB throughout, 3.75 NCB in the proximal stent
margin), 03/30/2025.
-DAPT with aspirin and clopidogrel. Starting apixaban for PAF. s/p triple therapy. continue eliquis/plavix.
-High dose/potency statin.
#BHUPINDER on CKD III
-Acute on chronic. Severe.
-Creatinine 2.8. improved to 2.1 with a good diuresis
-neprhology helping to manage diuretic. High risk situation
-MRA shows accessory right renal artery 80% stenosis, normal larger right renal artery and left renal artery.
-Hold ACEI/ARB/ARNi/MRA/SGLT2i.
-AL Amyloid workup negative.
-Monitor renal function after PCI and with resumed diuresis. We may need to keep him net even if he develops JENNA.
-Consider Tc-PyP study as outpatient
#Paroxysmal atrial fibrillation
-In sinus with PACs.
-Rate control with carvedilol.
-[id number]: score at least 6 (Heart failure, HTN, age 75 or more, Diabetes Mellitus, Vascular disease).
-Oral Anticoagulation: transition to apixaban 2.5 mg BID (age, weight, renal function).
#HLD
-Chronic, stable.
-Continue ezetimibe, atorvastatin.
-Goal LDL < 55.
#Anemia
-Chronic (per report).
-Dx is likely a mix of some Fe deficiency, renal disease and anemia of chronic disease.
-B12, folate are normal. Reticulocyte count elevated (appropriate). Thiamine pending.
-Fe = 36, FeSat = 12%, ferritin = 102 (making Fe deficiency less likely), TIBC = 286.
-1 unit PRBC 03/28/2025 will functionally replace any iron deficiency.
-Would recommend keeping H/H >/= 05/29.
#Severe aortic stenosis with bicuspid morphology, S/P AVR, stable on TTE.
#LBBB
#Daily EtOH consumption in the outpatient setting.
Subjective;
he is feeling better, oxygen requirements reduced this am
DATA:
RHC, 03/25/2025:
CONCLUSION
1. Severely elevated filling pressures (PCWP = 34 mmHg at 61.7 kg).
2. 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
3. Preserved cardiac index (2.35 L/min/m� by thermodilution, 2.03 L/min/m� by Shawna).
Chest CT, 03/28/2025:
IMPRESSION:
1. Moderate bilateral pleural effusions with associated compressive atelectasis and/or pneumonia. Scattered patchy ground glass densities throughout all lobes bilaterally may reflect combination of pneumonitis/pneumonia and areas of air trapping.
2. No convincing acute process in the abdomen or pelvis, within the limitations of unenhanced technique. Urinary bladder is decompressed around a Stanton catheter and not well evaluated. Cystitis not excluded.
3. Cholelithiasis. Pericholecystic fluid is present, likely on the basis of systemic congestion. Recommend clinical correlation for signs/symptoms of acute cholecystitis.
TTE, 03/29/2025:
CONCLUSIONS
-Left ventricular ejection fraction is approximately 55-60%. Septal
hypokinesis and abnormal (paradoxical) septal motion consistent with conduction
abnormality/postoperative state.
-Mildly enlarged right ventricular size. Normal right ventricular systolic
function.
-Mild to moderate mitral regurgitation.
-Bioprosthetic aortic valve replacement with peak/mean gradients of 20/11 mmHg.
Trace aortic regurgitation.
-Mild to moderate tricuspid regurgitation. Estimated pulmonary artery pressure
of 70-75 mmHg.
-The IVC is dilated and does not collapse.
Compared to previous echo of 10/14/2024, septal hypokinesis is now noted.
Slightly progressive mitral regurgitation and tricuspid regurgitation are
noted. PASP was not previously obtained.
Cardiac Catheterization/PCI, 03/30/2025:
CONCLUSIONS:
1. Right dominant circulation with calcified, nonocclusive tapering of the distal left main coronary artery (MLA = 7.6 mm�), a 50-60% lesion in the proximal circumflex and a densely calcified, 80% lesion in the proximal/mid LAD spanning the origin
of D2 which had its own, underappreciated ostial lesion, status post successful IVUS guided intracoronary lithotripsy (Shockwave 3.5 x 12 lithotripsy balloon), leading to plaque shift and 99% stenosis of the second diagonal, status post successful
DK crush of the second diagonal (Medtronic Carl [place] 2.0 x 22 DANIEL, postdilated with a 2.5 NC balloon) and proximal/mid LAD (Medtronic Carl [place] 3.5 x 34 DANIEL, postdilated with a 3.5 NC balloon throughout and a 3.75 x 12 NC balloon in the
proximal margin) with reduction in both stenoses to 0%, maintaining and restoring DM-3 flow.
2. Severely elevated filling pressures (PCWP = 25 mmHg at 55.8 kg).
3. Severe pulmonary hypertension.
Abdominal MRA, 03/31/2025:
IMPRESSION:
2 arteries serve the right kidney. These vessels arise from the abdominal aorta 2.7 cm apart. The smaller, more inferior right renal artery has a high-grade stenosis (exceeding 80%) 3 mm distal to its origin. This stenosis extends over a length of 2
mm.
No stenosis exceeding 50% in the more dominant, superior right renal artery or within the single artery serving left kidney
Diminished perfusion to the right kidney compared to the left kidney. The right kidney is moderately atrophic.
Cholelithiasis. There is a small amount of pericholecystic fluid. This could be related to systemic venous congestion, or could be related to cholecystitis. Please correlate clinically
Moderate bilateral pleural effusions. Region of intermediate signal in the posterior right lower lobe. This is likely compressive partial atelectasis secondary to the pleural effusion
Physical Exam
Vital Signs/Labs
Vital Signs
Temp Pulse Resp BP Pulse Ox
97.7 F 70 16 123/39 93
04/07/25 03:14 04/07/25 06:07 04/07/25 06:07 04/07/25 06:00 04/07/25 06:07
04/06/25 04/07/25 04/08/25
06:59 06:59 06:59
Actual Weight 128 lb 1.417 oz 123 lb 3.814 oz
04/07/25 04:46
04/07/25 04:46
PT 17.8 Sec (11.4-14.6) H 03/28/25 04:47
INR 1.44 03/28/25 04:47
APTT Cancelled 03/30/25 18:15
Magnesium 2.3 mg/dl (1.6-2.3) 04/04/25 05:43
03/28/25 03/30/25
03:47 03:09
[id number]-[id number] Pept [id number]
Physical Exam
Constitutional: No acute distress, Comfortable and Other (appears cachectic and chronically ill)
Cardiovascular: Rhythm & rate is regular, Pedal edema is absent, Systolic murmur absent and Diastolic murmur absent
Respiratory: Respiratory effort normal, Lungs clear to auscul. and Other (decreased at the base)
Neuro/Psych: AO x 3
Data Reviewed
-
Date of Service: April 07, 2025
Medical Decision Making: Review of Case with other Provider (D/w Nephrology and medicine team )
EKG: Other (sinus with pacs, first degree av block)
[2025-04-07 08:02] LABS: Glucose - Point of Care 70 mg/dl (70-99)
[2025-04-07] MEDS: SYMBICORT 160/4.5 MCG INHALER 2 PUFF INH ×2 (08:02→19:27)
--- NOTE | 2025-04-07 08:30 | PN.DE.MGMTRT ---
Insulin Management
- -
04/07/2025: Diabetes management Follow up
Patient was transferred to [facility] from [facility]/25 for increased shortness of breath due to acute exacerbation of chronic heart failure with preserved EF in the setting of Acute on chronic hypoxemic respiratory failure. PMH:
HFpEF, CKD Stage 3a, Bladder carcinoma, T2DM, HLD, severe aortic stenosis s/p valve replacement in 2008, COPD on 2L home oxygen, BPH. A1C 6.9%, Cr 2.0, eGFR 32.91
Pt states he was taking Jardiance 10mg daily at home, has a monitor and has been testing his blood sugars daily in the morning. 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 States he was taking Glipizide at
one point but that was discontinued by his PCP due to recurrent hypoglycemia.
Pt awake, alert, oriented, sitting up in bed, pleasant, offers no complaints, able to discuss diabetes care. Son at bedside, very supportive.
7/2 Glucose fasting 230. HS lantus increased to 22 units and novolog increased to 18 units AC, with moderate corrective. Required 3 to 5 units additional corrective insulin AC. HS glucose 179.
7/3 Fasting glucose today 70. Will decrease hs lantus to 18 units, continue AC novolog 18 units.
Will continue to hold Jardiance and metformin given BHUPINDER on CKD with Cr 2.1 today.
Pt states he has a working glucose monitor and enough supplies at home. Diabetes nurse has instructed on insulin administration.
Discussed with nurse. Will cont to follow.
Diabetes History
- -
Type of Diabetes: 2 requiring insulin
Pre-Admission Diabetes Regimen
04/07/25
04:46
Creatinine 2.1 H
Lab Results
Hemoglobin A1c 6.9 % (4.0-5.6) H 03/26/25 04:34
Insulin Pump Settings
IP Diabetes Regimen
04/06/25 04/06/25 04/06/25
11:46 17:17 21:26
Glucose
POC Glucose 224 H 284 H 179 H
04/07/25 04/07/25
04:46 07:51
Glucose 73
POC Glucose 70
Patient Education
[2025-04-07] MEDS: PLAVIX 75 MG PO (08:42)
[2025-04-07] MEDS: REVATIO 20 MG PO ×3 (08:43→23:27)
[2025-04-07] MEDS: OCUVITE SOFTGEL 1 CAP PO (08:43)
[2025-04-07] MEDS: ELIQUIS 2.5 MG PO ×2 (08:43→19:53)
[2025-04-07] MEDS: NEURONTIN 100 MG PO ×3 (08:43→23:27)
[2025-04-07] MEDS: DELTASONE 20 MG PO (08:43)
[2025-04-07] MEDS: SENOKOT-S 1 TABLET PO (08:43)
[2025-04-07] MEDS: COREG 25 MG PO ×2 (08:43→19:53)
[2025-04-07] MEDS: FEOSOL 325 MG PO (08:43)
[2025-04-07] MEDS: NOVOLOG FLEXPEN 18 UNITS SC ×3 (08:44→18:37)
[2025-04-07] MEDS: NOVOLOG FLEXPEN-MODERATE RESISTANCE SC ×3 (08:45→18:37)
[2025-04-07] MEDS: LASIX 20 MG IV (09:17)
[2025-04-07] MEDS: LASIX 100 MG IV (09:19)
[2025-04-07] MEDS: REMOVE LIDOCAINE PATCH 1 PATCH REMOVE (09:20)
[2025-04-07] MEDS: FLUSH (NSS) 2 FLUSH IV (09:21)
--- NOTE | 2025-04-07 10:31 | W.PN.PUL3 ---
Today's Communication / Plan
-
- Continue Prednisone as ordered, last dose on 04/08.
- Continue Symbicort post discharge
- Out patient follow up with Pulmonary clinic in 2 weeks
- Home O2 assessment prior to discharge, target O2 sat > 90%
- Pulmonary team will sign off, please call as needed.
Assessment
-
79-year-old man with past medical history significant for heart failure, mitral valve prolapse, prior aortic stenosis status post AVR in 2008, type 2 diabetes, COPD on 2 to 4 L supplemental oxygen continuously, hypertension, initially presented to
[facility] 03/19/2025 per records complaining of increased shortness of breath, leg swelling over the last week or so.
Patient was diagnosed with acute on chronic heart failure/positive increased troponin. Increased work of breathing requiring BiPAP therapy and subsequently transition to mid flow oxygen.
EKG demonstrated rapid atrial fibrillation.
Evaluation included diagnostic cardiac catheterization. 03/23/2025. Pulmonary capillary wedge pressure was 27. Cardiac index was 2.95.
Patient was treated with a standard diuresis.
Patient was also empirically treated with antibiotic for possible pneumonia.
Given persistent hypoxemia despite diuresis and difficulty with his chronic kidney disease, abnormal stress test with possible significant LAD lesion he was sent to [facility] for further evaluation potential intervention.
Assessment and plan:
#1. Acute hypoxemic respiratory failure due to pulmonary edema
- 04/07, respiratory status improving, high flow nasal cannula switched to mid flow today, saturating 93% on 10 L mid flow.
- Diuresis per nephrology/cardiology service, chest x-ray reviewed, clinical presentation continues to suggest volume overload, responded very well to diuresis overnight -3.3 L
- Underlying severe pulmonary hypertension also contributing to hypoxia. Target oxygen saturation above 90%. Titrate to keep saturations above 90%
- Check home O2 assessment prior to discharge. Patient states he has been on home oxygen, 4 L over the past few months. Does not see pulmonary
- PT/OT
#2. Acute on chronic heart failure with preserved ejection fraction, also moderate MR
- Cardiology following
- Peetz-Ac removed on 03/31
- Significant diuresis since admission
- Ongoing diuretic therapy per cardiology/nephrology service, depending upon response to IV diuresis, might need renal replacement therapy
#3. Severe pulmonary hypertension
- Primarily group II with elevated pulmonary capillary wedge pressure of 34. PVR elevated at 6, might have component of group I vs IV (less likely CTEPH)
- VQ scan obtained on 04/01/2025 however given that he has pleural effusions/acute CHF, he does have multiple perfusion defects but the pulmonary edema could account for this. There was no abnormal activity seen within the head to suggest
[id number] shunting; could consider repeating VQ scan as an outpatient once he is euvolemic
- No evidence of ILD or emphysema on CT Chest from 03/28/2025
- Outpatient PFTs; spirometry performed on 03/31 does not show evidence of COPD, and is instead supportive of RAD versus asthma
- On 03/29, started on sildenafil per cardiology - continue to monitor symptoms
- Bubble study negative.
#4. History of hyperreactive airway disease, suspect asthma rather than COPD, uses oxygen at home
- Spirometry on 03/31 shows that he does not have COPD, and spirometry is most suggestive of reactive airway disease versus asthma; also has markedly elevated eosinophils
- 6 minute walk test in December 2024 with low saturation 91%.
- Remote history of smoking, on report from brenna Bass, CAT scan in 2022 showed tiny pulmonary nodules without significant parenchymal lung abnormality.
- No evidence of emphysema per CT chest from 03/28/2025
- Brenna Bass reports recent pulmonary function testing with a small airways disease without airflow obstruction by ATS criteria.
- Discontinued DuoNeb and budesonide. Switch to Symbicort 160 x 4.5, 2 puffs twice a day scheduled and as needed albuterol in addition
- Lowered prednisone further to 20 mg for 3 more days and then discontinue
Other medical diagnoses:
- Paroxysmal atrial fibrillation
- BHUPINDER with underlying CKD stage III; right sided renal artery stenosis (involving 1 of 2 right sided renal arteries per abdominal MRA)
- Coronary artery disease, s/p PCI 03/2025
- Aortic stenosis s/p AVR
- Anemia, suspect related to chronic disease
- B/L pleural effusions, L>R, suspect related to pulmonary edema.
- DM type II (A1C: 6.9 on 03/26/2025)
- Cholelithiasis with pericholecystic fluid; no evidence of cholecystitis
Conditions present prior admission:
Congestive heart failure
Nonobstructive coronary artery disease
LBBB
CKD stage III
History of bladder carcinoma
Mitral valve prolapse
Type 2 diabetes
Hyperlipidemia
Hypercholesterolemia
Chronic obstructive pulmonary disease on 2 L supplemental oxygen
History of severe /Bicuspid aortic valve-history of heart valve trifecta replacement 12 years ago-2008
BPH
History of gout
Former smoker quit smoking longer than 10 years ago
Anemia
Pulmonary service will sign off
Total time spent on this consultation/encounter __46__ minutes which includes review of history, physical exam, medications, laboratory data, personal review of imaging, extensive review of outpatient records, discussion with care team and
respiratory therapy.
---
Data reviewed:
C 03/25/2025: 1. Severely elevated filling pressures (PCWP = 34 mmHg at 61.7 kg).
2. 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
3. Preserved cardiac index (2.35 L/min/m� by thermodilution, 2.03 L/min/m� by Shawna).
Initial chest x-ray [facility] 03/19/2025: Bilateral perihilar infiltrates with bilateral pleural effusions.
-
Chest x-ray March 24, 2025 report from [facility]:
Perihilar interstitial vascular prominence. Persistent. Mild elevation of the left hemidiaphragm. No pleural effusions. Worsening per report
-
Nuclear stress test: 03/22/2025: Abnormal myocardial perfusion imaging suggesting of inferoseptal ischemia and apical scar with ejection fraction reduced at 46%.
-
Left and right heart catheterization 03/23/2025
Pulmonary capillary wedge pressure 27. Pulmonary artery mean pressure 41. Cardiac index 2.95. Cardiac output 4.87 (thermodilution)
Coronary angiogram: Moderate calcification distal 20% stenosis
Left anterior descending ostial 20% stenosis. Proximal 80% stenosis and 60% stenosis.
Diagonal #1: Ostial 30%.
Circumflex 50 to 60%.
Right coronary artery less than 40% stenosis.
-
Echocardiogram 03/20/2025:
LVEF 50 to 55%
Abdominal paradoxical septal motion consistent with left bundle branch block.
Normal right ventricular size and function.
Right atrium is normal size.
Normal mitral valve.
Moderate mitral valve regurgitation.
Aortic valve mild sclerosis. Suggestion of mild aortic sclerosis.
Subjective Data
-
Date of Service:
Date of Service: April 07, 2025
Chief Complaint: Pulmonary Follow Up
Subjective:
Patient comfortably sitting in bed, in no acute distress, currently on mid flow, overall feels better.
Review of Systems
Genitourinary: Other (Improving shortness of breath, no cough or expectoration or wheezing.)
Objective Data
Data Reviewed
Vital Signs / I&O / Oxygen:
Vital Signs
Temp Pulse Resp BP Pulse Ox
98.0 F 88 16 127/32 97
04/07/25 07:02 04/07/25 09:19 04/07/25 08:04 04/07/25 09:19 04/07/25 08:04
Intake and Output
04/06/25 04/07/25 04/08/25
06:59 06:59 06:59
Intake Total 120 / 120
Output Total 1850 / 1850 2505 / 2505 625 / 625
Balance -1730 / -1730 -2505 / -2505 -625 / -625
SaO2 97
Nasal Cannula flow liters per 40
minute
Physical Exam
General: Comfortable
HEENT: Normocephalic, Anicteric and Moist Mucous Membranes
Cardiovascular: S1-S2, Regular Rhythm, Murmur (n), Rub (n), Peripheral Edema (None) and Calf Tenderness (n)
Respiratory: Wheeze (negative), Crackles (Significantly improved bibasilar crackles), Rhonchi (negative), Non-Labored Respirations and Stridor (n)
GI: Soft, Non Distended, Non Tender and Normal Bowel Sounds
Neurology: Awake and Alert
Skin: Cyanosis (negative) and Jaundice (negative)
Labs/Micro/Reports
Lab Data
04/07/25 04:46
04/07/25 04:46
[2025-04-07 12:23] LABS: Glucose - Point of Care 115 mg/dl (70-99)
--- NOTE | 2025-04-07 12:42 | W.PN.NEPH.PH ---
Today's Communication / Plan
-
Lasix 120 mg
Assessment/Plan
-
IMP:
Acute on chronic hypoxemic respiratory failureNorma
Acute on chronic HFrEF
Recent echocardiogram 03/20/2025 with a EF 50-55%. Moderate mitral regurgitation. Abnormal septal motion consistent with left bundle branch block.
Paroxysmal atrial fibrillation
Pneumonia
CAD s/p stent
BHUPINDER on CKD 3a
Acute on chronic anemia
T2DM
COPD-On home oxygen 4 L
Chronic alcohol use
History of aortic stenosis s/p AVR
History of gout�allopurinol
History of bladder cancer currently in remission
Remote tobacco user
Plan:
follow BMP
4 L baseline O2 requirements and has no edema. however, wedge was elevated.
Good response 120 mg of Lasix yesterday he is off high flow down to 10 L
Again will give 120 mg IV Lasix
Creatinine improved
No acute need for dialysis patient agrees to do dialysis if needed
Discussed with cardiology

33 minutes critical care time
-
-
Date of Service: April 07, 2025
CC / HPI / ROS
-
Chief Complaint:
BHUPINDER, CKD
History of Present Illness:
Presents with shortness of breath transferred from [facility] continue with on high oxygen requirements with acute on chronic kidney disease improving
BHUPINDER/Cr mild improvement
Review of Systems:
Breathing improved down to 10 L
no fever, no cp
no n/v
weights stable
Labs
-
Labs:
WBC 8.0 10^3/uL (4.8-10.8) 04/07/25 04:46
RBC 2.46 10^6/uL (4.70-6.10) L 04/07/25 04:46
Hgb 7.4 g/dL (13.0-18.0) L 04/07/25 04:46
Hct 21.7 % (39.0-52.0) L 04/07/25 04:46
Plt Count 231 10^3/uL (130-400) 04/07/25 04:46
Sodium 135 mmol/L (135-145) 04/07/25 04:46
Potassium 3.9 mmol/L (3.5-5.1) 04/07/25 04:46
Chloride 98 mmol/L (98-107) 04/07/25 04:46
Carbon Dioxide 27 mmol/L (22-30) 04/07/25 04:46
BUN 116 mg/dl (9-20) H* 04/07/25 04:46
Creatinine 2.1 mg/dL (0.7-1.3) H 04/07/25 04:46
eGFR 31.04 04/07/25 04:46
Glucose 73 mg/dl (70-99) 04/07/25 04:46
Calcium 8.7 mg/dl (8.4-10.2) 04/07/25 04:46
Phosphorus 3.1 mg/dl (2.5-4.5) 03/30/25 03:09
Cqj-I-Sjxigcayjwm Pept 83315 pg/ml 03/30/25 03:09
Albumin 3.1 g/dl (3.5-5.0) L 03/30/25 03:09
Physical Exam
-
Vital Signs:
Vital Signs
Temp Pulse Resp BP Pulse Ox
98.0 F 88 16 127/32 97
04/07/25 07:02 04/07/25 09:19 04/07/25 08:04 04/07/25 09:19 04/07/25 08:04
Cardiovascular:: Regular rate and rhythm
Respiratory:: Bilateral: Coarse
Lung Excursion:: Normal
Abdomen:: Nontender and Soft
Bowel Sounds:: Normal
Extremity Edema:: None: Bilateral:
--- NOTE | 2025-04-07 14:24 | CM ---
Addendum entered by Tracy Pillai RN 04/07/25 14:34:
Spoke with Thomas Flores; Fax confirmed as [phone]. Conveyed that d/c date is unknown at this time.
Original Note:
Patient with Dx Acute on chronic hypoxemic respiratory failure, Acute HF. O2 8L midflow. Receiving IV Iron. PT/OT recommend HH. Per nurse; A/O.
Patient accepted by Thomas ROBB in [facility].
Plan continue to follow O2 needs and mobility.
Plan home with Thomas ROBB, with family.
--- NOTE | 2025-04-07 15:22 | W.PN.HOSP.TC ---
Addendum entered and electronically signed by Trell Strauss MD 04/07/25 19:35:
Attending Addendum-
I saw and evaluated the patient. I reviewed the resident�s note and agree with findings and plan as documented in the resident�s note. Sub: Had a 'better night' O2 sats have improved. States he would like to go home soon. Patient has no complaints
and states he feels fine. Full 10 point ROS reviewed and negative except as documented Exam: Vitals reviewed in chart GEN-NAD chronially ill appearing heart RRR, 12/09 SM @ apex, lungs fine crackles at bases B/L, abd soft ND ND LE trace pitting edema
b/l Neuro AAO x 3
Plan:
#Acute on chronic hypoxemic respiratory failure
#Acute on chronic HFpEF
-o2 requirements improving- now on MF
-echocardiogram 03/29- -Left ventricular ejection fraction is approximately 55-60%. Septal hypokinesis and abnormal (paradoxical) septal motion consistent with conduction abnormality/postoperative state. Bioprosthetic aortic valve replacement with
peak/mean gradients of 20/11 mmHg. Estimated pulmonary artery pressure of 70-75 mmHg.
-LHC/RHC 03/30 demonstrating severely elevated pulmonary pressures
-Lasix 120mg IV given 04/06 with excellent results, additional 120 IV today
-continue Carvedilol
-Echo with Bubble study 04/04- Left ventricular ejection fraction 55-60%. negative bubble study
-appreciate cards and nephro input
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
-Amyloid workup. SPEP negative for spike protein. Free kappa + free lambda light chains elevated
-nuc technetium pyrophosphate scan as OP
#Severe Pulmonary Hypertension
-03/29-sildenafil added- cont
-LHC/RHC 03/30 demonstrating Severely elevated filling pressures PCWP = 25 mmHg
-Pulm following.
#BHUPINDER on CKD 3a
-Cr greatly improved nearing baseline (Baseline 1.9)
-Holding Jardiance
-Nephrology following
-MRA of renal arteries- No stenosis exceeding 50% in the more dominant, superior right renal artery or within the single artery serving left kidney. Diminished perfusion to the right kidney compared to the left kidney. The right kidney is
moderately atrophic
-Monitor BMP daily
-patient amenable to HD if needed but no acute need at this time
-restarted aggressive IV diuresis with lasix-04/06
-appreciate nephro input
#CAD s/p stent
-03/30- PCI diagonal and proximal/mid LAD
-Aspirin/Plavix for x 1 week, DC Aspirin 04/06. continue plavix
-Secondary prevention with atorvastatin and ezetimibe.
#Asthma with chronic hypoxemic resp failure
-On home oxygen @ 2-4 L
-Continue on DuoNeb. Budesonide added to regimen
-cont steroid burst last day 04/08
#Acute on chronic anemia SAMAN
-s/p 1 unit pRBC 03/28
-Monitor H&H
-Iron Labs indicative of Iron Deficiency Anemia.
-IV Iron but was discontinued due to rash
-cont Oral Iron supplementation
- tx for HB < 7
#Paroxysmal atrial fibrillation - NEW
-Currently in NSR
-Continue Coreg and Eliquis
# Hyponatremia
- resolved
- continue aggressive diuresis
- cont to trend BMP
#T2DM
-Hold repaglinide/Jardiance
-Coverage with SSI
-A1C 6.9- 03/26
-Insulin regimen adjusted-> decreased Lantus 22->18u HS and cont NovoLog 18u AC
-DM Nurse practitioner on board- appreciate input
#Chronic alcohol use
-no signs of w/d
-counselled re cessation
#History of aortic stenosis s/p biop AVR
#History of gout� cont allopurinol
#Peripheral Neuropathy- cont gabapentin
#History of bladder cancer currently in remission
#Remote tobacco user
CODE STATUS full code
GI Prophylaxis Pantoprazole
DVT prophylax Eliquis
Dispo- would benefit from SNF on DC but patient wishes to go home- DC planning CM aware
Time spent coordinating care, review of plan of care with resident, personally reviewed records in EMR, med rec, consults, notes, labs, radiology, d/w nursing nephro and cards � 51 mins
Original Note:
Today's Communication/Plan
-
Continue to monitor patient's respiratory status, volume status, and renal function as diuretics continue.
Assessment / Plan
Assessment / Plan
#Acute on chronic hypoxemic respiratory failure secondary to below
#Acute on chronic HFpEF
-Patient presented as a transfer from [facility] with HFpEF exacerbation
-Continue furosemide 120mg
-Carvedilol 25 mg PO BID
-Echo w/ bubble study 04/04 - negative
-CXR 04/06: Bilateral parenchymal opacity with small bilateral pleural effusions. Fairly stable appearance compared to 04/04 CXR.
-Patient weaned off HFNC, now on mid-flow 10L
-Cardiology following
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
-Amyloid workup. SPEP negative for spike protein. Free kappa + free lambda light chains elevated
-Technetium pyrophosphate scan for further evaluation as an outpatient
#Severe Pulmonary Hypertension
-s/p RHC 03/25 with severely elevated filling pressures with Pulmonary HTN
-LHC/RHC 03/30 demonstrating Severely elevated filling pressures PCWP = 25 mmHg
-Echo w/ bubble study 04/04 - negative
-Continue sildenafil, per cardiology
-Pulmonary and cardiology following
#BHUPINDER on CKD 3a
-Cr rising in the setting of aggressive diuresis, 2.1 today (Baseline 1.9, 2.8 yesterday)
-Suspect cardiorenal syndrome etiology
-Holding Jardiance
-Monitor BMP
-Continue furosemide 120mg PO qd given declining creatinine, improving oxygen requirement
-Nephrology following
#CAD s/p stent
-Cardiac catheterization at [facility] showed proximal/mid LAD lesion.
-Repeat Revascularization 03/31- showing 50-60% lesion in the proximal circumflex and a densely calcified, 80% lesion in the proximal/mid LAD. Severely elevated filling pressures (PCWP = 25 mmHg at 55.8 kg). Severe pulmonary hypertension.
-Underwent bifurcation PCI with DANIEL placement to the diagonal as well as the proximal/mid LAD
-Continue clopidogrel, apixaban - aspirin discontinued 04/06.
-Secondary prevention with statin and ezetimibe.
#Asthma vs reactive airway disease
-Home oxygen requirement: 4L
-No exacerbation this admission
-Continue Budesonide/Formoterol
-Given elevated eosinophil count, short course of steroid was also added to regimen.
-Bedside Spirometry 03/31 suggestive of reactive airway disease vs Asthma
--Patient weaned off HFNC, now on mid-flow 10L
#Acute on chronic anemia
-During his hospitalization at [facility], he received 1 unit of PRBC
-s/p 1 unit pRBC 03/28 this admission
-Iron Labs indicative of Iron Deficiency Anemia.
-Initially Started on IV Iron but was discontinued due to Pruritic rash
-Switched to Oral Iron supplementation.
-Hgb 7.4
-Monitor H&H
#Pruritic Rash
-New for patient this admission
-Etiology likely Medication Reaction vs Contact Dermatitis
-The only medications he was Recently started on were IV Iron, Eliquis.
-No major reaction after administration of Eliquis
-Stopped IV Iron, Rash now resolved
-PRN Benadryl.
#Paroxysmal atrial fibrillation
-During his hospitalization at [facility], he went into A-fib(New for patient)
-Continue PO Carvedilol
-Anticoagulation with apixaban
#Low Grade fever
-was treated for Community acquired pneumonia at [facility]--received 6/6 days of zosyn-
-Reported fevers this admission
-Monitor off abx for now
-CT chest 03/28: Moderate bilateral pleural effusions with associated compressive atelectasis and/or pneumonia. Scattered patchy ground glass densities throughout all lobes bilaterally may reflect combination of pneumonitis/pneumonia and areas of air
trapping.
-Ultrasound abdomen 03/30- Cholelithiasis. There is a 1.4 cm gallstone. There is a 5 mm echogenic focus along the gallbladder wall without shadowing. Negative sonographic Amaya's sign. Pericholecystic fluid seen. There is no evidence of biliary
ductal dilation. The common bile duct measures 5 mm.
-Speech therapy evaluation indicates no overt aspiration, no difficulty with PO intake
-If fevers recur, consider restarting Abx.
#T2DM
-Likely with Neuropathy as patient takes gabapentin
-Hold repaglinide/Jardiance
-Coverage with SSI
-A1C 6.9 03/26
-Insulin regimen adjusted given fasting glucose of 70 today (04/07)
-DM Nurse practitioner on board
#Hypokalemia
-Repleted
#Hyponatremia
Na 135, improving
Urine Na, urine osmolality, and serum osmolality not indicative of SIADH
#Chronic alcohol use
-outside of window for withdrawal symptoms
-States his last drink was 4 weeks ago
#History of aortic stenosis s/p AVR
#History of gout� Hold allopurinol. Consider renal dosage given eGFR
#History of bladder cancer currently in remission
#Remote tobacco user
Disposition: Per CM, patient prefers to be discharged to home with [facility]
CODE STATUS full code
GI Prophylaxis Pantoprazole
DVT prophylax Eliquis
Anticipated Discharge: > 48 hours
Subjective/Interval History
-
Date of Service: April 07, 2025
Nursing reports that the patient has continued to desaturate into the mid-80's with activity while on HFNC overnight. However, the patient was weaned down to HFNC 40L/40% FiO2 overnight. While I was at the bedside, respiratory therapy weaned the
patient to mid-flow 12L, which the patient tolerated with a saturation of 98%. Patient reports that he slept well and is feeling 'a little better' today.
Objective Data
-
Labs:
Laboratory Results
04/07/25
04:46
WBC 8.0
Hgb 7.4 L
Hct 21.7 L
Plt Count 231
Sodium 135
Potassium 3.9
Chloride 98
Carbon Dioxide 27
BUN 116 H*
Creatinine 2.1 H
Glucose 73
Calcium 8.7
Vital Signs:
Vital Signs
Temp Pulse Resp BP Pulse Ox
98.3 F 82 22 140/33 97
04/07/25 11:48 04/07/25 14:00 04/07/25 14:00 04/07/25 14:00 04/07/25 08:04
I&O
04/06/25 04/07/25 04/08/25
06:59 06:59 06:59
Intake Total 120 / 120
Output Total 1850 / 1850 2505 / 2505 975 / 975
Balance -1730 / -1730 -2505 / -2505 -975 / -975
Review of Systems
-
History Source: Patient
Constitutional: Denies Fever, Fatigue or Chills
Respiratory: Denies Trouble Breathing
Cardiac: Denies Chest Pain
Abdomen/GI: Denies Abdominal Pain
Genitourinary: Denies Difficulty Voiding
Musculoskeletal: Denies Edema
Neuro: Denies Headache
Physical Exam
-
General: No Apparent Distress
HEENT: Normocephalic and Atraumatic
Respiratory: Clear to Auscultation
Cardiac: Irregular Rhythm (BP stable, non-tachycardic); Negative Murmur, Rub or Gallop
GI: Soft, Nontender and Normal Bowel Sounds
Musculoskeletal: No Edema
Neuro: AO x 3
Psych: Calm
Data Reviewed
-
Labs: Labs Reviewed by me
[2025-04-07 17:35] LABS: Glucose - Point of Care 72 mg/dl (70-99)
--- NOTE | 2025-04-07 17:56 | PTCARENOTE ---
Assumed care of pt this am after morning report. Pt is alert oriented x3 and denies pain or discomfort. He was received on High Flow oxygen at 40% and 40 L and has weaned to 6L midflow. 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
bennett. Pt tolerating OOB most of the day. Gait slow and steady, using urinal and voiding clear yellow urine. Pt is using urinal for measurement after receiving 120mg IV lasix. Pt insulin coverage adjusted for PM dose as his am cbs was 70. Pt was
asymptomatic at that time and ate all of his breakfast tray. Many visitors throughout the day, pt in good spirits.
[2025-04-07] MEDS: LIDOCAINE 4% PATCH 1 PATCH TOPICAL (19:53)
--- NOTE | 2025-04-07 21:07 | PTCARENOTE ---
Pt received sitting in chair at beginning of shift. AAOx3. Very pleasant. Admits to right lower back pain. Lidocaine patch applied as ordered. VSS Afebrile. SR/PAC/BBB on CM rate 69. VSS. Afebrile. Pox 100% on 6L MF. Pt states he is using IS up to
1000 but unseen by this RN. HS care provided. Assisted back to bed. Using air cushion under sacrum/buttocks while in bed. Rest of assessment as documented. Call holley remain within reach. Will continue to monitor.
[2025-04-07 22:25] LABS: Glucose - Point of Care 73 mg/dl (70-99)
[2025-04-07] MEDS: ZETIA 10 MG PO (23:27)
[2025-04-07] MEDS: LIPITOR 20 MG PO (23:28)
--- NOTE | 2025-04-07 23:35 | W.PN.UPDATE ---
Update Note
Progress Note Update
Per RN AccuCheck was 46 on one hand and 61 on the other. Gave apple juice came up to 71. will hold 18 Lantus for today. Patient asymptomatic.
--- NOTE | 2025-04-07 23:36 | PTCARENOTE ---
Accucheck 47 at 2200. Recheck on different hand 61. Pt arousable asymptomatic. Per pt request pt received Apple juice. 15 min recheck of accucheck 73. Hephziba IDRIS TT'd and order entered to hold tonight's dose of Lantus. Will follow hypoglycemic
protocol. Will continue to monitor.
[2025-04-08] VITALS (11 sets, daily range): BP systolic 89–149; BP diastolic 27–80; BMI 19.1
[2025-04-08 02:55] LABS: Glucose - Point of Care 142 mg/dl (70-99)
[2025-04-08 04:14] LABS: Hematocrit 22.7 % (39.0-52.0); Hemoglobin 7.5 g/dL (13.0-18.0); Mean Corp Hgb Conc. 33.0 g/dL (33.0-37.0); Mean Corpuscular Volume 90.1 fL (80.0-94.0); Nucleated Red Blood Cells % 0 % (-); Platelet Count 233 10^3/uL (130-400); Red Cell Dist. Width 15.7 % (11.5-14.5)
[2025-04-08 04:31] LABS: Blood Urea Nitrogen 111 mg/dl (9-20); Calcium 8.9 mg/dl (8.4-10.2); Carbon Dioxide 29 mmol/L (22-30); Chloride 98 mmol/L (98-107); Estimated Creatinine Clearance 23 ml/min; Glucose 119 mg/dl (70-99); Potassium 4.1 mmol/L (3.5-5.1); Sodium 136 mmol/L (135-145); eGFR 35.00
[2025-04-08 07:28] LABS: Glucose - Point of Care 168 mg/dl (70-99)
[2025-04-08] MEDS: SYMBICORT 160/4.5 MCG INHALER 2 PUFF INH ×2 (07:32→19:59)
[2025-04-08] MEDS: OCUVITE SOFTGEL 1 CAP PO (08:12)
[2025-04-08] MEDS: COREG 25 MG PO ×2 (08:12→21:18)
[2025-04-08] MEDS: DELTASONE 20 MG PO (08:12)
[2025-04-08] MEDS: NEURONTIN 100 MG PO ×3 (08:12→21:20)
[2025-04-08] MEDS: SENOKOT-S 1 TABLET PO (08:12)
[2025-04-08] MEDS: FEOSOL 325 MG PO (08:12)
[2025-04-08] MEDS: ELIQUIS 2.5 MG PO ×2 (08:12→21:18)
[2025-04-08] MEDS: PLAVIX 75 MG PO (08:12)
[2025-04-08] MEDS: REVATIO 20 MG PO ×3 (08:12→21:20)
[2025-04-08] MEDS: NOVOLOG FLEXPEN-MODERATE RESISTANCE 1 UNITS SC (08:13)
[2025-04-08] MEDS: REMOVE LIDOCAINE PATCH 1 PATCH REMOVE (08:14)
[2025-04-08] MEDS: LASIX 80 MG IV ×2 (11:00→16:53)
[2025-04-08 11:56] LABS: Glucose - Point of Care 304 mg/dl (70-99)
--- NOTE | 2025-04-08 12:25 | PTCARENOTE ---
Assumed care of pt after morning report, he is resting quietly in bed with Midflow oxygen at 6L and pulse ox 100%, lungs diminished and coarse. 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 Pt is hungry this morning and ate all of breakfast. Pt compliant with Fluid restriction
and monitoring of urine output. IV Lasix decreased to 80mg today. Pt OOB to chair with 1 Assist, air cushion intact. Family visiting at intervals this am.
[2025-04-08] MEDS: NOVOLOG FLEXPEN-MODERATE RESISTANCE 7 UNITS SC (13:40)
--- NOTE | 2025-04-08 15:31 | W.PN.NEPH.PH ---
Today's Communication / Plan
-
IV iron
Assessment/Plan
-
IMP:
Acute on chronic hypoxemic respiratory failureNorma
Acute on chronic HFrEF
Recent echocardiogram 03/20/2025 with a EF 50-55%. Moderate mitral regurgitation. Abnormal septal motion consistent with left bundle branch block.
Paroxysmal atrial fibrillation
Pneumonia
CAD s/p stent
BHUPINDER on CKD 3a
Acute on chronic anemia
T2DM
COPD-On home oxygen 4 L
Chronic alcohol use
History of aortic stenosis s/p AVR
History of gout�allopurinol
History of bladder cancer currently in remission
Remote tobacco user
Plan:
follow BMP
Still requiring higher than baseline O2 supplemental.
Maintain diuresis with 80 IV Lasix twice daily
IV iron course
-
-
Date of Service: April 08, 2025
CC / HPI / ROS
-
Chief Complaint:
BHUPINDER, CKD
History of Present Illness:
Presents with shortness of breath transferred from [facility] continue with on high oxygen requirements with acute on chronic kidney disease improving
BHUPINDER/Cr mild improvement 1.9
BUN remains elevated 111
Sodium normal
Diuresed well yesterday with improvement of O2 requirements
Remains anemic with hemoglobin 7.5
Review of Systems:
Breathing improved
no fever, no cp
no n/v
Labs
-
Labs:
WBC 7.5 10^3/uL (4.8-10.8) 04/08/25 03:06
RBC 2.52 10^6/uL (4.70-6.10) L 04/08/25 03:06
Hgb 7.5 g/dL (13.0-18.0) L 04/08/25 03:06
Hct 22.7 % (39.0-52.0) L 04/08/25 03:06
Plt Count 233 10^3/uL (130-400) 04/08/25 03:06
Sodium 136 mmol/L (135-145) 04/08/25 03:06
Potassium 4.1 mmol/L (3.5-5.1) 04/08/25 03:06
Chloride 98 mmol/L (98-107) 04/08/25 03:06
Carbon Dioxide 29 mmol/L (22-30) 04/08/25 03:06
BUN 111 mg/dl (9-20) H* 04/08/25 03:06
Creatinine 1.9 mg/dL (0.7-1.3) H 04/08/25 03:06
eGFR 35.00 04/08/25 03:06
Glucose 119 mg/dl (70-99) H 04/08/25 03:06
Calcium 8.9 mg/dl (8.4-10.2) 04/08/25 03:06
Phosphorus 3.1 mg/dl (2.5-4.5) 03/30/25 03:09
Wum-E-Srlnlnqyikd Pept 03826 pg/ml 03/30/25 03:09
Albumin 3.1 g/dl (3.5-5.0) L 03/30/25 03:09
Physical Exam
-
Vital Signs:
Vital Signs
Temp Pulse Resp BP Pulse Ox
97.8 F 88 28 149/57 96
04/08/25 11:31 04/08/25 14:00 04/08/25 12:00 04/08/25 14:00 04/08/25 14:00
Cardiovascular:: Regular rate and rhythm
Respiratory:: Bilateral: Coarse
Lung Excursion:: Normal
Abdomen:: Nontender and Soft
Bowel Sounds:: Normal
Extremity Edema:: None: Bilateral:
--- NOTE | 2025-04-08 15:51 | PTCARENOTE ---
Patient ac insulin had been placed on hold after nightshift hypoglycemic event. Pt ate all of breakfast and did receive SS Novolog coverage. Pt lunchtime accucheck is 304 and after discussion with medical team, he received 7 units coverage and the
ac dosing will be reordered at dinner at an adjusted dose. pt did eat 100% of lunch, he continues to monitor his fluid intake with caution.
--- NOTE | 2025-04-08 16:43 | W.PN.HOSP.TC ---
Addendum entered and electronically signed by Trell Strauss MD 04/08/25 20:45:
Attending Addendum-
I saw and evaluated the patient. I reviewed the resident�s note and agree with findings and plan as documented in the resident�s note. Sub: Seen with woife present. Was hypoglycemic overnight and lantus was held. Patient was asymptomatic. O2 sats
have improved. States he feels improved overall. Patient has no complaints Full 10 point ROS reviewed and negative except as documented Exam: Vitals reviewed in chart GEN-NAD chronically ill appearing heart RRR, 12/09 SM @ apex, lungs fine crackles
at bases B/L, abd soft ND ND LE no edema b/l Neuro AAO x 3
Plan:
#Acute on chronic hypoxemic respiratory failure
#Acute on chronic HFpEF
-o2 requirements improving- now on MF but not back to baseline
-echocardiogram 03/29- -Left ventricular ejection fraction is approximately 55-60%. Septal hypokinesis and abnormal (paradoxical) septal motion consistent with conduction abnormality/postoperative state. Bioprosthetic aortic valve replacement with
peak/mean gradients of 20/11 mmHg. Estimated pulmonary artery pressure of 70-75 mmHg.
-LHC/RHC 03/30 demonstrating severely elevated pulmonary pressures
-Lasix transitioned to 80 IV BID today
-continue Carvedilol
-Echo with Bubble study 04/04- Left ventricular ejection fraction 55-60%. negative bubble study
-appreciate cards and nephro input
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
-Amyloid workup. SPEP negative for spike protein. Free kappa + free lambda light chains elevated
-nuc technetium pyrophosphate scan as OP
#Severe Pulmonary Hypertension
-03/29-sildenafil added- cont
-LHC/RHC 03/30 demonstrating Severely elevated filling pressures PCWP = 25 mmHg
-Pulm following
#BHUPINDER on CKD 3a
-resolved
-Cr greatly improved back to baseline (1.9)
-Holding Jardiance
-MRA of renal arteries- No stenosis exceeding 50% in the more dominant, superior right renal artery or within the single artery serving left kidney. Diminished perfusion to the right kidney compared to the left kidney. The right kidney is
moderately atrophic
-Monitor BMP daily
-patient amenable to HD if needed but no acute need at this time
-restarted aggressive IV diuresis-04/06
-appreciate nephro input
#CAD s/p stent
-03/30- PCI diagonal and proximal/mid LAD
-Aspirin/Plavix for x 1 week, DC Aspirin 04/06. continue plavix
-cont atorvastatin and ezetimibe.
#Asthma with chronic hypoxemic resp failure
-On home oxygen @ 2-4 L
-Continue on DuoNeb. Budesonide added to regimen
-cont steroid burst last day 04/08
#Acute on chronic anemia SAMAN
-s/p 1 unit pRBC 03/28
-Monitor H&H
-cont IV Iron per nephro
-cont Oral Iron supplementation
-tx for HB < 7
#Paroxysmal atrial fibrillation - NEW
-Currently in NSR
-Continue Coreg and Eliquis
# Hyponatremia
- resolved
- continue aggressive diuresis
- cont to trend BMP
#T2DM
-episodes of hypoglycemia
-Hold repaglinide/Jardiance
-A1C 6.9
-Insulin regimen adjusted-> decreased Lantus 18u->10u HS and NovoLog 18u->10u AC
-DM Nurse practitioner on board- appreciate input
#Chronic alcohol use
-no signs of w/d
-counselled re cessation
#History of aortic stenosis s/p biop AVR
#History of gout� cont allopurinol
#Peripheral Neuropathy- cont gabapentin
#History of bladder cancer currently in remission
#Remote tobacco user
CODE STATUS full code
GI Prophylaxis Pantoprazole
DVT prophylax Eliquis
Dispo- would benefit from SNF on DC but patient wishes to go home- DC planning CM aware-IV diuresis over weekend final PO dose TBD
Time spent coordinating care, review of plan of care with resident, personally reviewed records in EMR, med rec, consults, notes, labs, radiology, d/w POA nursing nephro and cards � 52 mins
Original Note:
Today's Communication/Plan
-
Monitor patient's clinical status with continued diuretics.
Continue to wean oxygen and monitor kidney function.
Assessment / Plan
Assessment / Plan
#Acute on chronic hypoxemic respiratory failure secondary to below
#Acute on chronic HFpEF
-Patient presented as a transfer from [facility] with HFpEF exacerbation
-Furosemide 80mg IV BID, per nephrology
-Carvedilol 25 mg PO BID
-Echo w/ bubble study 04/04 - negative
-CXR 04/06: Bilateral parenchymal opacity with small bilateral pleural effusions. Fairly stable appearance compared to 04/04 CXR.
-Patient now on mid-flow 6L, which is near his baseline requirement of 4L at home
-Cardiology following
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
-Amyloid workup. SPEP negative for spike protein. Free kappa + free lambda light chains elevated
-Technetium pyrophosphate scan for further evaluation as an outpatient
#Severe Pulmonary Hypertension
-s/p RHC 03/25 with severely elevated filling pressures with Pulmonary HTN
-LHC/RHC 03/30 demonstrating Severely elevated filling pressures PCWP = 25 mmHg
-Echo w/ bubble study 04/04 - negative
-Continue sildenafil, per cardiology
-Pulmonary and cardiology following
#BHUPINDER on CKD 3a
-Cr rising in the setting of aggressive diuresis, 1.9 today (Baseline 1.9, 2.1 yesterday)
-Suspect cardiorenal syndrome etiology
-Holding Jardiance
-Monitor BMP
-Furosemide 80mg PO qd given declining creatinine, improving oxygen requirement
-Nephrology following
#CAD s/p stent
-Cardiac catheterization at [facility] showed proximal/mid LAD lesion.
-Repeat Revascularization 03/31- showing 50-60% lesion in the proximal circumflex and a densely calcified, 80% lesion in the proximal/mid LAD. Severely elevated filling pressures (PCWP = 25 mmHg at 55.8 kg). Severe pulmonary hypertension.
-Underwent bifurcation PCI with DANIEL placement to the diagonal as well as the proximal/mid LAD
-Continue clopidogrel, apixaban - aspirin discontinued 04/06.
-Secondary prevention with statin and ezetimibe.
#Asthma vs reactive airway disease
-Home oxygen requirement: 4L
-No exacerbation this admission
-Continue Budesonide/Formoterol
-Given elevated eosinophil count, short course of steroid was also added to regimen.
-Bedside Spirometry 03/31 suggestive of reactive airway disease vs Asthma
-Patient weaned off HFNC, now on mid-flow 6L
#Acute on chronic anemia
-During his hospitalization at [facility], he received 1 unit of PRBC
-s/p 1 unit pRBC 03/28 this admission
-Iron Labs indicative of Iron Deficiency Anemia.
-Initially Started on IV Iron but was discontinued due to Pruritic rash
-Switched to Oral Iron supplementation.
-Hgb 7.5
-Monitor H&H
#Pruritic Rash
-New for patient this admission
-Etiology likely Medication Reaction vs Contact Dermatitis
-The only medications he was Recently started on were IV Iron, Eliquis.
-No major reaction after administration of Eliquis
-Stopped IV Iron, Rash now resolved
-PRN Benadryl.
#Paroxysmal atrial fibrillation
-During his hospitalization at [facility], he went into A-fib(New for patient)
-Continue PO Carvedilol
-Anticoagulation with apixaban
#Low Grade fever
-was treated for Community acquired pneumonia at [facility]--received 6/6 days of zosyn-
-Reported fevers this admission
-Monitor off abx for now
-CT chest 03/28: Moderate bilateral pleural effusions with associated compressive atelectasis and/or pneumonia. Scattered patchy ground glass densities throughout all lobes bilaterally may reflect combination of pneumonitis/pneumonia and areas of air
trapping.
-Ultrasound abdomen 03/30- Cholelithiasis. There is a 1.4 cm gallstone. There is a 5 mm echogenic focus along the gallbladder wall without shadowing. Negative sonographic Amaya's sign. Pericholecystic fluid seen. There is no evidence of biliary
ductal dilation. The common bile duct measures 5 mm.
-Speech therapy evaluation indicates no overt aspiration, no difficulty with PO intake
-If fevers recur, consider restarting Abx.
#T2DM
-Likely with Neuropathy as patient takes gabapentin
-Hold repaglinide/Jardiance
-Coverage with SSI
-A1C 6.9 03/26
-Insulin regimen adjusted given fasting glucose of 47 last night (04/07)
-DM Nurse practitioner on board
#Hypokalemia
-Repleted
#Hyponatremia
Na 136, stable
Urine Na, urine osmolality, and serum osmolality not indicative of SIADH
#Chronic alcohol use
-outside of window for withdrawal symptoms
-States his last drink was 4 weeks ago
#History of aortic stenosis s/p AVR
#History of gout� Hold allopurinol. Consider renal dosage given eGFR
#History of bladder cancer currently in remission
#Remote tobacco user
Disposition: Per CM, [facility]
CODE STATUS full code
GI Prophylaxis Pantoprazole
DVT prophylax Eliquis
Anticipated Discharge: > 48 hours
Subjective/Interval History
-
Date of Service: April 08, 2025
Nursing reports that the patient desaturated to the mid 80s on mid-flow of 4L overnight. Nursing also reports that the patient had an episode of hypoglycemia overnight, and the patient's evening dose of Lantus was held last night. Patient is seen
at the bedside on hospital day #14. Patient states he is 'a little better. I feel good.'
Objective Data
-
Vital Signs:
Vital Signs
Temp Pulse Resp BP Pulse Ox
97.5 F 88 28 149/57 96
04/08/25 15:42 04/08/25 14:00 04/08/25 12:00 04/08/25 14:00 04/08/25 14:00
I&O
04/07/25 04/08/25 04/09/25
06:59 06:59 06:59
Intake Total 1090 / 1090 460 / 460
Output Total 2505 / 2505 3525 / 3525 925 / 925
Balance -2505 / -2505 -2435 / -2435 -465 / -465
Review of Systems
-
Constitutional: Denies Fever, Fatigue or Chills
Respiratory: Reports Cough (Dry); Denies Trouble Breathing
Cardiac: Denies Chest Pain
Abdomen/GI: Denies Abdominal Pain
Physical Exam
-
General: No Apparent Distress
Respiratory: Clear to Auscultation and Non Labored Respirations (Appears comfortable on 6L mid-flow, saturating 95%)
Cardiac: Regular Rhythm; Negative Murmur, Rub or Gallop
GI: Soft, Nontender and Normal Bowel Sounds
Musculoskeletal: No Edema
Neuro: AO x 3
Psych: Calm
Data Reviewed
-
Labs: Labs Reviewed by me
[2025-04-08] MEDS: FERRLECIT 110 MG IV (16:53)
[2025-04-08] MEDS: FLUSH (NSS) 2 FLUSH IV (16:58)
[2025-04-08 17:46] LABS: Glucose - Point of Care 475 mg/dl (70-99)
--- NOTE | 2025-04-08 18:05 | W.PN.CD ---
Today's Communication / Plan
-
Continue current medications
nephrology to determine final diuretic dose
will see again at your request.
we can assist with f/u d/c appt when ready for discharge.
Impression / Plan
-
Impression/Plan: 79 y/o male with extensive past medical history admitted with flash pulmonary edema/hypoxic respiratory failure, found to have severely elevated filling pressures, prior exertional oxygen desaturation and worsening anemia and renal
function with lackluster diuresis and new diagnosis of occlusive CAD.
#Hypoxic respiratory failure/pulmonary hypertension/COPD: severe
-Acute on chronic, 4L NC as an outpatient, now back to 5L
-Multifactorial. component of HFpEF and severe pulmonary hypertension. Outpatient notes suggest there is a component of primary pulmonary disease.
-Started sildenafil 20 mg TID 03/28/2025
-CT Chest: Bilateral pleural effusions with associated compressive atelectasis and/or pneumonia.
-Fever + imaging findings raises the possibility of infection vs. autoimmune issue (no hemoptysis, making vasculitis, i.e. Eulalia's, Churg-Ella, microscopic polyangiitis less likely). No significant eosinophilia.
-Bedside spirometry suggests GOLD stage 2 COPD (FEV1/FVC < 0.7, FEV1 53% predicted).
-PCWP remains severely elevated during PCI (25 mmHg) with persistent, severe pHTN.
-echo with bubble study to look for shunt: negative for shunt on 04/04 with normal LVEF 55-60%
#HFpEF
-Acute on chronic.
-PCWP = 34 mmHg at 61.7 kg---now 53.7kg
-great response to IV lasix yesterday, nephrology dosing
-Started sildenafil for pHTN. Monitor response.
-GDMT:
-Diuretics: now on lasix 80 iv bid
-Beta ervin: Carvedilol 25 mg BID.
-ACEI/ARB/ANRi: On hold due to renal function.
-MRA: On hold due to renal function.
-SGLT2i: On hold due to renal function.
-Amyloid workup/nuclear scan as outpatient
-Echo report reviewed. Mean gradient of the aortic valve was 13 mmHg. Moderate MR. IVC is dilated and does not collapse.
#CAD
-Stable.
-S/P DK crush PCI of Wright 1, 1, 1 80% LAD and 99% ostial D2 lesion due to plaque shift ([employer]tronic [place] 2.0 x 22 DANIEL to D2, post dilated with a 2.5 NCB, 3.5 x 34 DANIEL to LAD, post dilated with 3.5 NCB throughout, 3.75 NCB in the proximal stent
margin), 03/30/2025.
-DAPT with aspirin and clopidogrel. Starting apixaban for PAF. s/p triple therapy. continue eliquis/plavix.
-High dose/potency statin.
#BHUPINDER on CKD III
-Acute on chronic. Severe.
-Creatinine 2.8. improved to 1.9 with a good diuresis
-neprhology helping to manage diuretic. High risk situation
-MRA shows accessory right renal artery 80% stenosis, normal larger right renal artery and left renal artery.
-Hold ACEI/ARB/ARNi/MRA/SGLT2i.
-AL Amyloid workup negative.
-Monitor renal function after PCI and with resumed diuresis. We may need to keep him net even if he develops JENNA.
-Consider Tc-PyP study as outpatient
#Paroxysmal atrial fibrillation
-In sinus with PACs.
-Rate control with carvedilol.
-[id number]: score at least 6 (Heart failure, HTN, age 75 or more, Diabetes Mellitus, Vascular disease).
-Oral Anticoagulation: transition to apixaban 2.5 mg BID (age, weight, renal function).
#HLD
-Chronic, stable.
-Continue ezetimibe, atorvastatin.
-Goal LDL < 55.
#Anemia
-Chronic (per report).
-Dx is likely a mix of some Fe deficiency, renal disease and anemia of chronic disease.
-B12, folate are normal. Reticulocyte count elevated (appropriate). Thiamine pending.
-Fe = 36, FeSat = 12%, ferritin = 102 (making Fe deficiency less likely), TIBC = 286.
-1 unit PRBC 03/28/2025 will functionally replace any iron deficiency.
-Would recommend keeping H/H >/= 05/29.
#Severe aortic stenosis with bicuspid morphology, S/P AVR, stable on TTE.
#LBBB
#Daily EtOH consumption in the outpatient setting.
Subjective;
he is feeling better, oxygen requirements reduced again.
DATA:
RHC, 03/25/2025:
CONCLUSION
1. Severely elevated filling pressures (PCWP = 34 mmHg at 61.7 kg).
2. 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
3. Preserved cardiac index (2.35 L/min/m� by thermodilution, 2.03 L/min/m� by Shawna).
Chest CT, 03/28/2025:
IMPRESSION:
1. Moderate bilateral pleural effusions with associated compressive atelectasis and/or pneumonia. Scattered patchy ground glass densities throughout all lobes bilaterally may reflect combination of pneumonitis/pneumonia and areas of air trapping.
2. No convincing acute process in the abdomen or pelvis, within the limitations of unenhanced technique. Urinary bladder is decompressed around a Stanton catheter and not well evaluated. Cystitis not excluded.
3. Cholelithiasis. Pericholecystic fluid is present, likely on the basis of systemic congestion. Recommend clinical correlation for signs/symptoms of acute cholecystitis.
TTE, 03/29/2025:
CONCLUSIONS
-Left ventricular ejection fraction is approximately 55-60%. Septal
hypokinesis and abnormal (paradoxical) septal motion consistent with conduction
abnormality/postoperative state.
-Mildly enlarged right ventricular size. Normal right ventricular systolic
function.
-Mild to moderate mitral regurgitation.
-Bioprosthetic aortic valve replacement with peak/mean gradients of 20/11 mmHg.
Trace aortic regurgitation.
-Mild to moderate tricuspid regurgitation. Estimated pulmonary artery pressure
of 70-75 mmHg.
-The IVC is dilated and does not collapse.
Compared to previous echo of 10/14/2024, septal hypokinesis is now noted.
Slightly progressive mitral regurgitation and tricuspid regurgitation are
noted. PASP was not previously obtained.
Cardiac Catheterization/PCI, 03/30/2025:
CONCLUSIONS:
1. Right dominant circulation with calcified, nonocclusive tapering of the distal left main coronary artery (MLA = 7.6 mm�), a 50-60% lesion in the proximal circumflex and a densely calcified, 80% lesion in the proximal/mid LAD spanning the origin
of D2 which had its own, underappreciated ostial lesion, status post successful IVUS guided intracoronary lithotripsy (Shockwave 3.5 x 12 lithotripsy balloon), leading to plaque shift and 99% stenosis of the second diagonal, status post successful
DK crush of the second diagonal ([employer] [place] 2.0 x 22 DANIEL, postdilated with a 2.5 NC balloon) and proximal/mid LAD ([employer] [place] 3.5 x 34 DANIEL, postdilated with a 3.5 NC balloon throughout and a 3.75 x 12 NC balloon in the
proximal margin) with reduction in both stenoses to 0%, maintaining and restoring DM-3 flow.
2. Severely elevated filling pressures (PCWP = 25 mmHg at 55.8 kg).
3. Severe pulmonary hypertension.
Abdominal MRA, 03/31/2025:
IMPRESSION:
2 arteries serve the right kidney. These vessels arise from the abdominal aorta 2.7 cm apart. The smaller, more inferior right renal artery has a high-grade stenosis (exceeding 80%) 3 mm distal to its origin. This stenosis extends over a length of 2
mm.
No stenosis exceeding 50% in the more dominant, superior right renal artery or within the single artery serving left kidney
Diminished perfusion to the right kidney compared to the left kidney. The right kidney is moderately atrophic.
Cholelithiasis. There is a small amount of pericholecystic fluid. This could be related to systemic venous congestion, or could be related to cholecystitis. Please correlate clinically
Moderate bilateral pleural effusions. Region of intermediate signal in the posterior right lower lobe. This is likely compressive partial atelectasis secondary to the pleural effusion
Physical Exam
Vital Signs/Labs
Vital Signs
Temp Pulse Resp BP Pulse Ox
97.5 F 86 28 124/37 96
04/08/25 15:42 04/08/25 16:53 04/08/25 12:00 04/08/25 16:53 04/08/25 14:00
04/07/25 04/08/25 04/09/25
06:59 06:59 06:59
Actual Weight 123 lb 3.814 oz 118 lb 6.212 oz
04/08/25 03:06
PT 17.8 Sec (11.4-14.6) H 03/28/25 04:47
INR 1.44 03/28/25 04:47
APTT Cancelled 03/30/25 18:15
Magnesium 2.3 mg/dl (1.6-2.3) 04/04/25 05:43
03/28/25 03/30/25
03:47 03:09
[id number] Pept [id number]
Physical Exam
Constitutional: No acute distress
Cardiovascular: Rhythm & rate is regular, Pedal edema is absent, Rhythm/rate is irregular and S1S2 is normal
Respiratory: Respiratory effort normal (easier than yesterday), Lungs clear to auscul., Wheeze Absent, Crackles Absent and Rhonchi Absent
Neuro/Psych: AO x 3
Data Reviewed
-
Date of Service: April 08, 2025
Medical Decision Making: Review of Case with other Provider (Dr Lyle and Carlos A happy to assist with discharge appt when know final plan otherwise I sign off)
--- NOTE | 2025-04-08 18:08 | PTCARENOTE ---
Patient's bedside CBS >400. Stat Glucose drawn, awaiting results. Pt did eat a few cookies that were brought in by his family and he is unsure if they were sugar-free.
[2025-04-08 18:10] LABS: Glucose 439 mg/dl (70-99)
[2025-04-08] MEDS: NOVOLOG FLEXPEN-MODERATE RESISTANCE 11 UNITS SC (18:35)
[2025-04-08] MEDS: NOVOLOG FLEXPEN 10 UNITS SC (18:36)
[2025-04-08] MEDS: LIPITOR 20 MG PO (21:19)
[2025-04-08] MEDS: LIDOCAINE 4% PATCH 1 PATCH TOPICAL (21:19)
[2025-04-08] MEDS: ZETIA 10 MG PO (21:20)
[2025-04-08] MEDS: LANTUS 0.1 UNITS SC (21:41)
[2025-04-08 21:50] LABS: Glucose - Point of Care 276 mg/dl (70-99)
[2025-04-08 23:50] LABS: Glucose - Point of Care 245 mg/dl (70-99)
[2025-04-09] VITALS (13 sets, daily range): BP systolic 94–142; BP diastolic 33–45; PULSE 73; O2SAT 100; BMI 18.8
[2025-04-09 03:39] LABS: Hematocrit 23.2 % (39.0-52.0); Hemoglobin 7.8 g/dL (13.0-18.0); Mean Corp Hgb Conc. 33.6 g/dL (33.0-37.0); Mean Corpuscular Volume 89.6 fL (80.0-94.0); Nucleated Red Blood Cells % 0 % (-); Platelet Count 237 10^3/uL (130-400); Red Cell Dist. Width 15.6 % (11.5-14.5)
[2025-04-09 04:05] LABS: ALT (SGPT) 36 U/L (0-50); AST (SGOT) 29 U/L (17-59); Albumin 3.5 g/dl (3.5-5.0); Alkaline Phosphatase 44 U/L (38-126); Blood Urea Nitrogen 108 mg/dl (9-20); Calcium 8.7 mg/dl (8.4-10.2); Carbon Dioxide 31 mmol/L (22-30); Chloride 100 mmol/L (98-107); Estimated Creatinine Clearance 24 ml/min; Glucose 184 mg/dl (70-99); Potassium 3.6 mmol/L (3.5-5.1); Sodium 138 mmol/L (135-145); Total Protein 6.7 g/dl (6.3-8.2); eGFR 37.35
[2025-04-09 04:06] LABS: Glucose - Point of Care 198 mg/dl (70-99)
--- NOTE | 2025-04-09 05:01 | PTCARENOTE ---
Pt resting well overnight. Continues on 5L MF pox 99-100%. VSS. Afebrile. SR/Afib/BBB on CM rate 70-80's. Adequate urination overnight. No complaints. No change from previous assessment. Call holley remains within reach. Will continue to monitor.
[2025-04-09 07:16] LABS: Glucose - Point of Care 145 mg/dl (70-99)
[2025-04-09] MEDS: COREG 25 MG PO ×2 (07:24→19:24)
[2025-04-09] MEDS: SENOKOT-S PO (07:24)
[2025-04-09] MEDS: ELIQUIS 2.5 MG PO ×2 (07:24→19:24)
[2025-04-09] MEDS: LASIX 80 MG IV ×2 (07:25→17:09)
[2025-04-09] MEDS: PLAVIX 75 MG PO (07:25)
[2025-04-09] MEDS: NEURONTIN 100 MG PO ×3 (07:25→22:15)
[2025-04-09] MEDS: REVATIO 20 MG PO ×3 (07:25→22:14)
[2025-04-09] MEDS: FEOSOL 325 MG PO (07:25)
[2025-04-09] MEDS: OCUVITE SOFTGEL 1 CAP PO (07:25)
[2025-04-09] MEDS: REMOVE LIDOCAINE PATCH 1 PATCH REMOVE (07:26)
[2025-04-09] MEDS: SYMBICORT 160/4.5 MCG INHALER 2 PUFF INH ×2 (07:27→20:04)
[2025-04-09] MEDS: NOVOLOG FLEXPEN 10 UNITS SC ×3 (07:36→18:06)
[2025-04-09] MEDS: NOVOLOG FLEXPEN-MODERATE RESISTANCE SC (07:36)
[2025-04-09] MEDS: VITAMIN B1 100 MG PO (08:52)
[2025-04-09] MEDS: THERAGRAN 1 TABLET PO (08:52)
[2025-04-09] MEDS: FERRLECIT 110 MG IV (08:52)
--- NOTE | 2025-04-09 09:14 | W.PN.HOSP.TC ---
Today's Communication/Plan
-
Continue diuresis
Assessment / Plan
Assessment / Plan
79-year-old male transferred from [facility] on 03/25/2025 with shortness of breath. Patient presented to [facility] on 03/19/2025 with shortness of breath and flash pulmonary edema. He was admitted to the ICU initiated on
BiPAP and Lasix. He was found to be in atrial fibrillation. Patient was diuresed. Creatinine went up. Cardiac catheterization on 03/23/2025 showed 80% obstructive calcified mid LAD lesion, severe pulmonary hypertension and wedge pressure 27.
Creatinine bart from 1.92.6. He also required a unit of blood on 9024. Despite diuresis he continued to require high flow oxygen and BiPAP. Patient was then transferred to [facility].
Echo 03/29/2025-LVSF 55 to 60%. Septal hypokinesis and paradoxical septal motion consistent with conduction abnormality/postoperative state. Bioprosthetic AVR. Pulmonary artery pressure of 70 [address] chest abdomen and pelvis 03/28/2025-moderate bilateral pleural effusions. Scattered patchy groundglass densities throughout all lobes bilaterally. No acute process in the abdomen. Cholelithiasis. Pericholecystic fluid
MRA abdomen- 2 arteries serve the right kidney. These vessels arise from the abdominal aorta 2.7 cm apart. The smaller, more inferior right renal artery has a high-grade stenosis (exceeding 80%) 3 mm distal to its origin. This stenosis extends over
a length of 2 mm. No stenosis exceeding 50% in the more dominant, superior right renal artery or within the single artery serving left kidney.Diminished perfusion to the right kidney compared to the left kidney. The right kidney is moderately
atrophic.
VQ scan 04/01/2025-multiple peripheral perfusion defects on perfusion only images overall findings in the setting of CHF however small pulmonary emboli is not excluded.
Patient pleasant awake and alert
Cardiovascular system S1-S2 appreciated
Chest mostly clear to auscultation
Abdomen soft and nontender
No pedal edema
# Acute on chronic hypoxic respiratory failure
Above secondary to acute on chronic HFpEF
He also likely has a component of pulmonary disease
On 4 L of nasal cannula oxygen as outpatient-currently on 4 L
Echo with bubble study-04/04/2025-negative for shunt
# Acute on chronic HFpEF
Was on Bumex drip on 03/31/2025, metolazone 03/30/2025.
Currently on Lasix 80 mg IV twice daily
Coreg 25 mg twice daily
JOSE F inhibitor/ARB/ARNI on hold secondary to renal dysfunction
MRA on hold secondary to renal dysfunction
SGLT2 inhibitors on hold secondary to renal dysfunction
Patient needs amyloid workup nuclear scan as outpatient
# Valvular heart disease-
Mitral regurgitation
Severe aortic stenosis with bicuspid morphology status post AVR
# Coronary artery disease
Cath at [facility] showed 80% obstructive calcified mid LAD lesion
Status post PCI of diagonal and proximal/mid LAD on 03/30/2025
Treated with aspirin, Plavix, statin and Zetia
Now aspirin discontinued patient remains on Eliquis and Plavix
# Pulmonary hypertension-started on sildenafil 20 mg 3 times daily on 03/28/2025
# Asthma versus reactive airway disease per PFTs
Started on a short course of steroids for exacerbation, completed
Elevated eosinophil count on 04/01/2025
Continue DuoNebs and budesonide
# BHUPINDER on chronic kidney disease 3
Baseline creatinine 1.9
Renal artery duplex on 03/28/2025 with 60 to 99% stenosis of the left and right renal arteries.
MRA shows renal artery stenosis to the right kidney with inferior right renal artery with high-grade stenosis exceeding 80% with the stenotic component 2 mm.
# Paroxysmal atrial fibrillation-on Coreg for rate control. Eliquis for anticoagulation
# Hyperlipidemia-continue statin and Zetia
# Chronic anemia-multifactorial secondary to some iron deficiency kidney disease.
Status post 2 unit of blood on 03/28/2025 at [facility]
Needs GI follow-up and workup as outpatient when stable
Patient started on IV iron on 04/08/2025
# Hyponatremia-likely hypervolemic. Follow-up with diuresis
# Left bundle branch block
# Hypertension-continue Coreg
Holding hydralazine, amlodipine
# Diabetes hemoglobin A1c 6.9 not reliable in the setting of anemia
Continue Lantus 10 units at bedtime insulin NovoLog AC 10 units AC
With stopping steroids hopefully sugars will not be running high
Accu-Cheks and sliding scale coverage
# Bilateral pleural effusions likely secondary to pulmonary edema
# Cholelithiasis with pericholecystic fluid without evidence of cholecystitis. Normal LFTs. No RUQ tenderness.
# Gout-Continue Allopurinol
# Daily Alcohol consumption-continue thiamine
# History of Bladder Cancer in remission
# Ex-smoker
# DVT prophylaxis-Eliquis
# Full code
Discussed with nursing
Discussed with nephrology
Part of this note was created using voice recognition system. Occasional wrong word or��sound alike� substitutions may have inadvertently occurred due to the inherent limitations of voice recognition software. If noted kindly bring it to my
attention for correction.
Anticipated Discharge: 24 - 48 hours
Subjective/Interval History
-
Date of Service: April 09, 2025
Objective Data
-
Labs:
Laboratory Results
04/09/25
03:07
WBC 8.4
Hgb 7.8 L
Hct 23.2 L
Plt Count 237
Sodium 138
Potassium 3.6
Chloride 100
Carbon Dioxide 31 H
BUN 108 H*
Creatinine 1.8 H
Glucose 184 H
Calcium 8.7
Total Bilirubin 0.7
AST 29
ALT 36
Alkaline Phosphatase 44
Vital Signs:
Vital Signs
Temp Pulse Resp BP Pulse Ox
97.9 F 75 14 132/39 100
04/09/25 07:12 04/09/25 07:30 04/09/25 07:30 04/09/25 07:25 04/09/25 07:30
I&O
04/08/25 04/09/25 04/10/25
06:59 06:59 06:59
Intake Total 1090 / 1090 780 / 780
Output Total 3525 / 3525 3050 / 3050
Balance -2435 / -2435 -2270 / -2270
--- NOTE | 2025-04-09 09:48 | W.PN.NEPH.PH ---
Today's Communication / Plan
-
diurese
Assessment/Plan
-
IMP:
Acute on chronic hypoxemic respiratory failureNorma
Acute on chronic HFrEF
Recent echocardiogram 03/20/2025 with a EF 50-55%. Moderate mitral regurgitation. Abnormal septal motion consistent with left bundle branch block.
Paroxysmal atrial fibrillation
Pneumonia
CAD s/p stent
BHUPINDER on CKD 3a
Acute on chronic anemia
T2DM
COPD-On home oxygen 4 L
Chronic alcohol use
History of aortic stenosis s/p AVR
History of gout�allopurinol
History of bladder cancer currently in remission
Remote tobacco user
Plan:
follow BMP
Maintain diuresis with 80 IV Lasix twice daily today
convert to po lasix tomorrow, 80mg daily
IV iron course
-
-
Date of Service: April 09, 2025
CC / HPI / ROS
-
Chief Complaint:
BHUPINDER, CKD
History of Present Illness:
Presents with shortness of breath transferred from [facility] continue with on high oxygen requirements with acute on chronic kidney disease improving
BHUPINDER/Cr mild improvement 1.8
BUN slightly better 108
Sodium normal
back on baseline 4L NC
Remains anemic with hemoglobin 7.8
on IV iron
Review of Systems:
Breathing improved
no fever, no cp
no n/v
Labs
-
Labs:
WBC 8.4 10^3/uL (4.8-10.8) 04/09/25 03:07
RBC 2.59 10^6/uL (4.70-6.10) L 04/09/25 03:07
Hgb 7.8 g/dL (13.0-18.0) L 04/09/25 03:07
Hct 23.2 % (39.0-52.0) L 04/09/25 03:07
Plt Count 237 10^3/uL (130-400) 04/09/25 03:07
Sodium 138 mmol/L (135-145) 04/09/25 03:07
Potassium 3.6 mmol/L (3.5-5.1) 04/09/25 03:07
Chloride 100 mmol/L (98-107) 04/09/25 03:07
Carbon Dioxide 31 mmol/L (22-30) H 04/09/25 03:07
BUN 108 mg/dl (9-20) H* 04/09/25 03:07
Creatinine 1.8 mg/dL (0.7-1.3) H 04/09/25 03:07
eGFR 37.35 04/09/25 03:07
Glucose 184 mg/dl (70-99) H 04/09/25 03:07
Calcium 8.7 mg/dl (8.4-10.2) 04/09/25 03:07
Phosphorus 3.1 mg/dl (2.5-4.5) 03/30/25 03:09
Ude-H-Iktzijlhvzk Pept 70951 pg/ml 03/30/25 03:09
Albumin 3.5 g/dl (3.5-5.0) 04/09/25 03:07
Physical Exam
-
Vital Signs:
Vital Signs
Temp Pulse Resp BP Pulse Ox
97.9 F 75 14 132/39 97
04/09/25 07:12 04/09/25 07:30 04/09/25 07:30 04/09/25 07:25 04/09/25 09:17
Cardiovascular:: Regular rate and rhythm
Respiratory:: Bilateral: Coarse
Lung Excursion:: Normal
Abdomen:: Nontender and Soft
Bowel Sounds:: Normal
Extremity Edema:: None: Bilateral:
[2025-04-09] MEDS: NOVOLOG FLEXPEN-MODERATE RESISTANCE 7 UNITS SC ×2 (11:39→18:06)
[2025-04-09 11:48] LABS: Glucose - Point of Care 326 mg/dl (70-99)
--- NOTE | 2025-04-09 16:55 | CM ---
Patient has had [facility] in the past and is accepted for them to follow at discharge. Patient also may need 10 liter concentrator and will need to clarify if patient has a portable home O2 or not with [employer]. Patient family very supportive. CM
will leave message for [employer] liaison to confirm DME at home. Liaison will review DME and call back to CM. CM will continue to follow for discharge planning needs.
Plan; [facility] with [employer]; pending confirmation of DME
[2025-04-09 17:28] LABS: Glucose - Point of Care 318 mg/dl (70-99)
[2025-04-09] MEDS: LIDOCAINE 4% PATCH 1 PATCH TOPICAL (19:25)
[2025-04-09 21:33] LABS: Glucose - Point of Care 154 mg/dl (70-99)
[2025-04-09] MEDS: LANTUS 0.1 UNITS SC (22:14)
[2025-04-09] MEDS: LIPITOR 20 MG PO (22:15)
[2025-04-09] MEDS: ZETIA 10 MG PO (22:15)
[2025-04-10] VITALS (13 sets, daily range): BP systolic 104–141; BP diastolic 31–75; BMI 19.0; BMI 19.1
[2025-04-10] MEDS: TYLENOL 650 MG PO (03:18)
[2025-04-10 03:38] LABS: Hematocrit 23.4 % (39.0-52.0); Hemoglobin 7.8 g/dL (13.0-18.0); Mean Corp Hgb Conc. 33.3 g/dL (33.0-37.0); Mean Corpuscular Volume 90.7 fL (80.0-94.0); Nucleated Red Blood Cells % 0 % (-); Platelet Count 239 10^3/uL (130-400); Red Cell Dist. Width 16.0 % (11.5-14.5)
[2025-04-10 04:04] LABS: ALT (SGPT) 32 U/L (0-50); AST (SGOT) 28 U/L (17-59); Albumin 3.4 g/dl (3.5-5.0); Alkaline Phosphatase 40 U/L (38-126); Blood Urea Nitrogen 101 mg/dl (9-20); Calcium 8.8 mg/dl (8.4-10.2); Carbon Dioxide 34 mmol/L (22-30); Chloride 101 mmol/L (98-107); Estimated Creatinine Clearance 24 ml/min; Glucose 79 mg/dl (70-99); Potassium 3.8 mmol/L (3.5-5.1); Sodium 140 mmol/L (135-145); Total Protein 6.7 g/dl (6.3-8.2); eGFR 37.35
--- NOTE | 2025-04-10 04:23 | PTCARENOTE ---
Pt resting comfortably throughout shift. This am pt c/o mid back pain that required Tylenol with good pain relief. Chronic in nature. Continues on 4L MF pox 100%. Voiding adequate amounts yellow urine. No change from previous assessment. Turns self
in bed. Call holley remains within reach. Will continue to monitor.
[2025-04-10 07:25] LABS: Glucose - Point of Care 93 mg/dl (70-99)
[2025-04-10] MEDS: NOVOLOG FLEXPEN 10 UNITS SC ×3 (07:29→17:36)
[2025-04-10] MEDS: NOVOLOG FLEXPEN-MODERATE RESISTANCE SC ×3 (07:29→17:37)
[2025-04-10] MEDS: COREG 25 MG PO ×2 (07:30→19:46)
[2025-04-10] MEDS: FERRLECIT 110 MG IV (07:30)
[2025-04-10] MEDS: REVATIO 20 MG PO ×3 (07:30→19:46)
[2025-04-10] MEDS: LASIX 80 MG PO (07:30)
[2025-04-10] MEDS: SENOKOT-S 1 TABLET PO (07:30)
[2025-04-10] MEDS: VITAMIN B1 100 MG PO (07:30)
[2025-04-10] MEDS: OCUVITE SOFTGEL 1 CAP PO (07:30)
[2025-04-10] MEDS: NEURONTIN 100 MG PO ×3 (07:30→19:44)
[2025-04-10] MEDS: THERAGRAN 1 TABLET PO (07:30)
[2025-04-10] MEDS: ELIQUIS 2.5 MG PO ×2 (07:30→19:46)
[2025-04-10] MEDS: PLAVIX 75 MG PO (07:30)
[2025-04-10] MEDS: REMOVE LIDOCAINE PATCH 1 PATCH REMOVE (07:31)
[2025-04-10] MEDS: SYMBICORT 160/4.5 MCG INHALER 2 PUFF INH ×2 (07:46→19:27)
--- NOTE | 2025-04-10 10:41 | W.PN.NEPH.PH ---
Today's Communication / Plan
-
po lasix
Assessment/Plan
-
IMP:
Acute on chronic hypoxemic respiratory failureNorma
Acute on chronic HFrEF
Recent echocardiogram 03/20/2025 with a EF 50-55%. Moderate mitral regurgitation. Abnormal septal motion consistent with left bundle branch block.
Paroxysmal atrial fibrillation
Pneumonia
CAD s/p stent
BHUPINDER on CKD 3a
Acute on chronic anemia
T2DM
COPD-On home oxygen 4 L
Chronic alcohol use
History of aortic stenosis s/p AVR
History of gout�allopurinol
History of bladder cancer currently in remission
Remote tobacco user
Plan:
follow BMP
convert to po lasix, 80mg daily
IV iron course
goal weight 52-53kg
-
-
Date of Service: April 10, 2025
CC / HPI / ROS
-
Chief Complaint:
BHUPINDER, CKD
History of Present Illness:
Presents with shortness of breath transferred from [facility] continue with on high oxygen requirements with acute on chronic kidney disease improving
BHUPINDER/Cr stable 1.8
BUN slightly better 101
Sodium normal
on 3L NC (lower than OP)
Remains anemic with hemoglobin 7.8
on IV iron
Review of Systems:
Breathing improved
no fever, no cp
no n/v
Labs
-
Labs:
WBC 9.7 10^3/uL (4.8-10.8) 04/10/25 03:12
RBC 2.58 10^6/uL (4.70-6.10) L 04/10/25 03:12
Hgb 7.8 g/dL (13.0-18.0) L 04/10/25 03:12
Hct 23.4 % (39.0-52.0) L 04/10/25 03:12
Plt Count 239 10^3/uL (130-400) 04/10/25 03:12
Sodium 140 mmol/L (135-145) 04/10/25 03:12
Potassium 3.8 mmol/L (3.5-5.1) 04/10/25 03:12
Chloride 101 mmol/L (98-107) 04/10/25 03:12
Carbon Dioxide 34 mmol/L (22-30) H 04/10/25 03:12
BUN 101 mg/dl (9-20) H* 04/10/25 03:12
Creatinine 1.8 mg/dL (0.7-1.3) H 04/10/25 03:12
eGFR 37.35 04/10/25 03:12
Glucose 79 mg/dl (70-99) 04/10/25 03:12
Calcium 8.8 mg/dl (8.4-10.2) 04/10/25 03:12
Phosphorus 3.1 mg/dl (2.5-4.5) 03/30/25 03:09
Sdg-U-Cgjxbetcrue Pept 05650 pg/ml 03/30/25 03:09
Albumin 3.4 g/dl (3.5-5.0) L 04/10/25 03:12
Physical Exam
-
Vital Signs:
Vital Signs
Temp Pulse Resp BP Pulse Ox
98.0 F 72 14 107/38 98
04/10/25 07:52 04/10/25 07:48 04/10/25 07:48 04/10/25 07:30 04/10/25 08:58
Cardiovascular:: Regular rate and rhythm
Respiratory:: Bilateral: Coarse
Lung Excursion:: Normal
Abdomen:: Nontender and Soft
Bowel Sounds:: Normal
Extremity Edema:: None: Bilateral:
[2025-04-10 11:43] LABS: Glucose - Point of Care 90 mg/dl (70-99)
--- NOTE | 2025-04-10 13:56 | W.PN.HOSP.TC ---
Today's Communication/Plan
-
Per discussion with nephrology watch the patient another day on p.o. Lasix to see how his weight is doing
Assessment / Plan
Assessment / Plan
79-year-old male transferred from [facility] on 03/25/2025 with shortness of breath. Patient presented to [facility] on 03/19/2025 with shortness of breath and flash pulmonary edema. He was admitted to the ICU initiated on
BiPAP and Lasix. He was found to be in atrial fibrillation. Patient was diuresed. Creatinine went up. Cardiac catheterization on 03/23/2025 showed 80% obstructive calcified mid LAD lesion, severe pulmonary hypertension and wedge pressure 27.
Creatinine bart from 1.92.6. He also required a unit of blood on 9024. Despite diuresis he continued to require high flow oxygen and BiPAP. Patient was then transferred to [facility].
Echo 03/29/2025-LVSF 55 to 60%. Septal hypokinesis and paradoxical septal motion consistent with conduction abnormality/postoperative state. Bioprosthetic AVR. Pulmonary artery pressure of 70 [address] chest abdomen and pelvis 03/28/2025-moderate bilateral pleural effusions. Scattered patchy groundglass densities throughout all lobes bilaterally. No acute process in the abdomen. Cholelithiasis. Pericholecystic fluid
MRA abdomen- 2 arteries serve the right kidney. These vessels arise from the abdominal aorta 2.7 cm apart. The smaller, more inferior right renal artery has a high-grade stenosis (exceeding 80%) 3 mm distal to its origin. This stenosis extends over
a length of 2 mm. No stenosis exceeding 50% in the more dominant, superior right renal artery or within the single artery serving left kidney.Diminished perfusion to the right kidney compared to the left kidney. The right kidney is moderately
atrophic.
VQ scan 04/01/2025-multiple peripheral perfusion defects on perfusion only images overall findings in the setting of CHF however small pulmonary emboli is not excluded.
Patient pleasant awake and alert
Cardiovascular system S1-S2 appreciated, systolic murmur at apex
Chest mostly clear to auscultation, diminished
Abdomen soft and nontender
No pedal edema
# Acute on chronic hypoxic respiratory failure
Above secondary to acute on chronic HFpEF
He also likely has a component of pulmonary disease
On 4 L of nasal cannula oxygen as outpatient-currently on 2 L
Echo with bubble study-04/04/2025-negative for shunt
# Acute on chronic HFpEF
Was on Bumex drip on 03/31/2025, metolazone 03/30/2025.
Lasix 80 mg IV twice daily, changed to Lasix 80 mg p.o. daily
Coreg 25 mg twice daily
JOSE F inhibitor/ARB/ARNI on hold secondary to renal dysfunction
MRA on hold secondary to renal dysfunction
SGLT2 inhibitors on hold secondary to renal dysfunction
Patient needs amyloid workup nuclear scan as outpatient
# Valvular heart disease-
Mitral regurgitation
Severe aortic stenosis with bicuspid morphology status post AVR
# Coronary artery disease
Cath at [facility] showed 80% obstructive calcified mid LAD lesion
Status post PCI of diagonal and proximal/mid LAD on 03/30/2025
Treated with aspirin, Plavix, statin and Zetia
Now aspirin discontinued patient remains on Eliquis and Plavix
# Pulmonary hypertension-started on sildenafil 20 mg 3 times daily on 03/28/2025
# Asthma versus reactive airway disease per PFTs
Started on a short course of steroids for exacerbation, completed
Elevated eosinophil count on 04/01/2025
Continue DuoNebs and budesonide
# BHUPINDER on chronic kidney disease 3
Baseline creatinine 1.9
Renal artery duplex on 03/28/2025 with 60 to 99% stenosis of the left and right renal arteries.
MRA shows renal artery stenosis to the right kidney with inferior right renal artery with high-grade stenosis exceeding 80% with the stenotic component 2 mm.
# Paroxysmal atrial fibrillation-on Coreg for rate control. Eliquis for anticoagulation
# Hyperlipidemia-continue statin and Zetia
# Chronic anemia-multifactorial secondary to some iron deficiency kidney disease.
Status post 1 unit of unit of blood on 03/28/2025 at [facility]
Needs GI follow-up and workup as outpatient when stable
Patient started on IV iron on 04/08/2025
Discussed with the patient regarding one unit of blood transfusion, benefits and risks discussed. He does not seem to have a whole lot of symptoms with this anemia however it is low for somebody with cardiac history like him. Patient wants to
think about it and let us now
# Hyponatremia-likely hypervolemic. Follow-up with diuresis
# Left bundle branch block
# Hypertension-continue Coreg
Holding hydralazine, amlodipine
# Diabetes hemoglobin A1c 6.9 not reliable in the setting of anemia
Continue Lantus 9 units at bedtime insulin NovoLog AC 10 units AC
With stopping steroids hopefully sugars will not be running high
Accu-Cheks and sliding scale coverage
# Bilateral pleural effusions likely secondary to pulmonary edema
# Cholelithiasis with pericholecystic fluid without evidence of cholecystitis. Normal LFTs. No RUQ tenderness.
# Gout-Continue Allopurinol
# Daily Alcohol consumption-continue thiamine
# History of Bladder Cancer in remission
# Ex-smoker
# DVT prophylaxis-Eliquis
# Full code
Discussed with nursing
Discussed with multiple family members at bedside
Discussed with nephrology
Part of this note was created using voice recognition system. Occasional wrong word or��sound alike� substitutions may have inadvertently occurred due to the inherent limitations of voice recognition software. If noted kindly bring it to my
attention for correction.
Anticipated Discharge: Within 24 hours
Subjective/Interval History
-
Date of Service: April 10, 2025
Objective Data
-
Labs:
Laboratory Results
04/10/25
03:12
WBC 9.7
Hgb 7.8 L
Hct 23.4 L
Plt Count 239
Sodium 140
Potassium 3.8
Chloride 101
Carbon Dioxide 34 H
BUN 101 H*
Creatinine 1.8 H
Glucose 79
Calcium 8.8
Total Bilirubin 0.7
AST 28
ALT 32
Alkaline Phosphatase 40
Vital Signs:
Vital Signs
Temp Pulse Resp BP Pulse Ox
97.8 F 67 24 118/31 98
04/10/25 11:12 04/10/25 12:00 04/10/25 12:00 04/10/25 12:00 04/10/25 12:22
I&O
04/09/25 04/10/25 04/11/25
06:59 06:59 06:59
Intake Total 780 / 780 1200 / 1200
Output Total 3050 / 3050 2175 / 2175 250 / 250
Balance -2270 / -2270 -975 / -975 -250 / -250
--- NOTE | 2025-04-10 17:01 | PTCARENOTE ---
Pt switched to PO Lasix today with change from BID to QD; Continues to void small amounts frequently; Blood glucose numbers with noted improvement; Pt OOB to chair and up to bathroom, min assist. Maintained on 3L O2 via NC, SpO2 ~ 95-98%; AAO x
3; Will continue to monitor and assess.
[2025-04-10 17:23] LABS: Glucose - Point of Care 111 mg/dl (70-99)
[2025-04-10] MEDS: OCEAN, SALINE MIST 1 SPRAYS NASAL (17:36)
[2025-04-10] MEDS: LIDOCAINE 4% PATCH 1 PATCH TOPICAL (19:44)
[2025-04-10] MEDS: ZETIA 10 MG PO (19:46)
[2025-04-10] MEDS: LIPITOR 20 MG PO (19:46)
[2025-04-10 21:17] LABS: Glucose - Point of Care 127 mg/dl (70-99)
[2025-04-10] MEDS: LANTUS 0.09 UNITS SC (21:26)
--- NOTE | 2025-04-10 21:32 | PTCARENOTE ---
Patient aao x3 since start of shift, able to make needs known, denies pain. Patient assist x1 to bsc, then to bed from chair, tolerated well. Lungs diminished throughout, pox 98-99% on 3L o2 via n/c. Continues to put out small amount of urine
frequently, clear, yellow. Call holley within reach, will continue to monitor patient closely.
[2025-04-11] VITALS (11 sets, daily range): BP systolic 91–141; BP diastolic 29–43; PULSE 75; O2SAT 99; BMI 19.1
[2025-04-11 04:36] LABS: Hematocrit 22.7 % (39.0-52.0); Hemoglobin 7.5 g/dL (13.0-18.0); Mean Corp Hgb Conc. 33.0 g/dL (33.0-37.0); Mean Corpuscular Volume 90.4 fL (80.0-94.0); Nucleated Red Blood Cells % 0 % (-); Platelet Count 244 10^3/uL (130-400); Red Cell Dist. Width 16.3 % (11.5-14.5)
[2025-04-11 05:13] LABS: ALT (SGPT) 31 U/L (0-50); AST (SGOT) 31 U/L (17-59); Albumin 3.5 g/dl (3.5-5.0); Alkaline Phosphatase 41 U/L (38-126); Blood Urea Nitrogen 100 mg/dl (9-20); Calcium 8.5 mg/dl (8.4-10.2); Carbon Dioxide 29 mmol/L (22-30); Chloride 101 mmol/L (98-107); Estimated Creatinine Clearance 26 ml/min; Glucose 49 mg/dl (70-99); Potassium 3.9 mmol/L (3.5-5.1); Sodium 139 mmol/L (135-145); Total Protein 6.6 g/dl (6.3-8.2); eGFR 40.00
--- NOTE | 2025-04-11 05:19 | PTCARENOTE ---
Received call from lab, patients blood glucose is 49. Patient asymptomatic at this time. Protocol followed, will continue to monitor pt closely.
[2025-04-11 05:42] LABS: Glucose - Point of Care 75 mg/dl (70-99)
[2025-04-11 06:51] LABS: Glucose - Point of Care 130 mg/dl (70-99)
[2025-04-11] MEDS: NOVOLOG FLEXPEN-MODERATE RESISTANCE SC (07:19)
--- NOTE | 2025-04-11 07:47 | PN.DE.MGMTRT ---
Insulin Management
- -
04/11/2025: Diabetes management Follow up
Patient was transferred to [facility] from [facility] 03/25 for increased shortness of breath due to acute exacerbation of chronic heart failure with preserved EF in the setting of Acute on chronic hypoxemic respiratory failure.
PMH: HFpEF, CKD Stage 3a, Bladder carcinoma, T2DM, HLD, severe aortic stenosis s/p valve replacement in 2008, COPD on 2L home oxygen, BPH. A1C 6.9%, Cr 2.0, eGFR 32.91
Pt states he was taking Jardiance 10mg daily at home, has a monitor and has been testing his blood sugars daily in the morning. His chart indicates he was taking Lantus 7 units [employer] but pt denies ever taking insulin. States he was taking Glipizide at
one point but that was discontinued by his PCP due to recurrent hypoglycemia.
Pt awake, alert, oriented, sitting up in bed, pleasant, offers no complaints, able to discuss diabetes care. He is eager to go home today.
04/10, premeal range 90 to 111, HS glucose 127, pt received Lantus 9 unit, Glucose fasting 49V @ 04:25, improved after treatment.
Will reduce HS Lantus dose from 9 units to 7 units and NovoLog AC dose from 10 units to 8 units AC. Cont moderate corrective.
Will continue to hold Jardiance and metformin given BHUPINDER on CKD. Cr improving, 2.1-->1.4, eGFR 40.00 today.
Pt states he has a working glucose monitor and enough supplies at home. Diabetes nurse has instructed on insulin administration.
Discussed with nurse. Will cont to follow.
Diabetes History
- -
Type of Diabetes: 2 requiring insulin
Pre-Admission Diabetes Regimen
04/11/25
04:25
Creatinine 1.7 H
Lab Results
Hemoglobin A1c 6.9 % (4.0-5.6) H 03/26/25 04:34
Insulin Pump Settings
IP Diabetes Regimen
04/10/25 04/10/25 04/10/25
11:31 17:07 21:05
Glucose
POC Glucose 90 111 H 127 H
04/11/25 04/11/25 04/11/25
04:25 05:30 06:37
Glucose 49 L*
POC Glucose 75 130 H
Meal type: Dinner
Meal type: Dinner
Meal type: Lunch
Meal type: Breakfast
Amount consumed: 100%
Amount consumed: 100%
Amount consumed: 100%
Amount consumed: 100%
Patient Education
[2025-04-11] MEDS: SYMBICORT 160/4.5 MCG INHALER 2 PUFF INH (07:52)
[2025-04-11 08:06] LABS: Glucose - Point of Care 180 mg/dl (70-99)
[2025-04-11] MEDS: NEURONTIN 100 MG PO ×2 (08:10→16:02)
[2025-04-11] MEDS: SENOKOT-S 1 TABLET PO (08:10)
[2025-04-11] MEDS: ELIQUIS 2.5 MG PO (08:10)
[2025-04-11] MEDS: VITAMIN B1 100 MG PO (08:10)
[2025-04-11] MEDS: OCUVITE SOFTGEL 1 CAP PO (08:10)
[2025-04-11] MEDS: THERAGRAN 1 TABLET PO (08:10)
[2025-04-11] MEDS: PLAVIX 75 MG PO (08:10)
[2025-04-11] MEDS: LASIX 80 MG PO (08:10)
[2025-04-11] MEDS: REVATIO 20 MG PO ×2 (08:10→16:02)
[2025-04-11] MEDS: COREG 25 MG PO (08:11)
[2025-04-11] MEDS: REMOVE LIDOCAINE PATCH 1 PATCH REMOVE (08:11)
[2025-04-11] MEDS: FERRLECIT 110 MG IV (08:13)
[2025-04-11] MEDS: NOVOLOG FLEXPEN SC (08:15)
[2025-04-11 08:43] LABS: Glucose - Point of Care 61 mg/dl (70-99)
[2025-04-11 08:43] LABS: Glucose - Point of Care 47 mg/dl (70-99)
[2025-04-11 10:47] LABS: Glucose - Point of Care 338 mg/dl (70-99)
[2025-04-11 11:53] LABS: Glucose - Point of Care 271 mg/dl (70-99)
[2025-04-11] MEDS: NOVOLOG FLEXPEN-MODERATE RESISTANCE 5 UNITS SC (12:03)
[2025-04-11] MEDS: NOVOLOG FLEXPEN 8 UNITS SC ×2 (12:03→18:09)
--- NOTE | 2025-04-11 12:23 | PTCARENOTE ---
Assumed care of patient this morning. He is aaox3, pleasant. He has no complaints. Back pain is more than tolerable. He is on 2L NC and states breathing is comfortable, SPO2 100%. Lungs are diminished. Pt walked with PT in hallway and since has been
sitting in the chair. Pt reports wanting to go home, discharge pending. Assessment, care and VS as charted.
--- NOTE | 2025-04-11 13:02 | W.PN.NEPH.PH ---
Today's Communication / Plan
-
ok for d/c
Assessment/Plan
-
IMP:
Acute on chronic hypoxemic respiratory failure
Acute on chronic HFrEF
Recent echocardiogram 03/20/2025 with a EF 50-55%. Moderate mitral regurgitation. Abnormal septal motion consistent with left bundle branch block.
Paroxysmal atrial fibrillation
Pneumonia
CAD s/p stent
BHUPINDER on CKD 3a
Acute on chronic anemia
T2DM
COPD-On home oxygen 4 L
Chronic alcohol use
History of aortic stenosis s/p AVR
History of gout�allopurinol
History of bladder cancer currently in remission
Remote tobacco user
Plan:
stable renal function cr 1.7,azotemia stable BUN at 100
monitor wts closely with goal wt 52-53kg
strict FR 40 ounces/day
lasix 80mg daily and extra dose if needed
monitor hb at 7.5
need labs-BMP, cbc in 3days
f/u Dr Pack
d/w pt
-
-
Date of Service: April 11, 2025
CC / HPI / ROS
-
Chief Complaint:
BHUPINDER, CKD
History of Present Illness:
Presents with shortness of breath transferred from [facility] with on high oxygen requirements with acute on chronic kidney disease improving
BHUPINDER/Cr stable 1.7
BUN slightly better 100
Sodium normal
on 2L NC (lower than OP)
Remains anemic with hemoglobin 7.5
on IV iron
Review of Systems:
Breathing improved
no fever, no cp
no n/v
Labs
-
Labs:
WBC 10.5 10^3/uL (4.8-10.8) 04/11/25 04:25
RBC 2.51 10^6/uL (4.70-6.10) L 04/11/25 04:25
Hgb 7.5 g/dL (13.0-18.0) L 04/11/25 04:25
Hct 22.7 % (39.0-52.0) L 04/11/25 04:25
Plt Count 244 10^3/uL (130-400) 04/11/25 04:25
Sodium 139 mmol/L (135-145) 04/11/25 04:25
Potassium 3.9 mmol/L (3.5-5.1) 04/11/25 04:25
Chloride 101 mmol/L (98-107) 04/11/25 04:25
Carbon Dioxide 29 mmol/L (22-30) 04/11/25 04:25
BUN 100 mg/dl (9-20) H 04/11/25 04:25
Creatinine 1.7 mg/dL (0.7-1.3) H 04/11/25 04:25
eGFR 40.00 04/11/25 04:25
Glucose 49 mg/dl (70-99) L* 04/11/25 04:25
Calcium 8.5 mg/dl (8.4-10.2) 04/11/25 04:25
Phosphorus 3.1 mg/dl (2.5-4.5) 03/30/25 03:09
Bng-H-Ljxfnydvzwa Pept 64481 pg/ml 03/30/25 03:09
Albumin 3.5 g/dl (3.5-5.0) 04/11/25 04:25
Physical Exam
-
Vital Signs:
Vital Signs
Temp Pulse Resp BP Pulse Ox
98.2 F 73 14 132/31 99
04/11/25 11:10 04/11/25 12:00 04/11/25 12:00 04/11/25 12:00 04/11/25 12:00
Cardiovascular:: Regular rate and rhythm
Respiratory:: Bilateral: Coarse
Lung Excursion:: Normal
Abdomen:: Nontender and Soft
Bowel Sounds:: Normal
Extremity Edema:: None: Bilateral:
Stanton Catheter: No
--- NOTE | 2025-04-11 13:43 | W.PN.HOSP.TC ---
Addendum entered and electronically signed by Trell Strauss MD 04/11/25 19:35:
Attending Addendum-
I saw and evaluated the patient. I reviewed the resident�s note and agree with findings and plan as documented in the resident�s note. Sub: Patient feels great and ready to go home. No significant events over the weekend. Was hypoglycemic but
assymptomatic overnight. O2 sats have improved to below baseline. Denies SOB weakness CP palps. Full 10 point ROS reviewed and negative except as documented Exam: Vitals reviewed in chart GEN-NAD heart RRR, 12/09 SM @ apex, lungs fine crackles at
bases B/L, abd soft ND ND LE no edema b/l Neuro AAO x 3
Plan:
#Acute on chronic hypoxemic respiratory failure
#Acute on chronic HFpEF
-resolved
-o2 requirements back to baseline
-echocardiogram 03/29- -Left ventricular ejection fraction is approximately 55-60%. Septal hypokinesis and abnormal (paradoxical) septal motion consistent with conduction abnormality/postoperative state. Bioprosthetic aortic valve replacement with
peak/mean gradients of 20/11 mmHg. Estimated pulmonary artery pressure of 70-75 mmHg.
-LHC/RHC 03/30 demonstrating severely elevated pulmonary pressures
-Lasix transitioned to 80 PO over weekend- tolerating well
-continue Carvedilol
-Echo with Bubble study 04/04- Left ventricular ejection fraction 55-60%. negative bubble study
-appreciate cards and nephro input
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
-Amyloid workup. SPEP negative for spike protein. Free kappa + free lambda light chains elevated
-nuc technetium pyrophosphate scan as OP
#Severe Pulmonary Hypertension
-03/29-sildenafil added- cont
-LHC/RHC 03/30 demonstrating Severely elevated filling pressures PCWP = 25 mmHg
-Pulm following
#BHUPINDER on CKD 3a
-resolved
-Cr greatly improved back to below baseline (1.9)
-Holding Jardiance
-MRA of renal arteries- No stenosis exceeding 50% in the more dominant, superior right renal artery or within the single artery serving left kidney. Diminished perfusion to the right kidney compared to the left kidney. The right kidney is
moderately atrophic
-Monitor BMP daily
-patient amenable to HD if needed but no acute need
-appreciate nephro input
#CAD s/p stent
-03/30- PCI diagonal and proximal/mid LAD
-Aspirin/Plavix for x 1 week, DC Aspirin 04/06. continue plavix
-cont atorvastatin and ezetimibe.
#Asthma with chronic hypoxemic resp failure
-On home oxygen @ 2-4 L
-Continue on DuoNeb. Budesonide added to regimen
-completed steroid burst- 04/08
#Acute on chronic anemia SAMAN
-s/p 1 unit pRBC 03/28
-Monitor H&H
-cont IV Iron per nephro
-cont Oral Iron supplementation
-tx for HB < 7
#Paroxysmal atrial fibrillation - NEW
-Currently in NSR
-Continue Coreg and Eliquis
# Hyponatremia
- resolved
- continue aggressive diuresis
- cont to trend BMP
#T2DM
-episodes of hypoglycemia
-Hold repaglinide/Jardiance
-A1C 6.9
-Insulin regimen adjusted-> decreased Lantus->7u HS and NovoLog->8u AC
-DM Nurse practitioner on board- appreciate input
#Chronic alcohol use
-no signs of w/d
-counselled re cessation
#History of aortic stenosis s/p biop AVR
#History of gout� cont allopurinol
#Peripheral Neuropathy- cont gabapentin
#History of bladder cancer currently in remission
#Remote tobacco user
CODE STATUS full code
GI Prophylaxis Pantoprazole
DVT prophylax Eliquis
Dispo- would benefit from SNF on DC but patient wishes to go home- DC home with home care today
Time spent coordinating care, DC planning, review of DC plan of care with resident, transition of care, review of records, med rec/scripts sent electronically, consults, notes, d/w consultants, nursing, family, and CM� 35 mins >50% of this time was
devoted to counseling and coordination of care
Original Note:
Today's Communication/Plan
-
Patient transitioned to prior home dose of PO diuretics in setting of improving oxygen requirement.
Patient is now saturating 100% O2 on 2L NC, which is below home O2 of 4-6L.
Plan for discharge to home with visiting nurse ([facility]) later today.
Assessment / Plan
Assessment / Plan
#Acute on chronic hypoxemic respiratory failure secondary to below
#Acute on chronic HFpEF
-Patient presented as a transfer from [facility] with HFpEF exacerbation
-Furosemide 80mg PO BID, which is patient's home regimen
-Carvedilol 25 mg PO BID
-Echo w/ bubble study 04/04 - negative
-CXR 04/06: Bilateral parenchymal opacity with small bilateral pleural effusions. Fairly stable appearance compared to 04/04 CXR.
-Patient now on 2L NC, which is below his baseline requirement of 4L at home
-Cardiology following
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
-Amyloid workup. SPEP negative for spike protein. Free kappa + free lambda light chains elevated
-Technetium pyrophosphate scan for further evaluation as an outpatient
#Severe Pulmonary Hypertension
-s/p RHC 03/25 with severely elevated filling pressures with Pulmonary HTN
-LHC/RHC 03/30 demonstrating Severely elevated filling pressures PCWP = 25 mmHg
-Echo w/ bubble study 04/04 - negative
-Continue sildenafil, per cardiology
-Pulmonary and cardiology following
#BHUPINDER on CKD 3a
-Cr 1.7 today (Baseline 1.9, 1.8 yesterday) - resolved
-Suspect cardiorenal syndrome etiology
-Holding Jardiance
-Monitor BMP
-Patient transitioned to furosemide 80mg PO qd
-Nephrology following
#CAD s/p stent
-Cardiac catheterization at [facility] showed proximal/mid LAD lesion.
-Repeat Revascularization 03/31- showing 50-60% lesion in the proximal circumflex and a densely calcified, 80% lesion in the proximal/mid LAD. Severely elevated filling pressures (PCWP = 25 mmHg at 55.8 kg). Severe pulmonary hypertension.
-Underwent bifurcation PCI with DANIEL placement to the diagonal as well as the proximal/mid LAD
-Continue clopidogrel, apixaban - aspirin discontinued 04/06.
-Secondary prevention with statin and ezetimibe.
#Asthma vs reactive airway disease
-Home oxygen requirement: 4L
-No exacerbation this admission
-Continue Budesonide/Formoterol
-Given elevated eosinophil count, short course of steroid was also added to regimen.
-Bedside Spirometry 03/31 suggestive of reactive airway disease vs Asthma
-Patient weaned off HFNC, now on 2L NC
#Acute on chronic anemia
-During his hospitalization at [facility], he received 1 unit of PRBC
-s/p 1 unit pRBC 03/28 this admission
-Iron Labs indicative of Iron Deficiency Anemia.
-Initially Started on IV Iron but was discontinued due to Pruritic rash
-Hgb 7.5, patient restarted on IV Fe
-Monitor H&H
#Pruritic Rash
-New for patient this admission
-Etiology likely Medication Reaction vs Contact Dermatitis
-The only medications he was Recently started on were IV Iron, Eliquis.
-No major reaction after administration of Eliquis
-Restarted IV Fe, monitor clinical status
-PRN Benadryl.
#Paroxysmal atrial fibrillation
-During his hospitalization at [facility], he went into A-fib(New for patient)
-Continue PO Carvedilol
-Anticoagulation with apixaban
#Low Grade fever
-was treated for Community acquired pneumonia at [facility]--received 6/6 days of zosyn-
-Reported fevers this admission
-Monitor off abx for now
-CT chest 03/28: Moderate bilateral pleural effusions with associated compressive atelectasis and/or pneumonia. Scattered patchy ground glass densities throughout all lobes bilaterally may reflect combination of pneumonitis/pneumonia and areas of air
trapping.
-Ultrasound abdomen 03/30- Cholelithiasis. There is a 1.4 cm gallstone. There is a 5 mm echogenic focus along the gallbladder wall without shadowing. Negative sonographic Amaya's sign. Pericholecystic fluid seen. There is no evidence of biliary
ductal dilation. The common bile duct measures 5 mm.
-Speech therapy evaluation indicates no overt aspiration, no difficulty with PO intake
-If fevers recur, consider restarting Abx.
#T2DM
-Likely with Neuropathy as patient takes gabapentin
-Hold repaglinide/Jardiance
-Coverage with SSI
-A1C 6.9 03/26
-Insulin regimen adjusted given fasting glucose of 49 overnight (7/7 AM)
-DM Nurse practitioner on board
#Hypokalemia
-Repleted
#Hyponatremia
Na 139, stable
#Chronic alcohol use
-outside of window for withdrawal symptoms
-States his last drink was 4 weeks ago
#History of aortic stenosis s/p AVR
#History of gout� Hold allopurinol. Consider renal dosage given eGFR
#History of bladder cancer currently in remission
#Remote tobacco user
Disposition: Per CM, [facility]
CODE STATUS full code
GI Prophylaxis Pantoprazole
DVT prophylax Eliquis
Anticipated Discharge: Today
Subjective/Interval History
-
Date of Service: April 11, 2025
Patient seen at bedside on hospital day #18. Patient reports that he improved over the weekend and that he is feeling stronger. He wants to go home. Urinating well. No current complaints.
Objective Data
-
Labs:
Laboratory Results
04/11/25
04:25
WBC 10.5
Hgb 7.5 L
Hct 22.7 L
Plt Count 244
Sodium 139
Potassium 3.9
Chloride 101
Carbon Dioxide 29
BUN 100 H
Creatinine 1.7 H
Glucose 49 L*
Calcium 8.5
Total Bilirubin 0.7
AST 31
ALT 31
Alkaline Phosphatase 41
Vital Signs:
Vital Signs
Temp Pulse Resp BP Pulse Ox
98.2 F 73 14 132/31 99
04/11/25 11:10 04/11/25 12:00 04/11/25 12:00 04/11/25 12:00 04/11/25 12:00
I&O
04/10/25 04/11/25 04/12/25
06:59 06:59 06:59
Intake Total 1200 / 1200 420 / 420 590 / 590
Output Total 2175 / 2175 950 / 950 200 / 200
Balance -975 / -975 -530 / -530 390 / 390
Review of Systems
-
History Source: Patient
Constitutional: Denies Fever, Fatigue or Chills
EENT: Reports No Symptoms Reported
Respiratory: Denies Cough, Trouble Breathing or Wheezing
Cardiac: Denies Chest Pain, Palpitations or Syncope
Abdomen/GI: Denies Abdominal Pain, Nausea, Vomiting or Diarrhea
Genitourinary: Denies Dysuria or Difficulty Voiding
Musculoskeletal: Reports No Symptoms
Skin: Reports No Symptoms
Neuro: Reports No Symptoms
Endocrine: Reports No Symptoms
Hematologic / Lymphatic: Reports No Symptoms
Allergy / Immunology: Reports No Symptoms
Physical Exam
-
General: No Apparent Distress
HEENT: Normocephalic and Atraumatic
Respiratory: Non Labored Respirations; Negative Wheezes, Crackles or Decreased Breath Sounds
Cardiac: Regular Rhythm and S1/S2; Negative Murmur, Rub, JVD or Gallop
GI: Soft, Nontender, Nondistended and Normal Bowel Sounds
Genito-urinary: Clear Urine
Musculoskeletal: No Edema
Skin: Warm and Dry
Neuro: AO x 3
Psych: Calm
[2025-04-11 17:34] LABS: Glucose - Point of Care 153 mg/dl (70-99)
[2025-04-11] MEDS: NOVOLOG FLEXPEN-MODERATE RESISTANCE 1 UNITS SC (18:08)
--- NOTE | 2025-04-11 19:42 | W.DCSUMMARY ---
Discharge Summary
Discharge Data
Date of Admission: 03/25/25
Date of Discharge: 04/11/25
-
Pending Results: No
Hospital Course
Discharging Physician : James Lyle MD; Trell Strauss MD
Disposition : Home with home care
Primary care physician : � � �Unknown
Principal Discharge diagnosis : Acute on chronic hypoxemic respiratory failure; acute on chronic heart failure with preserved ejection fraction; cardiomyopathy; severe pulmonary hypertension; acute kidney injury on chronic kidney disease stage IIIa;
coronary artery disease status post PCI; asthma with chronic hypoxemic respiratory failure; acute on chronic iron deficiency anemia; paroxysmal atrial fibrillation; hyponatremia;
Chronic Discharge diagnosis : Type 2 diabetes; chronic alcohol use; gout; peripheral neuropathy
Hospital Course : Patient was transferred from [facility] to [facility] on 03/25/2025. The hospital course at [facility] included ICU admission related to flash pulmonary edema, necessitating diuretics. The patient
also experienced BHUPINDER, new onset atrial fibrillation, cardiac catheterization showing an 80% obstructive mid LAD lesion and severe pulmonary hypertension, and anemia necessitating blood transfusion during his hospital course at [facility].
The patient's hospital course at [facility] included extensive management of the following medical conditions, with additional details of the course of each included below:
# Acute on chronic hypoxemic respiratory failure &
# Cardiomyopathy &
# Acute on chronic heart failure with preserved ejection fraction:
Patient was found to have hypoxemic respiratory failure secondary to an acute exacerbation of chronic heart failure with preserved ejection fraction, pulmonary hypertension, and asthma. The patient underwent a cardiac catheterization, which
revealed severely elevated pulmonary pressures. The patient required varying levels of supplemental oxygen during his hospital course. The patient was administered carvedilol 25 mg p.o. twice daily for heart failure, while his other GDMT were held
during the hospital course due to decreased renal function. The patient also required aggressive diuresis with various diuretics, including metolazone, bumetanide, and furosemide. Patient was ultimately weaned to (and even below) his own home
oxygen requirement of 4 to 6 L, with the patient requiring 2 L of oxygen on the day of discharge. Additionally patient underwent amyloid workup during his hospital stay, which was negative for AL amyloid. Patient encouraged to complete follow-up
technetium pyrophosphate scan to further elucidate potential amyloid pathology in the outpatient setting.
# Severe pulmonary hypertension:
Patient underwent cardiac catheterization during his hospital stay, which showed elevated pulmonary pressures suggestive of pulmonary hypertension. Specifically, a pulmonary capillary wedge pressure of 34 suggests group 2 pulmonary hypertension.
As a result of these increased pulmonary pressures, the patient was started on sildenafil 20 mg 3 times daily. Patient also underwent an echocardiogram with bubble study, which was negative for shunting.
# Acute kidney injury on CKD stage IIIa:
Patient was transferred to [facility] from [facility] with a creatinine of 2.4. His creatinine returned to baseline of 1.9. Patient was then started on a diuresis for HFpEF and acute on chronic hypoxemic respiratory failure. Patient's
creatinine incrementally bart from 1.9-3.2 in the setting of this diuresis. The diuresis was briefly stopped due to this worsening of kidney function. Once kidney function improved, the diuresis was continued due to worsening oxygen requirements.
Despite the continuation of the diuresis, the patient continued to experience improving kidney function to below his baseline of 1.9. The patient was discharged with a creatinine of 1.7.
# CAD s/p PCI:
Patient underwent cardiac catheterization at [facility], which revealed mid LAD lesion. Once the patient was stabilized at [facility], patient underwent a successful PCI with placement of drug-eluting stents in the proximal/mid
LAD and second diagonal branch of the LAD. Patient was treated with dual antiplatelet therapy (DAPT) with aspirin and clopidogrel for 1 week following the PCI. After 1 week, aspirin was discontinued and the patient was continued on clopidogrel.
Patient was also treated with atorvastatin during the hospital course. He will continue his home medications of ezetimibe and simvastatin upon discharge.
# Asthma with chronic hypoxemic respiratory failure:
Patient underwent spirometry during his hospital stay, which suggested asthma, rather than COPD. Patient also had markedly elevated eosinophils, further suggesting asthma. Patient was treated with DuoNebs, Symbicort, and steroids over the course
of his stay.
# Acute on chronic iron deficiency anemia:
Patient experienced anemia with hemoglobin levels ranging between 7.4 and 8.6 during his hospital course. The patient required 1 unit of packed red blood cells, as well as oral and IV iron supplementation during his hospital stay. With treatment
the patient remained clinically stable and was discharged home on oral iron supplements.
# Paroxysmal atrial fibrillation:
Patient was found to have new onset atrial fibrillation during his hospital stay. It was determined to be nonvalvular with a [id number] of 6, necessitating chronic anticoagulation. The patient was initially anticoagulated with heparin, but he
was transitioned to apixaban 2.5 mg p.o. twice daily. Additionally patient was administered rate control therapy with carvedilol 25 mg p.o. twice daily. Patient was discharged home on both apixaban and carvedilol.
# Hyponatremia:
Patient developed a hyponatremia with a minimum sodium level of 129 in the setting of the patient being hypertonic and hypervolemic. Hyponatremia resolved and stabilized in the days leading up to discharge.
The patient's hospital stay at [facility] also included management of the following chronic conditions:
# Type 2 diabetes:
Patient was found to have an A1c of 6.9 during his hospital stay. Patient was maintained on Lantus and NovoLog regimens of varying quantities. Patient did have hypoglycemic episodes into the 40s. Diabetes management was complicated in this
patient due to administration of steroids for other conditions concurrently. The patient was ultimately discharged home on Lantus 7 units SC at bedtime and aspart 8 units SC with meals.
# Chronic alcohol use:
No signs of withdrawal. Counseled regarding alcohol cessation.
# Gout:
No acute flare. Maintained on home dose of allopurinol.
# Peripheral neuropathy:
Maintained on home dose of gabapentin.
Important imaging findings : �
Renal Artery Duplex - 03/28/25 - IMPRESSION:
1. Elevated velocity at the origin of the right renal artery measures 250 cm/s, and the right renal to aortic ratio measures 4.0. Findings are suggestive of 60-99% stenosis of the right renal artery.
2. Left renal artery peak systolic velocity 225 cm/s, renal to aortic ratio 3.8. Findings are suggestive of 60-99% stenosis of the left renal artery.
MRA Abdomen - 03/31/25 - IMPRESSION:
1. 2 arteries serve the right kidney. These vessels arise from the abdominal aorta 2.7 cm apart. The smaller, more inferior right renal artery has a high-grade stenosis (exceeding 80%) 3 mm distal to its origin. This stenosis extends over a length
of 2 mm.
2. No stenosis exceeding 50% in the more dominant, superior right renal artery or within the single artery serving left kidney
3. Diminished perfusion to the right kidney compared to the left kidney. The right kidney is moderately atrophic.
4. Cholelithiasis. There is a small amount of pericholecystic fluid. This could be related to systemic venous congestion, or could be related to cholecystitis. Please correlate clinically
5. Moderate bilateral pleural effusions. Region of intermediate signal in the posterior right lower lobe. This is likely compressive partial atelectasis secondary to the pleural effusion
Lung Scan Nuclear Medicine - 04/01/25 - IMPRESSION:
1. Multiple peripheral perfusion defects on perfusion only images. Abnormal concrement chest x-ray suggestive of pulmonary edema.
2. Overall, findings may be seen in the setting of CHF, however small bilateral pulmonary emboli/CTEPH is not excluded.
Echocardiogram w/ Bubble Study - 04/04/25 - CONCLUSIONS:
1. Left ventricular ejection fraction is 55-60%.
2. Interatrial septum is intact with no evidence of shunting by agitated saline contrast (negative bubble study).
Procedure findings : �
Cardiac Catheterization - 03/25/25 - Conclusions:
1. Severely elevated filling pressures (PCWP = 34 mmHg at 61.7 kg).
2. 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
3. Preserved cardiac index (2.35 L/min/m� by thermodilution, 2.03 L/min/m� by Shawna).
Cardiac Catheterization - 03/30/25 - Interventions:
1. Successful intravascular ultrasound of the proximal mid LAD, demonstrating severe calcification and providing vessel sizing measurements.
2. Successful intracoronary lithotripsy of the proximal/mid LAD, complicated by plaque shift into the large D2, resulting in a 99% stenosis with DM I flow.
3. Successful bifurcation PCI of the Wright 1, 1, 1 80% proximal/mid LAD and 99% ostial/proximal D2 lesions using a DK crush technique ([employer] Carl frontier 2.0 x 22 DANIEL into the diagonal, postdilated with a 2.5 NC balloon; 3.5 x 34 DANIEL in the
proximal/mid LAD, postdilated with a 3.5 NC balloon, followed by simultaneous kissing balloons).
4. Successful final LAD POT with 3.75 x 12 NC balloon.
Discharge Plan
-
Patient Disposition: Home with Home Care
Discharge Diagnosis/Procedures: Lithotripsy with angioplasty and stent to Left Anterior Descending artery; acute hypoxic respiratory failure; acute kidney injury; acute exacerbation of heart failure
Condition: Good
Diet: Low Cholesterol and 2 Gram Sodium
Activity: As tolerated
Driving Restrictions: As prior to admission
Bathing Restrictions: None
Blood Work: CBC and BMP in 3 days
Other Services: Cardiac Rehab
Specialty Instructions: Weigh Daily- Call MD for wt gain/loss 3 lbs overnight/5 lbs in 1 week
Activity Restrictions/Additional Instructions:
Please call [facility] to schedule your first visit when you are cleared medically at [phone]
Instructions: *[facility] Heart Failure Instructions
Referrals:
Scotty Weber MD [Active, Pulmonary Medicine] - in two to three weeks
Bethel Linda DO [Active, Nephrology]
Referral Note: within 1 week
Edilia Savage NP [Family Provider]
Gopi Virgen DO [Active, Cardiology]
Prescriptions:
New
carvedilol 25 mg Tablet
25 mg PO BID 90 Days Qty: 180 0RF
Eliquis 2.5 mg Tablet
2.5 mg PO BID 90 Days Qty: 180 0RF
ferrous sulfate [FeroSul] 325 mg (65 mg iron) Tablet
325 mg PO DAILY 90 Days Qty: 90 0RF
furosemide 80 mg Tablet
80 mg PO DAILY 90 Days Qty: 90 0RF
budesonide-formoterol 160-4.5 mcg/actuation HFA aerosol inhaler
2 puff inhalation R BID 90 Days Qty: 10.2 0RF
sildenafil (pulm.hypertension) 20 mg Tablet
20 mg PO TID 90 Days Qty: 270 0RF
clopidogrel 75 mg Tablet
75 mg PO DAILY 90 Days Qty: 90 0RF
insulin aspart U-100 [Novolog FlexPen U-100 Insulin] 100 unit/mL (3 mL) insulin pen
8 unit SC AC 90 Days Qty: 15 0RF
Continued
allopurinol 300 mg Tablet
300 mg PO DAILY
gabapentin 100 mg Tablet
100 mg PO TID
empagliflozin 10 mg Tablet
10 mg PO DAILY
vitamin A-vitamin C-vit E-min Tablet
1 tab PO DAILY
ezetimibe-simvastatin 10-40 mg Tablet
1 tab PO HS 90 Days Qty: 90 0RF
insulin glargine [Lantus Solostar U-100 Insulin] 100 unit/mL (3 mL) Insulin Pen
7 unit SC HS 214 Days Qty: 15 0RF
Held
sodium bicarbonate 650 mg Tablet
650 mg PO TID
Hold Instructions: Hold until outpatient follow-up with nephrology or PCP
Discontinued
carvedilol 12.5 mg Tablet
25 mg PO BID
amlodipine 5 mg Tablet
5 mg PO BID
hydralazine 50 mg Tablet
50 mg PO TID
aspirin 81 mg Tablet,Delayed Release (Dr/Ec)
81 mg PO DAILY
Discharge Orders:
Discharge Patient (As Directed); Ordered 04/11/25
Ordered By: Chema Nolan
Discharge Date and Time
Discharge Date/Time: 04/11/25 18:59
Print Language: COLOMBIAN
--- NOTE | 2025-04-12 09:34 | CM ---
LATE ENTRY FOR 04/11/25:
Patient with Dx Acute on chronic hypoxemic respiratory failure, Acute HF. O2 2L.
Met with patient and spoke with daughter Brianna by phone; both agree to discharge to home today. IMM completed.
Daughter confirms patient has concentrator, portable O2 tank on wheels through [employer], as well as POC shoulder tank. The son or son in law will provide transport home and will bring in the portable O2 for the ride home.
Patient & daughter aware that [facility] accepted the referral.
Message to [facility] (fax [phone]) via [facility] re; discharge today.
Plan home today with [facility], with family.
== END 2025-04-11 18:59 | disposition home health service (06) | DRG 323 ==
LOC: IMU 14:05
PROVIDERS: Hospitalist; Internal Medicine; Internal Medicine Critical Care Medicine; Nurse Practitioner; Nurse Practitioner Primary Care; Specialist; Student in an Organized Health Care Education/Training Program; ADMITTING PHYSICIAN Internal Medicine; ATTENDING PHYSICIAN Family Medicine; CONSULT PHYSICIAN Internal Medicine; CONSULT PHYSICIAN Internal Medicine Cardiovascular Disease; FAMILY PHYSICIAN Nurse Practitioner Adult Health; OTHER PHYSICIAN Internal Medicine Critical Care Medicine
PROC: 5A09357 Assistance with Respiratory Ventilation, Less than 24 Consecutive Hours, Continuous Positive Airway Pressure (ICD-10-PCS; 2025-03-25)
PROC: 4A023N6 Measurement of Cardiac Sampling and Pressure, Right Heart, Percutaneous Approach (ICD-10-PCS; 2025-03-25)
PROC: 30233N1 Transfusion of Nonautologous Red Blood Cells into Peripheral Vein, Percutaneous Approach (ICD-10-PCS; 2025-03-28)
PROC: B2111ZZ Fluoroscopy of Multiple Coronary Arteries using Low Osmolar Contrast (ICD-10-PCS; 2025-03-30)
PROC: 0271356 Dilation of Coronary Artery, Two Arteries, Bifurcation, with Two Drug-eluting Intraluminal Devices, Percutaneous Approach (ICD-10-PCS; 2025-03-30)
PROC: B240ZZ3 Ultrasonography of Single Coronary Artery, Intravascular (ICD-10-PCS; 2025-03-30)
PROC: 02F03ZZ Fragmentation in Coronary Artery, One Artery, Percutaneous Approach (ICD-10-PCS; 2025-03-30)
DX: I13.0 Hypertensive heart and chronic kidney disease with heart failure and stage 1 through stage 4 chronic kidney disease, or unspecified chronic kidney disease (principal); I50.33 Acute on chronic diastolic (congestive) heart failure; J96.21 Acute and chronic respiratory failure with hypoxia; J18.9 Pneumonia, unspecified organism; J44.0 Chronic obstructive pulmonary disease with (acute) lower respiratory infection; N17.9 Acute kidney failure, unspecified; R04.2 Hemoptysis; E87.1 Hypo-osmolality and hyponatremia; I44.7 Left bundle-branch block, unspecified; E11.22 Type 2 diabetes mellitus with diabetic chronic kidney disease; N18.31 Chronic kidney disease, stage 3a; Z99.81 Dependence on supplemental oxygen; E78.00 Pure hypercholesterolemia, unspecified; E11.42 Type 2 diabetes mellitus with diabetic polyneuropathy; E11.649 Type 2 diabetes mellitus with hypoglycemia without coma; E87.6 Hypokalemia; R21 Rash and other nonspecific skin eruption; I08.0 Rheumatic disorders of both mitral and aortic valves; I48.0 Paroxysmal atrial fibrillation; I25.10 Atherosclerotic heart disease of native coronary artery without angina pectoris; D50.9 Iron deficiency anemia, unspecified; D63.1 Anemia in chronic kidney disease; I27.29 Other secondary pulmonary hypertension; I42.9 Cardiomyopathy, unspecified; I44.0 Atrioventricular block, first degree; N40.0 Benign prostatic hyperplasia without lower urinary tract symptoms; M10.9 Gout, unspecified; Z87.891 Personal history of nicotine dependence; Z85.51 Personal history of malignant neoplasm of bladder; Z95.3 Presence of xenogenic heart valve; Z95.5 Presence of coronary angioplasty implant and graft
CPT/HCPCS: 36600; 71045; 71046; 71250; 74176; 74185; 76705; 78580; 80048; 80053; 81003; 81015; 82570; 82607; 82728; 82746; 82784; 82805; 82947; 82962; 83036; 83521; 83540; 83550; 83735; 83880; 83930; 83935; 84100; 84155; 84156; 84165; 84300; 84443; 85025; 85027; 85045; 85347; 85610; 85730; 86334; 86850; 86900; 86901; 86920; 87205; 92610; 92972; 92978; 93005; 93306; 93307; 93451; 93975; 94060; 94640; 94660; 97116; 97163; 97167; 97530; 97535; 99152; 99153; A9540; A9585; C1725; C1753; C1761; C1769; C1874; C1894; C9600; C9601; J2916; P9016; Q9967